=== PATIENT | female | born 1945 ===

== ENCOUNTER 2021-06-28 17:09 | Emergency (ER) | payer OTHER, SELFPAY ==
--- NOTE | ~2021-06-28 | CT_ITS ---
EXAMINATION: CT ABDOMEN AND PELVIS WITH CONTRAST CLINICAL INFORMATION: Abdominal pain COMPARISON: None TECHNIQUE: Multidetector volumetric images were obtained from the superior aspect of the liver through the pubic symphysis following administration 85 mL of Omnipaque 350 intravenous contrast. Sagittal and coronal reformatted images were obtained on the technologist's workstation. Oral contrast: No This CT examination was performed using dose optimization techniques as appropriate, variously including the following: *Automated exposure control *Adjustment of mA and/or kV according to patient size (this includes techniques or standardized protocols for targeted exams where dose is matched to indication/reason for exam; i.e. extremities or head) *Use of iterative reconstruction technique DLP: 434 mGy-cm FINDINGS: LUNG BASES: The visualized lung bases are unremarkable. LIVER, GALLBLADDER, AND BILIARY TREE: Liver is enlarged with the inferior tip of the liver extending well below the right iliac crest. No focal liver lesion seen. The gallbladder is unremarkable with no evidence of radiopaque gallstones, gallbladder wall thickening, or obvious pericholecystic inflammatory changes. PANCREAS: Unremarkable. SPLEEN: Unremarkable. ADRENAL GLANDS: Unremarkable. KIDNEYS AND URETERS: Renal hilar calcifications are most likely vascular. No hydronephrosis. Symmetric bilateral renal enhancement. BLADDER: Unremarkable. GASTROINTESTINAL TRACT: Small hiatal hernia. Stomach and small bowel are nondilated. Normal appendix. Scattered colonic diverticulosis. No evidence of colitis or diverticulitis. ABDOMINAL WALL: Small fat-containing umbilical hernia. LYMPH NODES: Normal. VASCULAR: Circumferential calcified atherosclerotic changes of the normal caliber aorta. PELVIC VISCERA: Unremarkable. OSSEOUS STRUCTURES: Chronic appearing superior endplate compression deformity of L4. Mild compression deformity of the superior endplates of T12 and L1 also chronic in appearance. Retrolisthesis L2 on L3. Altered level degenerative disc disease. Osteopenia. Degenerative changes of the sacroiliac joints and hips. CT/CT abdomen pelvis w con IMPRESSION: No acute CT findings.
[2021-06-28 17:17] VITALS: BP 143/81; PULSE 82; RESP 18; TEMP 36.6; O2SAT 98; BMI 24.3
[2021-06-28 18:21] LABS: MANUAL DIFF FLAG NO
[2021-06-28 18:23] LABS: Basophils Absolute Auto 0.1 X10*3/uL (0.0-0.2); Basophils Percent Auto 0.6 % (0-2); Eosinophils Absolute Auto 0.1 X10*3/uL (0.0-0.4); Eosinophils Percent Auto 1.3 % (0-4); Hematocrit 38.7 % (37.0-47.0); Hemoglobin 13.1 g/dl (12.0-16.0); Imm Gran Abs Auto 0.05 X10*3/uL (0.00-0.03); Imm Gran Pct Auto 0.6 % (0.0-0.4); Lymphocytes Absolute Auto 2.6 X10*3/uL (1.2-4.9); Lymphocytes Percent Auto 32.8 % (20-40); Mean Corpuscular HGB Conc 33.9 g/dl (31.0-35.0); Mean Corpuscular Volume 103.5 fL (80.0-98.0); Mean Platelet Volume 8.3 fL (9.4-12.3); Monocytes Absolute Auto 0.5 X10*3/uL (0.1-1.2); Monocytes Percent Auto 6.2 % (2-11); Neutrophils Absolute Auto 4.6 x10*3/uL (2.0-8.3); Neutrophils Percent Auto 58.5 % (45-73); Platelet Count 327 X10*3/uL (160-400); Red Blood Count 3.74 X10*6/uL (4.20-5.50); Red Cell Distribution Width 12.4 % (11.0-16.0); White Blood Count 7.9 X10*3/uL (4.8-10.8)
[2021-06-28 18:42] LABS: Anion Gap 14 (12-20); Blood Urea Nitrogen 13 mg/dL (9-16); Calcium 9.1 mg/dL (8.4-10.2); Carbon Dioxide 26 mmol/L (22-29); Chloride 104 mmol/L (96-108); Creatinine Clr Calc Pharmacy 58.3; Estimated Glomerular Filt Rate > 60; Glucose Random 95 mg/dL (60-115); Potassium 4.5 mmol/L (3.3-5.1); Sodium 139 mmol/L (135-145)
--- NOTE | 2021-06-28 20:05 | ED_ITS ---
HPI - Abdominal Pain General Chief Complaint: Abdominal Pain Stated Complaint: blood in stool/shingles/not eating well Time Seen by Provider: 06/28/21 20:05 Source: patient Mode of arrival: ambulatory Limitations: no limitations History of Present Illness HPI narrative: Patient is a 75 year old female presenting to the emergency department today with left lower quadrant abdominal pain. Patient states that she has a history of ulcerative colitis and has been having a flare for the last 2 weeks. Patient denies any dizziness, lightheadedness, fever, chills, blurry vision, double vision, loss of vision, chest pain, difficulty breathing, shortness of breath, back pain, night sweats, pain with urination, increased urinary frequency, increased urinary urgency, blood in her urine or stool, syncope or a near syncopal episode, recent trauma or falls, bowel incontinence, bladder incontinence, bowel retention, bladder retention, or any other complaints at this time. Patient states that she has a history of shingles and has chronic complications from that. Patient's caregiver states that she was concerned the patient's stool was darker than usual lately. MD elicited complaint: abdominal pain Pertinent past history: other (ulcerative colitis) Onset (ago): week(s) Pain Consistency: intermittent Location: LLQ Severity: mild Quality: dull Radiation: none Related Data Allergies Allergy/AdvReac Type Severity Reaction Status Date / Time No Known Allergies Allergy Verified 06/28/21 17:17 Review of Systems Constitutional: Reports no additional constitutional complaints, Denies chills, Denies fever(s) and Denies night sweats Eyes: Reports no additional eye complaints, Denies blurry vision, Denies change in vision, Denies diplopia, Denies eye discharge, Denies loss of vision and Denies eye pain Denies dizziness Cardiovascular: Reports no additional cardiovascular complaints, Denies chest pain, Denies lightheadedness, Denies Loss of Consciousness and Denies dyspnea Respiratory: Reports no additional respiratory complaints and Denies dyspnea Gastrointestinal: Reports no additional gastrointestinal complaints, Reports abdominal pain, Denies melena, Denies hematochezia, Denies change in bowel habits and Denies change in stool character Genitourinary: Denies hematuria, Denies urinary frequency, Denies dysuria, Denies urinary incontinence, Denies urinary hesitancy and Denies urinary urgency Musculoskeletal: Reports no additional musculoskeletal complaints, Denies numbness and Denies tingling Denies dizziness, Denies loss of vision, Denies numbness and Denies tingling Psychiatric: Reports no additional psychiatric complaints Endocrine: Reports no additional endocrine complaints Hematologic/Lymphatic: Reports no additional hematologic/lymphatic complaints Allergic/Immunologic: Reports no additional allergic/immunologic complaints PMFSH Past Medical History Attestation statement: The following information was validated with the patient. Source: old records reviewed Medical History Colitis Social History Social History Advance Directives: No Physical Exam ED Vital Signs: Vital Signs - 24 hr 06/28/21 17:17 06/28/21 20:07 06/28/21 22:29 Temperature 98 F 99.0 F 98.6 F Pulse Rate 82 86 82 Respiratory Rate 18 16 16 Blood Pressure 143/81 H 131/68 166/85 H Pulse Oximetry 98 95 96 BMI result Body Mass Index 24.3 Const General: cooperative, no acute distress, alert and awake Nutritional Appearance: well nourished Orientation/consciousness: patient oriented x3 Limitations: no limitations HENMT Head: Yes normal to inspection and Yes atraumatic Ears: hearing grossly normal bilaterally and external ears normal General nose exam: Normal external nose present, no nasal discharge noted and no epistaxis Face and sinus: Yes normal facial exam, No abrasion and No laceration Mouth: Normal oral and palatal mucosa present, no drooling and no muffled voice Eyes General: appearance normal, both eyes and all related structures Periorbital: periorbital findings normal Eyelids: Yes eyelids normal Conjunctivae: conjunctivae normal Pupils: Equal, round and reactive pupils present EOM: EOMs intact bilaterally Neck Neck: Yes normal visual inspection, Yes full ROM and Yes no lymphadenopathy Chest Chest palpation & inspection: normal inspection of the chest Resp Effort & Inspection: normal respiratory effort and able to speak in complete sentences Auscultation: clear to auscultation bilaterally Cardio Rate: regular rate Rhythm: regular rhythm GI Inspection: Yes normal to inspection Palpation (GI): Soft to palpation, not firm and Tenderness to palpation present (GI) in the LLQ Neuro General: patient oriented x3 and moves all extremities Cranial nerves: Yes Equal, round and reactive pupils present Cognition (Neuro): normal cognition Motor exam (neuro): 5/5 motor strength present throughout Sensory Exam: Normal double simultaneous stimulation for sensation Coordination: [id number] test normal Extrem General: Yes normal to inspection, Yes full ROM and Yes capillary refill normal Psych Appearance: grossly normal Mental Status: mental status grossly normal Affect: normal affect Attitude: cooperative Thought process: Normal thought process present Thought content: Normal thought content present Insight: Good insight present (Psych) MDM - Abdominal Pain MDM Narrative Medical decision making narrative: Patient is a 75 year old female presenting to the emergency department today with left sided abdominal pain. Patient's physical exam showed tenderness to palpation of the left lower abdominal quadrant but was otherwise unremarkable. Patient's blood work was unremarkable. Patient's abdominal CT showed no acute process. I explained my physical exam findings as well as all test results to the patient and the patient's caregiver. I answered all questions asked by the patient and the patient's caregiver. I stressed the importance of the patient taking her medication as prescribed. I stressed the importance of the patient following up with her primary care provider and GI specialist. I stressed the importance of the patient returning to the emergency department immediately if her symptoms were to worsen or if she were to develop any dizziness, shortness of breath, difficulty breathing, chest pain, blurry vision, loss of vision, nausea, vomiting, abdominal pain, fever, chills, back pain, or any other complaints. Patient and the patient's caregiver verbalized agreement and understanding with this treatment plan and discharge. Differential Diagnosis Differential diagnosis: Likely abdominal pain and gastritis Differential diagnosis narrative:: ulcerative colitis flare Medical Records Attestation: I reviewed the patient's medical records. Lab Data Attestation: I reviewed the patient's lab results. Result diagrams: 06/28/21 18:17 06/28/21 18:17 Labs: Lab Results 06/28/21 06/28/21 Range/Units 18:17 18:17 WBC 7.9 (4.8-10.8) X10*3/uL RBC 3.74 L (4.20-5.50) X10*6/uL Hgb 13.1 (12.0-16.0) g/dl Hct 38.7 (37.0-47.0) % MCV 103.5 H (80.0-98.0) fL MCH 35.0 H (27.0-33.0) pg MCHC 33.9 (31.0-35.0) g/dl RDW 12.4 (11.0-16.0) % Plt Count 327 (160-400) X10*3/uL MPV 8.3 L (9.4-12.3) fL Immature Gran % (Auto) 0.6 H (0.0-0.4) % Neut % (Auto) 58.5 (45-73) % Lymph % (Auto) 32.8 (20-40) % [place] % (Auto) 6.2 (2-11) % Eos % (Auto) 1.3 (0-4) % Baso % (Auto) 0.6 (0-2) % Lymph # (Auto) 2.6 (1.2-4.9) X10*3/uL [place] # (Auto) 0.5 (0.1-1.2) X10*3/uL Eos # (Auto) 0.1 (0.0-0.4) X10*3/uL Baso # (Auto) 0.1 (0.0-0.2) X10*3/uL Abs Immat Gran (auto) 0.05 H (0.00-0.03) X10*3/uL Absolute Neuts (auto) 4.6 (2.0-8.3) x10*3/uL Absolute Nucleated RBC 0.000 (0.0-0.012) X10*3/uL Nucleated RBC % (auto) 0.0 (0.0-0.2) /100WBC Sodium 139 (135-145) mmol/L Potassium 4.5 (3.3-5.1) mmol/L Chloride 104 (96-108) mmol/L Carbon Dioxide 26 (22-29) mmol/L Anion Gap 14 (12-20) BUN 13 (9-16) mg/dL Creatinine 0.71 (0.5-1.4) mg/dL Estim Creat Clear Calc 58.3 Estimated GFR > 60 Random Glucose 95 (60-115) mg/dL Calcium 9.1 (8.4-10.2) mg/dL Imaging Data CT scan - abdomen: Attestation: I personally reviewed and interpreted this imaging study as follows: Radiologist's impression: EXAMINATION: CT ABDOMEN AND PELVIS WITH CONTRAST? CLINICAL INFORMATION: Abdominal pain? COMPARISON: None? TECHNIQUE: Multidetector volumetric images were obtained from the superior aspect of the liver through the pubic symphysis following administration 85 mL of Omnipaque 350 intravenous contrast. Sagittal and coronal reformatted images were obtained on the technologist's workstation.? Oral contrast: No This CT examination was performed using dose optimization techniques as appropriate, variously including the following: *Automated exposure control *Adjustment of mA and/or kV according to patient size (this includes techniques or standardized protocols for targeted exams where dose is matched to indication/reason for exam; i.e. extremities or head) *Use of iterative reconstruction technique DLP: 434 mGy-cm FINDINGS: LUNG BASES: The visualized lung bases are unremarkable.? LIVER, GALLBLADDER, AND BILIARY TREE: Liver is enlarged with the inferior tip of the liver extending well below the right iliac crest. No focal liver lesion seen. The gallbladder is unremarkable with no evidence of radiopaque gallstones, gallbladder wall thickening, or obvious pericholecystic inflammatory changes.? PANCREAS: Unremarkable.? SPLEEN: Unremarkable.? ADRENAL GLANDS: Unremarkable.? KIDNEYS AND URETERS: Renal hilar calcifications are most likely vascular. No hydronephrosis. Symmetric bilateral renal enhancement. ? BLADDER: Unremarkable.? GASTROINTESTINAL TRACT: Small hiatal hernia. Stomach and small bowel are nondilated. Normal appendix. Scattered colonic diverticulosis. No evidence of colitis or diverticulitis.? ABDOMINAL WALL: Small fat-containing umbilical hernia.? LYMPH NODES: Normal. VASCULAR: Circumferential calcified atherosclerotic changes of the normal caliber aorta. PELVIC VISCERA: Unremarkable.? OSSEOUS STRUCTURES: Chronic appearing superior endplate compression deformity of L4. Mild compression deformity of the superior endplates of T12 and L1 also chronic in appearance. Retrolisthesis L2 on L3. Altered level degenerative disc disease. Osteopenia. Degenerative changes of the sacroiliac joints and hips.? CT/CT abdomen pelvis w con IMPRESSION: No acute CT findings.? Dictated By: ROGELIO SWARTZ MD Signed By: Electronically signed by ROGELIO SWARTZ MD 06/28/21 [id number] Discharge Plan Discharge Clinical Impression: Abdominal pain Patient Disposition: Home, Self-Care Instructions: Abdominal Pain (ED) Additional Instructions: Follow up with your primary care provider. Return to the emergency department immediately if your symptoms worsen or if you develop any dizziness, shortness of breath, difficulty breathing, chest pain, blurry vision, loss of vision, nausea, vomiting, abdominal pain, fever, chills, back pain, or any other complaints. Interventions: ED Discharge Assessment Last Done: 06/28/21 22:46 Discharge Date/Time: 06/28/21 22:48 Print Language: Portuguese
[2021-06-28 20:07] VITALS: BP 131/68; PULSE 86; RESP 16; TEMP 37.2; O2SAT 95
[2021-06-28] MEDS: iohexoL 350 MG/ML 100 ML INFUS..BTL IV (20:54)
[2021-06-28 22:29] VITALS: BP 166/85; PULSE 82; RESP 16; TEMP 37; O2SAT 96
== END 2021-06-28 22:48 | disposition home or self-care (01) ==
PROVIDERS: Emergency Provider Emergency Medicine
DX: R10.32 Left lower quadrant pain (principal)
CPT/HCPCS: 36415; 74177; 80048; 85025; 99283; 99284; Q9967

== ENCOUNTER 2021-07-18 15:26 | Emergency (ER) | payer OTHER, SELFPAY ==
[2021-07-18 16:29] VITALS: BP 110/70; PULSE 92; RESP 18; TEMP 37.1; O2SAT 96; BMI 23.0
[2021-07-18 16:45] LABS: MANUAL DIFF FLAG NO
[2021-07-18 16:47] LABS: Basophils Absolute Auto 0.1 X10*3/uL (0.0-0.2); Basophils Percent Auto 0.8 % (0-2); Eosinophils Absolute Auto 0.1 X10*3/uL (0.0-0.4); Eosinophils Percent Auto 1.2 % (0-4); Hematocrit 40.5 % (37.0-47.0); Hemoglobin 13.5 g/dl (12.0-16.0); Imm Gran Abs Auto 0.04 X10*3/uL (0.00-0.03); Imm Gran Pct Auto 0.6 % (0.0-0.4); Lymphocytes Absolute Auto 2.5 X10*3/uL (1.2-4.9); Lymphocytes Percent Auto 33.7 % (20-40); Mean Corpuscular HGB Conc 33.3 g/dl (31.0-35.0); Mean Corpuscular Hemoglobin 34.8 pg (27.0-33.0); Mean Corpuscular Volume 104.4 fL (80.0-98.0); Mean Platelet Volume 8.5 fL (9.4-12.3); Monocytes Absolute Auto 0.4 X10*3/uL (0.1-1.2); Monocytes Percent Auto 5.8 % (2-11); Neutrophils Absolute Auto 4.2 x10*3/uL (2.0-8.3); Neutrophils Percent Auto 57.9 % (45-73); Platelet Count 306 X10*3/uL (160-400); Red Blood Count 3.88 X10*6/uL (4.20-5.50); Red Cell Distribution Width 12.3 % (11.0-16.0); White Blood Count 7.3 X10*3/uL (4.8-10.8)
[2021-07-18 16:55] LABS: Appearance Urine HAZY; Color Urine YELLOW; Glucose Urine UA NEG (NEG); Leukocyte Esterase Urine 1+ (NEG); Nitrite Urine POS (NEG); PH 5.5 (5.0-8.0); Specific Gravity - Urine >= 1.030 (1.005-1.025); UACC Culture Trigger YES; Urine Blood TRACE (NEG); Urine Ketones NEG (NEG); Urine Protein NEG (NEG-TRACE)
[2021-07-18 17:08] LABS: Alanine Aminotransferase 6 U/L (0-31); Alkaline Phosphatase 60 U/L (39-117); Anion Gap 12 (12-20); Aspartate Amino Transferase 13 U/L (5-31); Bilirubin Total 0.2 mg/dL (0.0-1.0); Blood Urea Nitrogen 14 mg/dL (9-16); Calcium 9.3 mg/dL (8.4-10.2); Carbon Dioxide 24 mmol/L (22-29); Chloride 106 mmol/L (96-108); Creatinine Clr Calc Pharmacy 57.5; Estimated Glomerular Filt Rate > 60; Glucose Random 131 mg/dL (60-115); Potassium 4.2 mmol/L (3.3-5.1); Sodium 138 mmol/L (135-145); Total Protein 7.4 g/dL (6.5-8.0)
[2021-07-18 17:18] LABS: Bacteria Urine 4+ /LPF; Mucus Urine TRACE /LPF; Renal Epithelial Cells Urine TRACE /LPF; Squamous Epithelial Cell Urine 2+ /LPF; WBC Clumps Urine NOTED
--- NOTE | 2021-07-18 21:53 | ED_ITS ---
HPI - Abdominal Pain General Chief Complaint: Abdominal Pain Stated Complaint: sharp side abd pain/cant eat Time Seen by Provider: 07/18/21 21:40 Source: patient and other ([facility] staff) Mode of arrival: ambulatory Limitations: no limitations History of Present Illness HPI narrative: Patient comes to the emergency room complaining of left lower quadrant pain. Findings the correction staff and the patient, the pain has been present for 1 year. Patient states that occasionally she sees black stool. Denies fresh rectal bleeding. Patient also complaining of foul-smelling urine. Patient denies flank pain Of note, patient was seen 3 weeks ago, CT scan showed no acute abnormalities. Patient states that the pain that she feels today is the same that she has been having intermittently for the last year. Patient denies fever chills. On her last visit, patient was instructed follow-up with Gastroenterology, patient has not scheduled an appointment yet with Gastroenterology, has an appointment pending with her new PCP in 2 months from now. Related Data Previous Rx's Medication Instructions Recorded cyanocobalamin (vitamin B-12) 1,000 mcg PO DAILY #30 cap 07/18/21 1,000 mcg capsule folic acid 400 mcg tablet 0.4 mg PO DAILY #30 tab 07/18/21 levofloxacin 500 mg tablet 500 mg PO DAILY #7 tab 07/18/21 Allergies Allergy/AdvReac Type Severity Reaction Status Date / Time No Known Allergies Allergy Verified 07/18/21 16:29 Review of Systems Review of Systems Constitutional : No Weight loss, No Fever, No Chills, No Night Sweats, No Fatigue, No Malaise ENT/Mouth : No Hearing loss, No Ear Pain, No Nasal Congestion, No Sinus Pain, No Hoarseness, No sore throat, No Rhinorrhea, No Swallowing Difficulty Eyes: No Eye Pain, No Swelling, No Redness, No Foreign Body, No Discharge, No Vision Changes Cardiovascular : No Chest Pain, No SOB, No Dyspnea on Exertion, No Orthopnea, No Edema, No Palpitations Respiratory : No Cough, No Sputum, No Wheezing, No Smoke Exposure, No Dyspnea Gastrointestinal : No Nausea, No Vomiting, No Diarrhea, No Constipation, complaining of left lower quadrant pain, intermittent, chronic. Also complaining of intermittent black stools. Genitourinary : no irregular bleeding, No Dysuria but complaining of foul- smelling urine, No Urinary Frequency, No Hematuria, No Urinary Incontinence, No Urgency, No Flank Pain, No Urinary Flow Changes, No Hesitancy Musculoskeletal : No joint pain, No Myalgias, No Joint Swelling Skin : No Skin Lesions, No rash Neuro : No Weakness, No Numbness, No Paresthesias, No Loss of Consciousness, No Dizziness, No Headache Psych : No Anxiety/Panic, No Depression, No SI/HI/AH/VH, No Social Issues, Heme/Lymph: No Bruising, No Bleeding,No Lymphadenopathy Endocrine : No Polyuria, No Polydipsia, No Temperature Intolerance [facility] Past Medical History Medical History Colitis Social History Social History Advance Directives: No Advance Directives Information Provided: No Physical Exam ED Vital Signs: Vital Signs - 24 hr 07/18/21 16:29 07/18/21 22:39 Temperature 98.7 F Pulse Rate 92 82 Respiratory Rate 18 18 Blood Pressure 110/70 143/77 H Pulse Oximetry 96 97 BMI result Body Mass Index 23.0 Const Other: Appearance: Alert. Oriented X3. No acute distress. Well-appearing Eyes: Pupils equal, round and reactive to light. ENT: Pharynx normal. Neck: Normal inspection. Neck supple. No lymph nodes noted. No crepitus CVS: Normal heart rate and rhythm. Pulses normal. Normal S1 and S2 Respiratory: No respiratory distress. Breath sounds normal. No Wheezing. No rales Abdomen: Soft , seems not tender on deep palpation even the left lower quadrant. Back: No CVA tenderness Skin: Skin warm and dry. Normal skin color. Normal skin turgor. Extremities: No lower extremity edema. No Lacerations. No Rash Neuro: Oriented X 3. No motor deficit. No sensory deficit. Moving all extremities. No slurred speech. CN 2 through 12 grossly intact Psych: calm, cooperative, normal affect Course Course Course Narrative: Patient's labs are unchanged from her last previous visit. Physical exam is relatively benign, at this time, CT scan is not recommended. Patient agreed to a rectal exam for guaiac test, which was negative for occult blood. I discussed with the patient and her healthcare taker that patient needs a colonoscopy. Patient will follow-up with Gastroenterology. Patient's MCV 104. Patient will be started on [place] in B12 and folate MDM - Abdominal Pain Lab Data Result diagrams: 07/18/21 16:40 07/18/21 16:40 Labs: Lab Results 07/18/21 07/18/21 07/18/21 Range/Units 16:40 16:40 16:50 WBC 7.3 (4.8-10.8) X10*3/uL RBC 3.88 L (4.20-5.50) X10*6/uL Hgb 13.5 (12.0-16.0) g/dl Hct 40.5 (37.0-47.0) % MCV 104.4 H (80.0-98.0) fL MCH 34.8 H (27.0-33.0) pg MCHC 33.3 (31.0-35.0) g/dl RDW 12.3 (11.0-16.0) % Plt Count 306 (160-400) X10*3/uL MPV 8.5 L (9.4-12.3) fL Immature Gran % (Auto) 0.6 H (0.0-0.4) % Neut % (Auto) 57.9 (45-73) % Lymph % (Auto) 33.7 (20-40) % [place] % (Auto) 5.8 (2-11) % Eos % (Auto) 1.2 (0-4) % Baso % (Auto) 0.8 (0-2) % Lymph # (Auto) 2.5 (1.2-4.9) X10*3/uL [place] # (Auto) 0.4 (0.1-1.2) X10*3/uL Eos # (Auto) 0.1 (0.0-0.4) X10*3/uL Baso # (Auto) 0.1 (0.0-0.2) X10*3/uL Abs Immat Gran (auto) 0.04 H (0.00-0.03) X10*3/uL Absolute Neuts (auto) 4.2 (2.0-8.3) x10*3/uL Absolute Nucleated RBC 0.000 (0.0-0.012) X10*3/uL Nucleated RBC % (auto) 0.0 (0.0-0.2) /100WBC Sodium 138 (135-145) mmol/L Potassium 4.2 (3.3-5.1) mmol/L Chloride 106 (96-108) mmol/L Carbon Dioxide 24 (22-29) mmol/L Anion Gap 12 (12-20) BUN 14 (9-16) mg/dL Creatinine 0.72 (0.5-1.4) mg/dL Estim Creat Clear Calc 57.5 Estimated GFR > 60 Random Glucose 131 H (60-115) mg/dL Calcium 9.3 (8.4-10.2) mg/dL Total Bilirubin 0.2 (0.0-1.0) mg/dL AST 13 (5-31) U/L ALT 6 (0-31) U/L Alkaline Phosphatase 60 (39-117) U/L Total Protein 7.4 (6.5-8.0) g/dL Albumin 4.0 (3.5-5.0) g/dL Urine Color YELLOW Urine Appearance HAZY Urine pH 5.5 (5.0-8.0) Ur Specific [place] >= 1.030 H (1.005-1.025) Urine Protein NEG (NEG-TRACE) MG/DL Urine Glucose (UA) NEG (NEG) MG/DL Urine Ketones NEG (NEG) MG/DL Urine Blood TRACE (NEG) Urine Nitrite POS H (NEG) Ur Leukocyte Esterase 1+ H (NEG) Urine RBC 1-4 (0) /HPF Urine WBC 10-14 H (0-4) /HPF Urine WBC Clumps NOTED Ur Squamous Epith Cells 2+ /LPF Ur Renal Epithelial Cell TRACE /LPF Urine Bacteria 4+ /LPF Urine Mucus TRACE /LPF Stool Occult Blood (NEGATIVE) 07/18/21 Range/Units 22:22 WBC (4.8-10.8) X10*3/uL RBC (4.20-5.50) X10*6/uL Hgb (12.0-16.0) g/dl Hct (37.0-47.0) % MCV (80.0-98.0) fL MCH (27.0-33.0) pg MCHC (31.0-35.0) g/dl RDW (11.0-16.0) % Plt Count (160-400) X10*3/uL MPV (9.4-12.3) fL Immature Gran % (Auto) (0.0-0.4) % Neut % (Auto) (45-73) % Lymph % (Auto) (20-40) % [place] % (Auto) (2-11) % Eos % (Auto) (0-4) % Baso % (Auto) (0-2) % Lymph # (Auto) (1.2-4.9) X10*3/uL [place] # (Auto) (0.1-1.2) X10*3/uL Eos # (Auto) (0.0-0.4) X10*3/uL Baso # (Auto) (0.0-0.2) X10*3/uL Abs Immat Gran (auto) (0.00-0.03) X10*3/uL Absolute Neuts (auto) (2.0-8.3) x10*3/uL Absolute Nucleated RBC (0.0-0.012) X10*3/uL Nucleated RBC % (auto) (0.0-0.2) /100WBC Sodium (135-145) mmol/L Potassium (3.3-5.1) mmol/L Chloride (96-108) mmol/L Carbon Dioxide (22-29) mmol/L Anion Gap (12-20) BUN (9-16) mg/dL Creatinine (0.5-1.4) mg/dL Estim Creat Clear Calc Estimated GFR Random Glucose (60-115) mg/dL Calcium (8.4-10.2) mg/dL Total Bilirubin (0.0-1.0) mg/dL AST (5-31) U/L ALT (0-31) U/L Alkaline Phosphatase (39-117) U/L Total Protein (6.5-8.0) g/dL Albumin (3.5-5.0) g/dL Urine Color Urine Appearance Urine pH (5.0-8.0) Ur Specific [place] (1.005-1.025) Urine Protein (NEG-TRACE) MG/DL Urine Glucose (UA) (NEG) MG/DL Urine Ketones (NEG) MG/DL Urine Blood (NEG) Urine Nitrite (NEG) Ur Leukocyte Esterase (NEG) Urine RBC (0) /HPF Urine WBC (0-4) /HPF Urine WBC Clumps Ur Squamous Epith Cells /LPF Ur Renal Epithelial Cell /LPF Urine Bacteria /LPF Urine Mucus /LPF Stool Occult Blood NEGATIVE (NEGATIVE) Discharge Plan Discharge Clinical Impression: Abdominal pain, chronic, left lower quadrant, Acute UTI, Anemia Patient Disposition: Home, Self-Care Instructions: Anemia (ED), Urinary Tract Infection in Older Adults (ED) Additional Instructions: Please follow-up with your primary care physician tomorrow. If you have any worsening or new symptoms, please return to the emergency room or call 911 Prescriptions: New levofloxacin 500 mg tablet 500 mg PO DAILY Qty: 7 0RF folic acid 400 mcg tablet 0.4 mg PO DAILY Qty: 30 0RF cyanocobalamin (vitamin B-12) 1,000 mcg capsule 1,000 mcg PO DAILY Qty: 30 0RF
[2021-07-18 22:29] LABS: OBS Int Ctl Valid YES; OBS1 NEGATIVE (NEGATIVE)
[2021-07-18] MEDS: levoFLOXacin 500 MG TABLET PO (22:37)
[2021-07-18 22:39] VITALS: BP 143/77; PULSE 82; RESP 18; O2SAT 97
== END 2021-07-18 23:45 | disposition home or self-care (01) ==
PROVIDERS: Emergency Provider Emergency Medicine; PCP Internal Medicine
DX: N39.0 Urinary tract infection, site not specified (principal); B96.20 Unspecified Escherichia coli [E. coli] as the cause of diseases classified elsewhere; R10.32 Left lower quadrant pain; D64.9 Anemia, unspecified; F17.200 Nicotine dependence, unspecified, uncomplicated
CPT/HCPCS: 36415; 80053; 81001; 82272; 85025; 87086; 87088; 87186; 99283

== ENCOUNTER 2021-07-26 11:34 | Outpatient (REF) | payer OTHER, SELFPAY ==
--- NOTE | ~2021-07-26 | XR_ITS ---
EXAMINATION: XR CHEST CLINICAL INFORMATION: Nicotine dependence COMPARISON: CT abdomen pelvis 06/28/2021 TECHNIQUE: 2 views of the chest were obtained. FINDINGS: No focal consolidation, pleural effusion or pneumothorax. Heart size is normal. Tortuous and atherosclerotic thoracic aorta. Small hiatal hernia. No acute osseous abnormality. XR/XR chest 2V IMPRESSION: No acute pulmonary process is identified. If lung cancer screening is desired, consider low dose screening chest CT for better cancer detection sensitivity.
[2021-07-26 12:04] LABS: MANUAL DIFF FLAG NO
[2021-07-26 12:33] LABS: Basophils Percent Auto 0.6 % (0-2); Eosinophils Absolute Auto 0.1 X10*3/uL (0.0-0.4); Eosinophils Percent Auto 1.5 % (0-4); Hematocrit 38.5 % (37.0-47.0); Hemoglobin 12.8 g/dl (12.0-16.0); Imm Gran Abs Auto 0.07 X10*3/uL (0.00-0.03); Imm Gran Pct Auto 1.1 % (0.0-0.4); Lymphocytes Absolute Auto 1.9 X10*3/uL (1.2-4.9); Lymphocytes Percent Auto 29.7 % (20-40); Mean Corpuscular HGB Conc 33.2 g/dl (31.0-35.0); Mean Corpuscular Hemoglobin 34.8 pg (27.0-33.0); Mean Corpuscular Volume 104.6 fL (80.0-98.0); Mean Platelet Volume 8.5 fL (9.4-12.3); Monocytes Absolute Auto 0.6 X10*3/uL (0.1-1.2); Monocytes Percent Auto 8.9 % (2-11); Neutrophils Absolute Auto 3.8 x10*3/uL (2.0-8.3); Neutrophils Percent Auto 58.2 % (45-73); Platelet Count 274 X10*3/uL (160-400); Red Blood Count 3.68 X10*6/uL (4.20-5.50); White Blood Count 6.5 X10*3/uL (4.8-10.8)
[2021-07-26 12:49] LABS: Appearance Urine CLEAR; Color Urine YELLOW; Glucose Urine UA NEG (NEG); Leukocyte Esterase Urine 1+ (NEG); Nitrite Urine NEG (NEG); Specific Gravity - Urine >= 1.030 (1.005-1.025); UACC Culture Trigger YES; Urine Blood NEG (NEG); Urine Ketones NEG (NEG); Urine Protein NEG (NEG-TRACE)
[2021-07-26 13:08] LABS: Erythrocyte Sedimentation Rate 46 MM/HR (0-20)
[2021-07-26 13:15] LABS: Mucus Urine 1+ /LPF; RBC Urine 0 /HPF (0); Squamous Epithelial Cell Urine 1+ /LPF
[2021-07-26 13:53] LABS: Alanine Aminotransferase 6 U/L (0-31); Albumin Level 3.9 g/dL (3.5-5.0); Alkaline Phosphatase 55 U/L (39-117); Anion Gap 13 (12-20); Aspartate Amino Transferase 12 U/L (5-31); Bilirubin Total 0.6 mg/dL (0.0-1.0); Blood Urea Nitrogen 15 mg/dL (9-16); Calcium 9.4 mg/dL (8.4-10.2); Carbon Dioxide 28 mmol/L (22-29); Chloride 102 mmol/L (96-108); Cholesterol 292 mg/dL; Estimated Glomerular Filt Rate > 60; Glucose Fasting 86 mg/dL (60-99); HDL Cholesterol 38 mg/dL; LDL Cholesterol Calculated 182 mg/dl; Potassium 4.3 mmol/L (3.3-5.1); Sodium 139 mmol/L (135-145); Triglycerides 364 mg/dL
[2021-07-26 14:02] LABS: TSH reflex Free T4 1.35 uIU/mL (0.32-4.0)
[2021-07-26 14:16] LABS: Folate 5.5 ng/mL (> or = 4.0); Vitamin B12 566 pg/mL (200-900)
[2021-07-27 15:32] LABS: Vitamin D 25-OH Total 35.6 ng/mL (>30)
== END 2021-07-26 11:35 | disposition home or self-care (01) ==
LOC: HO.LAB 11:34
PROVIDERS: PCP Internal Medicine; Visit Provider Internal Medicine
DX: Z00.00 Encounter for general adult medical examination without abnormal findings (principal); D75.89 Other specified diseases of blood and blood-forming organs; F17.200 Nicotine dependence, unspecified, uncomplicated; R05.9 Cough, unspecified; R10.32 Left lower quadrant pain; E55.9 Vitamin D deficiency, unspecified; G89.29 Other chronic pain
CPT/HCPCS: 36415; 71046; 80053; 80061; 81001; 82306; 82607; 82746; 84443; 85025; 85652; 87086

== ENCOUNTER 2021-08-22 13:22 | Outpatient (REF) | payer OTHER, SELFPAY ==
[2021-08-22 15:42] LABS: Amylase 110 U/L (28-100); C Reactive Protein 0.28 mg/dL (< or = 0.50); Lipase 48 U/L (8-78)
[2021-08-23 14:57] LABS: Transglutaminase Ab IgG <1.0 U/mL; Transglutaminase IgA <1.0 U/mL
== END 2021-08-22 13:23 | disposition home or self-care (01) ==
LOC: HO.LAB 13:22
PROVIDERS: PCP Internal Medicine; Referring Provider Internal Medicine; Visit Provider Nurse Practitioner Family
DX: R10.32 Left lower quadrant pain (principal); K21.9 Gastro-esophageal reflux disease without esophagitis; K58.2 Mixed irritable bowel syndrome; G89.29 Other chronic pain
CPT/HCPCS: 36415; 82150; 83690; 86140; 86364; 99202

== ENCOUNTER 2021-08-25 14:11 | Outpatient (REF) | payer OTHER, SELFPAY ==
[2021-09-04 20:32] LABS: Pancreatic Elastase-1 >500 mcg/g
== END 2021-08-25 14:12 | disposition home or self-care (01) ==
LOC: HO.LNP 14:11
PROVIDERS: Visit Provider Nurse Practitioner Family
DX: R10.9 Unspecified abdominal pain (principal)
CPT/HCPCS: 82656

== ENCOUNTER → 2021-09-26 15:41 | Outpatient (BNVA) | payer OTHER, SELFPAY | PROVIDERS: PCP Internal Medicine; Referring Provider Internal Medicine; Visit Provider Nurse Practitioner Family | DX: R10.32 Left lower quadrant pain (principal); G89.29 Other chronic pain; K21.9 Gastro-esophageal reflux disease without esophagitis; Z79.899 Other long term (current) drug therapy | CPT/HCPCS: 99212 ==

== ENCOUNTER 2021-12-12 12:51 | Outpatient (REF) | payer OTHER, SELFPAY ==
--- NOTE | ~2021-12-12 | MM_ITS ---
EXAMINATION: MM SCREENING DIGITAL BREAST TOMOSYNTHESIS, BILATERAL CLINICAL INFORMATION: Screening. Asymptomatic. Age 76. Prior benign right breast surgery by patient history. Remote prior outside mammography at unknown facility. No local prior outside mammography by the radiology staff local search. The lifetime risk of breast cancer based on the Tyrer-Cuzick Model is 3%. COMPARISON: None. TECHNIQUE: Digital breast tomosynthesis is performed in both the craniocaudal and mediolateral oblique views along with computer-aided detection (CAD). Synthesized 2D images are generated from the tomosynthesis. FINDINGS: The breasts are heterogeneously dense, which may obscure small masses (ACR BI-RADS breast composition Category c). There is fibronodular parenchymal pattern. No architectural abnormality. There are scattered benign coarse calcification regionally distributed right breast upper outer quadrant and lesser central left breast. The skin contours are smooth. There are surgical clips right upper outer quadrant and right axilla. Right breast has circumscribed 0.7 cm nodule mid 9:00 position possibly intramammary node. As there are no available prior studies for comparison, patient will be recalled to fully characterize. MM/MM tomosynthesis screening BI IMPRESSION: Right: -Circumscribed nodule under 1 cm mid 9:00 position. -Minor post surgical changes. Left: -No mammographic evidence of malignancy. ASSESSMENT: BI-RADS 0: Incomplete - Need Additional Imaging Evaluation RECOMMENDATION: 1. Targeted ultrasound right breast. 2. Radiology department staff will contact the patient for additional imaging. This patient's information was entered into a reminder system with a target due date for their next mammogram.
--- NOTE | ~2021-12-12 | MM_ITS ---
EXAMINATION: BONE DENSITOMETRY CLINICAL INDICATION: Asymptomatic menopausal state. COMPARISON: This is the patient's baseline examination. TECHNIQUE: Using a [employer] [address] DXA System (software version: 13.1) manufactured by [employer], dual-energy x-ray absorptiometry was performed of the lumbar spine and left hip. The images are of good technical quality. Summary results are attached. FINDINGS: AP SPINE L1-L4: BMD 0.921 g/cm2, Z-score -0.6, T-score -2.2, osteopenia. LEFT FEMUR, NECK: BMD 0.558 g/cm2, Z-score -1.7, T-score -3.5, osteoporosis. LEFT FEMUR, TOTAL: BMD 0.554 g/cm2, Z-score -2.0, T-score -3.6, osteoporosis. IDENTIFIED RISK FACTORS: Early menopause, secondary osteoporosis, hysterectomy, bilateral oophorectomy, tobacco use (current smoker), alcohol, 3 or more units per day. HISTORY OF FRACTURE: None listed. MEDICATIONS: Calcium supplements or multivitamin, vitamin D. MM/XR DEXA axial skeleton IMPRESSION: 1. DIAGNOSIS: Osteoporosis based on the lowest T-score value of -3.6 in the total femur applying World Health Organization criteria. 2. 10-YEAR FRACTURE RISK PREDICTION, FRAX: According to the guidelines, FRAX calculation should only be performed on patients in the osteopenia bone density category. Therefore, FRAX was not performed on this patient. 3. Treatment Recommendations: NOF guidelines recommend consideration for treatment in postmenopausal women and men age 50 and older presenting with the following: -A hip or vertebral (clinical or morphometric) fracture. -T-score less than or equal to -2.5 at the femoral neck or spine after appropriate evaluation to exclude secondary causes. -Low bone mass at the hip or spine and a 10-year fracture probability by FRAX of greater than or equal to 3% for hip fracture or greater than or equal to 20% for major osteoporotic fracture based on the [place] adapted WHO algorithm. 4. Other Recommendations: All treatment decisions require clinical judgment and consideration of individual patient factors, including patient preferences, comorbidities, previous drug use, risk factors not captured in the FRAX model (e.g. frailty, falls, vitamin D deficiency, increased bone turnover, interval significant decline in bone density) and possible under or overestimation of fracture risk by FRAX. Additional medical evaluation for secondary cause of low bone mineral density may be appropriate. FUTURE SCAN RECOMMENDATION: People with diagnosed cases of osteoporosis or at high risk for fracture should have regular bone mineral density tests. For patients eligible for Medicare, routine testing is allowed once every 2 years. The testing frequency can be increased to one year for patients who have rapidly progressing disease, those who are receiving or discontinuing medical therapy to restore bone mass, or have additional risk factors.
== END 2021-12-12 12:52 | disposition home or self-care (01) ==
LOC: HO.MAMMO 12:51
PROVIDERS: Visit Provider Internal Medicine
DX: Z12.31 Encounter for screening mammogram for malignant neoplasm of breast (principal); Z13.820 Encounter for screening for osteoporosis; Z78.0 Asymptomatic menopausal state
CPT/HCPCS: 77063; 77067; 77080

== ENCOUNTER 2021-12-22 09:46 | Outpatient (REF) | payer OTHER, SELFPAY ==
--- NOTE | ~2021-12-22 | US_ITS ---
EXAMINATION: US DIAGNOSTIC ULTRASOUND BREAST, RIGHT CLINICAL INFORMATION: Nodule mid outer right breast on new baseline screening mammography. COMPARISON: Mammography 12/12/2021 (new baseline). TECHNIQUE: Ultrasound right breast is targeted to the outer breast. Grayscale imaging and color Doppler are performed without and with harmonics. FINDINGS: There is a circumscribed solid nodule just beneath the skin 9:00 position 4 cm from nipple and measuring 0.8 x 0.5 x 0.6 cm. There is strong associated peripheral or internal color flow. No posterior acoustic enhancement or shadowing. No claw sign with the skin to suggest lesion of dermal origin. Finding corresponds to the nodule on mammography, possibly papillary or other lesion. Results are discussed with the patient at time of visit. Ultrasound-guided core biopsy is recommended. Patient is in agreement. US/US breast RT limited IMPRESSION: Solid nodule superficial 9:00 right breast with prominent internal color flow corresponding to recent mammography measuring approximately 0.8 cm in greatest dimension. ASSESSMENT: BI-RADS 4: Suspicious RECOMMENDATION: Ultrasound-guided core biopsy right breast nodule. This patient's information was entered into a reminder system with a target due date for their next mammogram.
== END 2021-12-22 09:47 | disposition home or self-care (01) ==
LOC: HO.MAMMO 09:46
PROVIDERS: PCP Internal Medicine; Visit Provider Internal Medicine
DX: N63.15 Unspecified lump in the right breast, overlapping quadrants (principal)
CPT/HCPCS: 76642

== ENCOUNTER 2021-12-28 09:01 | Outpatient (REF) | payer OTHER, SELFPAY ==
--- NOTE | ~2021-12-28 | MM_ITS ---
PROCEDURE: US GUIDED BREAST BIOPSY, RIGHT CLINICAL INFORMATION: Hypervascular right breast mass 9:00 position 4 cm from the nipple. COMPARISON: December 22, 2021 PROCEDURAL DETAILS: The details of the procedure, as well as the risks, benefits, and alternatives to the procedure were explained to the patient in detail and all of her questions were answered, after which written informed consent was obtained. Site and side were confirmed. Prior to the procedure, sonography revealed a well-circumscribed hyperechoic lesion at the 9:00 position 4 cm from the nipple.. A time-out was performed, the lesion intended for biopsy was targeted, and the skin of the right breast was then prepped and draped in the usual sterile fashion. Using sonographic guidance, sterile technique, and 1% lidocaine without epinephrine for local anesthesia, multiple automated core biopsies were obtained through the targeted area with a 14G spring loaded Achieve core biopsy device. There was real-time confirmation of appropriate needle passage. Sampling was documented. At the completion of tissue sampling, a single open coil metallic clip was deposited at the biopsy site. There was no evidence of immediate complication. SPECIMEN: An appropriate sample was obtained. DIGITAL POST-PROCEDURE MAMMOGRAPHY: Breast density: The tissue is heterogeneously dense which may obscure small masses. BI-RADS version 5, category C. There are no new mammographic findings demonstrated. The postprocedure 2-view direct digital mammogram reveals satisfactory positioning of the biopsy clip. The patient tolerated the procedure well and, after assuring adequate hemostasis, was discharged in good condition after reviewing postbiopsy breast care instructions. Final pathology results are pending. MM/MM tomosynthesis diagnostic RT IMPRESSION: 1. No immediate complication from ultrasound-guided percutaneous biopsy right breast. 2. Ultrasound was used to localize and guide marker clip placement. 3. The 2-view direct digital postprocedure mammogram reveals satisfactory positioning of the biopsy clip. 4. Final pathology results are pending. A separate report with final recommendations will be issued once these results are made available.
[2021-12-28] MEDS: Lidocaine HCl 1 % 20 ML VIAL 10 ML SUBCUT (10:21)
== END 2021-12-28 09:02 | disposition home or self-care (01) ==
LOC: HO.MAMMO 09:01
PROVIDERS: PCP Internal Medicine; Visit Provider Surgery
DX: R92.8 Other abnormal and inconclusive findings on diagnostic imaging of breast (principal)
CPT/HCPCS: 19285; 77061; 77065; 88305; 88341; 88342; 99202; A4648

== ENCOUNTER → 2022-01-02 14:14 | Outpatient (BNVA) | payer OTHER, SELFPAY | PROVIDERS: PCP Internal Medicine; Visit Provider Surgery | DX: Z48.02 Encounter for removal of sutures (principal) | CPT/HCPCS: 99211 ==

== ENCOUNTER 2022-02-08 08:09 | Day surgery (SDC) | payer OTHER, SELFPAY ==
[2022-02-05 10:49] VITALS: BMI 26.4
--- NOTE | 2022-02-07 12:27 | P.CONAN_ITS ---
Documented by User: Rosa Maria Paredes NP 02/07/22 12:30 HPI - Anesthesia Eval Consult details Narrative: 76yo F for Colonoscopy PMFSH Active Problems Active Problems: All Active Problems (Updated 12/28/21 @ 08:18 by Francisco Palacios MD) Abnormal ultrasound of breast (Acute) GERD without esophagitis (Acute) Annual physical exam (Acute) Mixed hyperlipidemia (Acute) Smoker (Acute) Memory impairment (Acute) Lumbar degenerative disc disease (Acute) Macrocytosis without anemia (Acute) Annual physical exam (Acute) Abdominal pain, chronic, left lower quadrant (Acute) Past Medical History Medical History Colitis Lumbar degenerative disc disease Memory impairment Smoker Ulcerative colitis Surgical History Surgical History History of hernia surgery Previous back surgery Social History Social History Housing: Apartment Do you presently have visiting nurse or other home services: No Alcohol intake: former Patient Tobacco Use Status: Former Tobacco user Cigarettes Per Day: 8 Second Hand Smoke Exposure: Yes Have you been hit, kicked, punched, or otherwise hurt by someone within the past year? If so, by whom?: No Are you DNR?: No Advance Directives: No Advance Directives Information Provided: Yes Recently lost weight without trying: No Eating poorly because of decreased appetite: No Nutrition Risks: No Nutritional Risk Patient : No service: No Current occupational status: retired and disabled Cognitive needs: No Hearing needs: Yes Vision needs: Yes Meds Allergies Allergy/AdvReac Type Severity Reaction Status Date / Time codeine AdvReac Mild Abdominal Verified 01/02/22 15:28 Pain Home Medications Medication Instructions Recorded Confirmed Last Taken Type cyanocobalamin (vitamin B-12) 1,000 mcg PO DAILY 08/22/21 01/02/22 Unknown History 1,000 mcg tablet Exam Exam Date and Time: February 07, 2022 1227 Height,Weight and Vital Signs: Height 5 ft 3 in Weight 67.585 kg Pertinent Lab Results Pertinent Lab Results: Laboratory Tests 07/26/21 07/26/21 12:02 12:02 WBC 6.5 Hgb 12.8 Hct 38.5 Plt Count 274 Sodium 139 Potassium 4.3 Chloride 102 Carbon Dioxide 28 BUN 15 Creatinine 0.77 Documented by User: Chet Cordova MD 02/08/22 10:05 [facility] Past Medical History Medical History Colitis Lumbar degenerative disc disease Memory impairment Smoker Ulcerative colitis Family History Family history of problems with anesthesia: No Surgical History Surgical History History of hernia surgery Previous back surgery History of Problems with Anesthesia: No Social History Social History Housing: Apartment Do you presently have visiting nurse or other home services: No Alcohol intake: former Patient Tobacco Use Status: Former Tobacco user Cigarettes Per Day: 8 Second Hand Smoke Exposure: Yes Have you been hit, kicked, punched, or otherwise hurt by someone within the past year? If so, by whom?: No Are you DNR?: No Advance Directives: No Advance Directives Information Provided: Yes Recently lost weight without trying: No Eating poorly because of decreased appetite: No Nutrition Risks: No Nutritional Risk Patient : No service: No Current occupational status: retired and disabled Cognitive needs: No Hearing needs: Yes Vision needs: Yes Meds Allergies Allergy/AdvReac Type Severity Reaction Status Date / Time codeine AdvReac Mild Abdominal Verified 01/02/22 15:28 Pain Home Medications Medication Instructions Recorded Confirmed Last Taken Type cyanocobalamin (vitamin B-12) 1,000 mcg PO DAILY 08/22/21 01/02/22 Unknown History 1,000 mcg tablet Exam Airway Mallampati Class: II TM Dist: >3cm Neck ROM: Full Denture: Upper and Lower Heart: rrr Lungs: clear Assessment and Plan Final Anesthetic Review Family History of Problems with Anesthesia: No History of Problems with Anesthesia: No NPO: Yes ASA Class: II Final Preanesthetic Review: No Changes in Pt Med Stat, Meds/Allgs Chart Reviewed, Consent Obtained/Reviewed and Anes Risks/Benef Reviewed Patient Risk: Intermediate Procedure Risk: Low Anesthetic Plan Anesthetic Plan: MAC: Disposition: Standard PACU
[2022-02-08 09:03] VITALS: BP 114/94; PULSE 86; RESP 18; TEMP 36.4; O2SAT 97
[2022-02-08] MEDS: Lactated Ringers 1,000 ML 100 ML IVCONT (09:10)
--- NOTE | 2022-02-08 09:10 | MHC.SHP ---
Pre-Procedural Eval Section A Date of Service: 02/08/22 Section B Chief Complaint: chronic pain,L lower quadrant pain, Details of Present Illness: throbbing pain left lower side and flank, site of scarring from prior shingles in past Relevant Family History (Specify if Yes): No Relevant Social History: None (ex smoker) Present Medications: see Short Stay Collaborative assessment Medical History: Significant History (Colitis Ulcerative colitis) History of Previous Operations: Relevant previous surgery/procedure and date(s) (History of hernia surgery Previous back surgery) Allergies: Allergies Allergy/AdvReac Type Severity Reaction Status Date / Time codeine AdvReac Mild Abdominal Verified 01/02/22 15:28 Pain Review of Systems Sugical H&P ROS: Negative: Constitution, Cardiovascular, Respiratory, Neurological, Psychiatric, Hem-Onc, Allergic/Immunologic, Gastrointestinal, Genitourinary, Musculoskeletal, Integumentary, Endocrine and Eyes/Ears/Nose/Throat Exam Surgical H&P Exam: Normal: HEENT, Normal: Heart, Normal: Lungs, Normal: Extremities, Normal: Abdomen and Normal: Neurological and Significant Findings: Skin (radicaulr scar left side, lower abdomen to flank ) Plan Diagnosis/Plan: Unchanged I have reviewed the history and physical and performed a pertinent physical examination on my patient. No changes have occurred unless specified.
--- NOTE | 2022-02-08 10:09 | P.OP_ITS ---
Operative Note Operative Note Date of Service: 02/08/22 Narrative: Operative Information Procedure Description: Colonoscopy Indication: abdominal pain Anesthesia: MAC COLONOSCOPY Instrument: Olympus variable stiffness pediatric scope 190L Colonoscopy Monitoring: Vital signs and clinical assessment, continuous EKG monitoring, Pulse oximetry, Carbon Dioxide monitoring and blood pressure monitoring were done throughout the procedure. Colon withdrawal time was 12 minutes. Procedure: The patient was placed in the left lateral decubitis position and pre-procedure medications were administered. After a digital rectal examination of the ano-rectum, the video colonoscope was inserted into the rectum and advanced through the colon to the cecum/TI. The colonoscope was slowly withdrawn in a retrograde panoramic fashion and the colon mucosa was carefully examined including a retroflexed view of the rectum. Findings and interventions are described below. Procedure Difficulty: moderate, tight sigmoid, she was v uncomfortable Findings: melanosis coli noted Terminal Ileum-normal Cecum: 8-9 mm sessile polyp removed with cold forceps Ascending Colon: normal Transverse Colon -normal Descending Colon:normal Sigmoid Colon: severe diverticulosis with luminal narrowing and tortuosity, she was v uncomfortable when navigating thru here Rectum: Retroflexion not done due to small rectal vault, but internal hemorrhoids seen on forward view. Anorectum - normal Colon preparation: [place] Bowel Preparation Scale Right colon; 2 Transverse colon: 2 Left colon; 2 (0 = Unprepared colon segment with mucosa not seen due to solid stool that cannot be cleared. 1 = Portion of mucosa of the colon segment seen, but other areas of the colon segment not well seen due to staining, residual stool and/or opaque liquid. 2 = Minor amount of residual staining, small fragments of stool and/or opaque liquid, but mucosa of colon segment seen well. 3 = Entire mucosa of colon segment seen well with no residual staining, small fragments of stool or opaque liquid) Impression and Post Procedure Diagnosis: severe diverticulosis melanosis coli colon polyp internal hemorrhoid Plan: High fiber diet leaflet Avoid straining at stool, epsom salts and sitz bath, anusol supps or cream Repeat Colonoscopy in 5 years if adenomatous polyp and if health allows, otherwise 10 yrs if her health allows or earlier if clinically indicated avoid constipation, can consider a trial of dicyclomine as well Above findings were reviewed with the patient and relevant handouts were provided if indicated.
[2022-02-08 10:42] VITALS: BP 114/68; PULSE 78; RESP 32; TEMP 36.7; O2SAT 97
[2022-02-08 10:57] VITALS: BP 126/72; PULSE 72; RESP 20; TEMP 36.6; O2SAT 96
== END 2022-02-08 11:50 | disposition home or self-care (01) ==
PROVIDERS: PCP Internal Medicine; Visit Provider Internal Medicine Gastroenterology
PROC: 0DJD8ZZ Inspection of Lower Intestinal Tract, Via Natural or Artificial Opening Endoscopic (ICD-10-PCS; CPT 45378; principal; 2022-02-08 09:50)
DX: R10.32 Left lower quadrant pain (principal); G89.29 Other chronic pain; D12.0 Benign neoplasm of cecum; K57.30 Diverticulosis of large intestine without perforation or abscess without bleeding; K63.89 Other specified diseases of intestine; K64.0 First degree hemorrhoids; R41.3 Other amnesia; M79.2 Neuralgia and neuritis, unspecified; K21.9 Gastro-esophageal reflux disease without esophagitis; Z98.890 Other specified postprocedural states; Z87.891 Personal history of nicotine dependence
CPT/HCPCS: 45380; 88305

== ENCOUNTER → 2022-05-15 13:23 | Outpatient (BNVA) | payer OTHER, SELFPAY | PROVIDERS: PCP Internal Medicine; Visit Provider Nurse Practitioner Family | DX: K21.9 Gastro-esophageal reflux disease without esophagitis (principal); K57.90 Diverticulosis of intestine, part unspecified, without perforation or abscess without bleeding; R10.32 Left lower quadrant pain; D36.9 Benign neoplasm, unspecified site; G89.29 Other chronic pain; Z98.890 Other specified postprocedural states | CPT/HCPCS: 99212 ==

== ENCOUNTER 2022-10-03 13:40 | Outpatient (AMB) | payer OTHER, SELFPAY ==
[2022-10-03 13:47] VITALS: BP 122/80; PULSE 81; O2SAT 96; BMI 29.0
--- NOTE | 2022-10-03 13:47 | MHC.PC.OV ---
Vital Signs 10/03/22 13:47 Height 5 ft 3 in Weight 163 lb 9.328 oz BMI 29.0 BP 122/80 Blood Pressure Location Lt brachial Position Sitting Pulse 81 Pulse Source Pulse Oximeter Pulse Oximetry (%) 96 Oxygen Delivery Method Room Air Intake Visit Reasons: Memory issues\Confirmed Intake Note: Patient is here to discuss memory issues. 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 Accompanied by: Self / Same As Patient Allergies codeine Adverse Reaction (Mild, Verified 12/13/22 12:11) Abdominal Pain Medication List - Last Reconciled 10/03/22 by Francisco Javier Jimenez MD acetaminophen (Pain Relief Extra Strength (acetaminophen)) 500 mg PO Q6H PRN 30 days atorvastatin 10 mg PO BEDTIME 30 days [BEDSIDE COMMODE As directed] benzonatate 200 mg PO BID-TID PRN 10 days bisacodyl (Dulcolax (bisacodyl)) 10 mg (2 x 5 mg) PO ONCE 1 day capsaicin 0.1% 1 appl topical BID cholecalciferol (vitamin D3) 25 mcg PO DAILY 90 days cyanocobalamin (vitamin B-12) 1,000 mcg PO DAILY cyanocobalamin (vitamin B-12) 1,000 mcg PO DAILY cyclobenzaprine 10 mg PO TID PRN 30 days folic acid 0.4 mg PO DAILY gabapentin 300 mg PO TID 30 days lidocaine 5% 1 patch topical DAILY methylcellulose (laxative) (Citrucel) 500 mg PO DAILY nicotine 1 patch transdermal DAILY 7 days nicotine 1 patch transdermal Q24H 28 days pantoprazole 40 mg PO DAILY 30 days polyethylene glycol 3350 (Miralax) 238 grams PO ONCE 1 day polyethylene glycol 3350 (Miralax) 17 grams PO DAILY sennosides (Natural Senna Laxative) 8.6 mg PO BEDTIME tramadol 50 mg PO BEDTIME PRN 15 days [TRANSPORT WHEELCHAIR As directed] trazodone 100 mg PO BEDTIME PRN 30 days Tobacco use date assessed: 10/03/22 Fall risk assessment: No Falls in past year HPI Memory issues\Confirmed HPI Details Patient comes in today for her follow up visit - is accompanied again today by her caregiver, who has expressed some of her recent concerns regarding patient Patient lives with her caregiver, who has noted that patient has been choking often when she eats and drinks and states that she would even now choke on her meds at times when taking her meds Her caregiver / [employer] would like for her to get a swallowing evaluation done to look into her recent swallowing issues Adds that patient continues to have problems with her memory and has been noticed to be forgetful often States that she is not sleeping too well at night despite her Rx; patient states that she does NOT take naps during the daytime Her [employer] states that patient often just stays in her room by herself for most of the day and usually does not want to come out of her room except only to either get something to eat or to use the bathroom Patient denies any recent fever, cough or cold symptoms or sore throat She denies any headaches or dizziness She denies any chest pains, no shortness of breath No nausea/vomiting; reports (+) on and off left-sided abdominal pains, which are chronic and have been going on for years No change in bowel habits noted [facility] Medical History (Updated 12/14/22 @ 06:11 by Francisco Javier Jimenez MD) Alcoholic dementia Anxiety Anxiety and depression Colitis Constipation Depression History of alcohol abuse Insomnia Lumbar degenerative disc disease Memory impairment Overweight (BMI 25.0-29.9) Smoker Tubular adenoma Ulcerative colitis Vitamin D deficiency Surgical History History of hernia surgery Hx of colonoscopy Previous back surgery Social History Housing: Apartment Do you presently have visiting nurse or other home services: No Alcohol intake: former Patient Tobacco Use Status: Former Tobacco user Cigarettes Per Day: 8 e-Cigarette/Vaping Use: Never Used Second Hand Smoke Exposure: Yes service: No Current occupational status: retired and disabled Cognitive needs: No Hearing needs: Yes Vision needs: Yes Female Reproductive History Menstrual Age of Menarche: 19 Questionnaire PHQ-9 Over the last 2 weeks, how often have you been bothered by any of the following problems? 1. Little interest or pleasure in doing things: not at all 2. Feeling down, depressed, or hopeless: not at all 3. Trouble falling or staying asleep, or sleeping too much: not at all 4. Feeling tired or having little energy: not at all 5. Poor appetite or overeating: not at all 6. Feeling bad about yourself - or that you are a failure or have let yourself or your family down: not at all 7. Trouble concentrating on things, such as reading the newspaper or watching television: not at all 8. Moving or speaking so slowly that other people could have noticed. Or the opposite - being so fidgety or restless that you have been moving around a lot more than usual: not at all 9. Thoughts that you would be better off or of hurting yourself in some way: not at all Total score: 0 [id number] - PHQ-9 Billing: Yes Source: Developed by Drs. Vern Whiting, Paulina De Luna, Americo Main and colleagues, with an educational cordelia from [employer]. Thrive Questionnaire Date Thrive assessed: 10/03/22 I am a: Patient What is your living situation today?: I have a steady place to live Within the past 12 months, did the food you bought not last and you didn't have the money to get more?: Never true Within the past 12 months, did you worry whether your food would run out before you got money to buy more?: Never true Do you have trouble paying for medicines?: No Do you have trouble getting transportation to medical appointments?: No Do you have trouble paying your heating and electricity bill?: No Do you have trouble taking care of your child, family member or friend?: No Do you have trouble with day-to-day activities such as bathing, preparing meals, shopping, managing finances, etc.?: No Are you currently unemployed and looking for a job?: No Are you interested in more education?: No Currently or been in a relationship where the following occur: no concerns reported AUDIT C Alcohol Use Questionnaire (AUDIT-C) 1. How often do you have a drink containing alcohol?: Never 3. How often do you have six or more drinks on one occasion?: Never Total Score: 0 Score Reviewed/Action Taken: Yes ALIX-7 AMB Questionnaire ALIX-7 Date ALIX - 7 assessed: 10/03/22 Feeling nervous, anxious, or on edge: 1 = Several days Not being able to stop or control worryin = Several days Worrying too much about different things: 1 = Several days Trouble relaxin = Several days Being so restless that it is hard to sit still: 1 = Several days Becoming easily annoyed or irritable: 1 = Several days Feeling afraid as if something awful might happen: 1 = Several days Total ALIX-7 score (0-4 normal; 5-9 mild; 10-14 moderate; 15-21 severe): 7 Source: Developed by Drs. Vern Whiting, Paulina De Luna, Americo Main and colleagues, with an educational cordelia from [employer]. Review of Systems Const Denies chills, Reports difficulty sleeping, Reports fatigue, Denies fever(s) and Denies headache(s) ENT Reports dysphagia (see HPI), Denies dizziness, Denies otalgia, Denies headache(s), Denies odynophagia and Denies sore throat Card Denies chest pain, Denies palpitations and Reports dyspnea on exertion (mild, chronic) Resp Denies chest congestion, Denies cough and Reports dyspnea on exertion (mild, chronic) GI Reports abdominal pain (recurrent, left-sided - chronic), Denies hematochezia, Reports constipation (current Rx help), Reports dysphagia (see HPI), Denies heartburn, Denies diarrhea, Denies nausea, Denies odynophagia and Denies vomiting Denies difficulty voiding, Denies nocturia and Denies dysuria Musc Reports abnormal gait (unsteady), Reports back pain (over the lower back - chronic), Reports myalgias (diffuse) and Reports stiffness Skin/Breast Denies rash Neuro Reports abnormal gait (unsteady), Denies dizziness, Denies headache(s) and Reports memory loss Psych Reports anhedonia (prefers to stay in room by herself for most of the day) and Reports memory loss Endo Reports fatigue and Denies palpitations Physical exam (Primary Care) Vital Signs: Last Vital Signs Pulse 81 10/03/22 13:47 BP 122/80 10/03/22 13:47 Pulse Ox 96 10/03/22 13:47 Oxygen Delivery Method Room Air 10/03/22 13:47 BMI result Body Mass Index 29.0 Tobacco/Smoking Status: Tobacco use Status Tobacco use date assessed 10/03/22 10/03/22 13:55 Patient Tobacco Use Status Former Tobacco user 10/03/22 13:55 e-Cigarette/Vaping Use Never Used 10/03/22 13:55 PHQ-9: PHQ-9 Score PHQ-9: Total score 0 10/08/22 04:55 Thrive Assessment: Date of Thrive Assessment Date Thrive assessed 10/03/22 10/03/22 13:55 Currently or been in a relationship where the following occur: no concerns reported Advance Care Planning discussion: Completed/Scanned Date of discussion: 10/03/22 Who was present: patient, caregiver Forms completed: MOLST Time spent: 1-15 minutes, on File Const General: no acute distress and alert HENMT Ears: TM's normal bilaterally and EAC's normal Throat: Yes posterior oropharynx normal and Yes tonsils normal (no TP congestion) Neck Neck: Yes no lymphadenopathy and Yes supple Thyroid: Thyroid normal Resp Auscultation: clear to auscultation bilaterally, no rales, no wheezes and diminished lung sounds (slightly) bilateral Cardio Rate: regular rate Rhythm: regular rhythm Heart sounds: no murmurs GI Palpation (GI): Soft to palpation, Tenderness to palpation present (GI) (mild, left-sided), no guarding and No Rebound tenderness present Auscultation: normal bowel sounds General: Yes no CVA tenderness Back/Spine/Pelvis Back: no CVA tenderness Thoracic/Lumbar Spine: lumbar spinal tenderness Skin Rashes: no rashes Extrem General: Yes no clubbing, cyanosis or edema Assessment and Plan Assessment & Plan (1) Dysphagia: Comment: more of a sensation of food getting stuck in her throat often Code(s): R13.10 - Dysphagia, unspecified Qualifiers: Dysphagia type: unspecified Qualified Code(s): R13.10 - Dysphagia, unspecified Plan: Will send patient for barium swallow for further evaluation (2) Abdominal pain, chronic, left lower quadrant: Code(s): R10.32 - Left lower quadrant pain; G89.29 - Other chronic pain Plan: Abdominal and pelvic CT done at the ER in June 2021 came out normal/negative Patient reported no significant relief with empiric Tx with Levofloxacin at the time Has been seen by gastroenterology and had colonoscopy done back in February 2022 - (+) tubular adenoma, otherwise normal; recommend repeat colonoscopy in 5 years if health allows (3) Mixed hyperlipidemia: Code(s): E78.2 - Mixed hyperlipidemia Plan: Advised that her cholesterol levels were high on her previous labs done last year; follow up labs have been ordered a few times since but patient has not been able to get them rechecked yet Reinforced low cholesterol diet Continue Atorvastatin 10 mg Q HS - Rx was started last year Will have patient recheck her labs and fasting lipids TELMA for follow up (4) Macrocytosis without anemia: Code(s): D75.89 - Other specified diseases of blood and blood-forming organs Plan: Previous labs done the ER last year revealed macrocytosis without anemia Serum B12,Folate and TSH were normal Will send patient for repeat labs TELMA for follow up (5) Memory impairment: Code(s): R41.3 - Other amnesia Plan: Was seen by neurology last year (2021) and diagnosed with alcoholic dementia along with her other disorders, which include post herpetic neuralgia, peripheral neuropathy, multifactorial gait disorder, restless legs syndrome, insomnia, anxiety and depression Patient states that she has quit drinking completely years ago She was started on Duloxetine 30 mg BID and instructed to stop her Gabapentin but it appears that patient has continued taking her Gabapentin and never started taking Duloxetine She has not seen neurology again for follow-up since her visit with them in late December 2021 Continue Vitamin B12 1000 mcg QD and Folic Acid 400 mcg QD (6) History of alcohol abuse: Code(s): F10.11 - Alcohol abuse, in remission Plan: Patient states that she stopped drinking completely years ago (7) Lumbar degenerative disc disease: Comment: (+) Hx of spinal fusion and bone grafting done many years ago in [place] Code(s): M51.36 - Other intervertebral disc degeneration, lumbar region Plan: Reinforced activity and weight-lifting restrictions Continue Gabapentin 300 mg TID and Cyclobenzaprine 10 mg TID PRN, Tramadol 50 mg Q HS and Lidocaine 5% patch QD PRN Follow up with pain management as scheduled (8) GERD without esophagitis: Code(s): K21.9 - Gastro-esophageal reflux disease without esophagitis Plan: Dietary restrictions reinforced Continue Pantoprazole 40 mg QD (9) Constipation: Code(s): K59.00 - Constipation, unspecified Qualifiers: Constipation type: unspecified constipation type Qualified Code(s): K59.00 - Constipation, unspecified Plan: Encouraged increased oral fluids and dietary fiber Continue Miralax 17 gm QD and Senna 8.6 mg Q HS (10) Vitamin D deficiency: Code(s): E55.9 - Vitamin D deficiency, unspecified Plan: Continue Vitamin D3 1000 units QD (11) Insomnia: Code(s): G47.00 - Insomnia, unspecified Qualifiers: Insomnia type: unspecified Qualified Code(s): G47.00 - Insomnia, unspecified Plan: Sleep hygiene reinforced Continue Trazodone 100 mg Q HS PRN (12) Anxiety and depression: Code(s): F41.9 - Anxiety disorder, unspecified; F32.A - Depression, unspecified Plan: Continue Sertraline 50 mg QD (13) Smoker: Code(s): F17.200 - Nicotine dependence, unspecified, uncomplicated Plan: Counseled again on smoking cessation Continue nicotine patches to help her quit smoking Chest x-rays done last year came out normal (14) Overweight (BMI 25.0-29.9): Code(s): E66.3 - Overweight Plan: Reinforced diet; exercise and weight loss are unrealistic given patient's chronic pain, limited activity tolerance and gait disorder as well as her multiple comorbidities Plan Follow up in 4 months Orders: Orders Complete Blood Count Auto Diff 10/03/22 I10 - Essential (primary) hypertension Comprehensive [place]. Panel Fast 10/03/22 E78.00 - Pure hypercholesterolemia, unspecified Lipid Panel 10/03/22 E78.00 - Pure hypercholesterolemia, unspecified TSH reflex Free T4 10/03/22 E78.00 - Pure hypercholesterolemia, unspecified UA CC w/rflx Micro + Cult 10/03/22 R30.0 - Dysuria Vitamin B12 and Folate 10/03/22 E53.8 - Deficiency of other specified B group vitamins Vitamin D 25-OH Total 10/03/22 E55.9 - Vitamin D deficiency, unspecified FL barium swallow modified 10/03/22 T17.308A - Unspecified foreign body in larynx causing other injury, initial encounter, R13.10 - Dysphagia, unspecified Medications: New sertraline 50 mg PO DAILY 90 tabs 1RF 90 days Coding Level of Care Code Est Pt Level 4 (08032) Diagnoses Dysphagia R13.10 Dysphagia type: unspecified Abdominal pain, chronic, left lower quadrant R10.32; G89.29 Mixed hyperlipidemia E78.2 Macrocytosis without anemia D75.89 Memory impairment R41.3 History of alcohol abuse F10.11 Lumbar degenerative disc disease M51.36 GERD without esophagitis K21.9 Constipation K59.00 Constipation type: unspecified constipation type Vitamin D deficiency E55.9 Insomnia G47.00 Insomnia type: unspecified Anxiety and depression F41.9; F32.A Smoker F17.200 Overweight (BMI 25.0-29.9) E66.3 Additional Codes Vital Signs *Quality* - Advance Care Planning discussion: Completed/Scanned ([id number]) Vital Signs *Quality* - Time spent: 1-15 minutes, on File ([id number])
== END 2022-10-03 15:27 | disposition home or self-care (01) ==
LOC: HO.HMGH 13:40
PROVIDERS: PCP Internal Medicine; Visit Provider Internal Medicine
DX: Z00.00 Encounter for general adult medical examination without abnormal findings (principal)
CPT/HCPCS: 1123F; 99214

== ENCOUNTER 2022-10-23 14:04 | Outpatient (REF) | payer OTHER, SELFPAY | END 2022-10-23 14:05 | disposition home or self-care (01) | LOC: HO.XRAY 14:04 | PROVIDERS: PCP Internal Medicine; Visit Provider Internal Medicine | DX: Z13.89 Encounter for screening for other disorder (principal) ==

== ENCOUNTER 2022-11-19 14:31 | Outpatient (REF) | payer OTHER, SELFPAY ==
--- NOTE | ~2022-11-19 | FL_ITS ---
EXAMINATION: XR BARIUM SWALLOW CLINICAL INFORMATION: Unspecified foreign body in larynx causing other injury. COMPARISON: None available. TECHNIQUE: Fluoroscopic guidance was provided to the speech and hearing department for modified barium swallow. The patient was administered various media mixed with barium and liquid barium. FINDINGS: No aspiration or penetration is seen with any media. There is minimal retention in the vallecula seen with some media. FLUOROSCOPY TIME: 0.8 minutes DOSE AREA PRODUCT: 0.8 Boles per centimeter squared. Total dose 28 mgy. 1 saved fluoroscopic image. FL/FL barium swallow modified IMPRESSION: Unremarkable examination. See speech and hearing report for detailed findings.
--- NOTE | 2022-11-29 14:20 | MHC.SL.IMP ---
Date of Plan of Treatment: 11/19/22 Onset of Symptoms/Illness: 11/19/22 Date Treatment Started: 11/19/22 Admitting Diagnosis: Dysphagia, unspecified Primary Speech & Language Diagnosis: R13.19 Other Dysphagia Secondary Speech & Language Diagnosis: Reason for Today's Visit: 93495 Modified Barium Swallow Study Comments: Pre-evaluation Dietary Consistencies: Regular Pre-evaluation Liquid Consistency: Thin Pre-evaluation Medication Administration: Whole with Liquid Medical History: Emotional or Psychological Issues Comments: [facility] Fall Risk Assessment Score: Oral Motor Exam Facial Symmetry: Normal for Patient Symmetrical Oral Expression Ability: Mild Impairment Is patient able to manage secretions?: Yes Is patient able to produce volitional cough?: Yes Food and Liquid Trials: Oral Impairment: Lip Closure: 1=Interlabial escape; no progression to anterior tip Oral Impairment: Tongue Control During Bolus Hold: 0=Cohesive bolus between tongue to palatal seal Oral Impairment: Bolus Preparation/Mastication: 1=Slow prolonged chewing/mashing with complete re-collection Oral Impairment: Bolus Transport/Lingual Motion: 0=Brisk tongue motion Oral Impairment: Oral Residue: 1=Trace residue lining oral structures Oral Impairment:Initiation of Pharyngeal Swallow: 1=Bolus head in valleculae Pharyngeal Impairment: Soft Palate Elevation: 0=No bolus between soft palate (SP)/pharyngeal wall (PW) Pharyngeal Impairment: Laryngeal Elevation: 0=Complete superior movement of thyroid cartilage (see description) Pharyngeal Impairment: Anterior Hyoid Excursion: 0=Complete anterior movement Pharyngeal Impairment: Epiglottic Movement: 1=Partial inversion Pharyngeal Impairment: Laryngeal Vestibular Closure:: 0=Complete: no air/contrast in laryngeal vestibule Pharyngeal Impairment: Pharyngeal Stripping Wave: 0=Present: complete Pharyngeal Impairment: Pharyngeal Contraction: Did not test Pharyngeal Impairment: Pharyngoesophageal Segment Openin=Partial distention/partial duration: partial obstruction of flow Pharyngeal Impairment: Tongue Base (TB) Retraction: 1=Trace column of contrast/air between TB and posterior PW Pharyngeal Impairment: Pharyngeal Residue: 1=Trace residue within or on pharyngeal structures Pharyngeal Impairment: Esophageal Clearance Upright Position: Did not test Impressions and Recommendations Clinical Observations: [place] Modified Barium Swallow Study Fluoroscopic Evaluation of Swallowing Function CPT Code 76059 Evaluation Year: 2022 Reason for Study: Dysphagia, unspecified Referring Physician: Francisco Javier Jimenez MD Evaluating Clinician: Brown Vasquez MA, CCC-SIDE STITCHING MACHINE OPERATOR Study Number: 1 Status: Outpatient, Ambulatory Age: 77 Gender: Female Medical History Year of Onset or Diagnosis: 2022 Current (pre-evaluation) Intake/Diet: Route: PO Diet Grade: Regular Liquid Consistencies: Thin Pre-Study Functional Oral Intake Scale (FOIS): 7- Total oral intake with no restrictions Pain: None reported at time of study SUBJECTIVE: Meli is a 77 year-old female who is accompanied by her housemate and former [employer] who provides most of the history. Meli is anxious in medical environments, and her [employer] remained in the room during the study for encouragement. OBJECTIVE: Time-out: performed at 15:30 Evaluation Start: 15:30; Stop: 16:00 Viewing Planes: LATERAL ONLY [id number] ID: [id number] Results: Lip closure for intraoral bolus containment resulted in interlabial escape, without progression to the anterior lip. Tongue control during bolus hold maintained a cohesive bolus held between tongue to palate seal. Bolus preparation and mastication resulted in slow, prolonged chewing/mashing but with complete re-collection. Bolus transport/lingual motion was with brisk tongue motion. Oral residue was a trace, lining oral structures. Initiation of the pharyngeal swallow occurred when the bolus head was in the valleculae. Soft palate elevation resulted in no bolus between the soft palate and the pharyngeal wall. Laryngeal elevation demonstrated complete superior movement of the thyroid cartilage with complete approximation of the arytenoids to the epiglottic petiole. Anterior hyoid excursion demonstrated complete anterior movement. Epiglottic movement resulted in partial inversion. Laryngeal vestibular closure was complete, as indicated by no air or contrast within the laryngeal vestibule at the height of the swallow. Pharyngeal stripping wave was present and complete. Pharyngeal contraction could not be determined due to logistical reasons not related to physiologic impairment. Pharyngoesophageal segment opening demonstrated partial distension/partial duration, with partial obstruction of bolus flow. Tongue base retraction allowed a trace column of contrast or air between the retracted tongue base and the posterior pharyngeal wall. Pharyngeal residue was a trace within or on pharyngeal structures. Esophageal clearance in the upright position could not be assessed due to logistical reasons not related to physiologic impairment. Oral Impairment Score: 2 Pharyngeal Impairment Score: 2 (absence of score, component 13) Esophageal Impairment Score: --- (absence of score, component 17) Laryngeal Penetration and Aspiration: Neither penetration nor aspiration was observed in today's study with Cookie, Pudding-thick, Thin. ASSESSMENT: Clinician Assessment: Meli?s chief complaint is of food feeling stuck in her throat. She was administered Thin Liquid, Puree, and Regular Solid. No aspiration was observed with Thin Liquids. Swallow initiation was delayed with Thin Liquids. Puree and Regular solids had normal oral transit with only trace residue in the oral cavity for Regular Solids. Meli and her caregiver were counseled on the results and assured that the lack of barium contrast in her pharynx suggests that the sensation of food getting stuck maybe from another source. She is referred back to her PCP with recommendations for GI consultation to assess for esophageal dysmotility as a potential cause of her symptoms. PLAN: Intake Recommendations: Route: PO Diet Grade: Regular Liquid Consistencies: Thin Post-Study Functional Oral Intake Scale (FOIS): 7- Total oral intake with no restrictions Suggested Referrals: The patient might benefit from a referral to: Gastroenterology Indication for Referral: R/o esophageal dysmotility The following compensatory strategies and/or therapeutic exercises will be part of the upcoming therapy/management plan: Rate of Ingestion Change Prognosis for Improvement: The prognosis for the patient to meet nutritional needs by mouth is good based on degree of impairment, support system. Detention Goals: ? The patient will tolerate the least restrictive diet with a safe/efficient swallow to maintain adequate nutrition and hydration. Short Term Goals: ? Education - The patient, caregiver will verbalize/demonstrate understanding of the results of this evaluation, the above recommendations, and the swallowing guidelines. Clinician - Supplemental, Miscellaneous Communication: It is important to note MBSS objective studies are snapshots in time and Patient function might vary with factors such as time of day or concomitant medical conditions. For this reason, the final treatment plan for this patient should rest with their medical care team. Additional recommendations should be considered with the totality of the Patient in mind. Education: Education regarding findings from today's study and plans for therapy were provided to Patient and family/caregiver through Verbal Instruction, Demonstration. Understanding was expressed by the Patient and family/caregiver. Liquid Intake Recommendation: Thin Liquid Intake Strategies: Unrestricted Dietary Recommendations: Regular Medication Administration: Whole with Liquid Please contact the pharmacy regarding appropriate crushable or liquid drug formulations that are available whenever modified delivery is recommended. Compensatory Strategies Recommended: Sitting Upright (90 deg) Alternate Liquids/Solids Rate of Ingestion Change Supervision during eating and or drinking: Intermittent Supervision Recommended Treatments: Compens. Strategy Educat. Recommendation for Speech Therapy: Discharged with Instructions for Home Use Text Comment: Frequency/Duration: Date Range for Service Requested: Timeline to reassess: PRN Fire Prevention Research Engineer Clinician/Clinical Fellow: No Supervisory Statement: N/A Speech Language Pathologist: Brown Vasquez M.A., CCC-SIDE STITCHING MACHINE OPERATOR
== END 2022-11-19 14:32 | disposition home or self-care (01) ==
LOC: HO.XRAY 14:31
PROVIDERS: PCP Internal Medicine; Visit Provider Internal Medicine
DX: R13.10 Dysphagia, unspecified (principal); T17.308A Unspecified foreign body in larynx causing other injury, initial encounter
CPT/HCPCS: 74230; 92611

== ENCOUNTER → 2022-11-19 14:32 | Outpatient (BNV) | payer OTHER, SELFPAY | PROVIDERS: PCP Internal Medicine; Visit Provider Radiology Diagnostic Radiology | DX: R13.10 Dysphagia, unspecified (principal); T17.308A Unspecified foreign body in larynx causing other injury, initial encounter | CPT/HCPCS: 74230 ==

== ENCOUNTER 2022-12-13 11:25 | Outpatient (AMB) | payer OTHER, SELFPAY ==
[2022-12-13 11:43] VITALS: BP 112/78; PULSE 84; O2SAT 95; BMI 28.7
--- NOTE | 2022-12-13 11:43 | A.OFFPC_ITS ---
Vital Signs 12/13/22 11:43 Height 5 ft 3 in Weight 161 lb 13.109 oz BMI 28.7 BP 112/78 Blood Pressure Location Lt brachial Position Sitting Pulse 84 Pulse Source Pulse Oximeter Pulse Oximetry (%) 95 Oxygen Delivery Method Room Air Intake Visit Reasons: Annual PE Paraplanner Required: No Accompanied by: Self / Same As Patient Allergies codeine Adverse Reaction (Mild, Verified 12/13/22 12:11) Abdominal Pain Medication List - Last Reconciled 12/13/22 by Francisco Javier Jimenez MD acetaminophen (Pain Relief Extra Strength (acetaminophen)) 500 mg PO Q6H PRN 30 days atorvastatin 10 mg PO BEDTIME 30 days [BEDSIDE COMMODE As directed] benzonatate 200 mg PO BID-TID PRN 10 days bisacodyl (Dulcolax (bisacodyl)) 10 mg (2 x 5 mg) PO ONCE 1 day capsaicin 0.1% 1 appl topical BID cholecalciferol (vitamin D3) 25 mcg PO DAILY 90 days cyanocobalamin (vitamin B-12) 1,000 mcg PO DAILY cyanocobalamin (vitamin B-12) 1,000 mcg PO DAILY cyclobenzaprine 10 mg PO TID PRN 30 days folic acid 0.4 mg PO DAILY gabapentin 300 mg PO TID 30 days lidocaine 5% 1 patch topical DAILY methylcellulose (laxative) (Citrucel) 500 mg PO DAILY nicotine 1 patch transdermal DAILY 7 days nicotine 1 patch transdermal Q24H 28 days pantoprazole 40 mg PO DAILY 30 days polyethylene glycol 3350 (Miralax) 238 grams PO ONCE 1 day polyethylene glycol 3350 (Miralax) 17 grams PO DAILY sennosides (Natural Senna Laxative) 8.6 mg PO BEDTIME sertraline 50 mg PO DAILY 90 days tramadol 50 mg PO BEDTIME PRN 15 days [TRANSPORT WHEELCHAIR As directed] trazodone 100 mg PO BEDTIME PRN 30 days Tobacco use date assessed: 12/13/22 Fall risk assessment: 2 + Falls in past year Last assessed Fall Risk: 12/13/22 Dental Screening Dental Screen Date: 12/13/22 Did you have a dental visit in the last 12 months?: No Did you have a dental problem in the last 6 months where you did not have access to dental care?: No Was dental information given to patient?: No HPI Annual PE HPI Details Patient comes in today for her annual physical examination States that she continues to experience frequent sensations of food getting stuck in her throat often when she eats Had a barium swallow done last month that came out normal Patient was seen by speech therapy a couple of weeks ago and they have recommended a referral to GI to help assess her for possible esophageal dysmotility with manometric studies Patient adds that she has been experiencing on and off pain over the left side of her abdomen for a while now Relates that 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 and ended up having them surgically removed sometime back in the 1980s Is concerned that her symptoms may indicate some problems related to her past condition She denies any headaches or dizziness Denies any chest pains, no SOB No nausea/vomiting and no change in bowel habits noted Denies any acute urinary symptoms Adds that she has been experiencing pain and swelling of her left foot, especially on the second toe, for a couple of weeks now Relates that she accidentally hit her foot with her cane before her foot started hurting She has not been able to get her previously ordered labs done yet Her mammogram was last done in 12/2021 and is due for repeat Had her colonoscopy done in 02/[address] Hart - (+) tubular adenoma and recommend repeat in 5 years if health allows BMD was also done in 12/2021 - (+) osteoporosis with lowest T-score of -3.6 in the total femur [facility] Medical History (Updated 12/14/22 @ 06:11 by Francisco Javier Jimenez MD) Alcoholic dementia Anxiety Anxiety and depression Colitis Constipation Depression History of alcohol abuse Insomnia Lumbar degenerative disc disease Memory impairment Overweight (BMI 25.0-29.9) Smoker Tubular adenoma Ulcerative colitis Vitamin D deficiency Surgical History History of hernia surgery Hx of colonoscopy Previous back surgery Social History Housing: Apartment Do you presently have visiting nurse or other home services: No Alcohol intake: former Patient Tobacco Use Status: Former Tobacco user Cigarettes Per Day: 8 e-Cigarette/Vaping Use: Never Used Second Hand Smoke Exposure: Yes service: No Current occupational status: retired and disabled Cognitive needs: No Hearing needs: Yes Vision needs: Yes Female Reproductive History Menstrual Age of Menarche: 19 Questionnaire PHQ-9 Over the last 2 weeks, how often have you been bothered by any of the following problems? 1. Little interest or pleasure in doing things: not at all 2. Feeling down, depressed, or hopeless: not at all 3. Trouble falling or staying asleep, or sleeping too much: not at all 4. Feeling tired or having little energy: not at all 5. Poor appetite or overeating: not at all 6. Feeling bad about yourself - or that you are a failure or have let yourself or your family down: not at all 7. Trouble concentrating on things, such as reading the newspaper or watching television: not at all 8. Moving or speaking so slowly that other people could have noticed. Or the opposite - being so fidgety or restless that you have been moving around a lot more than usual: not at all 9. Thoughts that you would be better off or of hurting yourself in some way: not at all Total score: 0 Depression Screening Interpretation: Negative 95962 - PHQ-9 Billing: Yes Source: Developed by Drs. Vern Whiting, Paulina De Luna, Americo Main and colleagues, with an educational cordelia from [employer]. Thrive Questionnaire Date Thrive assessed: 12/13/22 I am a: Patient What is your living situation today?: I have a steady place to live Within the past 12 months, did the food you bought not last and you didn't have the money to get more?: Never true Within the past 12 months, did you worry whether your food would run out before you got money to buy more?: Never true Do you have trouble paying for medicines?: No Do you have trouble getting transportation to medical appointments?: No Do you have trouble paying your heating and electricity bill?: No Do you have trouble taking care of your child, family member or friend?: No Do you have trouble with day-to-day activities such as bathing, preparing meals, shopping, managing finances, etc.?: No Are you currently unemployed and looking for a job?: No Are you interested in more education?: No Please select the resources that you would like help with: None Currently or been in a relationship where the following occur: no concerns reported AUDIT C Alcohol Use Questionnaire (AUDIT-C) 1. How often do you have a drink containing alcohol?: Never 3. How often do you have six or more drinks on one occasion?: Never Total Score: 0 Score Reviewed/Action Taken: Yes ALIX-7 AMB Questionnaire ALIX-7 Date ALIX - 7 assessed: 12/13/22 Feeling nervous, anxious, or on edge: 1 = Several days Not being able to stop or control worryin = Several days Worrying too much about different things: 1 = Several days Trouble relaxin = Several days Being so restless that it is hard to sit still: 1 = Several days Becoming easily annoyed or irritable: 1 = Several days Feeling afraid as if something awful might happen: 1 = Several days Total ALIX-7 score (0-4 normal; 5-9 mild; 10-14 moderate; 15-21 severe): 7 Source: Developed by Drs. Vern Whiting, Paulina De Luna, Americo Main and colleagues, with an educational cordelia from [employer]. Review of Systems Const Denies chills, Reports fatigue, Denies fever(s), Denies headache(s) and Denies malaise Eyes Denies blurry vision, Denies change in vision, Denies irritation and Denies itchy eyes ENT Reports dysphagia (more of a recurrent sensation of food getting stuck in her throat), Denies dizziness, Denies otalgia, Denies headache(s), Denies nasal congestion, Denies neck pain, Denies odynophagia, Denies sinus pain and Denies sore throat Card Denies chest pain, Denies rapid heart rate, Denies irregular heart rhythm, Denies palpitations and Denies dyspnea Resp Denies chest congestion, Denies cough, Denies dyspnea and Denies wheezing GI Reports abdominal pain (on and off, on the left side), Denies bloating, Denies constipation, Reports dysphagia (more of a recurrent sensation of food getting stuck in her throat), Denies heartburn, Denies diarrhea, Denies nausea, Denies odynophagia and Denies vomiting Denies hematuria, Denies urinary frequency, Denies dysuria, Denies urinary incontinence and Denies urinary urgency Musc Details: (+) pain and swelling on the left foot, especially over the second toe Denies back pain, Denies muscle weakness and Denies neck pain Skin/Breast Denies breast pain, Denies breast mass, Denies change in pigmentation, Denies lesions, Denies rash and Denies unusual bruising Neuro Denies dizziness, Denies headache(s) and Denies paresthesias Psych Denies anxiety and Denies depression Endo Reports fatigue and Denies palpitations Jeffry/Lymph Denies easy bruising Aller/Immun Denies itchy eyes and Denies wheezing Physical exam (Primary Care) Vital Signs: Last Vital Signs Pulse 84 12/13/22 11:43 BP 112/78 12/13/22 11:43 Pulse Ox 95 12/13/22 11:43 Oxygen Delivery Method Room Air 12/13/22 11:43 BMI result Body Mass Index 28.7 Tobacco/Smoking Status: Tobacco use Status Tobacco use date assessed 12/13/22 12/13/22 11:47 Patient Tobacco Use Status Former Tobacco user 12/13/22 11:47 e-Cigarette/Vaping Use Never Used 12/13/22 11:47 PHQ-9: PHQ-9 Score PHQ-9: Total score 0 12/14/22 00:22 Depression Screening Interpretation: Negative Thrive Assessment: Date of Thrive Assessment Date Thrive assessed 12/13/22 12/13/22 11:47 Currently or been in a relationship where the following occur: no concerns reported Const General: no acute distress, alert and awake Orientation/consciousness: patient oriented x3 HENMT Head: Yes normocephalic and Yes atraumatic Ears: external ears normal, TM's normal bilaterally and EAC's normal General nose exam: No nasal discharge present Face and sinus: Yes normal facial exam and Yes sinuses nontender Teeth and gingiva: dentition normal Throat: Yes posterior oropharynx normal and Yes tonsils normal (no TP congestion) Eyes Eyelids: Yes eyelids normal Conjunctivae: conjunctivae normal Pupils: Equal, round and reactive pupils present EOM: EOMs intact bilaterally Neck Neck: Yes no lymphadenopathy and Yes supple Thyroid: Thyroid normal Resp Auscultation: clear to auscultation bilaterally, no rales and no wheezes Cardio Rate: regular rate Rhythm: regular rhythm Heart sounds: no murmurs GI Palpation (GI): Soft to palpation, Tenderness to palpation present (GI) (mild, left-sided) and No hepatosplenomegaly present Auscultation: normal bowel sounds General: Yes no CVA tenderness Back/Spine/Pelvis Back: no CVA tenderness Thoracic/Lumbar Spine: thoracic and lumbar spine normal to inspection Skin Lesions: no lesions Rashes: no rashes Neuro General: patient oriented x3, moves all extremities, no focal motor deficits and CN's II-XI intact bilaterally Cranial nerves: Yes Equal, round and reactive pupils present Cognition (Neuro): normal cognition Gait exam (Neuro): Normal gait present Extrem General: Yes no clubbing, cyanosis or edema Left lower extremity: foot ((+) tenderness over the dorsum of the foot distally, jarad over the 2nd toe ) Assessment and Plan Assessment & Plan (1) Annual physical exam: Code(s): Z00.00 - Encounter for general adult medical examination without abnormal findings Plan: Check labs - labs were previously ordered but patient has not gotten them done yet and states that she will try to get these done TELMA (2) Abdominal pain, chronic, left lower quadrant: Code(s): R10.32 - Left lower quadrant pain; G89.29 - Other chronic pain Plan: Abdominal and pelvic CT done at the ER in June 2021 came out normal/negative Patient reported no significant relief with empiric Tx with Levofloxacin at the time Has been seen by gastroenterology and had colonoscopy done back in February 2022 - (+) tubular adenoma, otherwise normal; recommend repeat colonoscopy in 5 years if health allows Will send patient for abdominal and pelvic US for further evaluation (3) Dysphagia: Comment: more of a sensation of food getting stuck in her throat often Code(s): R13.10 - Dysphagia, unspecified Qualifiers: Dysphagia type: unspecified Qualified Code(s): R13.10 - Dysphagia, unspecified Plan: Barium swallow done last month came out normal Per recommendation of speech therapy, will refer her to GI for further evaluation, including manometric studies to help rule out esophageal dysmotility disorders (4) Mixed hyperlipidemia: Code(s): E78.2 - Mixed hyperlipidemia Plan: Advised that her cholesterol levels were high on her previous labs done last year; follow up labs have been ordered a few times since but patient has not been able to get them rechecked yet Reinforced low cholesterol diet Continue Atorvastatin 10 mg Q HS - Rx was started last year Will have patient recheck her labs and fasting lipids TELMA for follow up (5) Macrocytosis without anemia: Code(s): D75.89 - Other specified diseases of blood and blood-forming organs Plan: Previous labs done the ER last year revealed macrocytosis without anemia Serum B12,Folate and TSH were normal Will send patient for repeat labs TELMA for follow up (6) Memory impairment: Code(s): R41.3 - Other amnesia Plan: Was seen by neurology last year (2021) and diagnosed with alcoholic dementia along with her other disorders, which include post herpetic neuralgia, peripheral neuropathy, multifactorial gait disorder, restless legs syndrome, insomnia, anxiety and depression Patient states that she has quit drinking completely years ago She was started on Duloxetine 30 mg BID and instructed to stop her Gabapentin but it appears that patient has continued taking her Gabapentin and never started taking Duloxetine She has not seen neurology again for follow-up since her visit with them in late December 2021 Continue Vitamin B12 1000 mcg QD and Folic Acid 400 mcg QD (7) History of alcohol abuse: Code(s): F10.11 - Alcohol abuse, in remission Plan: Patient states that she stopped drinking completely years ago (8) Lumbar degenerative disc disease: Comment: (+) Hx of spinal fusion and bone grafting done many years ago in [place] Code(s): M51.36 - Other intervertebral disc degeneration, lumbar region Plan: Reinforced activity and weight-lifting restrictions Continue Gabapentin 300 mg TID and Cyclobenzaprine 10 mg TID PRN, Tramadol 50 mg Q HS and Lidocaine 5% patch QD PRN Follow up with pain management as scheduled (9) GERD without esophagitis: Code(s): K21.9 - Gastro-esophageal reflux disease without esophagitis Plan: Dietary restrictions reinforced Continue Pantoprazole 40 mg QD (10) Constipation: Code(s): K59.00 - Constipation, unspecified Qualifiers: Constipation type: unspecified constipation type Qualified Code(s): K59.00 - Constipation, unspecified Plan: Encouraged increased oral fluids and dietary fiber Continue Miralax 17 gm QD and Senna 8.6 mg Q HS (11) Vitamin D deficiency: Code(s): E55.9 - Vitamin D deficiency, unspecified Plan: Continue Vitamin D3 1000 units QD (12) Pain and swelling of toe of left foot: Code(s): M79.675 - Pain in left toe(s); M79.89 - Other specified soft tissue disorders Plan: Will send for x-rays of the left foot for further evaluation (13) Insomnia: Code(s): G47.00 - Insomnia, unspecified Qualifiers: Insomnia type: unspecified Qualified Code(s): G47.00 - Insomnia, unspecified Plan: Sleep hygiene reinforced Continue Trazodone 100 mg Q HS PRN (14) Anxiety and depression: Code(s): F41.9 - Anxiety disorder, unspecified; F32.A - Depression, unspecified Plan: Continue Sertraline 50 mg QD (15) Smoker: Code(s): F17.200 - Nicotine dependence, unspecified, uncomplicated Plan: Counseled again on smoking cessation Continue nicotine patches to help her quit smoking Chest x-rays done last year came out normal (16) Overweight (BMI 25.0-29.9): Code(s): E66.3 - Overweight Plan: Reinforced diet; exercise and weight loss are unrealistic given patient's chronic pain, limited activity tolerance and gait disorder as well as her multiple comorbidities (17) Abnormal ultrasound of breast: Code(s): R92.8 - Other abnormal and inconclusive findings on diagnostic imaging of breast Plan: Will send for her repeat annual mammogram TELMA Plan Follow up as scheduled in February 2023 Orders: Orders XR foot LT min 3V 12/13/22 M79.675 - Pain in left toe(s), M79.89 - Other specified soft tissue disorders US abdomen complete 12/13/22 R10.32 - Left lower quadrant pain US pelvic complete 12/13/22 R10.32 - Left lower quadrant pain MM tomosynthesis diagnostic BI 12/13/22 R92.8 - Other abnormal and inconclusive findings on diagnostic imaging of breast Referrals Gastroenterology Referral [id number] - Unspecified foreign body in larynx causing other injury, initial encounter Coding Level of Care Code Est Pt Prev Care >65y(38268) Diagnoses Annual physical exam Z00.00 Abdominal pain, chronic, left lower quadrant R10.32; G89.29 Dysphagia R13.10 Dysphagia type: unspecified Mixed hyperlipidemia E78.2 Macrocytosis without anemia D75.89 Memory impairment R41.3 History of alcohol abuse F10.11 Lumbar degenerative disc disease M51.36 GERD without esophagitis K21.9 Constipation K59.00 Constipation type: unspecified constipation type Vitamin D deficiency E55.9 Pain and swelling of toe of left foot M79.675; M79.89 Insomnia G47.00 Insomnia type: unspecified Anxiety and depression F41.9; F32.A Smoker F17.200 Overweight (BMI 25.0-29.9) E66.3 Abnormal ultrasound of breast R92.8
== END 2022-12-13 12:32 | disposition home or self-care (01) ==
PROVIDERS: Visit Provider Internal Medicine
DX: Z00.00 Encounter for general adult medical examination without abnormal findings (principal); F41.9 Anxiety disorder, unspecified; K21.9 Gastro-esophageal reflux disease without esophagitis; E55.9 Vitamin D deficiency, unspecified; R10.32 Left lower quadrant pain; G89.29 Other chronic pain; R13.10 Dysphagia, unspecified; E78.2 Mixed hyperlipidemia; D75.89 Other specified diseases of blood and blood-forming organs; R41.3 Other amnesia; F10.11 Alcohol abuse, in remission; M51.36 Other intervertebral disc degeneration, lumbar region
CPT/HCPCS: 99397

== ENCOUNTER 2023-01-16 08:06 | Outpatient (REF) | payer OTHER, SELFPAY ==
--- NOTE | ~2023-01-16 | US_ITS ---
EXAMINATION: US PELVIS CLINICAL INFORMATION: Left lower quadrant pain; history of prior hysterectomy and oophorectomies. COMPARISON: None available. TECHNIQUE: Ultrasound of the pelvis is performed using both transabdominal and transvaginal transducers along with Doppler. Transvaginal imaging is performed due to inadequate visualization transabdominally. FINDINGS: Uterus: The uterus and bilateral ovaries are surgically absent and are not visualized. No pelvic free fluid is seen. There is no adnexal mass. US/US pelvic complete IMPRESSION: The uterus and bilateral ovaries are surgically absent. The examination is otherwise unremarkable.
--- NOTE | ~2023-01-16 | US_ITS ---
EXAMINATION: US ABDOMEN COMPLETE CLINICAL INFORMATION: Left lower quadrant pain. COMPARISON: CT abdomen and pelvis 06/28/2021. TECHNIQUE: Real-time imaging of the abdominal viscera. Technically limited study secondary to body habitus. FINDINGS: PANCREAS: Largely obscured by overlapping bowel gas. ABDOMINAL AORTA: The visualized proximal, mid, and distal segments are normal in caliber. INFERIOR VENA CAVA: Visualized portions are normal. LIVER: There is hepatomegaly, with a longitudinal span of 19.6 cm. The liver contour is normal. There is diffuse increased liver parenchymal echogenicity. No focal hepatic lesion. There is no intrahepatic biliary duct dilatation seen. GALLBLADDER: Normal. The gallbladder is physiologically distended without evidence of stones, sludge, polyps, wall thickening or pericholecystic fluid. COMMON BILE DUCT: Normal in caliber measuring 0.6 cm in diameter. RIGHT KIDNEY: Normal. No hydronephrosis. No renal calculi or focal parenchymal lesions. The kidney measures 8.9 cm in maximum dimension. LEFT KIDNEY: Normal. No hydronephrosis. No renal calculi or focal parenchymal lesions. The kidney measures 9.6 cm in maximum dimension. SPLEEN: No focal finding. The spleen measures 7.5 cm in maximum dimension. FREE FLUID: None. US/US abdomen complete IMPRESSION: 1. There is hepatomegaly. 2. There is generalized increase in hepatic echotexture, consistent with fatty infiltration or hepatocellular disease. Please correlate clinically. No focal hepatic mass or intrahepatic biliary dilatation is seen. 3. Technically limited ultrasound examination of the pancreas.
== END 2023-01-16 08:07 | disposition home or self-care (01) ==
LOC: HO.US 08:06
PROVIDERS: PCP Internal Medicine; Visit Provider Internal Medicine
DX: R10.32 Left lower quadrant pain (principal)
CPT/HCPCS: 76700; 76856

== ENCOUNTER 2023-02-19 13:15 | Outpatient (AMB) | payer OTHER, SELFPAY ==
--- NOTE | 2023-02-19 13:20 | A.OFFVIS_ITS ---
Intake Vital Signs 02/19/23 13:21 Height 5 ft 3 in Weight 158 lb 11.725 oz BMI 28.1 BP 112/69 Blood Pressure Location Lt brachial Position Sitting Pulse 87 Intake Visit Reasons: follow up from May Intake Note: Meli presents in the office as a follow up from May. CC: She states that she is is always in pain. Stomach and back have pains. She is still having diarrhea and pain. Sometimes there is a little blood when she wipes. 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 Continue avoiding dietary triggers and late night snacking. Staying upright for minimum 3 hours after meals discussed with patient. Abdominal pain, chronic, left lower quadrant Chronic left lower quadrant pain related to patient's bowel trapping in gas trapping due to severe sigmoid diverticulosis most likely. As mentioned above patient had very torturous bowel with narrowing. Difficulty of moving her bowels I am sure or is very painful for her. Will start her on MiraLax and senna. If she continues to have the pain we can start her on stool softeners. I would not recommend dicyclomine as this will only make her more constipated at not necessarily help her with pain. Tubular adenoma One tubular adenoma found in the cecum. Patient will repeat colonoscopy in 5 years or sooner if clinically necessary. Diverticulosis Severe diverticulosis and torturous and the narrow sigmoid colon. High-fiber diet. Start MiraLax and Senokot. We might need to add Colace if patient will continue to have discomfort and constipation. Status post colonoscopy Patient denies any ill effects from the prep, anesthesia or procedure itself. Tubular adenoma found in the cecum. Colorectal screening will be repeated in 5 years, sooner if clinically necessary. I will see patient in 3 months to make sure that she is moving her bowels better and her pain in her left lower quadrant has improved. Both patient and her MANAGEMENT ENGINEER verbalize understanding of instructions. They were given the opportunity to ask questions all questions answered. ? TODAY'S VISIT: Patient is here today for follow-up. Patient is accompanied by her MANAGEMENT ENGINEER. Patient lives with her MANAGEMENT ENGINEER. Patient reports that she has been doing fairly well, however she will continue to have abdominal pain. Patient continues to valenzuela ve spasm like pain in the left lumbar region. Patient also has chronic back pains. She would probably benefit from pain management. Will send referral. Patient reports that she is moving her bowels better now, occasional postprandial loose stools. Patient denies any melena, hematochezia, unintentional weight loss or ribbon like stools. Patient reports occasional acid reflux with dyspepsia without dysphagia or odynophagia. Patient is taking pantoprazole in the morning and for the most part her symptoms are suppressed. Patient does report however abdominal discomfort around umbilical area. Patient feels like her pain is getting worse and she feels like this area is getting more swollen. Patient denies any nausea or vomiting. Denies any other GI concerning symptoms. [facility] Medical History Anxiety and depression History of alcohol abuse Overweight (BMI 25.0-29.9) Constipation Depression Anxiety Insomnia Vitamin D deficiency Alcoholic dementia Tubular adenoma Ulcerative colitis Smoker Memory impairment Lumbar degenerative disc disease Colitis Surgical History Hx of colonoscopy History of hernia surgery Previous back surgery Social History Housing: Apartment Do you presently have visiting nurse or other home services: No Alcohol intake: former Patient Tobacco Use Status: Former Tobacco user Cigarettes Per Day: 8 e-Cigarette/Vaping Use: Never Used Second Hand Smoke Exposure: Yes service: No Current occupational status: retired and disabled Cognitive needs: No Hearing needs: Yes Vision needs: Yes Female Reproductive History Menstrual Age of Menarche: 19 Physical Exam Vital Signs: Last Vital Signs Pulse 87 02/19/23 13:21 BP 112/69 02/19/23 13:21 BMI result Body Mass Index 28.1 Const General: healthy appearing, no acute distress and well developed Nutritional Appearance: well nourished Orientation/consciousness: patient oriented x3 HEENT Head: Yes normal to inspection, Yes normocephalic and Yes atraumatic Face and sinus: Yes normal facial exam Mouth: Normal oral and palatal mucosa present Throat: Yes posterior oropharynx normal, Yes tonsils normal and Yes uvula midline Eyes General: appearance normal, both eyes and all related structures Neck Neck: Yes normal visual inspection, Yes full ROM and Yes trachea midline Thyroid: Thyroid normal Resp Effort & Inspection: normal respiratory effort, able to speak in complete sentences, no tracheal deviation and symmetric chest movement Auscultation: clear to auscultation bilaterally Cardio Rate: regular rate Heart sounds: S1 normal heart sound present and S2 normal heart sound present GI Other: Umbilical hernia at 01:00 o'clock, increased in size. Tenderness to touch Inspection: Yes obesity Palpation (GI): Soft to palpation, not firm, Tenderness to palpation present (GI) and No hepatosplenomegaly present Auscultation: normal bowel sounds General: Yes no CVA tenderness Back/Spine/Pelvis Back: no CVA tenderness Skin General skin exam: elasticity normal, turgor normal and dry skin Neuro General: patient oriented x3 Psych Appearance: grossly normal Mental Status: mental status grossly normal Results Reviewed Results Reviewed: MODIFIED BARIUM SWALLOW SPEECH THERAPY RESULTS PLAN: Intake Recommendations: Route: PO Diet Grade: Regular Liquid Consistencies: Thin Post-Study Functional Oral Intake Scale (FOIS): 7- Total oral intake with no restrictions Suggested Referrals: The patient might benefit from a referral to: Gastroenterology Indication for Referral: R/o esophageal dysmotility The following compensatory strategies and/or therapeutic exercises will be part of the upcoming therapy/management plan: Rate of Ingestion Change Prognosis for Improvement: The prognosis for the patient to meet nutritional needs by mouth is good based on degree of impairment, support system. Alf Goals: ? The patient will tolerate the least restrictive diet with a safe/efficient swallow to maintain adequate nutrition and hydration. Short Term Goals: ? Education - The patient, caregiver will verbalize/demonstrate understanding of the results of this evaluation, the above recommendations, and the swallowing guidelines. Clinician - Supplemental, Miscellaneous Communication: It is important to note MBSS objective studies are snapshots in time and Patient function might vary with factors such as time of day or concomitant medical conditions. For this reason, the final treatment plan for this patient should rest with their medical care team. Additional recommendations should be consid ered with the totality of the Patient in mind. Education: Education regarding findings from today's study and plans for therapy were provided to Patient and family/caregiver through Verbal Instruction, Demonstration. Understanding was expressed by the Patient and family/caregiver. Liquid Intake Recommendation: Thin Liquid Intake Strategies: Unrestricted Dietary Recommendations: Regular Medication Administration: Whole with Liquid Please contact the pharmacy regarding appropriate crushable or liquid drug formulations that are available whenever modified delivery is recommended. Compensatory Strategies Recommended: Sitting Upright (90 deg)Alternate Liquids/Solids Rate of Ingestion Change Assessment & Plan Assessment & Plan (1) Back pain of lumbar region with sciatica: Code(s): M54.40 - Lumbago with sciatica, unspecified side (2) GERD without esophagitis: Code(s): K21.9 - Gastro-esophageal reflux disease without esophagitis (3) Abdominal pain, chronic, left lower quadrant: Code(s): R10.32 - Left lower quadrant pain; G89.29 - Other chronic pain (4) Tubular adenoma: Code(s): D36.9 - Benign neoplasm, unspecified site (5) Diverticulosis: Code(s): K57.90 - Diverticulosis of intestine, part unspecified, without perforation or abscess without bleeding Plan Continues with left sided colic like pain. Will send patient for pain management. Patient will be sent also to general surgery. Umbilical hernia, mild tenderness during exam. Patient reports that she is moving her bowels well. Bowel sounds normal. Continue current treatment with pantoprazole daily. Patient can take Citrucel 1-2 tablets daily depending on her bowels. She can take senna to help her empty her bowels completely. Patient does report small amount of blood after bowel movement when constipated. Will send script for hydrocortisone. I will see her in 6 months, sooner on as needed basis. Patient is agreeable to this plan and verbalizes understanding of instructions. She was given the opportunity to ask questions and all questions answered. Thank you for allowing me to participate in her care Orders: Referrals Pain Management Referral M51.36 - Other intervertebral disc degeneration, lumbar region, M54.40 - Lumbago with sciatica, unspecified side General Surgery Referral K42.9 - Umbilical hernia without obstruction or gangrene Medications: New hydrocortisone 2.5% (Proctosol HC) 1 appl IA BID-QID PRN 30 grams 2RF hemorrhoids K64.9 - Unspecified hemorrhoids Changed From methylcellulose (laxative) take it with full glass of water 500 mg PO DAILY 30 tabs 2RF K59.00 - Constipation, unspecified To methylcellulose (laxative) (Citrucel) take it with full glass of water 1,000 mg (2 x 500 mg) PO DAILY 60 tabs 2RF K59.00 - Constipation, unspecified Refilled lidocaine 5% leave on most painful area for up to 12 hrs 1 patch topical DAILY 30 ea 2RF Coding Level of Care Code Est Pt Level 4 (44748) Diagnoses Back pain of lumbar region with sciatica M54.40 GERD without esophagitis K21.9 Abdominal pain, chronic, left lower quadrant R10.32; G89.29 Tubular adenoma D36.9 Diverticulosis K57.90 Time Spent (min) 35 Comment 25 minute spent with patient and additional 10 minutes spent reviewing her records
[2023-02-19 13:21] VITALS: BP 112/69; PULSE 87; BMI 28.1
== END 2023-02-19 14:21 | disposition home or self-care (01) ==
PROVIDERS: PCP Internal Medicine; Visit Provider Nurse Practitioner Family
DX: M54.40 Lumbago with sciatica, unspecified side (principal); K21.9 Gastro-esophageal reflux disease without esophagitis; R10.32 Left lower quadrant pain; G89.29 Other chronic pain; D36.9 Benign neoplasm, unspecified site; K57.90 Diverticulosis of intestine, part unspecified, without perforation or abscess without bleeding
CPT/HCPCS: 99214

== ENCOUNTER → 2023-02-19 13:15 | Outpatient (BNVA) | payer OTHER, SELFPAY | PROVIDERS: PCP Internal Medicine; Visit Provider Nurse Practitioner Family | DX: R10.32 Left lower quadrant pain (principal); M54.40 Lumbago with sciatica, unspecified side; K21.9 Gastro-esophageal reflux disease without esophagitis; K57.90 Diverticulosis of intestine, part unspecified, without perforation or abscess without bleeding; D36.9 Benign neoplasm, unspecified site; G89.29 Other chronic pain | CPT/HCPCS: 99212 ==

== ENCOUNTER 2023-03-25 14:47 | Outpatient (AMB) | payer OTHER, SELFPAY ==
--- NOTE | 2023-03-25 14:48 | A.OFFVIS_ITS ---
Intake Vital Signs 03/25/23 14:58 Height 5 ft 3 in Weight 161 lb BMI 28.5 BP 135/61 Blood Pressure Location Lt brachial Position Sitting Pulse 87 Intake Visit Reasons: Umbilical Hernia Intake Note: Patient is seen in office for evaluation and treatment of an umbilical hernia. Pt c/o: per pt feels something moving in her umbilical area, not a lump, admits to some constipation, denies nausea, vomit, constipation, no prior surgery in the area Human Services Care Specialist Required: No Accompanied by: Other Relationship Allergies codeine Adverse Reaction (Mild, Verified 03/25/23 14:55) Abdominal Pain Medication List - Last Reconciled 03/25/23 by Romario Villegas MD acetaminophen (Pain Relief Extra Strength (acetaminophen)) 500 mg PO Q6H PRN 30 days atorvastatin 10 mg PO BEDTIME 30 days [BEDSIDE COMMODE As directed] benzonatate 200 mg PO BID-TID PRN 10 days capsaicin 0.1% 1 appl topical BID cholecalciferol (vitamin D3) 25 mcg PO DAILY 90 days cyanocobalamin (vitamin B-12) 1,000 mcg PO DAILY cyclobenzaprine 10 mg PO TID PRN 30 days duloxetine mg PO folic acid 0.4 mg PO DAILY gabapentin 300 mg PO TID 30 days hydrocortisone 2.5% (Proctosol HC) 1 appl AL BID-QID PRN lidocaine 5% 1 patch topical DAILY methylcellulose (laxative) (Citrucel) 1,000 mg (2 x 500 mg) PO DAILY nicotine 1 patch transdermal DAILY 7 days pantoprazole 40 mg PO DAILY 30 days quetiapine mg PO sennosides (Natural Senna Laxative) 8.6 mg PO BEDTIME sertraline 50 mg PO DAILY 90 days tramadol 50 mg PO BEDTIME PRN 15 days [TRANSPORT WHEELCHAIR As directed] trazodone 100 mg PO BEDTIME PRN 30 days HPI Umbilical Hernia HPI Details 77-year-old female referred for a questi on of an umbilical hernia. 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 She was referred to me because of a question of an umbilical hernia. The patient denies any pain localized to the umbilicus. She admits to diffuse abdominal pain. She denies any palpable mass on the umbilicus. REPLACED BY [facility] Medical History Anxiety and depression History of alcohol abuse Overweight (BMI 25.0-29.9) Constipation Depression Anxiety Insomnia Vitamin D deficiency Alcoholic dementia Tubular adenoma Ulcerative colitis Smoker Memory impairment Lumbar degenerative disc disease Colitis Surgical History Hx of colonoscopy History of hernia surgery Previous back surgery Social History Housing: Apartment Do you presently have visiting nurse or other home services: No Alcohol intake: former Patient Tobacco Use Status: Former Tobacco user Cigarettes Per Day: 8 e-Cigarette/Vaping Use: Never Used Second Hand Smoke Exposure: Yes service: No Current occupational status: retired and disabled Cognitive needs: No Hearing needs: Yes Vision needs: Yes Female Reproductive History Menstrual Age of Menarche: 19 Review of Systems Const Denies chills and Denies fever(s) Card Denies chest pain, Denies dyspnea and Reports dyspnea on exertion Resp Denies cough, Denies dyspnea and Reports dyspnea on exertion GI Denies hematochezia and Denies change in bowel habits Denies hematuria Musc Reports abnormal gait, Reports back pain, Reports myalgias and Reports limited range of motion Neuro Reports abnormal gait, Denies focal weakness and Denies convulsions Psych Denies depression and Denies mood swings Physical Exam Vital Signs: Last Vital Signs Pulse 87 03/25/23 14:58 BP 135/61 03/25/23 14:58 BMI result Body Mass Index 28.5 Const Other: Frail looking, using a wheelchair, able to stand up for short periods of time only Resp Effort & Inspection: normal respiratory effort Cardio Rate: regular rate GI Other: No palpable masses on the abdominal wall even with Valsalva, no umbilical hernia on exam Palpation (GI): Soft to palpation, not firm and nontender Assessment & Plan Assessment & Plan (1) Recurrent left lower quadrant abdominal pain: Code(s): R10.32 - Left lower quadrant pain Plan: She was referred to me because of a question of an umbilical hernia. I do not see any umbilical hernia on examination even with Valsalva maneuvers I was able to review her CT scan of the abdomen from last year and this does not reveal any umbilical hernia either I assured her about my findings. 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 She can follow up with me on a p.r.n. basis. She does have multiple medical problems and appears very frail. Coding Level of Care Code New Pt Level 3 (23177) Diagnoses Recurrent left lower quadrant abdominal pain R10.32
[2023-03-25 14:58] VITALS: BP 135/61; PULSE 87; BMI 28.5
== END 2023-03-25 15:17 | disposition home or self-care (01) ==
PROVIDERS: PCP Internal Medicine; Referring Provider Nurse Practitioner Family; Visit Provider Surgery
DX: R10.32 Left lower quadrant pain (principal)
CPT/HCPCS: 99203

== ENCOUNTER → 2023-03-25 14:47 | Outpatient (BNVA) | payer OTHER, SELFPAY | PROVIDERS: PCP Internal Medicine; Referring Provider Nurse Practitioner Family; Visit Provider Surgery | DX: R10.32 Left lower quadrant pain (principal) | CPT/HCPCS: 99202 ==

== ENCOUNTER 2023-06-12 11:21 | Outpatient (AMB) | payer OTHER, SELFPAY ==
--- NOTE | 2023-06-12 11:23 | MHC.PC.OV ---
Vital Signs 06/12/23 11:24 Height 5 ft 3 in Weight 167 lb 12.348 oz BMI 29.7 BP 110/86 Blood Pressure Location Lt brachial Position Sitting Pulse 108 H Pulse Source Pulse Oximeter Pulse Oximetry (%) 93 Oxygen Delivery Method Room Air Intake Visit Reasons: follow up Billet Worker Required: No Accompanied by: Self / Same As Patient Allergies codeine Adverse Reaction (Mild, Verified 06/12/23 11:54) Abdominal Pain Medication List - Last Reconciled 06/12/23 by Francisco Javier Jimeenz MD acetaminophen (Pain Relief Extra Strength (acetaminophen)) 500 mg PO Q6H PRN 30 days atorvastatin 10 mg PO BEDTIME 30 days [BEDSIDE COMMODE As directed] benzonatate 200 mg PO BID-TID PRN 10 days capsaicin 0.1% 1 appl topical BID cholecalciferol (vitamin D3) 25 mcg PO DAILY 90 days cyanocobalamin (vitamin B-12) 1,000 mcg PO DAILY cyclobenzaprine 10 mg PO TID PRN 30 days duloxetine 60 mg PO DAILY folic acid 0.4 mg PO DAILY gabapentin 300 mg PO TID 30 days hydrocortisone 2.5% (Proctosol HC) 1 appl [place] BID-QID PRN lidocaine 5% 1 patch topical DAILY methylcellulose (laxative) (Citrucel) 1,000 mg (2 x 500 mg) PO DAILY nicotine 1 patch transdermal DAILY 7 days pantoprazole 40 mg PO DAILY 30 days quetiapine 50 mg PO BEDTIME sennosides (Natural Senna Laxative) 8.6 mg PO BEDTIME sertraline 50 mg PO DAILY 90 days tramadol 50 mg PO BEDTIME PRN 15 days [TRANSPORT WHEELCHAIR As directed] trazodone 100 mg PO BEDTIME PRN 30 days Tobacco use date assessed: 06/12/23 Fall risk assessment: 2 + Falls in past year Last assessed Fall Risk: 06/12/23 Dental Screening Dental Screen Date: 06/12/23 Did you have a dental visit in the last 12 months?: No Did you have a dental problem in the last 6 months where you did not have access to dental care?: No Was dental information given to patient?: No HPI follow up HPI Details Patient comes in today for her follow up visit States that she has been experiencing some sore throat and has had some cough/cold symptoms for the past 2 days She denies any fever, headaches or dizziness Denies any chest pains or SOB although her PUBLIC HEALTH TEACHER states that she has noticed patient experiencing some PRABHAKAR at times lately No nausea/vomiting, no abdominal pain No change in bowel habits noted She has not had any follow up labs done in a couple of years [facility] Medical History Anxiety and depression History of alcohol abuse Overweight (BMI 25.0-29.9) Constipation Depression Anxiety Insomnia Vitamin D deficiency Alcoholic dementia Tubular adenoma Ulcerative colitis Smoker Memory impairment Lumbar degenerative disc disease Colitis Surgical History Hx of colonoscopy History of hernia surgery Previous back surgery Social History Housing: Apartment Do you presently have visiting nurse or other home services: No Alcohol intake: former Patient Tobacco Use Status: Former Tobacco user Cigarettes Per Day: 8 e-Cigarette/Vaping Use: Never Used Second Hand Smoke Exposure: Yes Advance Directives: Yes Advance Directives on File: Yes Advance Directives Date on File: 07/21/21 service: No Current occupational status: retired and disabled Cognitive needs: No Hearing needs: Yes Vision needs: Yes Female Reproductive History Menstrual Age of Menarche: 19 Questionnaire PHQ-9 Over the last 2 weeks, how often have you been bothered by any of the following problems? 1. Little interest or pleasure in doing things: not at all 2. Feeling down, depressed, or hopeless: not at all 3. Trouble falling or staying asleep, or sleeping too much: not at all 4. Feeling tired or having little energy: not at all 5. Poor appetite or overeating: not at all 6. Feeling bad about yourself - or that you are a failure or have let yourself or your family down: not at all 7. Trouble concentrating on things, such as reading the newspaper or watching television: not at all 8. Moving or speaking so slowly that other people could have noticed. Or the opposite - being so fidgety or restless that you have been moving around a lot more than usual: not at all 9. Thoughts that you would be better off or of hurting yourself in some way: not at all Total score: 0 Depression Screening Interpretation: Negative Depression Screening Done: Yes 90806 - PHQ-9 Billing: Yes Source: Developed by Drs. Vern Whiting, Paulina De Luna, Americo Main and colleagues, with an educational cordelia from [employer]. Thrive Questionnaire Date Thrive assessed: 06/12/23 I am a: Patient What is your living situation today?: I have a steady place to live Within the past 12 months, did the food you bought not last and you didn't have the money to get more?: Never true Within the past 12 months, did you worry whether your food would run out before you got money to buy more?: Never true Do you have trouble paying for medicines?: No Do you have trouble getting transportation to medical appointments?: No Do you have trouble paying your heating and electricity bill?: No Do you have trouble taking care of your child, family member or friend?: No Do you have trouble with day-to-day activities such as bathing, preparing meals, shopping, managing finances, etc.?: No Are you currently unemployed and looking for a job?: No Are you interested in more education?: No Please select the resources that you would like help with: None Currently or been in a relationship where the following occur: no concerns reported THRIVE Score: 0 AUDIT C Alcohol Use Questionnaire (AUDIT-C) 1. How often do you have a drink containing alcohol?: Never 3. How often do you have six or more drinks on one occasion?: Never Total Score: 0 Score Reviewed/Action Taken: Yes ALIX-7 AMB Questionnaire ALIX-7 Date ALIX - 7 assessed: 06/12/23 Feeling nervous, anxious, or on edge: 1 = Several days Not being able to stop or control worryin = Several days Worrying too much about different things: 1 = Several days Trouble relaxin = Several days Being so restless that it is hard to sit still: 1 = Several days Becoming easily annoyed or irritable: 1 = Several days Feeling afraid as if something awful might happen: 1 = Several days Total ALIX-7 score (0-4 normal; 5-9 mild; 10-14 moderate; 15-21 severe): 7 Source: Developed by Drs. Vern Whiting, Americo Prieto and colleagues, with an educational cordelia from [employer]. Review of Systems Const Denies chills, Reports fatigue, Denies fever(s) and Denies headache(s) ENT Denies dysphagia, Denies dizziness, Denies otalgia, Denies headache(s), Denies neck pain, Denies odynophagia and Reports sore throat (mild) Card Denies chest pain, Denies rapid heart rate, Denies irregular heart rhythm, Denies palpitations and Reports dyspnea on exertion (mild, per PUBLIC HEALTH TEACHER) Resp Reports chest congestion (mild), Reports cough (on and off), Denies pain with cough, Reports dyspnea on exertion (mild, per PUBLIC HEALTH TEACHER) and Denies wheezing GI Denies abdominal pain, Denies constipation, Denies dysphagia, Denies heartburn, Denies diarrhea, Denies nausea, Denies odynophagia and Denies vomiting Denies urinary frequency, Denies dysuria, Denies urinary incontinence and Denies urinary urgency Musc Denies back pain and Denies neck pain Skin/Breast Denies rash Neuro Denies dizziness, Denies headache(s) and Denies paresthesias Endo Reports fatigue and Denies palpitations Aller/Immun Denies wheezing Physical exam (Primary Care) Vital Signs: Last Vital Signs Pulse 108 H 06/12/23 11:24 BP 110/86 06/12/23 11:24 Pulse Ox 93 06/12/23 11:24 Oxygen Delivery Method Room Air 06/12/23 11:24 BMI result Body Mass Index 29.7 Tobacco/Smoking Status: Tobacco use Status Tobacco use date assessed 06/12/23 06/12/23 11:26 Patient Tobacco Use Status Former Tobacco user 06/12/23 11:26 e-Cigarette/Vaping Use Never Used 06/12/23 11:26 PHQ-9: PHQ-9 Score PHQ-9: Total score 0 06/12/23 15:06 Depression Screening Interpretation: Negative Thrive Assessment: Date of Thrive Assessment Date Thrive assessed 06/12/23 06/12/23 11:26 Currently or been in a relationship where the following occur: no concerns reported Const General: no acute distress and alert HENMT Ears: TM's normal bilaterally and EAC's normal Throat: Yes posterior oropharynx normal and Yes tonsils normal (no TP congestion) Neck Neck: Yes no lymphadenopathy and Yes supple Thyroid: Thyroid normal Resp Auscultation: clear to auscultation bilaterally, no rales and no wheezes Cardio Rate: regular rate Rhythm: regular rhythm Heart sounds: no murmurs GI Palpation (GI): Soft to palpation and Tenderness to palpation present (GI) (mild, left-sided) Auscultation: normal bowel sounds General: Yes no CVA tenderness Back/Spine/Pelvis Back: no CVA tenderness Thoracic/Lumbar Spine: thoracic and lumbar spine normal to inspection Skin Rashes: no rashes Extrem General: Yes no clubbing, cyanosis or edema Assessment and Plan Assessment & Plan (1) Respiratory tract infection: Code(s): J98.8 - Other specified respiratory disorders Plan: Will start patient empirically on Cefuroxime 500 mg BID x 7 days Due to her PUBLIC HEALTH TEACHER reporting that she has noticed patient experiencing some on and off PRABHAKAR lately, will send her to get some chest x-rays done TELMA for further evaluation Will also send patient for some labs TELMA for further evaluation (2) Mixed hyperlipidemia: Code(s): E78.2 - Mixed hyperlipidemia Plan: Advised that her cholesterol levels were high on her previous labs done last year; follow up labs have been ordered a few times since but patient has not been able to get them rechecked yet Reinforced low cholesterol diet Continue Atorvastatin 10 mg Q HS - Rx was started last year Will have patient recheck her labs and fasting lipids TELMA for follow up (3) Macrocytosis without anemia: Code(s): D75.89 - Other specified diseases of blood and blood-forming organs Plan: Previous labs done the ER last year revealed macrocytosis without anemia Serum B12,Folate and TSH were normal Will send patient for repeat labs TELMA for follow up (4) Memory impairment: Code(s): R41.3 - Other amnesia Plan: Was seen by neurology in 2021 and diagnosed with alcoholic dementia along with other disorders, which include post herpetic neuralgia, peripheral neuropathy, multifactorial gait disorder, restless legs syndrome, insomnia, anxiety and depression Patient states that she has quit drinking completely years ago She has not seen neurology again for follow-up since her visit with them in late December 2021 Continue Vitamin B12 1000 mcg QD and Folic Acid 400 mcg QD (5) History of alcohol abuse: Code(s): F10.11 - Alcohol abuse, in remission Plan: Patient states that she stopped drinking completely years ago (6) Lumbar degenerative disc disease: Comment: (+) Hx of spinal fusion and bone grafting done many years ago in [place] Code(s): M51.36 - Other intervertebral disc degeneration, lumbar region Plan: Reinforced activity and weight-lifting restrictions Continue Gabapentin 300 mg TID and Cyclobenzaprine 10 mg TID PRN, Tramadol 50 mg Q HS, Lidocaine 5% patch QD PRN and Duloxetine 60 mg QD Follow up with pain management as scheduled (7) GERD without esophagitis: Code(s): K21.9 - Gastro-esophageal reflux disease without esophagitis Plan: Dietary restrictions reinforced Continue Pantoprazole 40 mg QD (8) Constipation: Code(s): K59.00 - Constipation, unspecified Qualifiers: Constipation type: unspecified constipation type Qualified Code(s): K59.00 - Constipation, unspecified Plan: Encouraged increased oral fluids and dietary fiber Continue Miralax 17 gm QD and Senna 8.6 mg Q HS (9) Vitamin D deficiency: Code(s): E55.9 - Vitamin D deficiency, unspecified Plan: Continue Vitamin D3 1000 units QD (10) Insomnia: Code(s): G47.00 - Insomnia, unspecified Qualifiers: Insomnia type: unspecified Qualified Code(s): G47.00 - Insomnia, unspecified Plan: Sleep hygiene reinforced Continue Trazodone 100 mg Q HS PRN (11) Anxiety and depression: Code(s): F41.9 - Anxiety disorder, unspecified; F32.A - Depression, unspecified Plan: Continue Sertraline 50 mg QD; is also on Duloxetine 60 mg QD (12) Smoker: Code(s): F17.200 - Nicotine dependence, unspecified, uncomplicated Plan: Counseled again on smoking cessation Continue nicotine patches to help her quit smoking - Rx refilled Chest x-rays done a couple of years ago came out normal Plan Follow up in 4 months Orders: Orders XR chest 2V 06/12/23 R05.9 - Cough, unspecified, R06.00 - Dyspnea, unspecified Complete Blood Count Auto Diff 06/12/23 D64.9 - Anemia, unspecified Vitamin B12 and Folate 06/12/23 E53.8 - Deficiency of other specified B group vitamins Comprehensive [place]. Panel Fast 06/12/23 E78.00 - Pure hypercholesterolemia, unspecified Lipid Panel 06/12/23 E78.00 - Pure hypercholesterolemia, unspecified TSH reflex Free T4 06/12/23 E78.00 - Pure hypercholesterolemia, unspecified UA CC w/rflx Micro + Cult 06/12/23 R30.0 - Dysuria Vitamin D 25-OH Total 06/12/23 E55.9 - Vitamin D deficiency, unspecified Medications: New cefuroxime axetil 500 mg PO BID 7 days 14 tabs 0RF Changed From nicotine 1 patch transdermal DAILY 7 days 7 ea 0RF F17.200 - Nicotine dependence, unspecified, uncomplicated To nicotine 1 patch transdermal DAILY 28 days 28 ea 3RF F17.200 - Nicotine dependence, unspecified, uncomplicated Coding Level of Care Code Est Pt Level 4 (19268) Diagnoses Respiratory tract infection J98.8 Mixed hyperlipidemia E78.2 Macrocytosis without anemia D75.89 Memory impairment R41.3 History of alcohol abuse F10.11 Lumbar degenerative disc disease M51.36 GERD without esophagitis K21.9 Constipation, unspecified constipation type K59.00 Constipation type: unspecified constipation type Vitamin D deficiency E55.9 Insomnia, unspecified type G47.00 Insomnia type: unspecified Anxiety and depression F41.9; F32.A Smoker F17.200
[2023-06-12 11:24] VITALS: BP 110/86; PULSE 108; O2SAT 93; BMI 29.7
== END 2023-06-12 12:07 | disposition home or self-care (01) ==
PROVIDERS: PCP Internal Medicine; Visit Provider Internal Medicine
DX: J98.8 Other specified respiratory disorders (principal); E78.2 Mixed hyperlipidemia; D75.89 Other specified diseases of blood and blood-forming organs; R41.3 Other amnesia; F10.11 Alcohol abuse, in remission; M51.36 Other intervertebral disc degeneration, lumbar region; K21.9 Gastro-esophageal reflux disease without esophagitis; K59.00 Constipation, unspecified; E55.9 Vitamin D deficiency, unspecified; G47.00 Insomnia, unspecified; F41.9 Anxiety disorder, unspecified; F32.A Depression, unspecified; F17.200 Nicotine dependence, unspecified, uncomplicated
CPT/HCPCS: 99214

== ENCOUNTER 2023-06-12 12:22 | Outpatient (REF) | payer OTHER, SELFPAY ==
--- NOTE | ~2023-06-12 | XR_ITS ---
EXAMINATION: XR CHEST CLINICAL INFORMATION: Cough COMPARISON: None available. TECHNIQUE: 2 views of the chest were obtained. FINDINGS: The cardiac silhouette does not appear enlarged. The thoracic aorta is slightly tortuous. There is an esophageal hernia. Hilar and mediastinal contours are otherwise unremarkable. There is subsegmental atelectasis at the left lung base. Lungs are otherwise clear. There are old bilateral rib fractures and mild T12 vertebral body compression fracture. XR/XR chest 2V IMPRESSION: Subsegmental atelectasis at the left lung base.
[2023-06-12 13:10] LABS: MANUAL DIFF FLAG NO
[2023-06-12 13:47] LABS: Basophils Percent Auto 0.3 % (0-2); Eosinophils Absolute Auto 0.2 X10*3/uL (0.0-0.4); Eosinophils Percent Auto 1.2 % (0-4); Hematocrit 33.9 % (37.0-47.0); Hemoglobin 11.5 g/dl (12.0-16.0); Imm Gran Abs Auto 0.09 X10*3/uL (0.00-0.03); Imm Gran Pct Auto 0.7 % (0.0-0.4); Lymphocytes Absolute Auto 1.3 X10*3/uL (1.2-4.9); Lymphocytes Percent Auto 9.7 % (20-40); Mean Corpuscular HGB Conc 33.9 g/dl (31.0-35.0); Mean Corpuscular Hemoglobin 33.8 pg (27.0-33.0); Mean Corpuscular Volume 99.7 fL (80.0-98.0); Monocytes Absolute Auto 0.8 X10*3/uL (0.1-1.2); Neutrophils Absolute Auto 10.6 x10*3/uL (2.0-8.3); Neutrophils Percent Auto 82.1 % (45-73); Platelet Count 282 X10*3/uL (160-400); Red Cell Distribution Width 13.3 % (11.0-16.0); White Blood Count 12.9 X10*3/uL (4.8-10.8)
[2023-06-12 14:26] LABS: Alanine Aminotransferase 7 U/L (0-31); Albumin Level 3.7 g/dL (3.5-5.0); Alkaline Phosphatase 62 U/L (39-117); Anion Gap 11 (12-20); Aspartate Amino Transferase 11 U/L (5-31); Bilirubin Total 0.6 mg/dL (0.0-1.0); Blood Urea Nitrogen 8 mg/dL (9-16); Calcium 9.1 mg/dL (8.4-10.2); Carbon Dioxide 25 mmol/L (22-29); Chloride 106 mmol/L (96-108); Cholesterol 206 mg/dL (<200); Estimated Glomerular Filt Rate > 60; Glucose Fasting 109 mg/dL (60-99); HDL Cholesterol 48 mg/dL (>40); LDL Cholesterol Calculated 130 mg/dL (<100); Potassium 3.4 mmol/L (3.3-5.1); Sodium 139 mmol/L (135-145); Total Protein 7.4 g/dL (6.5-8.0); Triglycerides 143 mg/dL (<150)
[2023-06-12 14:36] LABS: TSH reflex Free T4 0.55 uIU/mL (0.32-4.0); Vitamin D 25-OH Total 45.6 ng/mL (>30)
[2023-06-12 14:48] LABS: Folate 15.2 ng/mL (> or = 4.0); Vitamin B12 531 pg/mL (200-900)
== END 2023-06-12 12:23 | disposition home or self-care (01) ==
LOC: HO.XRAY 12:22
PROVIDERS: PCP Internal Medicine; Visit Provider Internal Medicine
DX: E55.9 Vitamin D deficiency, unspecified (principal); I10 Essential (primary) hypertension; E53.8 Deficiency of other specified B group vitamins; R05.9 Cough, unspecified; R06.00 Dyspnea, unspecified; E78.00 Pure hypercholesterolemia, unspecified
CPT/HCPCS: 36415; 71046; 80053; 80061; 82306; 82607; 82746; 84443; 85025

== ENCOUNTER 2023-06-12 16:01 | Emergency (ER) | payer OTHER, SELFPAY ==
[2023-06-12] VITALS (8 sets, daily range): BP systolic 73–168; BP diastolic 43–94; PULSE 84–94; RESP 14–18; TEMP 36.6–36.9; O2SAT 94–98; BMI 25.7
--- NOTE | ~2023-06-12 | XR_ITS ---
EXAMINATION: XR HIP, LEFT CLINICAL INFORMATION: Left hip pain COMPARISON: None available. TECHNIQUE: Two views of the left hip. FINDINGS: No fracture, dislocation or destructive lesion or erosive change. Pelvis intact. XR/XR hip LT min 2V IMPRESSION: No acute findings.
--- NOTE | ~2023-06-12 | CT_ITS ---
EXAMINATION: CT PELVIS WITH CONTRAST CLINICAL INFORMATION: Left thigh/buttock hematoma. Growing hematoma. COMPARISON: Left hip radiographs dated 06/12/2023. CT abdomen/pelvis dated 06/28/2021. TECHNIQUE: Helical scanning was performed with submillimeter collimation through the pelvis with the use of oral contrast and during bolus intravenous injection of 85 mL of Omnipaque 350 intravenous contrast. Sagittal and coronal multiplanar 2-D reconstructions were obtained. This CT examination was performed using dose optimization techniques as appropriate, variously including the following: *Automated exposure control. *Adjustment of mA and/or kV according to patient size (this includes techniques or standardized protocols for targeted exams where dose is matched to indication/reason for exam; i.e. extremities or head). *Use of iterative reconstruction technique. DLP: 352 mGy-cm FINDINGS: PELVIS: The visualized intrapelvic structures are unremarkable. No intrapelvic mass or fluid collection. Atherosclerotic calcifications. PELVIC WALL: Within the subcutaneous tissues posterosuperior to the left gluteus linda muscle there is a lobulated focus of heterogeneous density and stranding measuring approximately 3.1 x 7.6 x 7.6 cm, consistent with an evolving soft tissue hematoma. Prominent adjacent stranding with mild skin thickening. No additional soft tissue mass or fluid collection. No pelvic wall hernia. OSSEOUS STRUCTURES: No acute fracture or dislocation. Postsurgical change within the lower lumbar spine as well as within the left iliac bone. Mild bilateral hip joint space narrowing with small marginal osteophytes. No concerning lytic or blastic osseous lesion. No evidence of femoral head avascular necrosis. CT/CT pelvis w IV con IMPRESSION: 1. Soft tissue hematoma posterosuperior to the left gluteus linda muscle measuring up to 7.6 cm with prominent adjacent stranding and skin thickening. 2. No acute osseous abnormality. 3. Mild bilateral hip osteoarthritis.
--- NOTE | 2023-06-12 16:26 | ED_ITS ---
HPI - Fall General Chief Complaint: Fall Stated Complaint: L HIP PAIN FELL THIS AM Time Seen by Provider: 06/12/23 16:06 Source: patient and other (TRANSIT MANAGER) Mode of arrival: EMS Limitations: no limitations History of Present Illness HPI Narrative: Patient comes to the emergency room complaining of left hip pain. Patient states that she has history of multiple falls. However, today patient fell twice. Patient states that the 1st time she fell, she was on her way to her scheduled appointments, on the last step patient was walking behind her TRANSIT MANAGER, missed the last step and landed in her left hip. Patient went to her appointments walking. When they returned to the patient's house, patient was walking up the stairs with the assistance of her TRANSIT MANAGER. Just before they reach the last step, patient fell again landing on her left side. This time, patient was unable to get up. Patient states she did not hit her head or lost consciousness, patient is not on any blood thinners Related Data Home Medications Medication Instructions Recorded Confirmed cyanocobalamin (vitamin B-12) 1,000 mcg PO DAILY 08/22/21 06/12/23 1,000 mcg tablet duloxetine 60 mg capsule,delayed 60 mg PO DAILY 06/12/23 06/12/23 release quetiapine 50 mg tablet 50 mg PO BEDTIME 06/12/23 06/12/23 Previous Rx's Medication Instructions Recorded folic acid 400 mcg tablet 0.4 mg PO DAILY #30 tabs 07/18/21 BEDSIDE COMMODE #1 ea 07/21/21 TRANSPORT WHEELCHAIR #1 ea 07/21/21 benzonatate 200 mg capsule 200 mg PO BID-TID PRN cough 10 07/21/21 days #30 caps capsaicin 0.1 % topical cream 1 appl topical BID #42.5 grams 09/26/21 trazodone 100 mg tablet 100 mg PO BEDTIME PRN insomnia 30 07/10/22 days #30 tabs gabapentin 300 mg capsule 300 mg PO TID 30 days #90 caps 09/06/22 atorvastatin 10 mg tablet 10 mg PO BEDTIME 30 days #90 tabs 10/16/22 pantoprazole 40 mg tablet,delayed 40 mg PO DAILY 30 days #90 tabs 10/16/22 release hydrocortisone 2.5 % topical cream 1 appl [place] BID-QID PRN hemorrhoids 02/19/23 with perineal applicator #30 grams (Proctosol HC) lidocaine 5 % topical patch 1 patch topical DAILY #30 ea 02/19/23 sertraline 50 mg tablet 50 mg PO DAILY 90 days #90 tabs 04/01/23 sennosides 8.6 mg tablet (Natural 8.6 mg PO BEDTIME constipation #90 04/30/23 Senna Laxative) tabs acetaminophen 500 mg tablet (Pain 500 mg PO Q6H PRN pain 30 days 05/01/23 Relief Extra Strength #120 tabs (acetaminophen)) cyclobenzaprine 10 mg tablet 10 mg PO TID PRN muscle spasm 30 05/01/23 days #90 tabs cholecalciferol (vitamin D3) 25 25 mcg PO DAILY 90 days #90 tabs 05/28/23 mcg (1,000 unit) tablet methylcellulose (laxative) 500 mg 1,000 mg (2 x 500 mg) PO DAILY #60 05/30/23 tablet (Citrucel) tabs tramadol 50 mg tablet 50 mg PO BEDTIME PRN pain 15 days 06/04/23 #15 tabs acetaminophen 500 mg tablet 500 mg PO QID PRN pain #20 tabs 06/12/23 cefuroxime axetil 500 mg tablet 500 mg PO BID #14 tabs 06/12/23 cefuroxime axetil 500 mg tablet 500 mg PO BID 7 days #14 tabs 06/12/23 lidocaine 4 % topical patch 1 patch topical QID PRN pain #15 ea 06/12/23 nicotine 7 mg/24 hr daily 1 patch transdermal DAILY 28 days 06/12/23 transdermal patch #28 ea Allergies Allergy/AdvReac Type Severity Reaction Status Date / Time codeine AdvReac Mild Abdominal Verified 06/12/23 11:54 Pain Review of Systems 2 Review of Systems: Constitutional : No Weight loss, No Fever, No Chills, No Night Sweats, No Fatigue, No Malaise ENT/Mouth : No Hearing loss, No Ear Pain, No Nasal Congestion, No Sinus Pain, No Hoarseness, No sore throat, No Rhinorrhea, No Swallowing Difficulty Eyes: No Eye Pain, No Swelling, No Redness, No Foreign Body, No Discharge, No Vision Changes Cardiovascular : No Chest Pain, No SOB, No Dyspnea on Exertion, No Orthopnea, No Edema, No Palpitations Respiratory : No Cough, No Sputum, No Wheezing, No Smoke Exposure, No Dyspnea Gastrointestinal : No Nausea, No Vomiting, No Diarrhea, No Constipation, No abdominal Pain, No Hematochezia, No Melena Genitourinary : no irregular bleeding, No Dysuria, No Urinary Frequency, No Hematuria, No Urinary Incontinence, No Urgency, No Flank Pain, No Urinary Flow Changes, No Hesitancy Musculoskeletal : Complaining of left hip pain Skin : No Skin Lesions, No rash Neuro : No Weakness, No Numbness, No Paresthesias, No Loss of Consciousness, No Dizziness, No Headache Psych : No Anxiety/Panic, No Depression, No SI/HI/AH/VH, No Social Issues, Heme/Lymph: No Bruising, No Bleeding,No Lymphadenopathy Endocrine : No Polyuria, No Polydipsia, No Temperature Intolerance [facility] Past Medical History Medical History Anxiety and depression History of alcohol abuse Overweight (BMI 25.0-29.9) Constipation Depression Anxiety Insomnia Vitamin D deficiency Alcoholic dementia Tubular adenoma Ulcerative colitis Smoker Memory impairment Lumbar degenerative disc disease Colitis Surgical History Hx of colonoscopy History of hernia surgery Previous back surgery Social History Social History Housing: Apartment Do you presently have visiting nurse or other home services: No Alcohol intake: former Patient Tobacco Use Status: Former Tobacco user Cigarettes Per Day: 8 e-Cigarette/Vaping Use: Never Used Second Hand Smoke Exposure: Yes Advance Directives: Yes Advance Directives on File: Yes Advance Directives Date on File: 07/21/21 service: No Current occupational status: retired and disabled Cognitive needs: No Hearing needs: Yes Vision needs: Yes Physical Exam 2 Vital Signs: Vital Signs: Last Vital Signs Temp 97.8 F 06/12/23 18:34 Pulse 94 06/12/23 21:36 Resp 18 06/12/23 18:34 BP 128/85 06/12/23 21:36 Pulse Ox 95 06/12/23 18:34 O2 Del Method Room Air 06/12/23 18:34 BMI result Body Mass Index 25.7 Const: Other: Appearance: Alert. Oriented X3. No acute distress. Eyes: Pupils equal, round and reactive to light. ENT: Pharynx normal. Neck: Normal inspection. Neck supple. No lymph nodes noted. No crepitus CVS: Normal heart rate and rhythm. Pulses normal. Normal S1 and S2 Respiratory: No respiratory distress. Breath sounds normal. No Wheezing. No rales Abdomen: Soft and nontender. No rigidity. No distention. Skin: Skin warm and dry. Normal skin color. Normal skin turgor. Extremities: No lower extremity edema. There is a large hematoma on the left buttocks, pain to flexion and extension of the left side of the hip. Neuro: Oriented X 3. No motor deficit. No sensory deficit. Moving all extremities. No slurred speech. CN 2 through 12 grossly intact Psych: calm, cooperative, normal affect HEENT: Other: Appearance: Alert. Oriented X3. No acute distress. Eyes: Pupils equal, round and reactive to light. ENT: Pharynx normal. Neck: Normal inspection. Neck supple. No lymph nodes noted. No crepitus CVS: Normal heart rate and rhythm. Pulses normal. Normal S1 and S2 Respiratory: No respiratory distress. Breath sounds normal. No Wheezing. No rales Abdomen: Soft and nontender. No rigidity. No distention. Skin: Skin warm and dry. Normal skin color. Normal skin turgor. Extremities: No lower extremity edema. Patient unable to flex and extend the right hip due to pain Neuro: Oriented X 3. No motor deficit. No sensory deficit. Moving all extremities. No slurred speech. CN 2 through 12 grossly intact Psych: calm, cooperative, normal affect Course Course Course Narrative: -all of patient's labs and imaging pending Medications Administered Discontinued Medications Generic Name Dose Route Start Last Admin Trade Name Freq PRN Reason Stop Dose Admin Sodium Chloride 1,000 mls @ 999 mls/hr 06/12/23 18:35 06/12/23 21:07 Ns IVCONT 06/12/23 19:35 Infused .Q1H1M ONE Infusion Iohexol 85 ml 06/12/23 18:51 06/12/23 18:51 Iohexol 350 Mg/Ml 100 Ml Infus..Btl IV 06/12/23 18:52 85 ml ONCE ONE Administration Medical Decision Making Medical Decision Making [facility] Narrative: -my interpretation of x-ray of the hip: No fracture -my interpretation of CT scan of the pelvis: No fracture, there is a hematoma in the left gluteus -patient's H&H was repeated, stable, no changes. Active extravasation not suspected. Patient states that the swelling in her buttocks feels much less than when she initially came in. -patient had several low blood pressure measurements. However, they were then using the wrong cough. Once we switched to the correct sides, blood pressure was above 100. -I discussed with the patient that she has a UTI. Given that the patient has been falling, has this hematoma in her buttocks, plus a UTI, I strongly recommend to admit the patient. Patient states that she absolutely refuses to stay. Patient's TRANSIT MANAGER is at the bedside, -orthostatic vitals: Negative: Between 120s and 130s systolic, patient did not have any dizziness or near syncopal episode -ambulation trial: Patient is able to walk a little bit slower but at baseline. -as mentioned above, I strongly encouraged admission but patient does not want to stay in the hospital. I provided the patient with the 1st dose of antibiotics, patient will follow-up with her primary care physician. Differential Diagnosis Differential Diagnoses: The differential diagnosis associated with the presentation includes (Hip fracture, contusion, dislocation, muscular contusion, hematoma) Admission/Observation Consideration of admission/observation: Escalation of care including admission/observation considered (Admission was offered but patient declined) Lab Data MDM Lab Attestation statement: I reviewed the patient's lab results. 06/12/23 20:53 06/12/23 17:14 Labs: Lab Results 06/12/23 06/12/23 06/12/23 Range/Units 17:14 17:15 20:38 WBC 12.8 H (4.8-10.8) X10*3/uL RBC 3.06 L (4.20-5.50) X10*6/uL Hgb 10.2 L (12.0-16.0) g/dl Hct 30.0 L (37.0-47.0) % MCV 98.0 (80.0-98.0) fL MCH 33.3 H (27.0-33.0) pg MCHC 34.0 (31.0-35.0) g/dl RDW 13.3 (11.0-16.0) % Plt Count 251 (160-400) X10*3/uL MPV 9.0 L (9.4-12.3) fL Immature Gran % (Auto) 0.6 H (0.0-0.4) % Neut % (Auto) 81.1 H (45-73) % Lymph % (Auto) 10.9 L (20-40) % [place] % (Auto) 6.5 (2-11) % Eos % (Auto) 0.4 (0-4) % Baso % (Auto) 0.5 (0-2) % Lymph # (Auto) 1.4 (1.2-4.9) X10*3/uL [place] # (Auto) 0.8 (0.1-1.2) X10*3/uL Eos # (Auto) 0.1 (0.0-0.4) X10*3/uL Baso # (Auto) 0.1 (0.0-0.2) X10*3/uL Abs Immat Gran (auto) 0.08 H (0.00-0.03) X10*3/uL Absolute Neuts (auto) 10.3 H (2.0-8.3) x10*3/uL Absolute Nucleated RBC 0.000 (0.0-0.012) X10*3/uL Nucleated RBC % (auto) 0.0 (0.0-0.2) /100WBC PT 13.9 H (11.1-13.3) SEC INR 1.1 (0.9-1.1) Sodium 139 (135-145) mmol/L Potassium 3.3 (3.3-5.1) mmol/L Chloride 106 (96-108) mmol/L Carbon Dioxide 21 L (22-29) mmol/L Anion Gap 15 (12-20) BUN 10 (9-16) mg/dL Creatinine 0.89 (0.5-1.4) mg/dL Estim Creat Clear Calc 49.7 Estimated GFR > 60 Random Glucose 123 H (60-115) mg/dL Calcium 8.9 (8.4-10.2) mg/dL Total Bilirubin 0.5 (0.0-1.0) mg/dL Direct Bilirubin 0.1 (0.0-0.5) mg/dL AST 12 (5-31) U/L ALT 7 (0-31) U/L Alkaline Phosphatase 55 (39-117) U/L Total Protein 6.6 (6.5-8.0) g/dL Albumin 3.4 L (3.5-5.0) g/dL Urine Color Yellow Urine Appearance Cloudy Urine pH 6.0 (5.0-9.0) Ur Specific [place] >= 1.030 H (1.005-1.025) Urine Protein Trace (Neg-Trace) mg/dL Urine Glucose (UA) Negative (Negative) mg/dL Urine Ketones Negative (Negative) mg/dL Urine Blood Trace H (Negative) Urine Nitrite Positive H (Negative) Ur Leukocyte Esterase Moderate (2+) H (Negative) Urine RBC 0-2 (0-2) /HPF Urine WBC 11-20 (0-5) /HPF Ur Squamous Epith Cells 6-10 (0-2) /HPF Urine Bacteria 4+ (None Seen) Hyaline Casts 6-10 (0-2) /LPF Ethyl Alcohol < 10 mg/dL 06/12/23 Range/Units 20:53 WBC 10.0 (4.8-10.8) X10*3/uL RBC 3.06 L (4.20-5.50) X10*6/uL Hgb 10.3 L (12.0-16.0) g/dl Hct 31.4 L (37.0-47.0) % MCV 102.6 H (80.0-98.0) fL MCH 33.7 H (27.0-33.0) pg MCHC 32.8 (31.0-35.0) g/dl RDW 13.5 (11.0-16.0) % Plt Count 201 (160-400) X10*3/uL MPV 9.9 (9.4-12.3) fL Immature Gran % (Auto) (0.0-0.4) % Neut % (Auto) (45-73) % Lymph % (Auto) (20-40) % [place] % (Auto) (2-11) % Eos % (Auto) (0-4) % Baso % (Auto) (0-2) % Lymph # (Auto) (1.2-4.9) X10*3/uL [place] # (Auto) (0.1-1.2) X10*3/uL Eos # (Auto) (0.0-0.4) X10*3/uL Baso # (Auto) (0.0-0.2) X10*3/uL Abs Immat Gran (auto) (0.00-0.03) X10*3/uL Absolute Neuts (auto) (2.0-8.3) x10*3/uL Absolute Nucleated RBC 0.000 (0.0-0.012) X10*3/uL Nucleated RBC % (auto) 0.0 (0.0-0.2) /100WBC PT (11.1-13.3) SEC INR (0.9-1.1) Sodium (135-145) mmol/L Potassium (3.3-5.1) mmol/L Chloride (96-108) mmol/L Carbon Dioxide (22-29) mmol/L Anion Gap (12-20) BUN (9-16) mg/dL Creatinine (0.5-1.4) mg/dL Estim Creat Clear Calc Estimated GFR Random Glucose (60-115) mg/dL Calcium (8.4-10.2) mg/dL Total Bilirubin (0.0-1.0) mg/dL Direct Bilirubin (0.0-0.5) mg/dL AST (5-31) U/L ALT (0-31) U/L Alkaline Phosphatase (39-117) U/L Total Protein (6.5-8.0) g/dL Albumin (3.5-5.0) g/dL Urine Color Urine Appearance Urine pH (5.0-9.0) Ur Specific [place] (1.005-1.025) Urine Protein (Neg-Trace) mg/dL Urine Glucose (UA) (Negative) mg/dL Urine Ketones (Negative) mg/dL Urine Blood (Negative) Urine Nitrite (Negative) Ur Leukocyte Esterase (Negative) Urine RBC (0-2) /HPF Urine WBC (0-5) /HPF Ur Squamous Epith Cells (0-2) /HPF Urine Bacteria (None Seen) Hyaline Casts (0-2) /LPF Ethyl Alcohol mg/dL Independent Interpretation I performed an independent interpretation of an: Plain X-Ray and CT Scan Radiology Impression Discussion of test interpretation with radiology: I have reviewed the radiologist's reading. Radiologist Impression: [address] [address] [address] Scan Report Signed Patient: Meli Burch MR#: [id number] : 1945 Acct:[id number] Age/Sex: 77 / F ADM Date: 06/12/23 Loc: HO.ED Attending Dr: Ordering Physician: Meaghan Shipman MD Date of Service: 06/12/23 Procedure(s): CT pelvis w IV con Accession Number(s): [id number] cc: Francisco Javier Jimenez MD; Meaghan Shipman MD~ EXAMINATION: CT PELVIS WITH CONTRAST CLINICAL INFORMATION: Left thigh/buttock hematoma. Growing hematoma. COMPARISON: Left hip radiographs dated 06/12/2023. CT abdomen/pelvis dated 06/28/2021. TECHNIQUE: Helical scanning was performed with submillimeter collimation through the pelvis with the use of oral contrast and during bolus intravenous injection of 85 mL of Omnipaque 350 intravenous contrast. Sagittal and coronal multiplanar 2-D reconstructions were obtained. This CT examination was performed using dose optimization techniques as appropriate, variously including the following: *Automated exposure control. *Adjustment of mA and/or kV according to patient size (this includes techniques or standardized protocols for targeted exams where dose is matched to indication/reason for exam; i.e. extremities or head). *Use of iterative reconstruction technique. DLP: 352 mGy-cm FINDINGS: PELVIS: The visualized intrapelvic structures are unremarkable. No intrapelvic mass or fluid collection. Atherosclerotic calcifications. PELVIC WALL: Within the subcutaneous tissues posterosuperior to the left gluteus linda muscle there is a lobulated focus of heterogeneous density and stranding measuring approximately 3.1 x 7.6 x 7.6 cm, consistent with an evolving soft tissue hematoma. Prominent adjacent stranding with mild skin thickening. No additional soft tissue mass or fluid collection. No pelvic wall hernia. OSSEOUS STRUCTURES: No acute fracture or dislocation. Postsurgical change within the lower lumbar spine as well as within the left iliac bone. Mild bilateral hip joint space narrowing with small marginal osteophytes. No concerning lytic or blastic osseous lesion. No evidence of femoral head avascular necrosis. CT/CT pelvis w IV con IMPRESSION: 1. Soft tissue hematoma posterosuperior to the left gluteus linda muscle measuring up to 7.6 cm with prominent adjacent stranding and skin thickening. 2. No acute osseous abnormality. 3. Mild bilateral hip osteoarthritis. The cardiac silhouette does not appear enlarged. The thoracic aorta is slightly tortuous. There is an esophageal hernia. Hilar and mediastinal contours are otherwise unremarkable. There is subsegmental atelectasis at the left lung base. Lungs are otherwise clear. There are old bilateral rib fractures and mild T12 vertebral body compression fracture. XR/XR chest 2V IMPRESSION: Subsegmental atelectasis at the left lung base. FINDINGS: No fracture, dislocation or destructive lesion or erosive change. Pelvis intact. XR/XR hip LT min 2V IMPRESSION: No acute findings. Critical Care Time Critical Care Time Critical Care Time: Yes Total Critical Care Time: 75 Attestation: I have personally provided critical care time. Time includes review of lab data, radiology results, discussion with consultants, and monitoring for potential decompensation. Intervention performed as documented. Discharge Plan Discharge Clinical Impression: Fall, Acute UTI, Hematoma of buttock Patient Disposition: Home, Self-Care Instructions: Contusion in Adults (ED) Additional Instructions: Please follow-up with your primary care physician tomorrow. If you have any worsening or new symptoms, please return to the emergency room or call 911 Prescriptions: New acetaminophen 500 mg tablet 500 mg PO QID PRN (Reason: pain) Qty: 20 0RF lidocaine 4 % adhesive patch,medicated 1 patch topical QID PRN (Reason: pain) Qty: 15 0RF cefuroxime axetil 500 mg tablet 500 mg PO BID Qty: 14 0RF No Action trazodone 100 mg tablet 100 mg PO BEDTIME PRN (Reason: insomnia) 30 Days Qty: 30 2RF gabapentin 300 mg capsule 300 mg PO TID 30 Days Qty: 90 2RF atorvastatin 10 mg tablet 10 mg PO BEDTIME 30 Days Qty: 90 3RF pantoprazole 40 mg tablet,delayed release (DR/EC) 40 mg PO DAILY 30 Days Qty: 90 3RF sertraline 50 mg tablet 50 mg PO DAILY 90 Days Qty: 90 1RF sennosides [Natural Senna Laxative] 8.6 mg tablet 8.6 mg PO BEDTIME Qty: 90 3RF acetaminophen [Pain Relief ES (acetaminophen)] 500 mg tablet 500 mg PO Q6H PRN (Reason: pain) 30 Days Qty: 120 2RF cyclobenzaprine 10 mg tablet 10 mg PO TID PRN (Reason: muscle spasm) 30 Days Qty: 90 2RF cholecalciferol (vitamin D3) 25 mcg (1,000 unit) tablet 25 mcg PO DAILY 90 Days Qty: 90 1RF Citrucel 500 mg tablet 1,000 mg PO DAILY Qty: 60 2RF Rx Instructions: take it with full glass of water tramadol 50 mg tablet 50 mg PO BEDTIME PRN (Reason: pain) 15 Days Qty: 15 0RF folic acid 400 mcg tablet 0.4 mg PO DAILY Qty: 30 0RF nicotine 7 mg/24 hr patch 24 hour 1 patch transdermal DAILY 28 Days Qty: 28 3RF cefuroxime axetil 500 mg tablet 500 mg PO BID 7 Days Qty: 14 0RF (DME) BEDSIDE COMMODE See Rx Instructions .Route .MEDSUPPLY Qty: 1 0RF Rx Instructions: As directed (DME) TRANSPORT WHEELCHAIR See Rx Instructions .Route .MEDSUPPLY Qty: 1 0RF Rx Instructions: As directed benzonatate 200 mg capsule 200 mg PO BID-TID PRN (Reason: cough) 10 Days Qty: 30 1RF capsaicin 0.1 % cream 1 appl topical BID Qty: 42.5 0RF Rx Instructions: do not wash area for at least 30 min after application cyanocobalamin (vitamin B-12) 1,000 mcg tablet 1,000 mcg PO DAILY lidocaine 5 % adhesive patch,medicated 1 patch topical DAILY Qty: 30 2RF Rx Instructions: leave on most painful area for up to 12 hrs hydrocortisone [Proctosol HC] 2.5 % cream with perineal applicator 1 appl [place] BID-QID PRN (Reason: hemorrhoids) Qty: 30 2RF quetiapine 50 mg tablet 50 mg PO BEDTIME duloxetine 60 mg capsule,delayed release(DR/EC) 60 mg PO DAILY
--- NOTE | 2023-06-12 16:58 | PC.NURSE ---
MD aware of BP- pt placed in [facility] and IVF ordered
[2023-06-12 17:21] LABS: MANUAL DIFF FLAG NO
[2023-06-12 17:22] LABS: Basophils Absolute Auto 0.1 X10*3/uL (0.0-0.2); Basophils Percent Auto 0.5 % (0-2); Eosinophils Absolute Auto 0.1 X10*3/uL (0.0-0.4); Eosinophils Percent Auto 0.4 % (0-4); Hemoglobin 10.2 g/dl (12.0-16.0); Imm Gran Abs Auto 0.08 X10*3/uL (0.00-0.03); Imm Gran Pct Auto 0.6 % (0.0-0.4); Lymphocytes Absolute Auto 1.4 X10*3/uL (1.2-4.9); Lymphocytes Percent Auto 10.9 % (20-40); Mean Corpuscular Hemoglobin 33.3 pg (27.0-33.0); Monocytes Absolute Auto 0.8 X10*3/uL (0.1-1.2); Monocytes Percent Auto 6.5 % (2-11); Neutrophils Absolute Auto 10.3 x10*3/uL (2.0-8.3); Neutrophils Percent Auto 81.1 % (45-73); Platelet Count 251 X10*3/uL (160-400); Red Blood Count 3.06 X10*6/uL (4.20-5.50); Red Cell Distribution Width 13.3 % (11.0-16.0); White Blood Count 12.8 X10*3/uL (4.8-10.8)
[2023-06-12 18:25] LABS: INTERNATIONAL NORM RATIO 1.1 (0.9-1.1); Prothrombin Time 13.9 SEC (11.1-13.3)
[2023-06-12 18:39] LABS: Alanine Aminotransferase 7 U/L (0-31); Albumin Level 3.4 g/dL (3.5-5.0); Alkaline Phosphatase 55 U/L (39-117); Anion Gap 15 (12-20); Aspartate Amino Transferase 12 U/L (5-31); Bilirubin Direct 0.1 mg/dL (0.0-0.5); Bilirubin Total 0.5 mg/dL (0.0-1.0); Blood Urea Nitrogen 10 mg/dL (9-16); Calcium 8.9 mg/dL (8.4-10.2); Carbon Dioxide 21 mmol/L (22-29); Chloride 106 mmol/L (96-108); Creatinine Clr Calc Pharmacy 49.7; Estimated Glomerular Filt Rate > 60; Ethanol < 10 mg/dL; Glucose Random 123 mg/dL (60-115); Potassium 3.3 mmol/L (3.3-5.1); Sodium 139 mmol/L (135-145); Total Protein 6.6 g/dL (6.5-8.0)
[2023-06-12] MEDS: iohexoL 350 MG/ML 100 ML INFUS..BTL 85 ML IV (18:51)
[2023-06-12] MEDS: 0.9 % Sodium Chloride 1,000 ML 999 ML IVCONT (19:31)
[2023-06-12 20:46] LABS: Appearance Urine Cloudy; Color Urine Yellow; Glucose Urine UA Negative (Negative); Leukocyte Esterase Urine Moderate (2+) (Negative); Nitrite Urine Positive (Negative); Specific Gravity - Urine >= 1.030 (1.005-1.025); UMIC TRIGGER UACC YES; Urine Blood Trace (Negative); Urine Ketones Negative (Negative); Urine Protein Trace mg/dL (Neg-Trace)
[2023-06-12 21:00] LABS: Bacteria Urine 4+ (None Seen); RBC Urine 0-2 /HPF (0-2); UACC Culture Trigger YES
[2023-06-12 21:01] LABS: Hematocrit 31.4 % (37.0-47.0); Hemoglobin 10.3 g/dl (12.0-16.0); Mean Corpuscular HGB Conc 32.8 g/dl (31.0-35.0); Mean Corpuscular Hemoglobin 33.7 pg (27.0-33.0); Mean Corpuscular Volume 102.6 fL (80.0-98.0); Mean Platelet Volume 9.9 fL (9.4-12.3); Platelet Count 201 X10*3/uL (160-400); Red Blood Count 3.06 X10*6/uL (4.20-5.50); Red Cell Distribution Width 13.5 % (11.0-16.0)
[2023-06-12] MEDS: cefuroxime axetiL 500 MG TABLET PO (21:54)
--- NOTE | 2023-06-12 22:06 | MHC.EDTECH ---
This tech walked PT with walker. PT walked well with walker, keeping her own balance and able adjust herself when getting back into bed.
== END 2023-06-12 22:47 | disposition home or self-care (01) ==
PROVIDERS: Emergency Provider Emergency Medicine; PCP Internal Medicine
DX: N39.0 Urinary tract infection, site not specified (principal); B96.1 Klebsiella pneumoniae [K. pneumoniae] as the cause of diseases classified elsewhere; S30.0XXA Contusion of lower back and pelvis, initial encounter; W17.89XA Other fall from one level to another, initial encounter; R29.6 Repeated falls; Z91.81 History of falling; Y93.89 Activity, other specified; Y92.038 Other place in apartment as the place of occurrence of the external cause; Y99.9 Unspecified external cause status; E78.2 Mixed hyperlipidemia; F10.11 Alcohol abuse, in remission; Y90.0 Blood alcohol level of less than 20 mg/100 ml; Z79.02 Long term (current) use of antithrombotics/antiplatelets; Z79.899 Other long term (current) drug therapy
CPT/HCPCS: 36415; 72193; 73502; 80048; 80076; 80307; 81001; 85025; 85027; 85610; 87086; 87088; 87186; 96360; 96361; 99284; Q9967

== ENCOUNTER 2023-10-15 11:26 | Emergency (ER) | payer OTHER, SELFPAY ==
[2023-10-15 11:52] VITALS: BP 138/77; PULSE 93; RESP 16; TEMP 36.4; O2SAT 95; BMI 28.3
--- NOTE | 2023-10-15 14:48 | ED_ITS ---
HPI - General Adult General Chief complaint: Animal Bite Stated complaint: mouse bite Time Seen by Provider: 10/15/23 14:17 Source: patient Mode of arrival: ambulatory Limitations: no limitations History of Present Illness ED Provider: Jung Cast PA-C HPI narrative: 78 yold male with pmhof anixety, insomnia, depression, GERD presents to the ED for right index finger being bitten by mouse. Patient states she was trying to remove a mouse from the trap and mouse bit her. Patient came to the ED for rabies vaccine Related Data Home Medications ?Medication ?Instructions ?Recorded ?Confirmed cyanocobalamin (vitamin B-12) 1,000 mcg PO DAILY 08/22/21 06/12/23 1,000 mcg tablet duloxetine 60 mg capsule,delayed 60 mg PO DAILY 06/12/23 06/12/23 release Previous Rx's ?Medication ?Instructions ?Recorded folic acid 400 mcg tablet 0.4 mg PO DAILY #30 tabs 07/18/21 BEDSIDE COMMODE #1 ea 07/21/21 TRANSPORT WHEELCHAIR #1 ea 07/21/21 benzonatate 200 mg capsule 200 mg PO BID-TID PRN cough 10 07/21/21 days #30 caps capsaicin 0.1 % topical cream 1 appl topical BID #42.5 grams 09/26/21 gabapentin 300 mg capsule 300 mg PO TID 30 days #90 caps 09/06/22 atorvastatin 10 mg tablet 10 mg PO BEDTIME 30 days #90 tabs 10/16/22 pantoprazole 40 mg tablet,delayed 40 mg PO DAILY 30 days #90 tabs 10/16/22 release hydrocortisone 2.5 % topical cream 1 appl OR BID-QID PRN hemorrhoids 02/19/23 with perineal applicator #30 grams (Proctosol HC) lidocaine 5 % topical patch 1 patch topical DAILY #30 ea 02/19/23 sennosides 8.6 mg tablet (Natural 8.6 mg PO BEDTIME constipation #90 04/30/23 Senna Laxative) tabs acetaminophen 500 mg tablet (Pain 500 mg PO Q6H PRN pain 30 days 05/01/23 Relief Extra Strength #120 tabs (acetaminophen)) cholecalciferol (vitamin D3) 25 25 mcg PO DAILY 90 days #90 tabs 05/28/23 mcg (1,000 unit) tablet acetaminophen 500 mg tablet 500 mg PO QID PRN pain #20 tabs 06/12/23 cefuroxime axetil 500 mg tablet 500 mg PO BID #14 tabs 06/12/23 cefuroxime axetil 500 mg tablet 500 mg PO BID 7 days #14 tabs 06/12/23 lidocaine 4 % topical patch 1 patch topical QID PRN pain #15 ea 06/12/23 Commode bags #1 ea 07/02/23 diaper,brief,adult,disposable #80 ea 07/02/23 (Prevail Underwear) cyclobenzaprine 10 mg tablet 10 mg PO TID PRN muscle spasm 30 07/18/23 days #90 tabs Disposable González #8 ea 07/25/23 Disposable Wipes #8 ea 07/25/23 latex gloves (Latex Gloves, Medium) #24 ea 07/25/23 methylcellulose (laxative) 500 mg 1,000 mg (2 x 500 mg) PO DAILY #60 09/13/23 tablet (Citrucel) tabs trazodone 100 mg tablet 100 mg PO BEDTIME PRN insomnia 30 09/20/23 days #30 tabs nicotine 7 mg/24 hr daily 1 patch transdermal DAILY 28 days 09/23/23 transdermal patch #28 ea sertraline 50 mg tablet 50 mg PO DAILY 90 days #90 tabs 09/23/23 quetiapine 50 mg tablet 50 mg PO BEDTIME 30 days #30 tabs 10/01/23 tramadol 50 mg tablet 50 mg PO BEDTIME PRN pain 15 days 10/01/23 #15 tabs amoxicillin 875 mg-potassium 1 tab PO Q12H 10 days #20 tabs 10/15/23 clavulanate 125 mg tablet Allergies Allergy/AdvReac Type Severity Reaction Status Date / Time codeine AdvReac Mild Abdominal Verified 10/15/23 11:52 Pain Review of Systems 2 Review of Systems: right index finger mass bite Yes all other systems are reviewed and are negative PMFSH Past Medical History Medical History Anxiety and depression History of alcohol abuse Overweight (BMI 25.0-29.9) Constipation Depression Anxiety Insomnia Vitamin D deficiency Alcoholic dementia Tubular adenoma Ulcerative colitis Smoker Memory impairment Lumbar degenerative disc disease Colitis Surgical History Hx of colonoscopy History of hernia surgery Previous back surgery Social History Social History Housing: Apartment Do you presently have visiting nurse or other home services: No Alcohol intake: former Patient Tobacco Use Status: Former Tobacco user Cigarettes Per Day: 8 e-Cigarette/Vaping Use: Never Used Second Hand Smoke Exposure: Yes Advance Directives: Yes Advance Directives on File: Yes Advance Directives Date on File: 07/21/21 Do you have a plan to hurt others: No Plan service: No Current occupational status: retired and disabled Cognitive needs: No Hearing needs: Yes Vision needs: Yes Physical Exam ED Vital Signs: Vital Signs - 24 hr 10/15/23 11:52 10/15/23 15:11 Temperature 97.5 F 97.5 F Pulse Rate 93 93 Respiratory Rate 16 16 Blood Pressure 138/77 138/77 Pulse Oximetry 95 95 Oxygen Delivery Method Room Air Room Air BMI result Body Mass Index 28.3 Const General: cooperative, healthy appearing, comfortable, no acute distress, well developed, alert, awake and Physically active Orientation/consciousness: oriented to person, oriented to place, oriented to time and patient oriented x3 HENMT Head: Yes normal to inspection, Yes No palpable skull fracture present, Yes normocephalic and Yes atraumatic Eyes General: appearance normal, both eyes and all related structures Neck Neck: Yes normal visual inspection, Yes full ROM, Yes no lymphadenopathy, Yes no meningeal signs, Yes trachea midline, Yes supple, No anterior neck swelling and No tender Chest Chest palpation & inspection: normal inspection of the chest and normal palpation of entire chest wall Resp Effort & Inspection: normal respiratory effort and able to speak in complete sentences Auscultation: clear to auscultation bilaterally Cardio Jugular venous distension: no JVD Heart sounds: S1 normal heart sound present and S2 normal heart sound present GI Inspection: Yes normal to inspection Palpation (GI): Soft to palpation, not firm, nontender, no guarding and not rigid General: No CVA tenderness and Yes no CVA tenderness Back/Spine/Pelvis Back: no CVA tenderness, No CVA tenderness and No back tenderness Skin General skin exam: no rashes or lesions noted, elasticity normal and turgor normal Neuro General: oriented to person, oriented to place, oriented to time, patient oriented x3, gait normal, tone normal, moves all extremities, Normal light touch and pain sensation, no meningeal signs, no focal motor deficits, CN's II-XI intact bilaterally and normal sensation to monofilament Extrem General: Yes normal to inspection, Yes full ROM and Yes capillary refill normal Hand/finger images: 2 1. superficial bite sammy. No active bleeding. No signs of tendon or nerve injury. Motor/neuro/vascular exam intact. Rest of extremity normal. Psych Appearance: grossly normal, well kempt and not disheveled Medications Administered Discontinued Medications Generic Name Dose Route Start Last Admin Trade Name Freq PRN Reason Stop Dose Admin Diphtheria/Tetanus/Acell Pertussis 0.5 ml 10/15/23 14:36 10/15/23 14:57 Diphth,Pertus(Acell),Tet Adult 0.5 Ml Syringe IM 10/15/23 14:37 0.5 ml .ONCE ONE Administration Rabies Immune Globulin 1,452 unit 10/15/23 14:36 10/15/23 14:58 Rabies Immune Globulin/Pf 900 Unit/3 Ml Vial 20 unit/kg (1452 unit) 10/15/23 14:37 900 unit IM Administration ONCE ONE Rabies Vaccine Human Diploid Cell 1 ml 10/15/23 14:36 10/15/23 14:56 Rabies Vaccine, Human Diploid (Imovax) 1 Ml Vial IM 10/15/23 14:37 1 ml .ONCE ONE Administration Medical Decision Making Medical Decision Making MDM Narrative: [age] year female presents to ED for right index finger miles bite. Patient agreeable for Tdap and rabies vaccine. Patient informed she will be discharged with antibiotics. Patient explained worrisome signs. [facility] Differential Diagnosis Differential Diagnoses: The differential diagnosis associated with the presentation includes ( rabies bite) Admission/Observation Consideration of admission/observation: Escalation of care including admission/observation considered Independent Historian Clinical information obtained from an independent historian. History obtained from or confirmed by: Other (patient) External Record Review External record reviewed: Other (prior visit) Prescription Management I considered prescription management with: Antibiotic Discharge Plan Discharge Clinical Impression: Bitten by mouse Patient Disposition: Home, Self-Care Instructions: Animal Bite (ED) Additional Instructions: recommend follow-up with infusion center for scheduled rabies vaccines. Recommend follow up with primary care provider. You will be discharged with antibiotics. Return to the ED immediately for redness, pus discharge, foul odor, swelling, bluish discoloration, fever, chills, fear of water, or any other concerning symptoms. You will be called by the infusion center where they will informed you home on to return the center for rabies vaccine. Prescriptions: New amoxicillin-pot clavulanate 875-125 mg tablet 1 tab PO Q12H 10 Days Qty: 20 0RF No Action gabapentin 300 mg capsule 300 mg PO TID 30 Days Qty: 90 2RF atorvastatin 10 mg tablet 10 mg PO BEDTIME 30 Days Qty: 90 3RF pantoprazole 40 mg tablet,delayed release (DR/EC) 40 mg PO DAILY 30 Days Qty: 90 3RF sennosides [Natural Senna Laxative] 8.6 mg tablet 8.6 mg PO BEDTIME Qty: 90 3RF acetaminophen [Pain Relief ES (acetaminophen)] 500 mg tablet 500 mg PO Q6H PRN (Reason: pain) 30 Days Qty: 120 2RF cholecalciferol (vitamin D3) 25 mcg (1,000 unit) tablet 25 mcg PO DAILY 90 Days Qty: 90 1RF (DME) Commode bags See Rx Instructions .Route .MEDSUPPLY Qty: 1 0RF Rx Instructions: As directed (DME) Prevail Underwear Misc See Rx Instructions .Route Qty: 80 11RF Rx Instructions: As directed (Size Large) cyclobenzaprine 10 mg tablet 10 mg PO TID PRN (Reason: muscle spasm) 30 Days Qty: 90 2RF (DME) latex gloves [Latex Gloves, Medium] Misc See Rx Instructions .Route Qty: 24 11RF Rx Instructions: As directed (DME) Disposable Wipes See Rx Instructions .Route .MEDSUPPLY Qty: 8 11RF Rx Instructions: As directed (DME) Disposable González See Rx Instructions .Route .MEDSUPPLY Qty: 8 11RF Rx Instructions: As directed Citrucel 500 mg tablet 1,000 mg PO DAILY Qty: 60 2RF Rx Instructions: take it with full glass of water trazodone 100 mg tablet 100 mg PO BEDTIME PRN (Reason: insomnia) 30 Days Qty: 30 2RF nicotine 7 mg/24 hr patch 24 hour 1 patch transdermal DAILY 28 Days Qty: 28 3RF sertraline 50 mg tablet 50 mg PO DAILY 90 Days Qty: 90 1RF tramadol 50 mg tablet 50 mg PO BEDTIME PRN (Reason: pain) 15 Days Qty: 15 0RF quetiapine 50 mg tablet 50 mg PO BEDTIME 30 Days Qty: 30 0RF folic acid 400 mcg tablet 0.4 mg PO DAILY Qty: 30 0RF acetaminophen 500 mg tablet 500 mg PO QID PRN (Reason: pain) Qty: 20 0RF lidocaine 4 % adhesive patch,medicated 1 patch topical QID PRN (Reason: pain) Qty: 15 0RF cefuroxime axetil 500 mg tablet 500 mg PO BID Qty: 14 0RF cefuroxime axetil 500 mg tablet 500 mg PO BID 7 Days Qty: 14 0RF (DME) BEDSIDE COMMODE See Rx Instructions .Route .MEDSUPPLY Qty: 1 0RF Rx Instructions: As directed (DME) TRANSPORT WHEELCHAIR See Rx Instructions .Route .MEDSUPPLY Qty: 1 0RF Rx Instructions: As directed benzonatate 200 mg capsule 200 mg PO BID-TID PRN (Reason: cough) 10 Days Qty: 30 1RF capsaicin 0.1 % cream 1 appl topical BID Qty: 42.5 0RF Rx Instructions: do not wash area for at least 30 min after application cyanocobalamin (vitamin B-12) 1,000 mcg tablet 1,000 mcg PO DAILY lidocaine 5 % adhesive patch,medicated 1 patch topical DAILY Qty: 30 2RF Rx Instructions: leave on most painful area for up to 12 hrs hydrocortisone [Proctosol HC] 2.5 % cream with perineal applicator 1 appl OR BID-QID PRN (Reason: hemorrhoids) Qty: 30 2RF duloxetine 60 mg capsule,delayed release(DR/EC) 60 mg PO DAILY Interventions: ED Discharge Assessment Last Done: 10/15/23 15:11 Discharge Date/Time: 10/15/23 15:28 Print Language: Croatian
[2023-10-15] MEDS: Rabies Vaccine, Human Diploid (Imovax) 1 ML VIAL IM (14:56)
[2023-10-15] MEDS: Diphth,Pertus(ACell),Tet Adult 0.5 ML SYRINGE IM (14:57)
[2023-10-15] MEDS: Rabies Immune Globulin/PF 900 UNIT/3 ML VIAL 1452 UNIT IM (14:58)
[2023-10-15 15:11] VITALS: BP 138/77; PULSE 93; RESP 16; TEMP 36.4; O2SAT 95
== END 2023-10-15 15:28 | disposition home or self-care (01) ==
PROVIDERS: Emergency Provider Emergency Medicine; PCP Internal Medicine
DX: S61.230A Puncture wound without foreign body of right index finger without damage to nail, initial encounter (principal); W53.01XA Bitten by mouse, initial encounter; Y93.89 Activity, other specified; Y92.009 Unspecified place in unspecified non-institutional (private) residence as the place of occurrence of the external cause; Y99.9 Unspecified external cause status; Z23 Encounter for immunization; Z20.3 Contact with and (suspected) exposure to rabies
CPT/HCPCS: 90375; 90471; 90472; 90675; 90715; 96372; 99282; 99284

== ENCOUNTER 2023-10-22 10:39 | Emergency (ER) | payer OTHER, SELFPAY ==
--- NOTE | ~2023-10-22 | XR_ITS ---
EXAMINATION: XR WRIST, RIGHT CLINICAL INFORMATION: History of fall. Fracture? COMPARISON: DEXA imaging from 2019 TECHNIQUE: PA, lateral, and oblique views of the right wrist. FINDINGS: Bone density is diffusely decreased in this patient with history of osteoporosis. Acute, slightly comminuted, longitudinal fracture of the distal ulnar metadiaphysis is not significantly displaced. The distal radius and radioulnar joint are unremarkable. Carpal bones and visualized metacarpals are intact. Small osteophytes are present at the mildly degenerated first carpometacarpal joint. Soft tissues are swollen within the distal forearm. XR/XR wrist RT min 3V IMPRESSION: * Bone density is diffusely decreased in this patient with history of osteoporosis. * Acute, longitudinal fracture within distal ulnar metadiaphysis is not significantly displaced. 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
[2023-10-22 10:56] VITALS: BP 121/71; PULSE 89; RESP 18; TEMP 36.8; O2SAT 95; BMI 29.0
--- NOTE | 2023-10-22 12:17 | ED_ITS ---
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 Apparently last night when she went to go to the commode in her bedroom she tried to use her cane, tripped and fell onto her right side. She tried to put her hand out to catch herself, and fell on the cane. She sustained injury to her right wrist but refused to go to the hospital last night. Her caregiver was home when this happened as she has 24 hour care. She denies hitting her head or losing consciousness. She refused come to the hospital until this morning when she had persistent pain. No numbness or tingling in the right lower portion of the arm or wrist. She is right-hand dominant MD Complaint: extremity pain Onset (ago): hour(s) Pain Consistency: constant Location: right and upper extremity Severity scale (1-10): 9 Quality: stabbing and aching Radiation: distal Relieving factors: immobilization Exacerbating factors: range of motion and palpation Associated symptoms: denies other symptoms Related Data Home Medications ?Medication ?Instructions ?Recorded ?Confirmed cyanocobalamin (vitamin B-12) 1,000 mcg PO DAILY 08/22/21 06/12/23 1,000 mcg tablet duloxetine 60 mg capsule,delayed 60 mg PO DAILY 06/12/23 06/12/23 release Previous Rx's ?Medication ?Instructions ?Recorded folic acid 400 mcg tablet 0.4 mg PO DAILY #30 tabs 07/18/21 BEDSIDE COMMODE #1 ea 07/21/21 TRANSPORT WHEELCHAIR #1 ea 07/21/21 benzonatate 200 mg capsule 200 mg PO BID-TID PRN cough 10 07/21/21 days #30 caps capsaicin 0.1 % topical cream 1 appl topical BID #42.5 grams 09/26/21 gabapentin 300 mg capsule 300 mg PO TID 30 days #90 caps 09/06/22 atorvastatin 10 mg tablet 10 mg PO BEDTIME 30 days #90 tabs 10/16/22 pantoprazole 40 mg tablet,delayed 40 mg PO DAILY 30 days #90 tabs 10/16/22 release hydrocortisone 2.5 % topical cream 1 appl CA BID-QID PRN hemorrhoids 02/19/23 with perineal applicator #30 grams (Proctosol HC) lidocaine 5 % topical patch 1 patch topical DAILY #30 ea 02/19/23 sennosides 8.6 mg tablet (Natural 8.6 mg PO BEDTIME constipation #90 04/30/23 Senna Laxative) tabs acetaminophen 500 mg tablet (Pain 500 mg PO Q6H PRN pain 30 days 05/01/23 Relief Extra Strength #120 tabs (acetaminophen)) cholecalciferol (vitamin D3) 25 25 mcg PO DAILY 90 days #90 tabs 05/28/23 mcg (1,000 unit) tablet acetaminophen 500 mg tablet 500 mg PO QID PRN pain #20 tabs 06/12/23 cefuroxime axetil 500 mg tablet 500 mg PO BID #14 tabs 06/12/23 cefuroxime axetil 500 mg tablet 500 mg PO BID 7 days #14 tabs 06/12/23 lidocaine 4 % topical patch 1 patch topical QID PRN pain #15 ea 06/12/23 Commode bags #1 ea 07/02/23 diaper,brief,adult,disposable #80 ea 07/02/23 (Prevail Underwear) cyclobenzaprine 10 mg tablet 10 mg PO TID PRN muscle spasm 30 07/18/23 days #90 tabs Disposable González #8 ea 07/25/23 Disposable Wipes #8 ea 07/25/23 latex gloves (Latex Gloves, Medium) #24 ea 07/25/23 methylcellulose (laxative) 500 mg 1,000 mg (2 x 500 mg) PO DAILY #60 09/13/23 tablet (Citrucel) tabs trazodone 100 mg tablet 100 mg PO BEDTIME PRN insomnia 30 09/20/23 days #30 tabs nicotine 7 mg/24 hr daily 1 patch transdermal DAILY 28 days 09/23/23 transdermal patch #28 ea sertraline 50 mg tablet 50 mg PO DAILY 90 days #90 tabs 09/23/23 quetiapine 50 mg tablet 50 mg PO BEDTIME 30 days #30 tabs 10/01/23 tramadol 50 mg tablet 50 mg PO BEDTIME PRN pain 15 days 10/01/23 #15 tabs amoxicillin 875 mg-potassium 1 tab PO Q12H 10 days #20 tabs 10/15/23 clavulanate 125 mg tablet acetaminophen 500 mg tablet 1,000 mg (2 x 500 mg) PO Q6H PRN 10/22/23 (Tylenol Extra Strength) pain #30 tabs ibuprofen 600 mg tablet 600 mg PO Q8H PRN pain #14 tabs 10/22/23 Allergies Allergy/AdvReac Type Severity Reaction Status Date / Time codeine AdvReac Mild Abdominal Verified 10/22/23 10:57 Pain Review of Systems Review of Systems: Yes all other systems are reviewed and are negative [facility] Past Medical History Medical History Anxiety and depression History of alcohol abuse Overweight (BMI 25.0-29.9) Constipation Depression Anxiety Insomnia Vitamin D deficiency Alcoholic dementia Tubular adenoma Ulcerative colitis Smoker Memory impairment Lumbar degenerative disc disease Colitis Surgical History Hx of colonoscopy History of hernia surgery Previous back surgery Social History Social History Housing: Apartment Do you presently have visiting nurse or other home services: No Alcohol intake: former Patient Tobacco Use Status: Former Tobacco user Cigarettes Per Day: 8 e-Cigarette/Vaping Use: Never Used Second Hand Smoke Exposure: Yes Advance Directives: Yes Advance Directives on File: Yes Advance Directives Date on File: 07/21/21 service: No Current occupational status: retired and disabled Cognitive needs: No Hearing needs: Yes Vision needs: Yes Physical Exam Vital Signs: Vital Signs: Last Vital Signs Temp 98.5 F 10/22/23 14:35 Pulse 83 10/22/23 14:35 Resp 13 10/22/23 14:35 BP 116/74 10/22/23 14:35 Pulse Ox 97 10/22/23 14:35 O2 Del Method Room Air 10/22/23 14:35 BMI result Body Mass Index 29.0 Appearance: Alert. Oriented X3. No acute distress. HEENT: normal inspection CVS: Normal heart rate and rhythm. Pulses normal. Respiratory: No respiratory distress. Skin: Skin warm and dry. Normal skin color. Normal skin turgor. No rashes. Extremities: normal inspection of the right upper extremity, mild swelling of the distal forearm. There is tenderness of the distal ulna over the dorsal aspect of the arm. No tenderness of the ulnar styloid no tenderness of. the ulnar styloid 2+ radial pulse. Pain with making a fist. No open wounds.cap refill <3 sec in all digits Neuro: Oriented X 3. No motor deficit. No sensory deficit. Medications Administered Discontinued Medications Generic Name Dose Route Start Last Admin Trade Name Freq PRN Reason Stop Dose Admin Acetaminophen 975 mg 10/22/23 13:25 10/22/23 13:39 Acetaminophen 325 Mg Tablet PO 10/22/23 13:26 975 mg ONCE ONE Administration Ibuprofen 600 mg 10/22/23 13:25 10/22/23 13:39 Ibuprofen 600 Mg Tablet PO 10/22/23 13:26 600 mg ONCE ONE Administration Rabies Vaccine Human Diploid Cell 1 ml 10/22/23 13:15 10/22/23 13:28 Rabies Vaccine, Human Diploid (Imovax) 1 Ml Vial IM 10/22/23 13:16 1 ml .ONCE ONE Administration Medical Decision Making Medical Decision Making MDM Narrative: 78-year-old female with a history of anxiety, depression, multifactorial gait disorder with history of frequent falls, history of former alcohol use with alcoholic dementia, HLD, GERD, dysphagia who presents to the ER with her caregiver from home for evaluation of right wrist pain after she fell last night. no gross deformity on exam. She is at her mental status baseline per her caregiver. X-rays of the wrist show longitudinal fracture of the distal radius. Patient was placed in a sugar-tong splint and tolerated well. Advised of her x-ray findings, need for immobilization and follow-up with orthopedics f or further evaluation and treatment. She is on chronic tramadol and has an appointment with her PCP this afternoon. Given her recurrent falls, age and comorbidities will defer further pain management to her primary care doctor. Will prescribe Motrin and Tylenol. Comfortable discharge home. She has 24 hour care at home Differential Diagnosis Differential Diagnoses: The differential diagnosis associated with the presentation includes wrist fracture, elbow fracture, arm fracture, concussion, closed head injury, wrist sprain, low clinical suspicion for intracranial injury Admission/Observation Consideration of admission/observation: Escalation of care including admission/observation considered elderly female with multiple falls, considered observation/admission Independent Interpretation I performed an independent interpretation of an: Plain X-Ray Interpretation: fracture of the distal ulna appreciated Radiology Impression Discussion of test interpretation with radiology: I have reviewed the radiologist's reading. Radiologist Impression: EXAMINATION: XR WRIST, RIGHT CLINICAL INFORMATION: History of fall. Fracture? COMPARISON: DEXA imaging from 2019 TECHNIQUE: PA, lateral, and oblique views of the right wrist. FINDINGS: Bone density is diffusely decreased in this patient with history of osteoporosis. Acute, slightly comminuted, longitudinal fracture of the distal ulnar metadiaphysis is not significantly displaced. The distal radius and radioulnar joint are unremarkable. Carpal bones and visualized metacarpals are intact. Small osteophytes are present at the mildly degenerated first carpometacarpal joint. Soft tissues are swollen within the distal forearm. XR/XR wrist RT min 3V IMPRESSION: * Bone density is diffusely decreased in this patient with history of osteoporosis. * Acute, longitudinal fracture within distal ulnar metadiaphysis is not significantly displaced. 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 Independent Historian Clinical information obtained from an independent historian. History obtained from or confirmed by: Other (caregiver) External Record Review External record reviewed: Office record, Outpatient record, Prior outpatient labs and Prior outpatient radiology Tests considered The following testing was considered but not selected: CT of the head was considered, she did not hit her head and she has not on anticoagulation Prescription Management I considered prescription management with: Pain Medication Chronic Conditions Patient?s care impacted by: Other ( dementia, frequent falls) Procedures Orthopedic Splinting/Casting Injury #1: Side: right Upper Extremity Injury Location: forearm and wrist Upper Extremity Immobilizer: sugar tong splint Critical Care Time Critical Care Time Critical Care Time: No Discharge Plan Discharge Clinical Impression: Right distal ulnar fracture Patient Disposition: Home, Self-Care Instructions: Arm Fracture in Adults (ED) Additional Instructions: x-ray today showed that you broke a bone in the lower portion of your arm. Your placed in a splint for immobilization. Where the splint and sling until your evaluated by Orthopedics. Call Orthopedics for an appointment. Name and number below. Take Motrin and Tylenol alternating, around the clock for pain. Take your previously prescribed tramadol as directed for severe pain. Follow-up with your primary care doctor. EXAMINATION: XR WRIST, RIGHT CLINICAL INFORMATION: History of fall. Fracture? COMPARISON: DEXA imaging from 2019 TECHNIQUE: PA, lateral, and oblique views of the right wrist. FINDINGS: Bone density is diffusely decreased in this patient with history of osteoporosis. Acute, slightly comminuted, longitudinal fracture of the distal ulnar metadiaphysis is not significantly displaced. The distal radius and radioulnar joint are unremarkable. Carpal bones and visualized metacarpals are intact. Small osteophytes are present at the mildlydegenerated first carpometacarpal joint. Soft tissues are swollen within the distal forearm. XR/XR wrist RT min 3V IMPRESSION: * Bone density is diffusely decreased in this patient with history of osteoporosis. * Acute, longitudinal fracture within distal ulnar metadiaphysis is not significantly displaced. 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 Prescriptions: New ibuprofen 600 mg tablet 600 mg PO Q8H PRN (Reason: pain) Qty: 14 0RF acetaminophen [Tylenol Extra Strength] 500 mg tablet 1,000 mg PO Q6H PRN (Reason: pain) Qty: 30 0RF No Action gabapentin 300 mg capsule 300 mg PO TID 30 Days Qty: 90 2RF atorvastatin 10 mg tablet 10 mg PO BEDTIME 30 Days Qty: 90 3RF pantoprazole 40 mg tablet,delayed release (DR/EC) 40 mg PO DAILY 30 Days Qty: 90 3RF sennosides [Natural Senna Laxative] 8.6 mg tablet 8.6 mg PO BEDTIME Qty: 90 3RF acetaminophen [Pain Relief ES (acetaminophen)] 500 mg tablet 500 mg PO Q6H PRN (Reason: pain) 30 Days Qty: 120 2RF cholecalciferol (vitamin D3) 25 mcg (1,000 unit) tablet 25 mcg PO DAILY 90 Days Qty: 90 1RF (DME) Commode bags See Rx Instructions .Route .MEDSUPPLY Qty: 1 0RF Rx Instructions: As directed (DME) Prevail Underwear Misc See Rx Instructions .Route Qty: 80 11RF Rx Instructions: As directed (Size Large) cyclobenzaprine 10 mg tablet 10 mg PO TID PRN (Reason: muscle spasm) 30 Days Qty: 90 2RF (DME) latex gloves [Latex Gloves, Medium] Misc See Rx Instructions .Route Qty: 24 11RF Rx Instructions: As directed (DME) Disposable Wipes See Rx Instructions .Route .MEDSUPPLY Qty: 8 11RF Rx Instructions: As directed (DME) Disposable González See Rx Instructions .Route .MEDSUPPLY Qty: 8 11RF Rx Instructions: As directed Citrucel 500 mg tablet 1,000 mg PO DAILY Qty: 60 2RF Rx Instructions: take it with full glass of water trazodone 100 mg tablet 100 mg PO BEDTIME PRN (Reason: insomnia) 30 Days Qty: 30 2RF nicotine 7 mg/24 hr patch 24 hour 1 patch transdermal DAILY 28 Days Qty: 28 3RF sertraline 50 mg tablet 50 mg PO DAILY 90 Days Qty: 90 1RF tramadol 50 mg tablet 50 mg PO BEDTIME PRN (Reason: pain) 15 Days Qty: 15 0RF quetiapine 50 mg tablet 50 mg PO BEDTIME 30 Days Qty: 30 0RF folic acid 400 mcg tablet 0.4 mg PO DAILY Qty: 30 0RF acetaminophen 500 mg tablet 500 mg PO QID PRN (Reason: pain) Qty: 20 0RF lidocaine 4 % adhesive patch,medicated 1 patch topical QID PRN (Reason: pain) Qty: 15 0RF cefuroxime axetil 500 mg tablet 500 mg PO BID Qty: 14 0RF amoxicillin-pot clavulanate 875-125 mg tablet 1 tab PO Q12H 10 Days Qty: 20 0RF cefuroxime axetil 500 mg tablet 500 mg PO BID 7 Days Qty: 14 0RF (DME) BEDSIDE COMMODE See Rx Instructions .Route .MEDSUPPLY Qty: 1 0RF Rx Instructions: As directed (DME) TRANSPORT WHEELCHAIR See Rx Instructions .Route .MEDSUPPLY Qty: 1 0RF Rx Instructions: As directed benzonatate 200 mg capsule 200 mg PO BID-TID PRN (Reason: cough) 10 Days Qty: 30 1RF capsaicin 0.1 % cream 1 appl topical BID Qty: 42.5 0RF Rx Instructions: do not wash area for at least 30 min after application cyanocobalamin (vitamin B-12) 1,000 mcg tablet 1,000 mcg PO DAILY lidocaine 5 % adhesive patch,medicated 1 patch topical DAILY Qty: 30 2RF Rx Instructions: leave on most painful area for up to 12 hrs hydrocortisone [Proctosol HC] 2.5 % cream with perineal applicator 1 appl CA BID-QID PRN (Reason: hemorrhoids) Qty: 30 2RF duloxetine 60 mg capsule,delayed release(DR/EC) 60 mg PO DAILY Ref[place]: [facility] [place] [facility] [place]Provider Group] (EXAMINATION: XR WRIST, RIGHT CLINICAL INFORMATION: History of fall. Fracture? COMPARISON: DEXA imaging from 2019 TECHNIQUE: PA, lateral, and oblique views of the right wrist. FINDINGS: Bone density is diffusely decreased in this patient with history of osteoporosis. Acute, slightly comminuted, longitudinal fracture of the distal ulnar metadiaphysis is not significantly displaced. The distal radius and radioulnar joint are unremarkable. Carpal bones and visualized metacarpals are intact. Small osteophytes are present at the mildly degenerated first carpometacarpal joint. Soft tissues are swollen within the distal forearm. XR/XR wrist RT min 3V IMPRESSION: * Bone density is diffusely decreased in this patient with history of osteoporosis. * Acute, longitudinal fracture within distal ulnar metadiaphysis is not significantly displaced. 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
[2023-10-22] MEDS: Rabies Vaccine, Human Diploid (Imovax) 1 ML VIAL IM (13:28)
[2023-10-22] MEDS: Acetaminophen 325 MG TABLET 975 MG PO (13:39)
[2023-10-22] MEDS: Ibuprofen 600 MG TABLET PO (13:39)
[2023-10-22 14:35] VITALS: BP 116/74; PULSE 83; RESP 13; TEMP 36.9; O2SAT 97
== END 2023-10-22 14:36 | disposition home or self-care (01) ==
PROVIDERS: Emergency Provider Emergency Medicine; PCP Internal Medicine
DX: S52.691A Other fracture of lower end of right ulna, initial encounter for closed fracture (principal); W01.0XXA Fall on same level from slipping, tripping and stumbling without subsequent striking against object, initial encounter; Z91.81 History of falling; Y93.89 Activity, other specified; Y92.039 Unspecified place in apartment as the place of occurrence of the external cause; Y99.9 Unspecified external cause status; Z20.3 Contact with and (suspected) exposure to rabies; Z23 Encounter for immunization
CPT/HCPCS: 73110; 90471; 90675; 99283; 99284

== ENCOUNTER 2023-10-22 14:57 | Outpatient (AMB) | payer OTHER, SELFPAY ==
[2023-10-22 15:01] VITALS: BP 102/66; PULSE 67; O2SAT 98; BMI 28.9
--- NOTE | 2023-10-22 15:01 | A.OFFPC_ITS ---
Vital Signs 10/22/23 15:01 Height 5 ft 3 in Weight 163 lb BMI 28.9 BP 102/66 Blood Pressure Location Lt brachial Position Sitting Pulse 67 Pulse Source Pulse Oximeter Pulse Oximetry (%) 98 Oxygen Delivery Method Room Air Intake Visit Reasons: hyperlipidemia, neuropathy Intake Note: Patient is here to follow up Physical Therapy Supervisor Required: No Allergies codeine Adverse Reaction (Mild, Verified 10/22/23 15:30) Abdominal Pain Medication List - Last Reconciled 10/22/23 by Francisco Javier Jimenez MD acetaminophen 500 mg PO QID PRN acetaminophen (Tylenol Extra Strength) 1,000 mg (2 x 500 mg) PO Q6H PRN acetaminophen (Pain Relief Extra Strength (acetaminophen)) 500 mg PO Q6H PRN 30 days amoxicillin-pot clavulanate 875-125 mg 1 tab PO Q12H 10 days atorvastatin 10 mg PO BEDTIME 30 days [BEDSIDE COMMODE As directed] benzonatate 200 mg PO BID-TID PRN 10 days capsaicin 0.1% 1 appl topical BID cholecalciferol (vitamin D3) 25 mcg PO DAILY 90 days [Commode bags As directed] cyanocobalamin (vitamin B-12) 1,000 mcg PO DAILY cyclobenzaprine 10 mg PO TID PRN 30 days diaper,brief,adult,disposable (Prevail Underwear) As directed (Size Large) [Disposable González As directed] [Disposable Wipes As directed] duloxetine 60 mg PO DAILY folic acid 0.4 mg PO DAILY gabapentin 300 mg PO TID 30 days hydrocortisone 2.5% (Proctosol HC) 1 appl [place] BID-QID PRN ibuprofen 600 mg PO Q8H PRN latex gloves (Latex Gloves, Medium) As directed lidocaine 4% 1 patch topical QID PRN lidocaine 5% 1 patch topical DAILY methylcellulose (laxative) (Citrucel) 1,000 mg (2 x 500 mg) PO DAILY nicotine 1 patch transdermal DAILY 28 days pantoprazole 40 mg PO DAILY 30 days quetiapine 50 mg PO BEDTIME 30 days sennosides (Natural Senna Laxative) 8.6 mg PO BEDTIME sertraline 50 mg PO DAILY 90 days tramadol 50 mg PO BEDTIME PRN 15 days [TRANSPORT WHEELCHAIR As directed] trazodone 100 mg PO BEDTIME PRN 30 days Tobacco use date assessed: 10/22/23 Fall risk assessment: 1 Fall in past year Last assessed Fall Risk: 10/22/23 Dental Screening Dental Screen Date: 06/12/23 HPI hyperlipidemia, neuropathy HPI Details Patient comes in today for her follow up visit She was brought to the ER earlier this morning by her caregiver for evaluation of her right wrist pain Patient apparently tripped and fell while trying to get to the commode in her bedroom last night and ended up falling on her cane when she tried to put her hand out to catch herself or break her fall - has been experiencing increased pain on her right wrist since X-rays of the right wrist done at the ER revealed an acute, slightly comminuted, longitudinal fracture of the distal ulnar metadiaphysis that is not sig nificantly displaced Her right wrist, hand and forearm were placed in a soft splint and she was instructed to keep the splint on until she is evaluated by orthopedics She was also advised to continue taking her Tramadol PRN for pain Patient is also currently on Augmentin and has been receiving rabies vaccine infusions since she was but by a mouse that she was trying to help free from mousetrap last week States that she currently still has frequent SOB/PRABHAKAR, even with minimal exertion She denies any fever or chills; denies any headaches or dizziness Denies any chest pains No nausea/vomiting, no abdominal pain No change in bowel habits noted Needs a few of her Rx refilled Would also like to go over the results of her labs done back in June 2023 [facility] Medical History Anxiety and depression History of alcohol abuse Overweight (BMI 25.0-29.9) Constipation Depression Anxiety Insomnia Vitamin D deficiency Alcoholic dementia Tubular adenoma Ulcerative colitis Smoker Memory impairment Lumbar degenerative disc disease Colitis Surgical History Hx of colonoscopy History of hernia surgery Previous back surgery Social History Housing: Apartment Do you presently have visiting nurse or other home services: No Alcohol intake: former Patient Tobacco Use Status: Former Tobacco user Cigarettes Per Day: 8 e-Cigarette/Vaping Use: Never Used Second Hand Smoke Exposure: Yes Advance Directives Date on File: 07/21/21 service: No Current occupational status: retired and disabled Cognitive needs: No Hearing needs: Yes Vision needs: Yes Female Reproductive History Menstrual Age of Menarche: 19 Questionnaire Thrive Questionnaire Date Thrive assessed: 06/12/23 AUDIT C Alcohol Use Questionnaire (AUDIT-C) 1. How often do you have a drink containing alcohol?: Never 3. How often do you have six or more drinks on one occasion?: Never Total Score: 0 Score Reviewed/Action Taken: Yes ALIX-7 AMB Questionnaire ALIX-7 Date ALIX - 7 assessed: 06/12/23 Source: Developed by Drs. Vern Whiting, Paulina De Luna, Americo Main and colleagues, with an educational cordelia from [employer]. Review of Systems Const Denies chills, Reports fatigue, Denies fever(s) and Denies headache(s) ENT Denies dysphagia, Denies dizziness, Denies otalgia, Denies headache(s), Denies neck pain, Denies odynophagia and Denies sore throat Card Denies chest pain, Denies rapid heart rate, Denies irregular heart rhythm, Denies palpitations and Reports dyspnea on exertion (mild, per DATA GOVERNANCE ANALYST) Resp Denies chest congestion, Denies cough, Reports dyspnea on exertion (mild, per DATA GOVERNANCE ANALYST) and Denies wheezing GI Denies abdominal pain, Denies constipation, Denies dysphagia, Denies heartburn, Denies diarrhea, Denies nausea, Denies odynophagia and Denies vomiting Denies urinary frequency, Denies dysuria, Denies urinary incontinence and Denies urinary urgency Musc Denies back pain, Reports arthralgias (in the right wrist - see HPI) and Denies neck pain Skin/Breast Denies rash Neuro Denies dizziness, Denies headache(s) and Denies paresthesias Endo Reports fatigue and Denies palpitations Aller/Immun Denies wheezing Physical exam (Primary Care) Vital Signs: Last Vital Signs Pulse 67 10/22/23 15:01 BP 102/66 10/22/23 15:01 Pulse Ox 98 10/22/23 15:01 Oxygen Delivery Method Room Air 10/22/23 15:01 BMI result Body Mass Index 28.9 Tobacco/Smoking Status: Tobacco use Status Tobacco use date assessed 10/22/23 10/22/23 15:02 Patient Tobacco Use Status Former Tobacco user 10/22/23 15:02 e-Cigarette/Vaping Use Never Used 10/22/23 15:02 Thrive Assessment: Date of Thrive Assessment Date Thrive assessed 06/12/23 10/22/23 15:02 Const General: no acute distress and alert HENMT Ears: TM's normal bilaterally and EAC's normal Throat: Yes posterior oropharynx normal and Yes tonsils normal (no TP congestion) Neck Neck: Yes no lymphadenopathy and Yes supple Thyroid: Thyroid normal Resp Auscultation: clear to auscultation bilaterally, no rales and no wheezes Cardio Rate: regular rate Rhythm: regular rhythm Heart sounds: no murmurs GI Palpation (GI): Soft to palpation and Tenderness to palpation present (GI) (mild, left-sided) Auscultation: normal bowel sounds General: Yes no CVA tenderness Back/Spine/Pelvis Back: no CVA tenderness Thoracic/Lumbar Spine: No lumbar spinal tenderness Skin Rashes: no rashes Extrem General: Yes no clubbing, cyanosis or edema Right upper extremity: wrist Details: tenderness Results Reviewed Results Reviewed: Laboratory Tests 07/26/21 06/12/23 06/12/23 12:02 13:08 17:14 WBC Hgb Hct Plt Count Sodium 139 Potassium 3.3 Creatinine 0.89 Estimated GFR > 60 Fasting Glucose 109 H Calcium 8.9 AST 12 ALT 7 Cholesterol 292 206 H Triglycerides 143 LDL Cholesterol, Calc 182 130 H HDL Cholesterol 48 Vitamin B12 531 25-OH Vitamin D Total 45.6 TSH 0.55 Ur Specific [place] Urine Protein Urine Glucose (UA) Urine Blood Urine Nitrite Ur Leukocyte Esterase 06/12/23 06/12/23 20:38 20:53 WBC 10.0 Hgb 10.3 L Hct 31.4 L Plt Count 201 Sodium Potassium Creatinine Estimated GFR Fasting Glucose Calcium AST ALT Cholesterol Triglycerides LDL Cholesterol, Calc HDL Cholesterol Vitamin B12 25-OH Vitamin D Total TSH Ur Specific [place] >= 1.030 H Urine Protein Trace Urine Glucose (UA) Negative Urine Blood Trace H Urine Nitrite Positive H Ur Leukocyte Esterase Moderate (2+) H Assessment and Plan Assessment & Plan (1) Right wrist fracture: Code(s): S62.101A - Fracture of unspecified carpal bone, right wrist, initial encounter for closed fracture Qualifiers: Encounter type: sequela Fracture type: closed Qualified Code(s): S62.101S - Fracture of unspecified carpal bone, right wrist, sequela Plan: S/P fall earlier this morning X-rays of the right wrist done at the ER revealed an acute, slightly comminuted, longitudinal fracture of the distal ulnar metadiaphysis that is not significantly displaced Her right wrist and hand are currently in a soft splint Will refer her to orthopedics for further evaluation and management (2) Bitten by mouse: Code(s): W53.01XA - Bitten by mouse, initial encounter Qualifiers: Encounter type: sequela Qualified Code(s): W53.01XS - Bitten by mouse, sequela Plan: Patient is currently on Augmentin 875 mg BID and has been receiving rabies vaccine infusions since she was but by a mouse that she was trying to help free from mousetrap last week Gets her rabies vaccine infusion through the ER at short stay (3) Mixed hyperlipidemia: Code(s): E78.2 - Mixed hyperlipidemia Plan: Results of her labs done back in June 2023 reviewed and discussed with patient - she is advised that her cholesterol levels were still elevated back then but they have improved significantly from her numbers back in 2021 Reinforced low cholesterol diet Continue Atorvastatin 10 mg Q HS Will have patient recheck her labs and fasting lipids in 4 months for follow up (4) Macrocytosis without anemia: Code(s): D75.89 - Other specified diseases of blood and blood-forming organs Plan: Previous labs done the ER a couple of years ago revealed macrocytosis without anemia but her subsequent CBCs show (+) anemia since She was still anemic on her labs done back in June 2023, with H/H at 10.3/31.4% Serum B12,Folate and TSH were normal when previously checked Will recheck her CBC in 4 months for follow up (5) Memory impairment: Code(s): R41.3 - Other amnesia Plan: Was seen by neurology in 2021 and diagnosed with alcoholic dementia along with other disorders, which include post herpetic neuralgia, peripheral neuropathy, multifactorial gait disorder, restless legs syndrome, insomnia, anxiety and depression Patient states that she has quit drinking completely years ago She has not seen neurology again for follow-up since her visit with them in late December 2021 Continue Vitamin B12 1000 mcg QD and Folic Acid 400 mcg QD (6) History of alcohol abuse: Code(s): F10.11 - Alcohol abuse, in remission Plan: Patient states that she stopped drinking completely years ago (7) Lumbar degenerative disc disease: Comment: (+) Hx of spinal fusion and bone grafting done many years ago in [place] Code(s): M51.36 - Other intervertebral disc degeneration, lumbar region Plan: Reinforced activity and weight-lifting restrictions Continue Gabapentin 300 mg TID and Cyclobenzaprine 10 mg TID PRN, Tramadol 50 mg Q HS, Lidocaine 5% patch QD PRN and Duloxetine 60 mg QD Follow up with pain management as scheduled (8) GERD without esophagitis: Code(s): K21.9 - Gastro-esophageal reflux disease without esophagitis Plan: Dietary restrictions reinforced Continue Pantoprazole 40 mg QD (9) Constipation: Code(s): K59.00 - Constipation, unspecified Qualifiers: Constipation type: unspecified constipation type Qualified Code(s): K59.00 - Constipation, unspecified Plan: Encouraged increased oral fluids and dietary fiber Continue Miralax 17 gm QD and Senna 8.6 mg Q HS (10) Vitamin D deficiency: Code(s): E55.9 - Vitamin D deficiency, unspecified Plan: Continue Vitamin D3 1000 units QD (11) Insomnia: Code(s): G47.00 - Insomnia, unspecified Qualifiers: Insomnia type: unspecified Qualified Code(s): G47.00 - Insomnia, unspecified Plan: Sleep hygiene reinforced Continue Trazodone 100 mg Q HS PRN (12) Anxiety and depression: Code(s): F41.9 - Anxiety disorder, unspecified; F32.A - Depression, unspecified Plan: Continue Sertraline 50 mg QD; is also on Duloxetine 60 mg QD (13) Smoker: Code(s): F17.200 - Nicotine dependence, unspecified, uncomplicated Plan: Counseled again on smoking cessation Continue nicotine patches to help her quit smoking Chest x-rays done a couple of years ago came out normal (14) Overweight (BMI 25.0-29.9): Code(s): E66.3 - Overweight Plan: Reinforced diet; exercise and weight loss are unrealistic given patient's physical issues and multiple comorbidities Plan Follow up in 4 months Orders: Orders Complete Blood Count Auto Diff 02/15/24 D64.9 - Anemia, unspecified Comprehensive [place]. Panel Fast 02/15/24 E78.00 - Pure hypercholesterolemia, unspecified Lipid Panel 02/15/24 E78.00 - Pure hypercholesterolemia, unspecified UA CC w/rflx Micro + Cult 02/15/24 R30.0 - Dysuria Vitamin B12 and Folate 02/15/24 E53.8 - Deficiency of other specified B group vitamins Vitamin D 25-OH Total 02/15/24 E55.9 - Vitamin D deficiency, unspecified IRON PROFILE 02/15/24 D50.9 - Iron deficiency anemia, unspecified TSH reflex Free T4 02/15/24 E78.00 - Pure hypercholesterolemia, unspecified Referrals Orthopedics Referral S52.601A - Unspecified fracture of lower end of right ulna, initial encounter for closed fracture Coding Level of Care Code Est Pt Level 4 (88845) Complex EM visit Add On G2211 Diagnoses Closed fracture of right wrist, sequela S62.101S Encounter type: sequela Fracture type: closed Bitten by mouse, sequela W53.01XS Encounter type: sequela Mixed hyperlipidemia E78.2 Macrocytosis without anemia D75.89 Memory impairment R41.3 History of alcohol abuse F10.11 Lumbar degenerative disc disease M51.36 GERD without esophagitis K21.9 Constipation, unspecified constipation type K59.00 Constipation type: unspecified constipation type Vitamin D deficiency E55.9 Insomnia, unspecified type G47.00 Insomnia type: unspecified Anxiety and depression F41.9; F32.A Smoker F17.200 Overweight (BMI 25.0-29.9) E66.3
== END 2023-10-22 15:45 | disposition home or self-care (01) ==
PROVIDERS: PCP Internal Medicine; Visit Provider Internal Medicine
DX: E78.2 Mixed hyperlipidemia (principal); D75.89 Other specified diseases of blood and blood-forming organs; R41.3 Other amnesia; W53.01XA Bitten by mouse, initial encounter; M51.36 Other intervertebral disc degeneration, lumbar region; K21.9 Gastro-esophageal reflux disease without esophagitis; K59.00 Constipation, unspecified; W01.0XXA Fall on same level from slipping, tripping and stumbling without subsequent striking against object, initial encounter; E55.9 Vitamin D deficiency, unspecified; G47.00 Insomnia, unspecified; F41.9 Anxiety disorder, unspecified; F32.A Depression, unspecified; F17.200 Nicotine dependence, unspecified, uncomplicated; E66.3 Overweight
CPT/HCPCS: 99214; G2211

== ENCOUNTER 2023-10-31 15:34 | Outpatient (REF) | payer OTHER, SELFPAY | END 2023-10-31 15:35 | disposition home or self-care (01) | LOC: HO.HOSX 15:34 | DX: Z13.89 Encounter for screening for other disorder (principal) ==

== ENCOUNTER 2023-11-01 08:15 | Outpatient (REF) | payer OTHER, SELFPAY ==
--- NOTE | ~2023-11-01 | XR_ITS ---
EXAMINATION: XR FOREARM, RIGHT CLINICAL INFORMATION: Pain in right forearm, splint, right ulnar fracture. COMPARISON: October 22, 2023 right wrist. TECHNIQUE: AP and lateral views of the right forearm were obtained. FINDINGS: Diffuse demineralization. Redemonstration of longitudinal, slightly comminuted fracture of the distal ulnar metadiaphysis with increased mild impaction/override and displacement of fracture fragments. Moderate degenerative changes in the first carpometacarpal joint with joint space narrowing and hypertrophic change. XR/XR forearm RT 2V IMPRESSION: Redemonstration of longitudinal, slightly comminuted fracture of the distal ulnar metadiaphysis with increased mild impaction/override and displacement of fracture fragments.
== END 2023-11-01 08:16 | disposition home or self-care (01) ==
LOC: HO.HOSX 08:15
DX: S52.254A Nondisplaced comminuted fracture of shaft of ulna, right arm, initial encounter for closed fracture (principal); W18.09XA Striking against other object with subsequent fall, initial encounter; Y93.9 Activity, unspecified; Y92.002 Bathroom of unspecified non-institutional (private) residence as the place of occurrence of the external cause; Y99.9 Unspecified external cause status
CPT/HCPCS: 73090; 99202

== ENCOUNTER 2023-11-01 09:57 | Outpatient (AMB) | payer OTHER, SELFPAY ==
--- NOTE | 2023-11-01 09:59 | MHC.OFFVIS ---
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 Patient reports while attempting to use her commode, she tripped over her cane causing her to fall on her right side. She presented to [facility] ED the following day, xrays were taken and she was placed in a splint until further evaluation by orthopedics. Currently her pain comes with movement of her wrist. Denies any numbness or tingling. 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 Patient was previously treated in the emergency department, and was put in a sugar-tong splint to be worn like a cast until evaluation by Orthopedics. She reports that, on 10/21/2023, she was walking to the commode in her bedroom at night, when she tripped and fell over her cane onto her right arm. In the ED, she was diagnosed with a nondisplaced comminuted right ulnar shaft fracture and was placed in a sugar-tong splint to be worn like a cast until orthopedic evaluation. Today, the patient reports that her pain has improved significantly, and that pain at the fracture site primarily occurs with active extension or supination of the right hand. patient reports full sensation to the right hand. Patient also reports that she has been feeling stiff at the elbow since being placed in the splint. [facility] Medical History Anxiety and depression History of alcohol abuse Overweight (BMI 25.0-29.9) Constipation Depression Anxiety Insomnia Vitamin D deficiency Alcoholic dementia Tubular adenoma Ulcerative colitis Smoker Memory impairment Lumbar degenerative disc disease Colitis Surgical History Hx of colonoscopy History of hernia surgery Previous back surgery Social History Housing: Apartment Do you presently have visiting nurse or other home services: No Alcohol intake: former Patient Tobacco Use Status: Former Tobacco user Cigarettes Per Day: 8 e-Cigarette/Vaping Use: Never Used Second Hand Smoke Exposure: Yes Advance Directives Date on File: 07/21/21 service: No Current occupational status: retired and disabled Current occupation: right hand dominant Cognitive needs: No Hearing needs: Yes Vision needs: Yes Female Reproductive History Menstrual Age of Menarche: 19 Review of Systems Const All systems reviewed & are unremarkable except as noted in HPI and below Physical Exam Vital Signs: BMI result Body Mass Index 28.9 Const Other: Patient is alert, oriented, cooperative, and in no acute distress HEENT Head: Yes normocephalic and Yes atraumatic Resp Effort & Inspection: normal respiratory effort and able to speak in complete sentences Cardio Jugular venous distension: no JVD Neuro General: gait normal Cognition (Neuro): normal cognition Extrem Other: Patient is alert, oriented, and in no acute distress. Neuro: Median, ulnar, radial nerves motor and sensory intact and sensation is normal to the tips of all digits. Vascular: Cap refill brisk Pain: Patient reports pain to palpation over the fracture site. No pain to palpation in the wrist, olecranon process, or radial head. ROM: Full flexion at the elbow, and able to extend to approximately 140 degrees without pain Wrist ROM full and intact Able to flex and extend the fingers fully, and make a tight fist Full active pronation Able to actively supinate to approximately 60 degrees, however accommodation in the right shoulder noted. Restricted due to pain, however the patient reports that the pain is at the fracture site Skin: No lacerations or abrasions. General: Ecchymosis noted over the ulnar, volar aspect of the middle forearm No erythema, or evidence of infection. Psych: Appears grossly normal Affect normal Attitude cooperative Psych Appearance: grossly normal Mental Status: mental status grossly normal Office Procedures Casting/Splints Details: Short arm R arm cast [id number] Cast Application Procedure code (CPT) selection complete Fracture Care Details: R ulnar shaft fx Fracture Billing Code: Fracture Billing Code Results Reviewed Results Reviewed: X-rays obtained in the office today and independently reviewed by me, Bruno Cabrera PA-C, demonstrate minimally displaced, comminuted fracture of the ulnar shaft. No changes when compared to previous x-rays taken in the ED on 10/22/2019 Assessment & Plan Assessment & Plan (1) Fracture of shaft of right ulna: Code(s): S52.201A - Unspecified fracture of shaft of right ulna, initial encounter for closed fracture Category: Medical Qualifiers: Encounter type: initial encounter Fracture alignment: nondisplaced Fracture morphology: comminuted Fracture type: closed Qualified Code(s): S52.254A - Nondisplaced comminuted fracture of shaft of ulna, right arm, initial encounter for closed fracture Plan 1. Right comminuted ulnar shaft fracture At this time, surgical intervention is not indicated in this patient. Patient will be treated non operatively Patient will be placed in a short-arm cast for 4 weeks Patient will follow-up in clinic in 4 weeks for repeat x-rays with cast removed At this time, we will discuss replacing a cast versus splinting depending upon healing course Patient educated on cast care precautions Patient told to ensure she continues to move at both the elbow and the fingers, to prevent stiffness. Follow-up in 4 weeks, sooner with any acute concerns Orders: Orders XR forearm RT 2V Today M79.631 - Pain in right forearm Coding Level of Care Code New Pt Level 3 (07471) Diagnoses Closed nondisplaced comminuted fracture of shaft of right ulna, initial encounter S52.254A Encounter type: initial encounter Fracture alignment: nondisplaced Fracture morphology: comminuted Fracture type: closed CPT Codes Casting - CPT: 39127-[id number] Cast Application ([id number]) Fracture Care - Fracture Billing Code: Fracture Billing Code ([id number])
[2023-11-01 10:42] VITALS: BMI 28.9
== END 2023-11-01 11:34 | disposition home or self-care (01) ==
PROVIDERS: PCP Internal Medicine
DX: S52.254A Nondisplaced comminuted fracture of shaft of ulna, right arm, initial encounter for closed fracture (principal)
CPT/HCPCS: 25530; 99204

== ENCOUNTER 2023-11-26 07:55 | Outpatient (REF) | payer OTHER, SELFPAY ==
--- NOTE | ~2023-11-26 | XR_ITS ---
EXAMINATION: XR FOREARM, RIGHT CLINICAL INFORMATION: Pain COMPARISON: Right forearm radiograph from 11/01/2023 TECHNIQUE: AP and lateral views of the right forearm were obtained. FINDINGS: Straight oblique fracture involving the distal ulnar diaphysis with increased callus formation compatible with healing. Osteopenia. Joint space alignment otherwise maintained. Soft tissues are unremarkable. XR/XR forearm RT 2V IMPRESSION: 1. Straight oblique fracture involving the distal ulnar diaphysis with increased callus formation compatible with healing. 2. Osteopenia.
== END 2023-11-26 07:56 | disposition home or self-care (01) ==
LOC: HO.HOSX 07:55
DX: S52.25 Comminuted fracture of shaft of ulna (principal)
CPT/HCPCS: 73090; 99212

== ENCOUNTER 2023-11-26 12:58 | Outpatient (AMB) | payer OTHER, SELFPAY ==
[2023-11-26 13:04] VITALS: BMI 28.9
--- NOTE | 2023-11-26 13:04 | A.OFFVIS_ITS ---
Vital Signs 11/26/23 13:04 Height 5 ft 3 in Weight 163 lb BMI 28.9 Intake Visit Reasons: OV-RT ulna, closed fx 10/22/23-w/xray and cast off Intake Note: Meli is a 78 year old right hand dominant female who presents today in a wheel chair for a short-arm cast removal s/p right ulna fracture, DOI 10/21/23. Reports pain comes with movement of her wrist? Denies any numbness or tingling? Allergies codeine Adverse Reaction (Mild, Verified 11/26/23 13:04) Abdominal Pain HPI HPI OV-RT ulna, closed fx 10/22/23-w/xray and cast off: Details: Patient is a 78-year-old female who presents for 4 week evaluation of fracture of right ulnar shaft, date of injury 10/22/2023. Today, the patient reports that she is feeling well, and only experiences very mild discomfort with wrist extension, otherwise no pain. Patient reports that things will she is to be out of the cast at this time. Patient reports that she has continued with range of motion at the wrist and hand, and that she is not experiencing any stiffness in these areas at this time. The patient also reports that the swelling that she was experiencing in her right forearm has gone down at this time. No other acute complaints or concerns. [facility] Medical History Anxiety and depression History of alcohol abuse Overweight (BMI 25.0-29.9) Constipation Depression Anxiety Insomnia Vitamin D deficiency Alcoholic dementia Tubular adenoma Ulcerative colitis Smoker Memory impairment Lumbar degenerative disc disease Colitis Surgical History Hx of colonoscopy History of hernia surgery Previous back surgery Social History Housing: Apartment Do you presently have visiting nurse or other home services: No Alcohol intake: former Patient Tobacco Use Status: Former Tobacco user Cigarettes Per Day: 8 e-Cigarette/Vaping Use: Never Used Second Hand Smoke Exposure: Yes Advance Directives Date on File: 07/21/21 service: No Current occupational status: retired and disabled Current occupation: right hand dominant Cognitive needs: No Hearing needs: Yes Vision needs: Yes Female Reproductive History Menstrual Age of Menarche: 19 Physical Exam Vital Signs: BMI result Body Mass Index 28.9 Extrem Other: On inspection, there is no erythema, edema, ecchymosis of the right forearm noted No evidence of infection noted No lacerations or abrasions noted There is a palpable deformity in the distal part of the right ulnar shaft Patient reports no tenderness to palpation anywhere on the right forearm Range of motion of the right hand and wrist full and intact Patient only reports mild discomfort with extension of the right wrist Sensation intact Capillary refill brisk Results Reviewed Results Reviewed: X-rays obtained in the office today and independently reviewed by me, Bruno Cabrera PA-C, demonstrate minimally displaced fracture of the right ulnar shaft, with evidence of interval bony healing when compared to x-rays from last visit. Assessment & Plan Assessment & Plan (1) Fracture of shaft of right ulna: Code(s): S52.201A - Unspecified fracture of shaft of right ulna, initial encounter for closed fracture Category: Medical Qualifiers: Encounter type: initial encounter Fracture type: closed Fracture morphology: comminuted Fracture alignment: nondisplaced Qualified Code(s): S52.254A - Nondisplaced comminuted fracture of shaft of ulna, right arm, initial encounter for closed fracture Plan 1. Right ulnar shaft fracture Date of injury 10/22/2023 Patient is recovering well from this injury in his educated about the typical recovery course Patient is informed that she does not have to go back into a cast at this time Patient is given a Velcro wrist splint to wear with daytime activities, and removal for bathing and sleeping Patient is educated that she still has a 1-2 lb weight limit in her right hand, and to avoid any strenuous activity with that hand Patient is advised to call the office if she notices any increasing pain, increasing edema, erythema, ecchymosis, or evidence of infection, or with any repeat injury Patient will follow-up in 4 weeks with repeat x-rays, sooner with any acute concerns Orders: Orders XR forearm RT 2V Today M79.631 - Pain in right forearm Coding Level of Care Code Global (30512) Diagnoses Closed nondisplaced comminuted fracture of shaft of right ulna, initial encounter S52.254A Encounter type: initial encounter Fracture type: closed Fracture morphology: comminuted Fracture alignment: nondisplaced
== END 2023-11-26 13:45 | disposition home or self-care (01) ==
PROVIDERS: PCP Internal Medicine
DX: S52.254A Nondisplaced comminuted fracture of shaft of ulna, right arm, initial encounter for closed fracture (principal)
CPT/HCPCS: 99024

== ENCOUNTER 2024-01-24 12:35 | Emergency (ER) | payer OTHER, SELFPAY ==
--- NOTE | ~2024-01-24 | CT_ITS ---
EXAMINATION: CT HEAD WITHOUT CONTRAST CT CERVICAL SPINE WITHOUT CONTRAST CLINICAL INFORMATION: Pain. Injury. Fall. COMPARISON: None. TECHNIQUE: Imaging was performed from the skull base to vertex without intravenous administration of contrast. In addition, helical noncontrast CT imaging was acquired through the cervical spine and source images were reviewed along with axial reconstructions and sagittal and coronal MPRs. [This CT examination was performed using dose optimization techniques as appropriate, variously including the following: *Automated exposure control *Adjustment of mA and/or kV according to patient size (this includes techniques or standardized protocols for targeted exams where dose is matched to indication/reason for exam; i.e. extremities or head) *Use of iterative reconstruction technique] DLP: 1021 mGy-cm FINDINGS: HEAD: No intracranial mass, hemorrhage, or midline shift is visualized. There is generalized global volume loss. There is moderate prominence of the ventricles and the sulci . There is moderate to marked hypodensity of the periventricular white matter due to chronic small vessel ischemic disease. There are vascular calcifications of the internal carotid arteries bilaterally. No extra-axial collections are identified. The paranasal sinuses and mastoid air cells are well aerated. CERVICAL SPINE: There is no evidence of acute cervical spine fracture. Vertebral bodies remain normal in height. Cervical vertebrae have normal alignment. There is multilevel degenerative spondylosis of the cervical spine with disc height narrowing and endplate spurs and facet joint arthrosis No pre- or paravertebral soft tissue abnormality is identified. Limited assessment of the lung apices is unremarkable. CT/CT head/brain wo IV con IMPRESSION: 1. No acute intracranial pathology. 2. No CT evidence of acute cervical spine fracture or traumatic subluxation Electronically signed by: Simone Moon MD 01/24/2024 03:58 PM EDT
--- NOTE | ~2024-01-24 | XR_ITS ---
EXAMINATION: XR ANKLE, LEFT. XR FOOT, LEFT. CLINICAL INFORMATION: Injury, pain COMPARISON: None. TECHNIQUE: 3 views of the left ankle. 3 views of the left foot. FINDINGS: Osteopenia. Chronic ossification at the tip of the medial malleolus. Ankle mortise is preserved. Questionable fracture at the base of the 1st proximal phalanx at the MTP joint. Correlate for point tenderness in this location. XR/XR ankle LT min 3V IMPRESSION: Questionable fracture at the base of the 1st proximal phalanx at the MTP joint. Correlate for point tenderness in this location. Electronically signed by: Brock Baldwin MD 01/24/2024 03:29 PM EDT
--- NOTE | ~2024-01-24 | XR_ITS ---
EXAMINATION: XR ANKLE, LEFT. XR FOOT, LEFT. CLINICAL INFORMATION: Injury, pain COMPARISON: None. TECHNIQUE: 3 views of the left ankle. 3 views of the left foot. FINDINGS: Osteopenia. Chronic ossification at the tip of the medial malleolus. Ankle mortise is preserved. Questionable fracture at the base of the 1st proximal phalanx at the MTP joint. Correlate for point tenderness in this location. XR/XR foot LT min 3V IMPRESSION: Questionable fracture at the base of the 1st proximal phalanx at the MTP joint. Correlate for point tenderness in this location. Electronically signed by: Brock Baldwin MD 01/24/2024 03:29 PM EDT
--- NOTE | ~2024-01-24 | CT_ITS ---
EXAMINATION: CT HEAD WITHOUT CONTRAST CT CERVICAL SPINE WITHOUT CONTRAST CLINICAL INFORMATION: Pain. Injury. Fall. COMPARISON: None. TECHNIQUE: Imaging was performed from the skull base to vertex without intravenous administration of contrast. In addition, helical noncontrast CT imaging was acquired through the cervical spine and source images were reviewed along with axial reconstructions and sagittal and coronal MPRs. [This CT examination was performed using dose optimization techniques as appropriate, variously including the following: *Automated exposure control *Adjustment of mA and/or kV according to patient size (this includes techniques or standardized protocols for targeted exams where dose is matched to indication/reason for exam; i.e. extremities or head) *Use of iterative reconstruction technique] DLP: 1021 mGy-cm FINDINGS: HEAD: No intracranial mass, hemorrhage, or midline shift is visualized. There is generalized global volume loss. There is moderate prominence of the ventricles and the sulci . There is moderate to marked hypodensity of the periventricular white matter due to chronic small vessel ischemic disease. There are vascular calcifications of the internal carotid arteries bilaterally. No extra-axial collections are identified. The paranasal sinuses and mastoid air cells are well aerated. CERVICAL SPINE: There is no evidence of acute cervical spine fracture. Vertebral bodies remain normal in height. Cervical vertebrae have normal alignment. There is multilevel degenerative spondylosis of the cervical spine with disc height narrowing and endplate spurs and facet joint arthrosis No pre- or paravertebral soft tissue abnormality is identified. Limited assessment of the lung apices is unremarkable. CT/CT cervical spine wo IV con IMPRESSION: 1. No acute intracranial pathology. 2. No CT evidence of acute cervical spine fracture or traumatic subluxation Electronically signed by: Simone Moon MD 01/24/2024 03:58 PM EDT
--- NOTE | 2024-01-24 12:45 | ED_ITS ---
HPI - General Adult General Chief complaint: Fall Stated complaint: fall 01/23/24 1600, toe injury, Time Seen by Provider: 01/24/24 12:44 Source: patient, EMS and other (patient's PNEUMATIC JACKETER) Mode of arrival: EMS Limitations: no limitations History of Present Illness ED Provider: Anusha Cody PA-C HPI narrative: Patient is a 78 year old assigned female at with a history of tobacco use, DDD, memory impairment, GERD, dysphagia, anxiety, depression, and HLD presenting to the emergency department today with left great toe pain / swelling. Patient states that yesterday she had a trip and fall, injuring her left great toe. Patient states that she did not hit her head with the incident. Patient states that her left great toe had a blood blister and she popped it herself with a needle. Patient denies any dizziness, lightheadedness, abdominal pain, nausea, vomiting, fever, chills, blurry vision, double vision, loss of vision, chest pain, difficulty breathing, shortness of breath, back pain, night sweats, pain with urination, increased urinary frequency, increased urinary urgency, blood in her urine or stool, syncope or a near syncopal episode, bowel incontinence, bladder incontinence, or any other complaints at this time. Onset (ago): day(s) (1) Location: left and lower extremity (great toe) Relieving factors: none Exacerbating factors: none Associated symptoms: denies other symptoms Treatments prior to arrival: other (unroofed blood blister with needle) Related Data Home Medications ?Medication ?Instructions ?Recorded ?Confirmed cyanocobalamin (vitamin B-12) 1,000 mcg PO DAILY 08/22/21 10/22/23 1,000 mcg tablet duloxetine 60 mg capsule,delayed 60 mg PO DAILY 06/12/23 10/22/23 release Previous Rx's ?Medication ?Instructions ?Recorded folic acid 400 mcg tablet 0.4 mg PO DAILY #30 tabs 07/18/21 BEDSIDE COMMODE #1 ea 07/21/21 TRANSPORT WHEELCHAIR #1 ea 07/21/21 benzonatate 200 mg capsule 200 mg PO BID-TID PRN cough 10 07/21/21 days #30 caps capsaicin 0.1 % topical cream 1 appl topical BID #42.5 grams 09/26/21 hydrocortisone 2.5 % topical cream 1 appl NC BID-QID PRN hemorrhoids 02/19/23 with perineal applicator #30 grams (Proctosol HC) lidocaine 5 % topical patch 1 patch topical DAILY #30 ea 02/19/23 sennosides 8.6 mg tablet (Natural 8.6 mg PO BEDTIME constipation #90 04/30/23 Senna Laxative) tabs cholecalciferol (vitamin D3) 25 25 mcg PO DAILY 90 days #90 tabs 05/28/23 mcg (1,000 unit) tablet acetaminophen 500 mg tablet 500 mg PO QID PRN pain #20 tabs 06/12/23 lidocaine 4 % topical patch 1 patch topical QID PRN pain #15 ea 06/12/23 methylcellulose (laxative) 500 mg 1,000 mg (2 x 500 mg) PO DAILY #60 09/13/23 tablet (Citrucel) tabs trazodone 100 mg tablet 100 mg PO BEDTIME PRN insomnia 30 09/20/23 days #30 tabs nicotine 7 mg/24 hr daily 1 patch transdermal DAILY 28 days 09/23/23 transdermal patch #28 ea sertraline 50 mg tablet 50 mg PO DAILY 90 days #90 tabs 09/23/23 quetiapine 50 mg tablet 50 mg PO BEDTIME 30 days #30 tabs 10/01/23 amoxicillin 875 mg-potassium 1 tab PO Q12H 10 days #20 tabs 10/15/23 clavulanate 125 mg tablet acetaminophen 500 mg tablet 1,000 mg (2 x 500 mg) PO Q6H PRN 10/22/23 (Tylenol Extra Strength) pain #30 tabs ibuprofen 600 mg tablet 600 mg PO Q8H PRN pain #14 tabs 10/22/23 atorvastatin 10 mg tablet 10 mg PO BEDTIME 30 days #90 tabs 10/30/23 pantoprazole 40 mg tablet,delayed 40 mg PO DAILY 30 days #90 tabs 10/30/23 release Disposable González #8 ea 11/04/23 cyclobenzaprine 10 mg tablet 10 mg PO TID PRN muscle spasm 30 11/17/23 days #90 tabs acetaminophen 500 mg tablet (Pain 500 mg PO Q6H PRN pain 30 days 12/30/23 Relief Extra Strength #120 tabs (acetaminophen)) Commode bags #1 ea 12/31/23 Disposable Wipes #8 ea 12/31/23 diaper,brief,adult,disposable #80 ea 12/31/23 (Prevail Underwear) latex gloves (Latex Gloves, Medium) #24 ea 12/31/23 gabapentin 300 mg capsule 300 mg PO TID 30 days #90 caps 01/22/24 tramadol 50 mg tablet 50 mg PO BEDTIME PRN pain 15 days 01/22/24 #15 tabs amoxicillin 875 mg-potassium 1 tab PO BID 10 days #20 tabs 01/24/24 clavulanate 125 mg tablet Allergies Allergy/AdvReac Type Severity Reaction Status Date / Time codeine AdvReac Mild Abdominal Verified 01/24/24 12:55 Pain Review of Systems 2 Constitutional: Constitutional: Reports no additional constitutional complaints, Denies chills, Denies fever(s) and Denies night sweats Eyes: Eyes: Reports no additional eye complaints, Denies blurry vision, Denies change in vision, Denies diplopia, Denies eye discharge, Denies loss of vision and Denies eye pain ENT: Denies dizziness Cardiovascular: Cardiovascular: Reports no additional cardiovascular complaints, Denies chest pain, Denies lightheadedness, Denies Loss of Consciousness and Denies dyspnea Respiratory: Respiratory: Reports no additional respiratory complaints and Denies dyspnea Gastrointestinal: Gastrointestinal: Reports no additional gastrointestinal complaints, Denies abdominal pain, Denies melena, Denies hematochezia, Denies change in bowel habits and Denies change in stool character Genitourinary: Genitourinary: Denies hematuria, Denies urinary frequency, Denies dysuria, Denies urinary incontinence, Denies urinary hesitancy and Denies urinary urgency Musculoskeletal: Musculoskeletal: Reports no additional musculoskeletal complaints, Denies numbness and Denies tingling Comments: left great toe pain, bruising, swelling Neurologic: Denies dizziness, Denies loss of vision, Denies numbness and Denies tingling Psychiatric: Psychiatric: Reports no additional psychiatric complaints Endocrine: Endocrine: Reports no additional endocrine complaints Hematologic/Lymphatic: Hematologic/Lymphatic: Reports no additional hematologic/lymphatic complaints Allergic/Immunologic: Allergic/Immunologic: Reports no additional allergic/immunologic complaints PMFSH Past Medical History Attestation statement: The following information was validated with the patient. (all information validated with the patient's PNEUMATIC JACKETER) Source: old records reviewed, nursing notes reviewed and other (patient's PNEUMATIC JACKETER provided additional history and confirmed the history provided by the patient.) Medical History Anxiety and depression History of alcohol abuse Overweight (BMI 25.0-29.9) Constipation Depression Anxiety Insomnia Vitamin D deficiency Alcoholic dementia Tubular adenoma Ulcerative colitis Smoker Memory impairment Lumbar degenerative disc disease Colitis Surgical History Hx of colonoscopy History of hernia surgery Previous back surgery Social History Social History Housing: Apartment Do you presently have visiting nurse or other home services: No Alcohol intake: former Patient Tobacco Use Status: Former Tobacco user Cigarettes Per Day: 8 e-Cigarette/Vaping Use: Never Used Second Hand Smoke Exposure: Yes Advance Directives: Yes Advance Directives on File: Yes Advance Directives Date on File: 07/21/21 Do you have a plan to hurt others: No Plan service: No Current occupational status: retired and disabled Current occupation: right hand dominant Cognitive needs: No Hearing needs: Yes Vision needs: Yes Physical Exam ED Vital Signs: Vital Signs - 24 hr 01/24/24 12:53 01/24/24 14:00 Temperature 97.9 F 98.1 F Pulse Rate 85 85 Respiratory Rate 16 17 Blood Pressure 95/57 L 91/54 L Pulse Oximetry 94 95 Oxygen Delivery Method Room Air Room Air BMI result Body Mass Index 31.5 Const General: cooperative, no acute distress, alert and awake Nutritional Appearance: well nourished Orientation/consciousness: patient oriented x3 Limitations: no limitations [facility] Head: Yes normal to inspection and Yes atraumatic Ears: hearing grossly normal bilaterally and external ears normal General nose exam: Normal external nose present, no nasal discharge noted and no epistaxis Face and sinus: Yes normal facial exam, No abrasion and No laceration Mouth: Normal oral and palatal mucosa present, no drooling and no muffled voice Eyes General: appearance normal, both eyes and all related structures Periorbital: periorbital findings normal Eyelids: Yes eyelids normal Conjunctivae: conjunctivae normal Pupils: Equal, round and reactive pupils present EOM: EOMs intact bilaterally Neck Neck: Yes normal visual inspection, Yes full ROM and Yes no lymphadenopathy Chest Chest palpation & inspection: normal inspection of the chest Resp Effort & Inspection: normal respiratory effort and able to speak in complete sentences GI Inspection: Yes normal to inspection Neuro General: patient oriented x3 and moves all extremities Cranial nerves: Yes Equal, round and reactive pupils present Cognition (Neuro): normal cognition Extrem General: Yes full ROM and Yes capillary refill normal Ankle/foot/toe images: 2 1. ulcerated area where patient unroofed blood blister significant swelling present to the entire toe Psych Appearance: grossly normal Mental Status: mental status grossly normal Affect: normal affect Attitude: cooperative Thought process: Normal thought process present Thought content: Normal thought content present Insight: Good insight present (Psych) Procedures Orthopedic Splinting/Casting Injury #1: Side: left Lower Extremity Injury Location: toe Lower Extremity Immobilizer: post-op shoe Medical Decision Making Medical Decision Making MDM Narrative: Patient is a 78 year old assigned female at with a history of tobacco use, DDD, memory impairment, GERD, dysphagia, anxiety, depression, and HLD presenting to the emergency department today with left great toe pain / swelling. Patient's physical exam was as noted in the physical exam portion of this note. Patient's left foot x-ray showed a possible 1st proximal phalanx fracture. Patient's CT head and c-spine were unremarkable. I explained my physical exam findings as well as all test results to the patient and the patient's PNEUMATIC JACKETER. I answered all questions asked by the patient and the patient's PNEUMATIC JACKETER. Patient's ulceration of the left great toe was dressed with a non adherent dressing and the left foot was placed in a post op shoe, without incident. Patient's PMS was intact prior to and after boot and dressing placement. I stressed the importance of the patient taking her medication as directed (either prescribed or as the over the counter packaging recommends). I stressed the importance of the patient following up with her primary care provider and an orthopedic provider. I stressed the importance of the patient returning to the emergency department immediately if her symptoms were to worsen or if she were to develop any dizziness, shortness of breath, difficulty breathing, chest pain, blurry vision, loss of vision, nausea, vomiting, abdominal pain, fever, chills, back pain, or any other complaints. Patient and the patient's PNEUMATIC JACKETER verbalized agreement and understanding with this treatment plan and discharge. Differential Diagnosis Differential Diagnoses: The differential diagnosis associated with the presentation includes Toe fracture Foot fracture Ankle fracture Toe sprain Toe injury Toe ulcer Admission/Observation Consideration of admission/observation: Escalation of care including admission/observation considered Patient would have been admitted to the hospital had her work up had any findings where hospital admission was appropriate and her clinical presentation warranted hospital admission. Independent Interpretation I performed an independent interpretation of an: Plain X-Ray and CT Scan Interpretation: My interpretation is in agreement with the radiologist's impression of these imaging studies. L EXAMINATION: CT HEAD WITHOUT CONTRAST CT CERVICAL SPINE WITHOUT CONTRAST CLINICAL INFORMATION: Pain. Injury. Fall. COMPARISON: None. TECHNIQUE: Imaging was performed from the skull base to vertex without intravenous administration of contrast. In addition, helical noncontrast CT imaging was acquired through the cervical spine and source images were reviewed along with axial reconstructions and sagittal and coronal MPRs. This CT examination was performed using dose optimization techniques as appropriate, variously including the following: *Automated exposure control *Adjustment of mA and/or kV according to patient size (this includes techniques or standardized protocols for targeted exams where dose is matched to indication/reason for exam; i.e. extremities or head) *Use of iterative reconstruction technique] DLP: 1021 mGy-cm FINDINGS: HEAD: No intracranial mass, hemorrhage, or midline shift is visualized. There is generalized global volume loss. There is moderate prominence of the ventricles and the sulci . There is moderate to marked hypodensity of the periventricular white matter due to chronic small vessel ischemic disease. There are vascular calcifications of the internal carotid arteries bilaterally. No extra-axial collections are identified. The paranasal sinuses and mastoid air cells are well aerated. CERVICAL SPINE: There is no evidence of acute cervical spine fracture. Vertebral bodies remain normal in height. Cervical vertebrae have normal alignment.There is multilevel degenerative spondylosis of the cervical spine with disc height narrowing and endplate spurs and facet joint arthrosisNo pre- or paravertebral soft tissue abnormality is identified. Limited assessment of the lung apices is unremarkable. CT/CT head/brain wo IV con IMPRESSION: 1. No acute intracranial pathology. 2. No CT evidence of acute cervical spine fracture or traumatic subluxation Electronically signed by: Simone Moon MD 01/24/2024 03:58 PM EDT Dictated By: Simone Moon MD Signed By: Electronically signed by Simone Moon MD 01/24/24 1558 EXAMINATION: XR ANKLE, LEFT. XR FOOT, LEFT. CLINICAL INFORMATION: Injury, pain COMPARISON: None. TECHNIQUE: 3 views of the left ankle. 3 views of the left foot. FINDINGS: Osteopenia. Chronic ossification at the tip of the medial malleolus. Ankle mortise is preserved. Questionable fracture at the base of the 1st proximal phalanx at the MTP joint. Correlate for point tenderness in this location. XR/XR foot LT min 3V IMPRESSION: Questionable fracture at the base of the 1st proximal phalanx at the MTP joint. Correlate for point tenderness in this location. Electronically signed by: Brock Baldwin MD 01/24/2024 03:29 PM EDT RP Dictated By: Brock Baldwin MD Signed By: Electronically signed by Brock Baldwin MD 01/24/24 1529 Radiology Impression Discussion of test interpretation with radiology: I have reviewed the radiologist's reading. Independent Historian Clinical information obtained from an independent historian. History obtained from or confirmed by: EMS (EMS provided additional history and confirmed the history provided by the patient.) and Other (patient's PNEUMATIC JACKETER provided additional history and confirmed the history provided by the patient.) Prescription Management I considered prescription management with: Antibiotic (patient prescribed a prophylactic antibiotic given mechanism of injury, fracture of the toe, and patient's medical history.) Discharge Plan Discharge Clinical Impression: Fracture of toe, Skin ulcer Patient Disposition: Home, Self-Care Instructions: Toe Fracture (ED), Post Surgical Shoe (ED) Additional Instructions: Your left great toe is fractured. Please wear your post op shoe when ambulating. Please take your antibiotic as prescribed. Follow up with your primary care provider and an orthopedic provider. Return to the emergency department immediately if your symptoms worsen or if you develop any dizziness, shortness of breath, difficulty breathing, chest pain, blurry vision, loss of vision, nausea, vomiting, abdominal pain, fever, chills, back pain, or any other complaints. Prescriptions: New amoxicillin-pot clavulanate 875-125 mg tablet 1 tab PO BID 10 Days Qty: 20 0RF No Action sennosides [Natural Senna Laxative] 8.6 mg tablet 8.6 mg PO BEDTIME Qty: 90 3RF cholecalciferol (vitamin D3) 25 mcg (1,000 unit) tablet 25 mcg PO DAILY 90 Days Qty: 90 1RF Citrucel 500 mg tablet 1,000 mg PO DAILY Qty: 60 2RF Rx Instructions: take it with full glass of water trazodone 100 mg tablet 100 mg PO BEDTIME PRN (Reason: insomnia) 30 Days Qty: 30 2RF nicotine 7 mg/24 hr patch 24 hour 1 patch transdermal DAILY 28 Days Qty: 28 3RF sertraline 50 mg tablet 50 mg PO DAILY 90 Days Qty: 90 1RF quetiapine 50 mg tablet 50 mg PO BEDTIME 30 Days Qty: 30 0RF atorvastatin 10 mg tablet 10 mg PO BEDTIME 30 Days Qty: 90 3RF pantoprazole 40 mg tablet,delayed release (DR/EC) 40 mg PO DAILY 30 Days Qty: 90 3RF (DME) Disposable González See Rx Instructions .Route .MEDSUPPLY Qty: 8 11RF Rx Instructions: As directed cyclobenzaprine 10 mg tablet 10 mg PO TID PRN (Reason: muscle spasm) 30 Days Qty: 90 2RF acetaminophen [Pain Relief ES (acetaminophen)] 500 mg tablet 500 mg PO Q6H PRN (Reason: pain) 30 Days Qty: 120 2RF (DME) Commode bags See Rx Instructions .Route .MEDSUPPLY Qty: 1 0RF Rx Instructions: As directed (DME) Prevail Underwear Misc See Rx Instructions .Route Qty: 80 11RF Rx Instructions: As directed (Size Large) (DME) Disposable Wipes See Rx Instructions .Route .MEDSUPPLY Qty: 8 11RF Rx Instructions: As directed (DME) latex gloves [Latex Gloves, Medium] Misc See Rx Instructions .Route Qty: 24 11RF Rx Instructions: As directed tramadol 50 mg tablet 50 mg PO BEDTIME PRN (Reason: pain) 15 Days Qty: 15 0RF gabapentin 300 mg capsule 300 mg PO TID 30 Days Qty: 90 2RF folic acid 400 mcg tablet 0.4 mg PO DAILY Qty: 30 0RF ibuprofen 600 mg tablet 600 mg PO Q8H PRN (Reason: pain) Qty: 14 0RF acetaminophen [Tylenol Extra Strength] 500 mg tablet 1,000 mg PO Q6H PRN (Reason: pain) Qty: 30 0RF acetaminophen 500 mg tablet 500 mg PO QID PRN (Reason: pain) Qty: 20 0RF lidocaine 4 % adhesive patch,medicated 1 patch topical QID PRN (Reason: pain) Qty: 15 0RF amoxicillin-pot clavulanate 875-125 mg tablet 1 tab PO Q12H 10 Days Qty: 20 0RF (DME) BEDSIDE COMMODE See Rx Instructions .Route .MEDSUPPLY Qty: 1 0RF Rx Instructions: As directed (DME) TRANSPORT WHEELCHAIR See Rx Instructions .Route .MEDSUPPLY Qty: 1 0RF Rx Instructions: As directed benzonatate 200 mg capsule 200 mg PO BID-TID PRN (Reason: cough) 10 Days Qty: 30 1RF capsaicin 0.1 % cream 1 appl topical BID Qty: 42.5 0RF Rx Instructions: do not wash area for at least 30 min after application cyanocobalamin (vitamin B-12) 1,000 mcg tablet 1,000 mcg PO DAILY lidocaine 5 % adhesive patch,medicated 1 patch topical DAILY Qty: 30 2RF Rx Instructions: leave on most painful area for up to 12 hrs hydrocortisone [Proctosol HC] 2.5 % cream with perineal applicator 1 appl NC BID-QID PRN (Reason: hemorrhoids) Qty: 30 2RF duloxetine 60 mg capsule,delayed release(DR/EC) 60 mg PO DAILY Referrals: [facility] [Provider Group] (Call to establish and follow up with an orthopedic provider. ) Francisco Javier Jimenez MD [Primary Care Provider] - Print Language: Turkish
[2024-01-24 12:53] VITALS: BP 116/68; BP 95/57; PULSE 82; PULSE 85; RESP 16; TEMP 36.6; O2SAT 94; O2SAT 97; BMI 31.5
[2024-01-24 14:00] VITALS: BP 91/54; PULSE 85; RESP 17; TEMP 36.7; O2SAT 95
[2024-01-24 16:00] VITALS: BP 139/78; PULSE 85; RESP 18; TEMP 36.7; O2SAT 96
--- NOTE | 2024-01-24 16:44 | PC.NURSE ---
Awaiting BLS truck for safe d/c home- gait instability and lives on second floor.
--- NOTE | 2024-01-24 18:48 | PC.NURSE ---
Pt. 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
[2024-01-24 18:52] VITALS: BP 139/78; PULSE 85; RESP 18; TEMP 36.7; O2SAT 96
== END 2024-01-24 18:52 | disposition home or self-care (01) ==
PROVIDERS: Emergency Provider Emergency Medicine; PCP Internal Medicine
DX: S92.402A Displaced unspecified fracture of left great toe, initial encounter for closed fracture (principal); R51.9 Headache, unspecified; M54.2 Cervicalgia; M25.572 Pain in left ankle and joints of left foot; M79.672 Pain in left foot; L98.498 Non-pressure chronic ulcer of skin of other sites with other specified severity; Y29.XXXA Contact with blunt object, undetermined intent, initial encounter; Y93.89 Activity, other specified; Y92.89 Other specified places as the place of occurrence of the external cause; Y99.8 Other external cause status; Z79.899 Other long term (current) drug therapy
CPT/HCPCS: 29515; 70450; 72125; 73610; 73630; 99283; 99284

== ENCOUNTER 2024-02-25 15:31 | Outpatient (AMB) | payer OTHER, SELFPAY ==
[2024-02-25 15:43] VITALS: BP 108/64; PULSE 78; O2SAT 94; BMI 29.5
--- NOTE | 2024-02-25 15:43 | A.OFFPC_ITS ---
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 Required: No Accompanied by: Self / Same As Patient Allergies codeine Adverse Reaction (Mild, Verified 02/25/24 16:16) Abdominal Pain Medication List - Last Reconciled 02/25/24 by Francisco Javier Jimenez MD acetaminophen (Pain Relief Extra Strength (acetaminophen)) 500 mg PO Q6H PRN 30 days atorvastatin 10 mg PO BEDTIME 30 days [BEDSIDE COMMODE As directed] cholecalciferol (vitamin D3) 25 mcg PO DAILY 90 days [Commode bags As directed] cyanocobalamin (vitamin B-12) 1,000 mcg PO DAILY cyclobenzaprine 10 mg PO TID PRN 30 days diaper,brief,adult,disposable (Prevail Underwear) As directed (Size Large) [Disposable González As directed] [Disposable Wipes As directed] duloxetine 60 mg PO DAILY folic acid 0.4 mg PO DAILY gabapentin 300 mg PO TID 30 days ibuprofen 600 mg PO Q8H PRN latex gloves (Latex Gloves, Medium) As directed lidocaine 5% 1 patch topical DAILY methylcellulose (laxative) (Citrucel) 1,000 mg (2 x 500 mg) PO DAILY nicotine 1 patch transdermal DAILY 28 days pantoprazole 40 mg PO DAILY 30 days quetiapine 50 mg PO BEDTIME 30 days sennosides (Natural Senna Laxative) 8.6 mg PO BEDTIME sertraline 50 mg PO DAILY 90 days tramadol 50 mg PO BEDTIME PRN 15 days [TRANSPORT WHEELCHAIR As directed] trazodone 100 mg PO BEDTIME PRN 30 days Tobacco use date assessed: 02/25/24 Fall risk assessment: 2 + Falls in past year Last assessed Fall Risk: 02/25/24 Dental Screening Dental Screen Date: 02/25/24 Did you have a dental visit in the last 12 months?: No Did you have a dental problem in the last 6 months where you did not have access to dental care?: No Was dental information given to patient?: Patient has dentist HPI 4mth f/u HPI Details Patient comes in today for her follow up visit She reports experiencing recurrent pain in her throat and difficulty swallowing for the past couple of months now States that she has no trouble with swallowing liquids and she often has to dr ink something lately to help relieve her dysphagia when she is swallowing / eating She denies any recent sore throat or cough/cold symptoms Denies any fever, headaches or dizziness Denies any chest pains, no increased shortness of breath No nausea/vomiting, no abdominal pain No change in bowel habits noted Needs her Tramadol Rx refilled She also reportedly sustained a fracture on left big toe last month when her foot caught on the last step of the stairs when she was going up, causing her to trip and fall She was brought to the x-rays for further evaluation and x-rays of the left foot done revealed possible fracture of the left big toe States that she still has some pain on her toe but the pain has subsided a lot recently [facility] Medical History Anxiety and depression History of alcohol abuse Overweight (BMI 25.0-29.9) Constipation Depression Anxiety Insomnia Vitamin D deficiency Alcoholic dementia Tubular adenoma Ulcerative colitis Smoker Memory impairment Lumbar degenerative disc disease Colitis Surgical History Hx of colonoscopy History of hernia surgery Previous back surgery Social History Housing: Apartment Do you presently have visiting nurse or other home services: No Alcohol intake: former Patient Tobacco Use Status: Former Tobacco user Cigarettes Per Day: 8 e-Cigarette/Vaping Use: Never Used Second Hand Smoke Exposure: Yes Advance Directives Date on File: 07/21/21 service: No Current occupational status: retired and disabled Current occupation: right hand dominant Cognitive needs: No Hearing needs: Yes Vision needs: Yes Female Reproductive History Menstrual Age of Menarche: 19 Questionnaire PHQ-9 Over the last 2 weeks, how often have you been bothered by any of the following problems? 1. Little interest or pleasure in doing things: not at all 2. Feeling down, depressed, or hopeless: not at all 3. Trouble falling or staying asleep, or sleeping too much: not at all 4. Feeling tired or having little energy: not at all 5. Poor appetite or overeating: not at all 6. Feeling bad about yourself - or that you are a failure or have let yourself or your family down: not at all 7. Trouble concentrating on things, such as reading the newspaper or watching television: not at all 8. Moving or speaking so slowly that other people could have noticed. Or the opposite - being so fidgety or restless that you have been moving around a lot more than usual: not at all 9. Thoughts that you would be better off or of hurting yourself in some way: not at all Total score: 0 Depression Screening Interpretation: Negative Depression Screening Done: Yes 09778 - PHQ-9 Billing: Yes Source: Developed by Drs. Vern Whiting, Paulina De Luna, Americo Main and colleagues, with an educational cordelia from [employer]. Thrive Questionnaire Date Thrive assessed: 02/25/24 I am a: Patient What is your living situation today?: I have a steady place to live Within the past 12 months, did the food you bought not last and you didn't have the money to get more?: Never true Within the past 12 months, did you worry whether your food would run out before you got money to buy more?: Never true Do you have trouble paying for medicines?: No Do you have trouble getting transportation to medical appointments?: No Do you have trouble paying your heating and electricity bill?: No Do you have trouble taking care of your child, family member or friend?: No Do you have trouble with day-to-day activities such as bathing, preparing meals, shopping, managing finances, etc.?: No Are you currently unemployed and looking for a job?: No Are you interested in more education?: No Please select the resources that you would like help with: None Currently or been in a relationship where the following occur: No concerns reported THRIVE Score: 0 AUDIT C Alcohol Use Questionnaire (AUDIT-C) 1. How often do you have a drink containing alcohol?: Never 3. How often do you have six or more drinks on one occasion?: Never Total Score: 0 Score Reviewed/Action Taken: Yes ALIX-7 AMB Questionnaire ALIX-7 Date ALIX - 7 assessed: 02/25/24 Feeling nervous, anxious, or on edge: 0 = Not at all Not being able to stop or control worryin = Not at all Worrying too much about different things: 0 = Not at all Trouble relaxin = Not at all Being so restless that it is hard to sit still: 0 = Not at all Becoming easily annoyed or irritable: 0 = Not at all Feeling afraid as if something awful might happen: 0 = Not at all Total ALIX-7 score (0-4 normal; 5-9 mild; 10-14 moderate; 15-21 severe): 0 Source: Developed by Drs. Vern Whiting, Paulina De Luna, Americo Main and colleagues, with an educational cordelia from [employer]. Review of Systems Const Denies chills, Reports fatigue, Denies fever(s) and Denies headache(s) ENT Reports dysphagia (see HPI), Denies dizziness, Denies otalgia, Denies headache(s), Denies neck pain, Reports odynophagia (see HPI) and Denies sore throat Card Denies chest pain, Denies rapid heart rate, Denies irregular heart rhythm, Denies palpitations and Reports dyspnea on exertion (mild, per HAND FORMER HELPER) Resp Denies chest congestion, Denies cough, Reports dyspnea on exertion (mild, per HAND FORMER HELPER) and Denies wheezing GI Denies abdominal pain, Denies constipation, Reports dysphagia (see HPI), Denies heartburn, Denies diarrhea, Denies nausea, Reports odynophagia (see HPI) and Denies vomiting Denies urinary frequency, Denies dysuria, Denies urinary incontinence and Denies urinary urgency Musc Reports back pain (over the lower back - on and off), Reports arthralgias (over the left big toe) and Denies neck pain Skin/Breast Denies rash Neuro Denies dizziness, Denies headache(s), Reports memory loss and Denies paresthesias Psych Reports memory loss Endo Reports fatigue and Denies palpitations Aller/Immun Denies wheezing Physical exam (Primary Care) Vital Signs: Last Vital Signs Pulse 78 02/25/24 15:43 BP 108/64 02/25/24 15:43 Pulse Ox 94 02/25/24 15:43 Oxygen Delivery Method Room Air 02/25/24 15:43 BMI result Body Mass Index 29.5 Tobacco/Smoking Status: Tobacco use Status Tobacco use date assessed 02/25/24 02/25/24 15:45 Patient Tobacco Use Status Former Tobacco user 02/25/24 15:45 e-Cigarette/Vaping Use Never Used 02/25/24 15:45 PHQ-9: PHQ-9 Score PHQ-9: Total score 0 02/25/24 16:36 Depression Screening Interpretation: Negative Thrive Assessment: Date of Thrive Assessment Date Thrive assessed 02/25/24 02/25/24 15:45 Currently or been in a relationship where the following occur: No concerns reported Const General: no acute distress and alert HENMT Ears: TM's normal bilaterally and EAC's normal Throat: Yes posterior oropharynx normal and Yes tonsils normal (no TP congestion ) Neck Neck: Yes no lymphadenopathy and Yes supple Thyroid: Thyroid normal Resp Auscultation: clear to auscultation bilaterally, no rales and no wheezes Cardio Rate: regular rate Rhythm: regular rhythm Heart sounds: no murmurs GI Palpation (GI): Soft to palpation and nontender Auscultation: normal bowel sounds General: Yes no CVA tenderness Back/Spine/Pelvis Back: no CVA tenderness Thoracic/Lumbar Spine: lumbar spinal tenderness Skin Rashes: no rashes Extrem General: Yes no clubbing, cyanosis or edema Left lower extremity: foot Details: tenderness Location: of the great toe Office Procedures Flu Questionnaire Does the patient have a severe egg allergy?: No Immunizations Fluarix Triv [id number] (PF) 45 mcg (15 mcg x 3)/0.5 mL IM syringe Performing Provider: Francisco Javier Jimenez MD [facility] Documented (not given) by: RAYMOND Noble on 02/25/24 16:36 Reason Not Given: Not Given Coding Level of Care Code Est Pt Level 4 (77443) Diagnoses Dysphagia, unspecified type R13.10 Dysphagia type: unspecified Odynophagia R13.10 Mixed hyperlipidemia E78.2 Macrocytosis without anemia D75.89 Memory impairment R41.3 History of alcohol abuse F10.11 Degeneration of intervertebral disc of lumbar region with discogenic back pain M51.360 Disc-related pain type: discogenic back pain only Closed nondisplaced fracture of proximal phalanx of left great toe, sequela S92 .415S Encounter type: sequela Toe: great toe Fracture type: closed Phalanx: proximal Fracture alignment: nondisplaced GERD without esophagitis K21.9 Constipation, unspecified constipation type K59.00 Constipation type: unspecified constipation type Vitamin D deficiency E55.9 Insomnia, unspecified type G47.00 Insomnia type: unspecified Anxiety and depression F41.9; F32.A Overweight (BMI 25.0-29.9) E66.3 Assessment & Plan Assessment & Plan (1) Dysphagia: Comment: more of a sensation of food getting stuck in her throat often Code(s): R13.10 - Dysphagia, unspecified Category: Medical Qualifiers: Dysphagia type: unspecified Qualified Code(s): R13.10 - Dysphagia, unspecified Plan: Patient had a modified barium swallow done last year on 11/19/2022 came back normal Due to her recent symptoms, as well as her Hx of smoking and ETOH, will refer her to ENT for further evaluation and management (2) Odynophagia: Code(s): R13.10 - Dysphagia, unspecified Category: Medical Plan: Will refer patient to ENT for further evaluation and management (3) Mixed hyperlipidemia: Code(s): E78.2 - Mixed hyperlipidemia Category: Medical Plan: Patient was not able to get her follow up labs done prior to her appointment t ot[facility]iel Reinforced low cholesterol diet Continue Atorvastatin 10 mg Q HS Will have patient recheck her labs and fasting lipids in a couple of months for follow up - her previous lab orders will be updated and used for her next lab draw in April 2024 (4) Macrocytosis without anemia: Code(s): D75.89 - Other specified diseases of blood and blood-forming organs Category: Medical Plan: Previous labs done the ER a couple of years ago revealed macrocytosis without anemia but her subsequent CBCs show (+) anemia since She was still anemic on her labs done back in June 2023, with H/H at 10.3/31.4% Serum B12, Folate and TSH were normal when previously checked Will recheck her CBC in a couple of months for follow up (5) Memory impairment: Code(s): R41.3 - Other amnesia Category: Medical Plan: She was seen by neurology back in 2021 and 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 along with other disorders, which include post herpetic neuralgia, peripheral neuropathy, multifactorial gait disorder, restless legs syndrome, insomnia, anxiety and depression Patient states that she has quit drinking completely years ago She has not seen neurology again for follow-up since her visit with them in late December 2021 Continue Vitamin B12 1000 mcg QD and Folic Acid 400 mcg QD (6) History of alcohol abuse: Code(s): F10.11 - Alcohol abuse, in remission Category: Medical Plan: Patient states that she stopped drinking completely years ago (7) Lumbar degenerative disc disease: Comment: (+) Hx of spinal fusion and bone grafting done many years ago in [place] Code(s): M51.36 - Other intervertebral disc degeneration, lumbar region Category: Medical Qualifiers: Disc-related pain type: discogenic back pain only Qualified Code(s): M51.360 - Other intervertebral disc degeneration, lumbar region with discogenic back pain only Plan: Reinforced activity and weight-lifting restrictions Continue Gabapentin 300 mg TID and Cyclobenzaprine 10 mg TID PRN, Tramadol 50 mg Q HS (Rx refilled), Lidocaine 5% patch QD PRN and Duloxetine 60 mg QD Follow up with pain management as scheduled (8) Fracture of toe of left foot: Code(s): S92.912A - Unspecified fracture of left toe(s), initial encounter for closed fracture Category: Medical Qualifiers: Encounter type: sequela Toe: great toe Fracture type: closed Phalanx: proximal Fracture alignment: nondisplaced Qualified Code(s): S92.415S - Nondisplaced fracture of proximal phalanx of left great toe, sequela Plan: X-rays of the left foot done at the ER last month revealed (+) questionable fracture at the base of the 1st proximal phalanx at the MTP joint Other than pain on her toe, patient states that she feels okay As there is no signifcant displacement of the bones in her left big toe, no further intervention is needed at this time (9) GERD without esophagitis: Code(s): K21.9 - Gastro-esophageal reflux disease without esophagitis Category: Medical Plan: Dietary restrictions reinforced Continue Pantoprazole 40 mg QD (10) Constipation: Code(s): K59.00 - Constipation, unspecified Category: Medical Qualifiers: Constipation type: unspecified constipation type Qualified Code(s): K59.00 - Constipation, unspecified Plan: She is again encouraged on increased oral fluids and dietary fiber Continue Miralax 17 gm QD and Senna 8.6 mg Q HS (11) Vitamin D deficiency: Code(s): E55.9 - Vitamin D deficiency, unspecified Category: Medical Plan: Continue Vitamin D3 1000 units QD (12) Insomnia: Code(s): G47.00 - Insomnia, unspecified Category: Medical Qualifiers: Insomnia type: unspecified Qualified Code(s): G47.00 - Insomnia, unspecified Plan: Sleep hygiene reinforced Continue Trazodone 100 mg Q HS PRN (13) Anxiety and depression: Code(s): F41.9 - Anxiety disorder, unspecified; F32.A - Depression, unspecified Category: Medical Plan: Continue Sertraline 50 mg QD; is also on Duloxetine 60 mg QD (14) Overweight (BMI 25.0-29.9): Code(s): E66.3 - Overweight Category: Medical Plan: Reinforced diet; exercise and weight loss are unrealistic given patient's physical issues and multiple comorbidities Plan To return as scheduled in April 2024 for her annual physical examination Orders: Orders Influenza [id number] Immunization 02/25/24 Z23 - Encounter for immunization Referrals Ear/Nose/Throat Referral R13.10 - Dysphagia, unspecified Medications: Refilled tramadol 50 mg PO BEDTIME 15 days PRN 15 tabs 0RF pain
== END 2024-02-25 16:26 | disposition home or self-care (01) ==
PROVIDERS: PCP Internal Medicine; Visit Provider Internal Medicine
DX: R13.10 Dysphagia, unspecified (principal); E78.2 Mixed hyperlipidemia; D75.89 Other specified diseases of blood and blood-forming organs; R41.3 Other amnesia; F10.11 Alcohol abuse, in remission; M51.360 Other intervertebral disc degeneration, lumbar region with discogenic back pain only; S92.415S Nondisplaced fracture of proximal phalanx of left great toe, sequela; K21.9 Gastro-esophageal reflux disease without esophagitis; K59.00 Constipation, unspecified; E55.9 Vitamin D deficiency, unspecified; G47.00 Insomnia, unspecified; F41.9 Anxiety disorder, unspecified; F32.A Depression, unspecified; E66.3 Overweight

== ENCOUNTER → 2024-02-25 15:31 | Outpatient (BNVA) | payer OTHER, SELFPAY | PROVIDERS: PCP Internal Medicine; Visit Provider Internal Medicine | DX: R13.10 Dysphagia, unspecified (principal); E78.2 Mixed hyperlipidemia; D75.89 Other specified diseases of blood and blood-forming organs; R41.3 Other amnesia; M79.675 Pain in left toe(s); S92.415S Nondisplaced fracture of proximal phalanx of left great toe, sequela; F10.11 Alcohol abuse, in remission; M51.360 Other intervertebral disc degeneration, lumbar region with discogenic back pain only; K21.9 Gastro-esophageal reflux disease without esophagitis; K59.00 Constipation, unspecified; E55.9 Vitamin D deficiency, unspecified; G47.00 Insomnia, unspecified; F41.9 Anxiety disorder, unspecified; F32.A Depression, unspecified; E66.3 Overweight; Z79.899 Other long term (current) drug therapy | CPT/HCPCS: 90471; 96127; 99212 ==

== ENCOUNTER 2024-04-14 11:31 | Outpatient (REF) | payer OTHER, SELFPAY ==
[2024-04-14 12:28] LABS: Alanine Aminotransferase 9 U/L (0-31); Albumin Level 3.6 g/dL (3.5-5.0); Alkaline Phosphatase 54 U/L (39-117); Anion Gap 14 (12-20); Aspartate Amino Transferase 21 U/L (5-31); Bilirubin Total 0.3 mg/dL (0.0-1.0); Blood Urea Nitrogen 9 mg/dL (9-16); Calcium 8.3 mg/dL (8.4-10.2); Carbon Dioxide 22 mmol/L (22-29); Chloride 108 mmol/L (96-108); Cholesterol 190 mg/dL (<200); Estimated Glomerular Filt Rate > 60; Glucose Fasting 84 mg/dL (60-99); HDL Cholesterol 48 mg/dL (>40); Iron 28 mcg/dL (30-160); LDL Cholesterol Calculated 105 mg/dL (<100); Percent Iron Saturation 8 % (15-50); Sodium 140 mmol/L (135-145); Total Iron Binding Capacity 347 mcg/dL (228-428); Total Protein 7.2 g/dL (6.5-8.0); Triglycerides 187 mg/dL (<150); Unsaturated Iron Binding 319 ug/dL
[2024-04-14 12:43] LABS: TSH reflex Free T4 1.11 uIU/mL (0.32-4.0); Vitamin D 25-OH Total 36.6 ng/mL (>30)
[2024-04-14 12:53] LABS: Folate 16.8 ng/mL (> or = 4.0); Vitamin B12 624 pg/mL (200-900)
[2024-04-14 14:17] LABS: Appearance Urine Clear; Color Urine Yellow; Glucose Urine UA Negative (Negative); Leukocyte Esterase Urine Small (1+) (Negative); Nitrite Urine Negative (Negative); PH 5.5 (5.0-9.0); Specific Gravity - Urine 1.015 (1.005-1.025); UMIC TRIGGER UACC YES; Urine Blood Negative (Negative); Urine Ketones Negative (Negative); Urine Protein Negative (Neg-Trace)
[2024-04-14 14:20] LABS: Bacteria Urine 1+ (None Seen); Hyaline Casts Urine 0-2 /LPF (0-2); RBC Urine 0-2 /HPF (0-2); UACC Culture Trigger YES
== END 2024-04-14 11:32 | disposition home or self-care (01) ==
LOC: HO.LAB 11:31
PROVIDERS: PCP Internal Medicine; Visit Provider Internal Medicine
DX: E55.9 Vitamin D deficiency, unspecified (principal); D50.9 Iron deficiency anemia, unspecified; E78.00 Pure hypercholesterolemia, unspecified; E53.8 Deficiency of other specified B group vitamins; R30.0 Dysuria
CPT/HCPCS: 36415; 80053; 80061; 81001; 82306; 82607; 82746; 83540; 84443; 85025; 87086

== ENCOUNTER 2024-04-17 14:32 | Outpatient (AMB) | payer OTHER, SELFPAY ==
[2024-04-17 14:44] VITALS: BP 114/78; PULSE 85; O2SAT 95; BMI 30.5
--- NOTE | 2024-04-17 14:44 | MHC.PC.OV ---
Vital Signs 04/17/24 14:44 Height 5 ft 2 in Weight 166 lb 10.711 oz BMI 30.5 BP 114/78 Blood Pressure Location Lt brachial Position Sitting Pulse 85 Pulse Source Pulse Oximeter Pulse Oximetry (%) 95 Oxygen Delivery Method Room Air Intake Visit Reasons: ANNUAL Pediatric Nurse Practitioner Required: No Accompanied by: Self / Same As Patient Allergies codeine Adverse Reaction (Mild, Verified 04/17/24 15:13) Abdominal Pain Medication List - Last Reconciled 04/17/24 by Francisco Javier Jimenez MD acetaminophen (Pain Relief Extra Strength (acetaminophen)) 500 mg PO Q6H PRN 30 days atorvastatin 10 mg PO BEDTIME 30 days [BEDSIDE COMMODE As directed] cholecalciferol (vitamin D3) 25 mcg PO DAILY 90 days [Commode bags As directed] cyanocobalamin (vitamin B-12) 1,000 mcg PO DAILY cyclobenzaprine 10 mg PO TID PRN 30 days diaper,brief,adult,disposable (Prevail Underwear) As directed (Size Large) [Disposable González As directed] [Disposable Wipes As directed] duloxetine 60 mg PO DAILY folic acid 0.4 mg PO DAILY gabapentin 300 mg PO TID 30 days ibuprofen 600 mg PO Q8H PRN latex gloves (Latex Gloves, Medium) As directed lidocaine 5% 1 patch topical DAILY methylcellulose (laxative) (Citrucel) 1,000 mg (2 x 500 mg) PO DAILY nicotine 1 patch transdermal DAILY 28 days pantoprazole 40 mg PO DAILY 30 days quetiapine 50 mg PO BEDTIME 30 days sennosides (Natural Senna Laxative) 8.6 mg PO BEDTIME sertraline 50 mg PO DAILY 90 days tramadol 50 mg PO BEDTIME PRN 15 days [TRANSPORT WHEELCHAIR As directed] trazodone 100 mg PO BEDTIME PRN 30 days Tobacco use date assessed: 04/17/24 Fall risk assessment: No Falls in past year Last assessed Fall Risk: 04/17/24 Dental Screening Dental Screen Date: 04/17/24 Did you have a dental visit in the last 12 months?: No Did you have a dental problem in the last 6 months where you did not have access to dental care?: No Was dental information given to patient?: No HPI ANNUAL HPI Details Patient comes in today for her annual physical examination - she is accompanied today by her HUNTING AND FISHING GUIDE Her HUNTING AND FISHING GUIDE states that patient does not really get much sleep at night she often is resistant to being told to go to bed late at night Patient reportedly stays up late watching television and tends to get upset when she is supposedly asked to turn off the TV and go to bed because it is late She then stays up in bed for long time before finally falling off to sleep and tends to wake up after 2-3 hours Her HUNTING AND FISHING GUIDE also adds that she would notice patient tend to choke often over the past few weeks when she is eating and drinking Patient states that she feels okay otherwise She denies any headaches or dizziness Denies any chest pains, no increased shortness of breath No nausea/vomiting, no abdominal pain but states that her stomach feels bloated often she appears to be getting more constipated again often recently She denies any acute urinary symptoms She had her follow-up labs done a few days ago - to discuss her results She last had her colonoscopy done with Dr. Hart in 02/2022 - recommend repeat colonoscopy in 5 years (2026), health permitting She also had her annual mammogram last done in December 2021 and does not wish to continue annual screening She no longer needs to keep up with her annual gynecology exam and pap smear at her age unless she wishes to continue doing so [facility] Medical History Anxiety and depression History of alcohol abuse Overweight (BMI 25.0-29.9) Constipation Depression Anxiety Insomnia Vitamin D deficiency Alcoholic dementia Tubular adenoma Ulcerative colitis Smoker Memory impairment Lumbar degenerative disc disease Colitis Surgical History (Updated 04/18/24 @ 08:58 by Francisco Javier Jimenez MD) Hx of colonoscopy History of hernia surgery Previous back surgery Social History Housing: Apartment Do you presently have visiting nurse or other home services: No Alcohol intake: former Patient Tobacco Use Status: Former Tobacco user Cigarettes Per Day: 8 e-Cigarette/Vaping Use: Never Used Second Hand Smoke Exposure: Yes Advance Directives Date on File: 07/21/21 service: No Current occupational status: retired and disabled Current occupation: right hand dominant Cognitive needs: No Hearing needs: Yes Vision needs: Yes Female Reproductive History Menstrual Age of Menarche: 19 Questionnaire PHQ-9 Over the last 2 weeks, how often have you been bothered by any of the following problems? 1. Little interest or pleasure in doing things: not at all 2. Feeling down, depressed, or hopeless: not at all 3. Trouble falling or staying asleep, or sleeping too much: not at all 4. Feeling tired or having little energy: not at all 5. Poor appetite or overeating: not at all 6. Feeling bad about yourself - or that you are a failure or have let yourself or your family down: not at all 7. Trouble concentrating on things, such as reading the newspaper or watching television: not at all 8. Moving or speaking so slowly that other people could have noticed. Or the opposite - being so fidgety or restless that you have been moving around a lot more than usual: not at all 9. Thoughts that you would be better off or of hurting yourself in some way: not at all Total score: 0 Depression Screening Interpretation: Negative (is on Rx) Depression Screening Done: Yes 85613 - PHQ-9 Billing: Yes Source: Developed by Drs. Vern Whiting, Paulina De Luna, Americo Main and colleagues, with an educational cordelia from [employer]. Thrive Questionnaire Date Thrive assessed: 04/17/24 I am a: Patient What is your living situation today?: I have a steady place to live Within the past 12 months, did the food you bought not last and you didn't have the money to get more?: Never true Within the past 12 months, did you worry whether your food would run out before you got money to buy more?: Never true Do you have trouble paying for medicines?: No Do you have trouble getting transportation to medical appointments?: No Do you have trouble paying your heating and electricity bill?: No Do you have trouble taking care of your child, family member or friend?: No Do you have trouble with day-to-day activities such as bathing, preparing meals, shopping, managing finances, etc.?: No Are you currently unemployed and looking for a job?: No Are you interested in more education?: No Please select the resources that you would like help with: None Currently or been in a relationship where the following occur: No concerns reported THRIVE Score: 0 AUDIT C Alcohol Use Questionnaire (AUDIT-C) 1. How often do you have a drink containing alcohol?: Never 3. How often do you have six or more drinks on one occasion?: Never Total Score: 0 Score Reviewed/Action Taken: Yes ALIX-7 AMB Questionnaire ALIX-7 Date ALIX - 7 assessed: 04/17/24 Feeling nervous, anxious, or on edge: 0 = Not at all Not being able to stop or control worryin = Not at all Worrying too much about different things: 0 = Not at all Trouble relaxin = Not at all Being so restless that it is hard to sit still: 0 = Not at all Becoming easily annoyed or irritable: 0 = Not at all Feeling afraid as if something awful might happen: 0 = Not at all Total AILX-7 score (0-4 normal; 5-9 mild; 10-14 moderate; 15-21 severe): 0 Source: Developed by Drs. Vern Whiting, Paulina De Luna, Americo Main and colleagues, with an educational cordelia from [employer]. Review of Systems Const Denies chills, Reports difficulty sleeping, Reports fatigue, Denies fever(s) and Denies headache(s) Eyes Denies blurry vision, Denies change in vision, Denies irritation and Denies itchy eyes ENT Reports dysphagia (see HPI), Denies dizziness, Denies otalgia, Denies headache(s), Denies neck pain, Reports odynophagia (see HPI) and Denies sore throat Card Denies chest pain, Denies rapid heart rate, Denies irregular heart rhythm, Denies palpitations and Reports dyspnea on exertion (mild, per HUNTING AND FISHING GUIDE) Resp Denies chest congestion, Denies cough, Reports dyspnea on exertion (mild, per HUNTING AND FISHING GUIDE) and Denies wheezing GI Denies abdominal pain, Denies constipation, Reports dysphagia (see HPI), Denies heartburn, Denies diarrhea, Denies nausea, Reports odynophagia (see HPI) and Denies vomiting Denies urinary frequency, Denies dysuria, Denies urinary incontinence and Denies urinary urgency Musc Reports back pain (over the lower back - on and off), Reports arthralgias (over the left big toe) and Denies neck pain Skin/Breast Denies rash Neuro Denies dizziness, Denies headache(s), Reports memory loss and Denies paresthesias Psych Reports memory loss Endo Reports fatigue and Denies palpitations Jeffry/Lymph Denies easy bruising Aller/Immun Denies itchy eyes and Denies wheezing Physical exam (Primary Care) Vital Signs: Last Vital Signs Pulse 85 04/17/24 14:44 BP 114/78 04/17/24 14:44 Pulse Ox 95 04/17/24 14:44 Oxygen Delivery Method Room Air 04/17/24 14:44 BMI result Body Mass Index 30.5 Tobacco/Smoking Status: Tobacco use Status Tobacco use date assessed 04/17/24 04/17/24 14:50 Patient Tobacco Use Status Former Tobacco user 04/17/24 14:44 e-Cigarette/Vaping Use Never Used 04/17/24 14:44 PHQ-9: PHQ-9 Score PHQ-9: Total score 0 04/17/24 15:28 Depression Screening Interpretation: Negative (is on Rx) Thrive Assessment: Date of Thrive Assessment Date Thrive assessed 04/17/24 04/17/24 14:50 Currently or been in a relationship where the following occur: No concerns reported Const General: no acute distress, alert and awake Orientation/consciousness: patient oriented x3 HENMT Head: Yes normocephalic and Yes atraumatic Ears: external ears normal, TM's normal bilaterally and EAC's normal General nose exam: No nasal discharge present Face and sinus: Yes normal facial exam and Yes sinuses nontender Teeth and gingiva: dentition normal Throat: Yes posterior oropharynx normal and Yes tonsils normal (no TP congestion) Eyes Eyelids: Yes eyelids normal Conjunctivae: conjunctivae normal Pupils: Equal, round and reactive pupils present EOM: EOMs intact bilaterally Neck Neck: Yes no lymphadenopathy and Yes supple Thyroid: Thyroid normal Resp Auscultation: clear to auscultation bilaterally, no rales and no wheezes Cardio Rate: regular rate Rhythm: regular rhythm Heart sounds: no murmurs GI Palpation (GI): Soft to palpation, nontender and No hepatosplenomegaly present Auscultation: normal bowel sounds General: Yes no CVA tenderness Back/Spine/Pelvis Back: no CVA tenderness Thoracic/Lumbar Spine: thoracic and lumbar spine normal to inspection Skin Lesions: no lesions Rashes: no rashes Neuro General: patient oriented x3, moves all extremities, no focal motor deficits and CN's II-XI intact bilaterally Cranial nerves: Yes Equal, round and reactive pupils present Cognition (Neuro): normal cognition Gait exam (Neuro): Normal gait present Extrem General: Yes no clubbing, cyanosis or edema Results Reviewed Results Reviewed: Laboratory Tests 04/14/24 04/14/24 11:38 11:46 Sodium 140 Potassium 4.0 D Creatinine 0.76 Estimated GFR > 60 Fasting Glucose 84 Calcium 8.3 L D Iron 28 L TIBC 347 % Saturation 8 L Unsat Iron Binding 319 AST 21 ALT 9 Triglycerides 187 H Cholesterol 190 LDL Cholesterol, Calc 105 H HDL Cholesterol 48 Vitamin B12 624 25-OH Vitamin D Total 36.6 TSH 1.11 Ur Specific [place] 1.015 Urine Protein Negative Urine Glucose (UA) Negative Urine Blood Negative Urine Nitrite Negative Ur Leukocyte Esterase Small (1+) H Coding Level of Care Code Est Pt Prev Care >65y(61678) Diagnoses Annual physical exam Z00.00 Dysphagia, unspecified type R13.10 Dysphagia type: unspecified Odynophagia R13.10 Mixed hyperlipidemia E78.2 Macrocytosis without anemia D75.89 Memory impairment R41.3 History of alcohol abuse F10.11 Degeneration of intervertebral disc of lumbar region with discogenic back pain M51.360 Disc-related pain type: discogenic back pain only GERD without esophagitis K21.9 Constipation, unspecified constipation type K59.00 Constipation type: unspecified constipation type Vitamin D deficiency E55.9 Insomnia, unspecified type G47.00 Insomnia type: unspecified Anxiety and depression F41.9; F32.A Overweight (BMI 25.0-29.9) E66.3 Additional Codes PHQ-9 - 93915 - PHQ-9 Billing: Yes ([id number]) Assessment & Plan Assessment & Plan (1) Annual physical exam: Code(s): Z00.00 - Encounter for general adult medical examination without abnormal findings Category: Medical Plan: Results of her labs done a few days ago reviewed and discussed with patient She last had her colonoscopy done with Dr. Hart in 02/2022 - recommend repeat colonoscopy in 5 years (2026), health permitting She also had her annual mammogram last done in December 2021 and does not wish to continue annual screening She no longer needs to keep up with her annual gynecology exam and pap smear at her age unless she wishes to continue doing so (2) Dysphagia: Comment: more of a sensation of food getting stuck in her throat often Code(s): R13.10 - Dysphagia, unspecified Category: Medical Qualifiers: Dysphagia type: unspecified Qualified Code(s): R13.10 - Dysphagia, unspecified Plan: Patient had a modified barium swallow done last year on 11/19/2022 came back normal Due to her symptoms, as well as her Hx of smoking and ETOH, she was previously referred to ENT for further evaluation and management but she has not yet been seen In light of her recently increased symptoms, will refer her again for a repeat modified barium swallow for further evaluation (3) Odynophagia: Code(s): R13.10 - Dysphagia, unspecified Category: Medical Plan: Patient has been previously referred to ENT for further evaluation and management and she is currently still waiting to be seen by ENT (4) Mixed hyperlipidemia: Code(s): E78.2 - Mixed hyperlipidemia Category: Medical Plan: Reinforced low cholesterol diet - she is advised that her cholesterol levels have improved significantly from previous Continue Atorvastatin 10 mg Q HS Will have patient recheck her labs and fasting lipids in 4 months for follow up (5) Macrocytosis without anemia: Code(s): D75.89 - Other specified diseases of blood and blood-forming organs Category: Medical Plan: Previous labs done the ER a couple of years ago revealed macrocytosis without anemia but her subsequent CBCs show (+) anemia since She was still anemic on her labs done back in June 2023, with H/H at 10.3/31.4%; her CBC this time was cancelled by the lab due to insufficient sample at the time of her lab draw Serum B12, Folate and TSH were normal when previously checked; but her iron indices were low Willl go ahead and start her on iron supplements (Ferrous sulfate) 325 mg QD Will recheck her CBC in 4 months for follow up (6) Memory impairment: Code(s): R41.3 - Other amnesia Category: Medical Plan: She was seen by neurology back in 2021 and 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 along with other disorders, which include post herpetic neuralgia, peripheral neuropathy, multifactorial gait disorder, restless legs syndrome, insomnia, anxiety and depression Patient states that she has quit drinking completely years ago She has not seen neurology again for follow-up since her visit with them in late December 2021 Continue Vitamin B12 1000 mcg QD and Folic Acid 400 mcg QD (7) History of alcohol abuse: Code(s): F10.11 - Alcohol abuse, in remission Category: Medical Plan: Patient states that she stopped drinking completely years ago (8) Lumbar degenerative disc disease: Comment: (+) Hx of spinal fusion and bone grafting done many years ago in [employer] Code(s): M51.36 - Other intervertebral disc degeneration, lumbar region Category: Medical Qualifiers: Disc-related pain type: discogenic back pain only Qualified Code(s): M51.360 - Other intervertebral disc degeneration, lumbar region with discogenic back pain only Plan: Reinforced activity and weight-lifting restrictions Continue Gabapentin 300 mg TID and Cyclobenzaprine 10 mg TID PRN, Tramadol 50 mg Q HS, Lidocaine 5% patch QD PRN and Duloxetine 60 mg QD Follow up with pain management as scheduled (9) GERD without esophagitis: Code(s): K21.9 - Gastro-esophageal reflux disease without esophagitis Category: Medical Plan: Dietary restrictions reinforced Continue Pantoprazole 40 mg QD (10) Constipation: Code(s): K59.00 - Constipation, unspecified Category: Medical Qualifiers: Constipation type: unspecified constipation type Qualified Code(s): K59.00 - Constipation, unspecified Plan: She is again encouraged on increased oral fluids and dietary fiber Continue Senna 8.6 mg Q HS and Citrucel 1000 mg QD (11) Vitamin D deficiency: Code(s): E55.9 - Vitamin D deficiency, unspecified Category: Medical Plan: Continue Vitamin D3 1000 units QD (12) Insomnia: Code(s): G47.00 - Insomnia, unspecified Category: Medical Qualifiers: Insomnia type: unspecified Qualified Code(s): G47.00 - Insomnia, unspecified Plan: Sleep hygiene reinforced - had a long discussion with patient today about the detrimental effects of late nigh TV on sleeping habits and have advised her on the importance of a set bedtime routine as well as a set bedtime Have advised her that her anxiety also likely plays a role in her difficulty sleeping and having a bedtime routine will help alleviate a lot of these issues and that not sleeping well and not getting enough sleep can also adversely affect her memory and cognitive decline Continue Trazodone 100 mg Q HS PRN and Quetiapine 50 mg Q HS Have advised them that they can also try taking some OTC Melatonin at bedtime to help with her sleep (13) Anxiety and depression: Code(s): F41.9 - Anxiety disorder, unspecified; F32.A - Depression, unspecified Category: Medical Plan: Continue Sertraline 50 mg QD and Quetiapine 50 mg Q HS; she is also on Duloxetine 60 mg QD (14) Overweight (BMI 25.0-29.9): Code(s): E66.3 - Overweight Category: Medical Plan: Reinforced diet; exercise and weight loss are unrealistic given patient's physical issues and multiple comorbidities Plan Follow up in 4 months Orders: Orders Complete Blood Count Auto Diff 4 Months D64.9 - Anemia, unspecified Lipid Panel 4 Months E78.00 - Pure hypercholesterolemia, unspecified Comprehensive [place]. Panel Fast 4 Months E78.00 - Pure hypercholesterolemia, unspecified TSH reflex Free T4 4 Months E78.00 - Pure hypercholesterolemia, unspecified UA CC w/rflx Micro + Cult 4 Months R30.0 - Dysuria Vitamin B12 and Folate 4 Months E53.8 - Deficiency of other specified B group vitamins [place] Modified Barium Swallow 04/17/24 R13.10 - Dysphagia, unspecified Vitamin D 25-OH Total 4 Months E55.9 - Vitamin D deficiency, unspecified Medications: New ferrous sulfate (Feosol) 325 mg PO DAILY 90 days 90 tabs 1RF polyethylene glycol 3350 (Miralax) 17 grams PO DAILY 510 grams 3RF
== END 2024-04-17 15:35 | disposition home or self-care (01) ==
LOC: HO.HMCH 14:32
PROVIDERS: PCP Internal Medicine; Visit Provider Internal Medicine
DX: Z00.00 Encounter for general adult medical examination without abnormal findings (principal); R13.10 Dysphagia, unspecified; E78.2 Mixed hyperlipidemia; D75.89 Other specified diseases of blood and blood-forming organs; R41.3 Other amnesia; F10.11 Alcohol abuse, in remission; M51.360 Other intervertebral disc degeneration, lumbar region with discogenic back pain only; K21.9 Gastro-esophageal reflux disease without esophagitis; K59.00 Constipation, unspecified; E55.9 Vitamin D deficiency, unspecified; G47.00 Insomnia, unspecified; F41.9 Anxiety disorder, unspecified; F32.A Depression, unspecified; E66.3 Overweight

== ENCOUNTER → 2024-04-17 14:32 | Outpatient (BNVA) | payer OTHER, SELFPAY | PROVIDERS: PCP Internal Medicine; Visit Provider Internal Medicine | DX: Z00.00 Encounter for general adult medical examination without abnormal findings (principal); R13.10 Dysphagia, unspecified; E78.2 Mixed hyperlipidemia; D75.89 Other specified diseases of blood and blood-forming organs; R41.3 Other amnesia; F10.11 Alcohol abuse, in remission; M51.360 Other intervertebral disc degeneration, lumbar region with discogenic back pain only; K21.9 Gastro-esophageal reflux disease without esophagitis; K59.00 Constipation, unspecified; E55.9 Vitamin D deficiency, unspecified; G47.00 Insomnia, unspecified; F41.9 Anxiety disorder, unspecified; F32.A Depression, unspecified; E66.3 Overweight; Z68.30 Body mass index [BMI] 30.0-30.9, adult; Z71.3 Dietary counseling and surveillance | CPT/HCPCS: 96127; 99397 ==

== ENCOUNTER 2024-05-02 15:35 | Emergency (ER) | payer OTHER, SELFPAY ==
--- NOTE | ~2024-05-02 | CT_ITS ---
CLINICAL HISTORY: fall, +left forehead strike on doorway CT maxillofacial without contrast Comparison: None Findings: No acute fracture or dislocation. No acute orbital or intracranial findings. Trace foamy secretions in the left sphenoid sinus. Otherwise clear paranasal sinuses and mastoid air cells. Trace left frontal scalp soft tissue swelling. Impression: No fracture. This document has been electronically signed by: Pooja Palma MD on 05/02/2024 20:15:17
--- NOTE | ~2024-05-02 | CT_ITS ---
CLINICAL HISTORY: fall head strike CT cervical spine without contrast Comparison: 01/24/24 Findings: Mild multilevel anterolisthesis, degenerative. No fracture. Multilevel degenerative change is most prominent at C4/C5 with moderate to severe central spinal canal stenosis. No epidural hematoma. Normal thickness of the prevertebral soft tissues. The lung apices are clear. Impression: No acute findings. This document has been electronically signed by: Pooja Palma MD on 05/02/2024 20:12:27
--- NOTE | ~2024-05-02 | CT_ITS ---
CLINICAL HISTORY: fall, head strike CT head without contrast Comparison: 01/24/24 Findings: No acute hemorrhage. No extra-axial fluid collection. No hydrocephalus, mass-effect or herniation. Boles-white differentiation is maintained. There is patchy hypoattenuation of the periventricular and deep white matter, which is most likely the sequela of severe chronic small vessel ischemic disease and is similar to the prior study. Bilateral basal ganglia chronic lacunar infarctions. No acute orbital pathology. No hematoma. No fracture. The visualized paranasal sinuses are predominantly clear. The mastoid air cells are clear. Impression: No acute findings. This document has been electronically signed by: Pooja Palma MD on 05/02/2024 20:13:57
[2024-05-02 16:08] VITALS: BP 103/59; PULSE 83; RESP 20; TEMP 36.9; O2SAT 95; BMI 30.4
--- NOTE | 2024-05-02 16:13 | ED_ITS ---
HPI - Fall General Chief Complaint: Fall Stated Complaint: fell about 1 hr ago and hit her head Time Seen by Provider: 05/02/24 17:50 Source: family Mode of arrival: ambulatory Limitations: no limitations History of Present Illness ED Provider: HPI Narrative: Patient is 78 years old supposed to walk with walker because of leg weakness got up from her room to go to kitchen without walker lost balance and hit her forehead to the door frame and then slumped down no loss of consciousness no other injuries patient is alert oriented x3 patient not on any blood thinners ambulatory after the fall Related Data Home Medications ?Medication ?Instructions ?Recorded ?Confirmed cyanocobalamin (vitamin B-12) 1,000 mcg PO DAILY 08/22/21 04/17/24 1,000 mcg tablet duloxetine 60 mg capsule,delayed 60 mg PO DAILY 06/12/23 04/17/24 release Previous Rx's ?Medication ?Instructions ?Recorded folic acid 400 mcg tablet 0.4 mg PO DAILY #30 tabs 07/18/21 BEDSIDE COMMODE #1 ea 07/21/21 TRANSPORT WHEELCHAIR #1 ea 07/21/21 lidocaine 5 % topical patch 1 patch topical DAILY #30 ea 02/19/23 cholecalciferol (vitamin D3) 25 25 mcg PO DAILY 90 days #90 tabs 05/28/23 mcg (1,000 unit) tablet methylcellulose (laxative) 500 mg 1,000 mg (2 x 500 mg) PO DAILY #60 09/13/23 tablet (Citrucel) tabs trazodone 100 mg tablet 100 mg PO BEDTIME PRN insomnia 30 09/20/23 days #30 tabs sertraline 50 mg tablet 50 mg PO DAILY 90 days #90 tabs 09/23/23 quetiapine 50 mg tablet 50 mg PO BEDTIME 30 days #30 tabs 10/01/23 ibuprofen 600 mg tablet 600 mg PO Q8H PRN pain #14 tabs 10/22/23 atorvastatin 10 mg tablet 10 mg PO BEDTIME 30 days #90 tabs 10/30/23 pantoprazole 40 mg tablet,delayed 40 mg PO DAILY 30 days #90 tabs 10/30/23 release Disposable González #8 ea 11/04/23 Commode bags #1 ea 12/31/23 latex gloves (Latex Gloves, Medium) #24 ea 12/31/23 gabapentin 300 mg capsule 300 mg PO TID 30 days #90 caps 01/22/24 Disposable Wipes #8 ea 01/29/24 diaper,brief,adult,disposable #80 ea 01/29/24 (Prevail Underwear) nicotine 7 mg/24 hr daily 1 patch transdermal DAILY 28 days 02/05/24 transdermal patch #28 ea cyclobenzaprine 10 mg tablet 10 mg PO TID PRN muscle spasm 30 02/10/24 days #90 tabs acetaminophen 500 mg tablet (Pain 500 mg PO Q6H PRN pain 30 days 04/17/24 Relief Extra Strength #120 tabs (acetaminophen)) ferrous sulfate 325 mg (65 mg 325 mg PO DAILY 90 days #90 tabs 04/17/24 iron) tablet (Feosol) polyethylene glycol 3350 17 17 g PO DAILY #510 grams 04/17/24 gram/dose oral powder (Miralax) sennosides 8.6 mg tablet (Natural 8.6 mg PO BEDTIME constipation #90 04/21/24 Senna Laxative) tabs tramadol 50 mg tablet 50 mg PO BEDTIME PRN pain 15 days 04/24/24 #15 tabs Allergies Allergy/AdvReac Type Severity Reaction Status Date / Time codeine AdvReac Mild Abdominal Verified 05/02/24 16:12 Pain Review of Systems Review of Systems: Yes all other systems are reviewed and are negative [facility] Past Medical History Medical History Anxiety and depression History of alcohol abuse Overweight (BMI 25.0-29.9) Constipation Depression Anxiety Insomnia Vitamin D deficiency Alcoholic dementia Tubular adenoma Ulcerative colitis Smoker Memory impairment Lumbar degenerative disc disease Colitis Surgical History Hx of colonoscopy History of hernia surgery Previous back surgery Social History Social History Housing: Apartment Do you presently have visiting nurse or other home services: No Alcohol intake: former Patient Tobacco Use Status: Former Tobacco user Cigarettes Per Day: 8 e-Cigarette/Vaping Use: Never Used Second Hand Smoke Exposure: Yes Advance Directives: Yes Advance Directives on File: Yes Advance Directives Date on File: 07/21/21 Do you have a plan to hurt others: No Plan service: No Current occupational status: retired and disabled Current occupation: right hand dominant Cognitive needs: No Hearing needs: Yes Vision needs: Yes Physical Exam Vital Signs: Vital Signs: Last Vital Signs Temp 98.5 F 05/02/24 19:04 Pulse 73 05/02/24 19:04 Resp 16 05/02/24 19:04 BP 136/57 L 05/02/24 19:04 Pulse Ox 97 05/02/24 19:04 O2 Del Method Room Air 05/02/24 19:04 BMI result Body Mass Index 30.4 Appearance: Alert. Oriented X3. No acute distress. Eyes: PERRLA, No Nystagmus ENT: Pharynx normal. Oral Mucosa moist atraumatic normocephalic Neck: Normal inspection. Neck supple. CVS: Normal heart rate and rhythm. Pulses normal. Respiratory: No respiratory distress. Equal air entry bilateral, no wheezing/ rales/rhonchi Abdomen: Soft and nontender. Bowel sounds are present, no mass palpable, no CVA tenderness Skin: Skin warm and dry. Normal skin color. Normal skin turgor. Extremities: No lower extremity edema. No calf tenderness Neuro: Oriented X 3. No motor deficit. No sensory deficit.No cerebellar signs , cranial nerves II-XII intact Course Course Course Narrative: This is a Rapid Medical Examination (RME) performed by Ming Green PA-C in triage. Full HPI, ROS, assessment and treatment plan per primary provider in the Main ED. 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 per patient, her daughter ran to the store. patient attempted to walk around without assistance from her walker, lost her balance and struck her left forehead on a door frame. denies LOC, no thinners. no preceding symptoms of hedache, dizziness, vision changes, chest pain. her daughter returned shortly after, was not down for long. her daughter states patient is supposed to use a walker at home however does not. patient's only complaint at present is left forehead pain. + no palpable skull fracture. PERRLA. AOX3. no slurred speech or facial droop. Plan: imaging Medical Decision Making Medical Decision Making MDM Narrative: Patient after mechanical fall with minor head injury scan negative for acute will discharge patient home with family Independent Interpretation I performed an independent interpretation of an: CT Scan Interpretation: No bleed or fracture Discharge Plan Discharge Clinical Impression: Minor closed head injury Patient Disposition: Home, Self-Care Instructions: Head Injury (ED) Additional Instructions: Care and cautions as advised Use walker for ambulation Prescriptions: No Action cholecalciferol (vitamin D3) 25 mcg (1,000 unit) tablet 25 mcg PO DAILY 90 Days Qty: 90 1RF Citrucel 500 mg tablet 1,000 mg PO DAILY Qty: 60 2RF Rx Instructions: take it with full glass of water trazodone 100 mg tablet 100 mg PO BEDTIME PRN (Reason: insomnia) 30 Days Qty: 30 2RF sertraline 50 mg tablet 50 mg PO DAILY 90 Days Qty: 90 1RF quetiapine 50 mg tablet 50 mg PO BEDTIME 30 Days Qty: 30 0RF atorvastatin 10 mg tablet 10 mg PO BEDTIME 30 Days Qty: 90 3RF pantoprazole 40 mg tablet,delayed release (DR/EC) 40 mg PO DAILY 30 Days Qty: 90 3RF (DME) Disposable González See Rx Instructions .Route .MEDSUPPLY Qty: 8 11RF Rx Instructions: As directed (DME) Commode bags See Rx Instructions .Route .MEDSUPPLY Qty: 1 0RF Rx Instructions: As directed (DME) latex gloves [Latex Gloves, Medium] Misc See Rx Instructions .Route Qty: 24 11RF Rx Instructions: As directed gabapentin 300 mg capsule 300 mg PO TID 30 Days Qty: 90 2RF (DME) Disposable Wipes See Rx Instructions .Route .MEDSUPPLY Qty: 8 11RF Rx Instructions: As directed (DME) Prevail Underwear Misc See Rx Instructions .Route Qty: 80 11RF Rx Instructions: As directed (Size Large) nicotine 7 mg/24 hr patch 24 hour 1 patch transdermal DAILY 28 Days Qty: 28 3RF cyclobenzaprine 10 mg tablet 10 mg PO TID PRN (Reason: muscle spasm) 30 Days Qty: 90 2RF acetaminophen [Pain Relief ES (acetaminophen)] 500 mg tablet 500 mg PO Q6H PRN (Reason: pain) 30 Days Qty: 120 2RF sennosides [Natural Senna Laxative] 8.6 mg tablet 8.6 mg PO BEDTIME Qty: 90 3RF tramadol 50 mg tablet 50 mg PO BEDTIME PRN (Reason: pain) 15 Days Qty: 15 0RF folic acid 400 mcg tablet 0.4 mg PO DAILY Qty: 30 0RF ibuprofen 600 mg tablet 600 mg PO Q8H PRN (Reason: pain) Qty: 14 0RF (DME) BEDSIDE COMMODE See Rx Instructions .Route .MEDSUPPLY Qty: 1 0RF Rx Instructions: As directed (DME) TRANSPORT WHEELCHAIR See Rx Instructions .Route .MEDSUPPLY Qty: 1 0RF Rx Instructions: As directed cyanocobalamin (vitamin B-12) 1,000 mcg tablet 1,000 mcg PO DAILY lidocaine 5 % adhesive patch,medicated 1 patch topical DAILY Qty: 30 2RF Rx Instructions: leave on most painful area for up to 12 hrs duloxetine 60 mg capsule,delayed release(DR/EC) 60 mg PO DAILY ferrous sulfate [Feosol] 325 mg (65 mg iron) tablet 325 mg PO DAILY 90 Days Qty: 90 1RF polyethylene glycol 3350 [Miralax] 17 gram/dose powder 17 g PO DAILY Qty: 510 3RF Print Language: Tongan
[2024-05-02 19:04] VITALS: BP 136/57; PULSE 73; RESP 16; TEMP 36.9; O2SAT 97
[2024-05-02 20:01] VITALS: BP 136/57; PULSE 73; RESP 16; TEMP 36.9; O2SAT 97
== END 2024-05-02 20:03 | disposition home or self-care (01) ==
PROVIDERS: Emergency Provider Internal Medicine; PCP Internal Medicine
DX: S09.90XA Unspecified injury of head, initial encounter (principal); W01.198A Fall on same level from slipping, tripping and stumbling with subsequent striking against other object, initial encounter; Y93.89 Activity, other specified; Y92.039 Unspecified place in apartment as the place of occurrence of the external cause; Y99.9 Unspecified external cause status
CPT/HCPCS: 70450; 70486; 72125; 99283; 99284

== ENCOUNTER → 2024-05-02 16:13 | Outpatient (BNV) | payer OTHER, SELFPAY | PROVIDERS: Emergency Provider Internal Medicine; PCP Internal Medicine; Visit Provider Radiology Diagnostic Radiology | DX: S09.90XA Unspecified injury of head, initial encounter (principal); W19.XXXA Unspecified fall, initial encounter | CPT/HCPCS: 70450; 70486; 72125 ==

== ENCOUNTER 2024-08-21 14:40 | Outpatient (AMB) | payer OTHER, SELFPAY ==
--- OUTSIDE RECORDS SUMMARY | 2024-08-21 14:54 | XMS_ITS ---
Author Organization [facility] Address [address] [place] [id number] Care Team Providers Care Swim Instructor Name Role Phone Francisco Javier Jimenez MD Primary Care Provider Unava ilable Jessica Cooper Unavailable [phone] REASON FOR VISIT BAG TESTER Encounters Encounter Location Date Provider Diagnosis [address] [address] 06/17/2024 Jessica Cooper Plan Of Treatment Next Appt Details Provider Name:Jessica Cooper , 09/07/2024 10:30:00 AM, [address] [place], [address], Progress Notes * Chun BURCHOB:1945 (78 yo F)Acc No.[id number]:06/17/2024 Patient:?Meli BURCH :1945???Age:78 Y???Sex:Female Address:[address] [place] [address], [address], [place], [address] * true * Date:? Generated for Printi nabila/Ronni/eTransmitting on:?08/21/2024 02:54 PM EDT
--- OUTSIDE RECORDS SUMMARY | 2024-08-21 14:55 | XMS_ITS | Data Portability ---
Author Organization [place] - [facility], Allergy Address [address] [place] [phone] Assessment Encounter Date Assessment Date Assessment LastModified by Organization Details LastModified Time 05/18/2024 05/18/2024 78-year-old female with former tobacco and alcohol use presents today for evaluation of choking episodes which happen once or twice per week. Not associated with any weight loss or pneumonia. This is not associated with any sore throat or otalgia. Oropharyngeal exam is normal. Flexible laryngoscopy was performed. This showed some effacement of the postcricoid space given curvature of the C-spine, no pooling of secretions, normal true cord movement, no masses. Previous modified barium swallow about 18 months ago was normal, but given they have noticed decline in the swallowing since that time so I did recommend repeat. Further investigation could also include GI consult for EGD. Laryngospasm is in the differential. She has a secondary concern for some right ear blockage. There is impacted cerumen she had discomfort with attempts at removal so I recommended softening with mineral oil or olive oil and they can return for cleaning if this is still bothersome [email or web address] Not available 05/18/2024 13:49:57 Plan of Treatment Reminders Order Date Submit Date Provider Last Modified By Organization Details Last Modified Time Details Appointments None recorded. Lab None recorded. Referral None recorded. Procedures None recorded. Surgeries None recorded. Imaging [place], modified barium swallow study 2024 025 [facility] (Imaging), [address] [place] [address], [id number], 11:53:15 Medication Orders None recorded. Patient TargetsNo targets recorded. Patient InstructionsNo instructions recorded. Reason for Referral None Reported. Problems Name Problem SNOMED Code Status Onset Date Resolution Date Notes Provider Name and Address Organization Details Recorded Time Impacted cerumen in right ear 9027596486662 103 Active 2024 MICHAEL CANCHOLA MD [address] [facility], [place], [address], [facility] 13:33:07 Oropharynge al dysphagia 30357778 Active 2024 MICHAEL CANCHOLA MD [address] [facility], [place], [address], [facility] [place] [facility] 13:33:14 Problem Notes None recorded. Procedures Surgical History Date Name Laterality Status Provider Name and Address Organization Details Recorded Time 05/18/19 25 Fiberoptic Laryngoscopy (Comprehensive) completed MICHAEL CANCHOLA MD [address] [facility] [place],[address], [address], [facility] [place] [facility] 05/18/2024 13:33:54 hernia repair completed MICHAEL CANCHOLA MD [address] [facility],[place] [address], [place], [address], [facility] [place] [facility] 05/18/2024 13:46:31 procedure on back completed MICHAEL CANCHOLA MD [address] [facility] [place] [address], [place], [address], [facility] 05/18/2024 13:46:41 Imaging Results None recorded. Procedure Notes None recorded. Medical Equipment None Reported. Allergies No known drug allergies Medications Name Sig Start Date Stop Date Status Note LastModified by Organization Details LastModified Time cyclobenzap rine 10 mg tablet TAKE 1 TABLET BY MOUTH THREE TIMES DAILY NEEDED FOR MUSCLE SPASMS active Not Available Not Available No t Available atorvastati n 10 mg tablet TAKE 1 TABLET BY MOUTH AT BEDTIME active Not Available Not Available No t Available senna 8.6 mg tablet TAKE 1 TABLET BY MOUTH AT BEDTIME FOR CONSTIPAT ION active Not Available Not Available No t Available tramadol 50 mg tablet TAKE 1 TABLET BY MOUTH AT BEDTIME NEEDED FOR PAIN active Not Available Not Available No t Available acetaminoph en 500 mg tablet TAKE 1 TABLET BY MOUTH EVERY 6 HOURS NEEDED FOR PAIN active Not Available Not Available No t Available trazodone 100 mg tablet TAKE 1 TABLET BY MOUTH AT BEDTIME active Not Available Not Available No t Available Proctozone- HC 2.5 % topical cream perineal applicator APPLY RECTALLY 2 TO 4 TIMES DAILY NEEDED FOR HEMORRHOI DS active Not Available Not Available No t Available pantoprazol e 40 mg tablet,hanna yed release TAKE 1 TABLET BY MOUTH ONCE DAILY active Not Available Not Available No t Available ferrous sulfate 325 mg (65 mg iron) tablet TAKE 1 TABLET BY MOUTH EVERY DAY active Not Available Not Available No t Available gabapentin 300 mg capsule TAKE 1 CAPSULE BY MOUTH THREE TIMES DAILY active Not Available Not Available No t Available ibuprofen 600 mg tablet TAKE 1 TABLET BY MOUTH EVERY 8 HOURS NEEDED FOR PAIN active Not Available Not Available No t Available cefuroxime axetil 500 mg tablet TAKE 1 TABLET BY MOUTH TWICE DAILY FOR 7 DAYS 05/18 completed Not Available Not Available Not Available sertraline 50 mg tablet TAKE 1 TABLET BY MOUTH ONCE DAILY active Not Available Not Available No t Available amoxicillin 875 mg-potassiu m clavulanate 125 mg tablet TAKE 1 TABLET BY MOUTH TWICE DAILY FOR 10 DAYS 05/18 completed Not Available Not Available Not Available nicotine 7 mg/24 hr daily transdermal patch APPLY 1 PATCH TOPICALLY TO THE SKIN IN THE MORNING DO NOT SMOKE WHILE USING PATCH active Not Available Not Available No t Available Fiber-Lax 625 mg tablet TAKE 2 TABLETS BY MOUTH EVERY DAY WITH A FULL GLASS OF WATER 05/18 completed Not Available Not Available Not Available memantine 10 mg tablet TAKE 1 TABLET BY MOUTH TWICE DAILY active Not Available Not Available No t Available memantine 5 mg tablet TAKE 1 TABLET BY MOUTH TWICE DAILY 05/18 completed Not Available Not Available Not Available duloxetine 60 mg capsule,del ayed release TAKE 1 CAPSULE BY MOUTH EVERY DAY active Not Available Not Available No t Available quetiapine 50 mg tablet TAKE 1 TABLET BY MOUTH TWICE DAILY active Not Available Not Available No t Available cholecalcif hu (vitamin D3) 25 mcg (1,000 unit) tablet TAKE 1 TABLET BY MOUTH EVERY DAY active Not Available Not Available No t Available Fiber Laxative (methylcell ulose) 500 mg tablet TAKE 2 TABLETS BY MOUTH EVERY DAY WITH A FULL GLASS OF WATER active Not Available Not Available No t Available ClearLax 17 gram/dose oral powder TAKE 17 GM MIXED IN 8 OUNCES OF WATER ONCE DAILY active Not Available Not Available No t Available Vitals Date Recorded Body height Body mass index (BMI) Body weight Provider Name and Address Organization Details Last Updated DateTime 05/18/2024 160.02 cm 27.5 kg/m2 39700.82 g Roseann Stacy [place] - [facility] 05/18/2024 13:19:57 Social History Question Answer Notes LastModified by Organizat ion Details LastModified Time Tobacco Smoking Status Former Smoker MICHAEL CANCHOLA MD [address] [place] [address], [phone], [facility] - [facility] 05/18/2024 13:26:43 When Did You Quit Smoking? 1-5yearssinc elastcigaret te [email or web address] Information not available 05/18/2024 Sex: Unknown Functional Status None recorded. Mental Status None recorded. Family History Nothing Reported. Medical History Condition Response Anxiety Y Depression Y Gynecological HistoryNo gynecological history recorded. Obstetrics History GPAL:G 0 P 0 0 0 0 Past Encounters Encounter ID Performer Location Encounter Start Date Encounter Closed Date Diagnosis/Indication Diagnosis SNOMED-CT Code Diagnosis ICD10 Code Diagnosis Note [id number] MICHAEL CANCHOLA MD [facility] [address] [address] 05/18/2024 13:13:16 05/18/2024 13:39:00 Impacted cerumen in right ear [id number] 591278 H61.21 Oropharyng eal dysphagia 84808365 R13.12 Health Concerns Section Related Observation LastModified by Organization Detai ls LastModified Time None Recorded Concern Status LastModified by Organization Details LastModified Time None Recorded Advance Directives Directive None Recorded Payers Encounter Date Sequence Insurance Name Policy Number Policy Borges Covered Member ID Borges Member ID Guarantor Name 05/18/2024 1 [facility] - DOS ON OR AFTER 2022 - MEDICARE ADVANTAGE [place] & [place] (MEDICARE REPLACEMENT/ADV ANTAGE - PPO) Meli Burhc [id number] Meli Burch Notes Date Note Type Note Provider Name and Address Organization Details Recorded Time 05/18/2024 text/html Normal MBaS in J rebecca 2022, seems worse since thenNo endoscopy Has not lost weight choking on food and water, intermittent, and then hard to breathe, once or twice a weekOccasional sore throatNo ear painTakes medication at times for heartburn not hearing well on the right MICHAEL CANCHOLA MD [address] [place] [address], [place], [address], [place] - [facility] 05/18/2024 13:50:43 OBGyn Episode No OBEpisode recorded.
--- OUTSIDE RECORDS SUMMARY | 2024-08-21 14:55 | XMS_ITS | Patient Health Record ---
Author Organization [facility] Address [address] [place] [address] Care Team Providers Care Poultry Farm Supervisor Name Role Phone Tony PURCELL, Francisco Javier Primary Care Provider Unava ilJessica Rios Unavailable [phone] Reason For Referral No Information Encounters Encounter Location Date Provider Diagnosis [facility] [address] [place] [address] 06/17/2024 Jessica Cooper Plan Of Treatment Next Appt Details Provider Name:Jessica Cooper , 09/07/2024 10:30:00 AM, [address] [place], [address], Insurance Providers Payer Name Payer Address Payer Phone Subscriber Number Group Number Insured Name Patient Relationship to Insured Coverage Start Date Coverage End Date [employer] Claims [address] [place] [address] [id number] Meli Burch Self - patient is the insured
--- OUTSIDE RECORDS SUMMARY | 2024-08-21 14:55 | XMS_ITS | Data Portability ---
Author Organization [facility], [place] in [facility] Address [address] [place] [id number] Care Team Providers Care Scullion Chief Name Role Phone [facility] Referring Provider Assessment No assessment recorded. Plan of Treatment Reminders Order Date Submit Date Provider Last Modified By Organization Details Last Modified Time Details Appointments None record ed. Lab None record ed. Referral None record ed. Procedures None record ed. Surgeries None record ed. Imaging None record ed. Medication Orders None record ed. Patient TargetsNo targets recorded. Patient InstructionsNo instructions recorded. Reason for Referral None Reported. Problems Name Problem SNOMED Code Status Onset Date Resolution Date Notes Provider Name and Address Organization Details Recorded Time Ulcerative colitis 46900739 Active 022 Regina Vernon MD [address] [place] [address],[address], [place], [address] [facility] 2 13:05:25 Problem Notes None recorded. Medical Equipment None Reported. Medications Name Sig Start Date Stop Date Status Note LastModified by Organization Details LastModified Time cyclobenzapr ine 10 mg tablet TAKE 1 TABLET BY MOUTH THREE TIMES DAILY NEEDED FOR MUSCLE SPASMS active Not Available Not Available No t Available atorvastatin 20 mg tablet active Not Available Not Available Not Available nicotine 14 mg/24 hr daily transdermal patch APPLY ONE PATCH TOPICALLY DAILY active Not Available Not Available No t Available atorvastatin 10 mg tablet TAKE 1 TABLET BY MOUTH AT BEDTIME active Not Available Not Available No t Available azithromycin 250 mg tablet active Not Available Not Available Not Available benzonatate 200 mg capsule TAKE 1 CAPSULE BY MOUTH 2 OR 3 TIMES DAILY NEEDED FOR COUGH active Not Available Not Available No t Available senna 8.6 mg tablet TAKE 1 TABLET BY MOUTH AT BEDTIME FOR CONSTIPATIO N active Not Available Not Available No t Available cyanocobalam in (vit B-12) 1,000 mcg tablet active Not Available Not Available N ot Available folic acid 400 mcg tablet active Not Available Not Available Not Available tramadol 50 mg tablet TAKE 1 TABLET BY MOUTH AT BEDTIME NEEDED FOR PAIN active Not Available Not Available No t Available acetaminophe n 500 mg tablet TAKE 1 TABLET BY MOUTH EVERY 6 HOURS NEEDED FOR PAIN active Not Available Not Available No t Available trazodone 100 mg tablet TAKE 1 TABLET BY MOUTH AT BEDTIME NEEDED for SLEEP active Not Available Not Available No t Available benzonatate 100 mg capsule TAKE 1 CAPSULE BY MOUTH THREE TIMES DAILY FOR 5 DAYS active Not Available Not Available N ot Available pantoprazole 40 mg tablet,delay ed release TAKE 1 TABLET BY MOUTH EVERY DAY active Not Available Not Available No t Available lidocaine 5 % topical patch APPLY 1 PATCH TOPICALLY TO SKIN, LEAVE ON FOR 12 HOURS AND OFF FOR 12 HOURS DIRECTED active Not Available Not Available No t Available gabapentin 300 mg capsule TAKE 1 CAPSULE BY MOUTH THREE TIMES DAILY active Not Available Not Available Not Available levofloxacin 500 mg tablet active Not Available Not Available Not Available methylpredni solone 4 mg tablets in a dose pack FOLLOW PACKAGE DIRECTIONS active Not Available Not Available N ot Available albuterol sulfate HFA 90 mcg/actuatio n aerosol inhaler INHALE 2 PUFFS BY MOUTH EVERY 4 HOURS active Not Available Not Available No t Available celecoxib 100 mg capsule active Not Available Not Available Not Available nicotine 7 mg/24 hr daily transdermal patch APPLY ONE PATCH TOPICALLY ONCE DAILY DIRECTED active Not Available Not Available Not Available duloxetine 30 mg capsule,hanna yed release TAKE 1 CAPSULE BY MOUTH TWICE DAILY active Not Available Not Available No t Available Capzasin-HP 0.1 % topical cream APPLY TO THE AFFECTED AREA(S) TWICE DAILY DO NOT WASH AREA FOR AT LEAST 30 MIN AFTER APPLICATION active Not Available Not Available Not Available cholecalcife rol (vitamin D3) 25 mcg (1,000 unit) tablet active Not Available Not Available Not Available BinaxNOW COVID-19 Ag Self Test kit TEST DIRECTED active Not Available Not Available No t Available Vitals Date Recorded Heart rate Oxygen saturation Oxygen saturation in Arterial blood by Pulse oximetry Body temperature Respiratory rate Systolic blood pressure Diastolic blood pressure Provider Name and Address Organization Details Last Updated DateTime 2 77 /min 96 % 96 % 98.3 [degF] 16 /min 124 mm[Hg] 83 mm[Hg] Regina Vernon MD [address] [facility],[address], [place], [address] [place], [place] - [employer] [facility] 2 13:04:11 Social History None recorded. Functional Status None recorded. Mental Status None recorded. Family History Nothing Reported. Medical History No medical history recorded. Gynecological HistoryNo gynecological history recorded. Obstetrics History GPAL:G 0 P 0 0 0 0 Past Encounters Encounter ID Performer Location Encounter Start Date Encounter Closed Date Diagnosis/Indication Diagnosis SNOMED-CT Code Diagnosis ICD10 Code Diagnosis Note 171 Regina Vernon MD [address] - [facility] [address] [place] [address] 06/28/2021 11:45:07 12/19/2021 15:29:17 Acute upper respiratory infection 97699632 J06.9 To be evaluated during ED visit Melena [id number] K92.1 Hx UC per pt, p/w 1 wk of worsening lower lower quadrant pain and black stools that may be c/w melena c/f GIB. No HD instabilit y to suggest brisk GIB. Hx c/f UC flare given malaise, signs of LGIB, and focal LLQ TTP on exam recommend ED eval for stat CBC and CT a/p. Pt hesitant to accept however CP eventually convinces her to agree to ED eval by her own transport. Health Concerns Section Related Observation LastModified by Organization Detai ls LastModified Time None Recorded Concern Status LastModified by Organization Details LastModified Time None Recorded Advance Directives Directive None Recorded Payers Encounter Date Sequence Insurance Name Policy Number Policy Borges Covered Member ID Borges Member ID Guarantor Name 06/28/2021 1 [facility] - DOS PRIOR TO 2022 - DUAL ELIGIBLE (MEDICARE REPLACEMENT/ADV ANTAGE - HMO) Meli Burch [id number] Meli Burch Notes Date Note Type Note Provider Name and Address Organization Details Recorded Time 06/28/2021 text/html Per request: 75 y.o. F had bronchitis in May shortly after Alison had COVID-19. She was treated and improved, but congested cough has since returned. Mbr appears to be producing sputum, but swallows it. No recent fevers. This RN spoke w/ mbr and resps were unlabored and no audible wheezing or stridor. She is a smoker and continues to smoke cigarettes outdoors. Her roommate, Carmine has also been ill for wks w/ cough and nasal congestion. PCP's office could not offer any soon appts. She would like home visit and agreed to medic eval. Alison was advised to encourage mbr to hydrate and to call the CRU back for worsening s/sx. Allergy to codeine. Per [facility] in [facility], wants CPR but DNI. 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 Pt is awake and alert, airway open and patent, breathing regular. Pt reporting 1.5 weeks of productive cough with clear or yellow tinged sputum with +nasal congestion. Pt recently had bronchitis and was treated with antibiotics and it cleared fully, but similar symptoms have returned and other member of household also has similar symptoms now x1 week. Breath sounds are clear, equal, bilateral. Pt speaking in full sentences without distress. Incidentally found pt has has x1 week of consistently black liquid stools with hx of UC. Pt reporting LLQ abd discomfort with +tenderness on palpation. Abd is soft, not distended. Pt reporting pain after eating. +malaise, +generalized weakness. Vitals obtained and consulted [facility] who recommended that pt to present to ER for further workup. Pt initially refused but agreed with television installer's urging. Pt refusing ambulance, will be driven in by television installer after this visit ends. No further questions or concerns at this time. Regina Vernon MD [address] [facility],[address], [place], [address], [facility] 06/28/2021 13:28:02 OBGyn Episode No OBEpisode recorded.
[2024-08-21 15:11] VITALS: BP 110/70; PULSE 85; O2SAT 96; BMI 29.6
--- NOTE | 2024-08-21 15:11 | MHC.PC.OV ---
Vital Signs 08/21/24 15:11 Height 5 ft 2 in Weight 161 lb 9.581 oz BMI 29.6 BP 110/70 Blood Pressure Location Lt brachial Position Sitting Pulse 85 Pulse Source Pulse Oximeter Pulse Oximetry (%) 96 Oxygen Delivery Method Room Air Intake Visit Reasons: 4mth f/u Molding Room Supervisor Required: No Accompanied by: Self / Same As Patient Allergies codeine Adverse Reaction (Mild, Verified 08/23/24 14:05) Abdominal Pain Medication List - Last Reconciled 08/23/24 by Francisco Javier Jimenez MD acetaminophen (Pain Relief Extra Strength (acetaminophen)) 500 mg PO Q6H PRN 30 days atorvastatin 10 mg PO BEDTIME 30 days [BEDSIDE COMMODE As directed] cholecalciferol (vitamin D3) 25 mcg PO DAILY 90 days [Commode bags As directed] cyanocobalamin (vitamin B-12) 1,000 mcg PO DAILY diaper,brief,adult,disposable (Prevail Underwear) As directed (Size Large) [Disposable González As directed] [Disposable Wipes As directed] duloxetine 60 mg PO DAILY ferrous sulfate (Feosol) 325 mg PO DAILY 90 days folic acid 0.4 mg PO DAILY gabapentin 300 mg PO TID 30 days ibuprofen 600 mg PO Q8H PRN latex gloves (Latex Gloves, Medium) As directed lidocaine 5% 1 patch topical DAILY methylcellulose (laxative) (Citrucel) 1,000 mg (2 x 500 mg) PO DAILY nicotine 1 patch transdermal DAILY 28 days pantoprazole 40 mg PO DAILY 30 days polyethylene glycol 3350 (Miralax) 17 grams PO DAILY quetiapine 50 mg PO BEDTIME 30 days sennosides (Natural Senna Laxative) 8.6 mg PO BEDTIME sertraline 100 mg PO DAILY 90 days tizanidine 4 mg PO Q8H PRN 30 days tramadol 50 mg PO BEDTIME PRN 15 days [TRANSPORT WHEELCHAIR As directed] trazodone 100 mg PO BEDTIME PRN 30 days Tobacco use date assessed: 08/21/24 Fall risk assessment: 2 + Falls in past year Last assessed Fall Risk: 08/21/24 Dental Screening Dental Screen Date: 08/21/24 Did you have a dental visit in the last 12 months?: No Did you have a dental problem in the last 6 months where you did not have access to dental care?: No Was dental information given to patient?: No HPI 4mth f/u HPI Details Patient comes in today for her follow-up visit -she is accompanied as usual by her CLEAN UP HELPER BANQUET She continues to experience increased pain over her lower back and is wondering why her prescription for Cyclobenzaprine was denied recently She has been on Tramadol and Cyclobenzaprine for a while now and states that these help with chronic low back pain Patient also reportedly fell last week but did not appear to have suffered any significant injury other than some slight increase in her low back pain lately Will need her Tramadol Rx refilled today Her CLEAN UP HELPER BANQUET adds that patient appears to be experiencing increased anxiety lately despite her current Rx States that patient has also been experiencing visual hallucinations lately - patient appears to be seeing people that are not actually there she sometimes will tend to talk to these people that she supposedly is seeing Patient denies any headaches or dizziness Denies any chest pains, no increased shortness of breath No nausea/vomiting, no abdominal pain Machine Adjuster Leader Case Trim change in bowel habits noted She was not able to get her follow-up labs done prior to her appointment today REPLACED BY [facility] Medical History Anxiety and depression History of alcohol abuse Overweight (BMI 25.0-29.9) Constipation Depression Anxiety Insomnia Vitamin D deficiency Alcoholic dementia Tubular adenoma Ulcerative colitis Smoker Memory impairment Lumbar degenerative disc disease Colitis Surgical History Hx of colonoscopy History of hernia surgery Previous back surgery Social History Housing: Apartment Do you presently have visiting nurse or other home services: No Alcohol intake: former Patient Tobacco Use Status: Former Tobacco user Cigarettes Per Day: 8 e-Cigarette/Vaping Use: Never Used Second Hand Smoke Exposure: Yes Advance Directives Date on File: 07/21/21 service: No Current occupational status: retired and disabled Current occupation: right hand dominant Cognitive needs: No Hearing needs: Yes Vision needs: Yes Female Reproductive History Menstrual Age of Menarche: 19 Questionnaire PHQ-9 Over the last 2 weeks, how often have you been bothered by any of the following problems? 1. Little interest or pleasure in doing things: not at all 2. Feeling down, depressed, or hopeless: not at all 3. Trouble falling or staying asleep, or sleeping too much: not at all 4. Feeling tired or having little energy: not at all 5. Poor appetite or overeating: not at all 6. Feeling bad about yourself - or that you are a failure or have let yourself or your family down: not at all 7. Trouble concentrating on things, such as reading the newspaper or watching television: not at all 8. Moving or speaking so slowly that other people could have noticed. Or the opposite - being so fidgety or restless that you have been moving around a lot more than usual: not at all 9. Thoughts that you would be better off or of hurting yourself in some way: not at all Total score: 0 Depression Screening Interpretation: Negative (is on Rx) Depression Screening Done: Yes 42023 - PHQ-9 Billing: Yes Source: Developed by Drs. Vern Whiting, Paulina De Luna, Americo Main and colleagues, with an educational cordelia from [employer]. Thrive Questionnaire Date Thrive assessed: 08/21/24 I am a: Patient What is your living situation today?: I have a steady place to live Within the past 12 months, did the food you bought not last and you didn't have the money to get more?: Never true Within the past 12 months, did you worry whether your food would run out before you got money to buy more?: Never true Do you have trouble paying for medicines?: No Do you have trouble getting transportation to medical appointments?: No Do you have trouble paying your heating and electricity bill?: No Do you have trouble taking care of your child, family member or friend?: No Do you have trouble with day-to-day activities such as bathing, preparing meals, shopping, managing finances, etc.?: No Are you currently unemployed and looking for a job?: No Are you interested in more education?: No Please select the resources that you would like help with: None Currently or been in a relationship where the following occur: No concerns reported THRIVE Score: 0 AUDIT C Alcohol Use Questionnaire (AUDIT-C) 1. How often do you have a drink containing alcohol?: Never 3. How often do you have six or more drinks on one occasion?: Never Total Score: 0 Score Reviewed/Action Taken: Yes ALIX-7 AMB Questionnaire ALIX-7 Date ALIX - 7 assessed: 08/21/24 Feeling nervous, anxious, or on edge: 0 = Not at all Not being able to stop or control worryin = Not at all Worrying too much about different things: 0 = Not at all Trouble relaxin = Not at all Being so restless that it is hard to sit still: 0 = Not at all Becoming easily annoyed or irritable: 0 = Not at all Feeling afraid as if something awful might happen: 0 = Not at all Total ALIX-7 score (0-4 normal; 5-9 mild; 10-14 moderate; 15-21 severe): 0 Source: Developed by Drs. Vern Whiting, Paulina De Luna, Americo Main and colleagues, with an educational cordelia from [employer]. Review of Systems Const Denies chills, Reports difficulty sleeping, Reports fatigue, Denies fever(s) and Denies headache(s) ENT Reports dysphagia (occasionally, mostly when she tries to swallow too quickly), Denies dizziness, Denies otalgia, Denies headache(s), Denies neck pain, Denies odynophagia and Denies sore throat Card Denies chest pain, Denies irregular heart rhythm, Denies palpitations and Reports dyspnea on exertion (mild, per CLEAN UP HELPER BANQUET) Resp Denies chest congestion, Denies cough and Reports dyspnea on exertion (mild, per CLEAN UP HELPER BANQUET) GI Denies abdominal pain, Denies constipation, Reports dysphagia (occasionally, mostly when she tries to swallow too quickly), Denies heartburn, Denies diarrhea, Denies nausea, Denies odynophagia and Denies vomiting Denies urinary frequency, Denies dysuria, Denies urinary incontinence and Denies urinary urgency Musc Reports back pain (over the lower back - on and off), Reports arthralgias (over the left big toe) and Denies neck pain Skin/Breast Denies rash Neuro Denies dizziness, Denies headache(s), Reports memory loss and Denies paresthesias Psych Reports memory loss and Reports visual hallucinations (seeing people) Endo Reports fatigue and Denies palpitations Jeffry/Lymph Denies easy bruising Physical exam (Primary Care) Vital Signs: Last Vital Signs Pulse 85 08/21/24 15:11 BP 110/70 08/21/24 15:11 Pulse Ox 96 08/21/24 15:11 Oxygen Delivery Method Room Air 08/21/24 15:11 BMI result Body Mass Index 29.6 Tobacco/Smoking Status: Tobacco use Status Tobacco use date assessed 08/21/24 08/21/24 15:21 Patient Tobacco Use Status Former Tobacco user 08/21/24 15:21 e-Cigarette/Vaping Use Never Used 08/21/24 15:21 PHQ-9: PHQ-9 Score PHQ-9: Total score 0 08/21/24 16:02 Depression Screening Interpretation: Negative (is on Rx) Thrive Assessment: Date of Thrive Assessment Date Thrive assessed 08/21/24 08/21/24 15:21 Currently or been in a relationship where the following occur: No concerns reported Const General: no acute distress and alert HENMT Ears: TM's normal bilaterally and EAC's normal Throat: Yes posterior oropharynx normal and Yes tonsils normal (no TP congestion) Neck Neck: Yes supple and No lymphadenopathy Thyroid: Thyroid normal Resp Auscultation: clear to auscultation bilaterally, no rales and no wheezes Cardio Rate: regular rate Rhythm: regular rhythm Heart sounds: no murmurs GI Palpation (GI): Soft to palpation and nontender Auscultation: normal bowel sounds General: Yes no CVA tenderness Back/Spine/Pelvis Back: no CVA tenderness Thoracic/Lumbar Spine: lumbar spinal tenderness Skin Rashes: no rashes Extrem General: Yes no clubbing, cyanosis or edema Psych Thought content: Hallucination(s) present visual Coding Level of Care Code Est Pt Level 4 (89957) Complex EM visit Add On G2211 Diagnoses Dysphagia, unspecified type R13.10 Dysphagia type: unspecified Odynophagia R13.10 Mixed hyperlipidemia E78.2 Macrocytosis without anemia D75.89 Memory impairment R41.3 History of alcohol abuse F10.11 Degeneration of intervertebral disc of lumbar region with discogenic back pain M51.360 Disc-related pain type: discogenic back pain only GERD without esophagitis K21.9 Constipation, unspecified constipation type K59.00 Constipation type: unspecified constipation type Urinary tract infection without hematuria, site unspecified N39.0 Urinary tract infection type: site unspecified Hematuria presence: without hematuria Vitamin D deficiency E55.9 Insomnia, unspecified type G47.00 Insomnia type: unspecified Visual hallucinations R44.1 Anxiety and depression F41.9; F32.A Overweight (BMI 25.0-29.9) E66.3 Additional Codes PHQ-9 - 24202 - PHQ-9 Billing: Yes ([id number]) Assessment & Plan Assessment & Plan (1) Dysphagia: Comment: more of a sensation of food getting stuck in her throat often Code(s): R13.10 - Dysphagia, unspecified Category: Medical Qualifiers: Dysphagia type: unspecified Qualified Code(s): R13.10 - Dysphagia, unspecified Plan: Patient had a modified barium swallow done on 11/19/2022 that came back normal Due to her symptoms, as well as her Hx of smoking and ETOH, she was previously referred to ENT for further evaluation and management but she has not yet been seen In light of her recently increased symptoms, we referred her again for a repeat modified barium swallow for further evaluation and she is now scheduled to have this done early next month (09/09/2024) (2) Odynophagia: Code(s): R13.10 - Dysphagia, unspecified Category: Medical Plan: Patient has been previously referred to ENT for further evaluation and management and she is currently still waiting to be seen by ENT (3) Mixed hyperlipidemia: Code(s): E78.2 - Mixed hyperlipidemia Category: Medical Plan: She was not able to get her follow up labs done prior to her appointment today - her CLEAN UP HELPER BANQUET states that she will help her to try and get these done TELMA Reinforced low cholesterol diet Continue Atorvastatin 10 mg Q HS Will have patient recheck her labs and fasting lipids in 4 months for follow up (4) Macrocytosis without anemia: Code(s): D75.89 - Other specified diseases of blood and blood-forming organs Category: Medical Plan: Previous labs done at the ER a couple of years ago revealed macrocytosis without anemia but her subsequent CBCs show (+) anemia since She was still anemic on her labs done back in June 2023, with H/H at 10.3/31.4%; her CBC this time was cancelled by the lab due to insufficient sample at the time of her lab draw Serum B12, Folate and TSH were normal when previously checked; but her iron indices were low Patient was started on iron supplements (Ferrous sulfate) 325 mg QD Will recheck her CBC TELMA for follow up (5) Memory impairment: Code(s): R41.3 - Other amnesia Category: Medical Plan: She was seen by neurology back in 2021 and 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 along with other disorders, which include post herpetic neuralgia, peripheral neuropathy, multifactorial gait disorder, restless legs syndrome, insomnia, anxiety and depression Patient states that she has quit drinking completely years ago She has not seen neurology again for follow-up since her visit with them in late December 2021 Continue Vitamin B12 1000 mcg QD and Folic Acid 400 mcg QD (6) History of alcohol abuse: Code(s): F10.11 - Alcohol abuse, in remission Category: Medical Plan: Patient states that she stopped drinking completely years ago (7) Lumbar degenerative disc disease: Comment: (+) Hx of spinal fusion and bone grafting done many years ago in [place] Code(s): M51.36 - Other intervertebral disc degeneration, lumbar region Category: Medical Qualifiers: Disc-related pain type: discogenic back pain only Qualified Code(s): M51.360 - Other intervertebral disc degeneration, lumbar region with discogenic back pain only Plan: Reinforced activity and weight-lifting restrictions Continue Gabapentin 300 mg TID, Tramadol 50 mg Q HS, Lidocaine 5% patch QD PRN and Duloxetine 60 mg QD She was also on Cyclobenzaprine but this was recently denied by insurance - explained to patient that this is the main reason her Rx in not being refilled and that we did not deny her refill request Will start her instead on Tizanidine 4 mg TID PRN Follow up with pain management as scheduled (8) GERD without esophagitis: Code(s): K21.9 - Gastro-esophageal reflux disease without esophagitis Category: Medical Plan: Dietary restrictions reinforced Continue Pantoprazole 40 mg QD (9) Constipation: Code(s): K59.00 - Constipation, unspecified Category: Medical Qualifiers: Constipation type: unspecified constipation type Qualified Code(s): K59.00 - Constipation, unspecified Plan: She is again encouraged on increased oral fluids and dietary fiber Continue Senna 8.6 mg Q HS and Citrucel 1000 mg QD (10) Urinary tract infection: Code(s): N39.0 - Urinary tract infection, site not specified Category: Medical Qualifiers: Urinary tract infection type: site unspecified Hematuria presence: without hematuria Qualified Code(s): N39.0 - Urinary tract infection, site not specified Plan: Patient was started on Levofloxacin a couple of days ago and is currently still on Abx - to continue on Levofloxacin 500 mg QD She is encouraged to increase her oral fluid intake (11) Vitamin D deficiency: Code(s): E55.9 - Vitamin D deficiency, unspecified Category: Medical Plan: Continue Vitamin D3 1000 units QD (12) Insomnia: Code(s): G47.00 - Insomnia, unspecified Category: Medical Qualifiers: Insomnia type: unspecified Qualified Code(s): G47.00 - Insomnia, unspecified Plan: Sleep hygiene reinforced - had a long discussion with patient today about the detrimental effects of late nigh TV on sleeping habits and have advised her on the importance of a set bedtime routine as well as a set bedtime Have advised her that her anxiety also likely plays a role in her difficulty sleeping and having a bedtime routine will help alleviate a lot of these issues and that not sleeping well and not getting enough sleep can also adversely affect her memory and cognitive decline Continue Trazodone 100 mg Q HS PRN and Quetiapine 50 mg Q HS Have advised them that they can also try taking some OTC Melatonin at bedtime to help with her sleep (13) Visual hallucinations: Code(s): R44.1 - Visual hallucinations Category: Medical Plan: Have advised patient and her CLEAN UP HELPER BANQUET that this is likely related to her dementia and that she should follow up with neurology TELMA and let her neurologist know about this Have advised her that she should stay on her current meds in the meantime, especially her Gabapentin, Sertraline, Quetiapine and Duloxetine - her Sertraline will be increased in dose today to 100 mg QD (14) Anxiety and depression: Code(s): F41.9 - Anxiety disorder, unspecified; F32.A - Depression, unspecified Category: Medical Plan: Will increase her Sertraline from 50 mg to 100 mg QD Continue Quetiapine 50 mg Q HS; she is also on Duloxetine 60 mg QD (15) Overweight (BMI 25.0-29.9): Code(s): E66.3 - Overweight Category: Medical Plan: Reinforced diet; exercise and weight loss are unrealistic given patient's physical issues and multiple comorbidities Plan Follow up in 4 months Orders: Orders Complete Blood Count Auto Diff 4 Months D64.9 - Anemia, unspecified Comprehensive [place]. Panel Fast 4 Months E78.00 - Pure hypercholesterolemia, unspecified Lipid Panel 4 Months E78.00 - Pure hypercholesterolemia, unspecified Vitamin B12 and Folate 4 Months E53.8 - Deficiency of other specified B group vitamins Vitamin D 25-OH Total 4 Months E55.9 - Vitamin D deficiency, unspecified UA CC w/rflx Micro + Cult 4 Months R30.0 - Dysuria TSH reflex Free T4 4 Months E78.00 - Pure hypercholesterolemia, unspecified Medications: New tizanidine 4 mg PO Q8H 30 days PRN 90 tabs 0RF muscle spasms Changed From sertraline 50 mg PO DAILY 90 days 90 tabs 1RF To sertraline 100 mg PO DAILY 90 days 90 tabs 1RF Refilled tramadol 50 mg PO BEDTIME 15 days PRN 15 tabs 0RF pain Discontinued cyclobenzaprine Discontinued Reason: Doctor's Order 10 mg PO TID 30 days PRN 90 tabs 2RF muscle spasm
== END 2024-08-21 16:04 | disposition home or self-care (01) ==
LOC: HO.HMCH 14:41
PROVIDERS: PCP Internal Medicine; Visit Provider Internal Medicine
DX: R13.10 Dysphagia, unspecified (principal); E78.2 Mixed hyperlipidemia; D75.89 Other specified diseases of blood and blood-forming organs; R41.3 Other amnesia; F10.11 Alcohol abuse, in remission; M51.360 Other intervertebral disc degeneration, lumbar region with discogenic back pain only; K21.9 Gastro-esophageal reflux disease without esophagitis; K59.00 Constipation, unspecified; N39.0 Urinary tract infection, site not specified; E55.9 Vitamin D deficiency, unspecified; G47.00 Insomnia, unspecified; R44.1 Visual hallucinations; F41.9 Anxiety disorder, unspecified; F32.A Depression, unspecified; E66.3 Overweight

== ENCOUNTER → 2024-08-21 14:40 | Outpatient (BNVA) | payer OTHER, SELFPAY | PROVIDERS: PCP Internal Medicine; Visit Provider Internal Medicine | DX: R13.10 Dysphagia, unspecified (principal); E78.2 Mixed hyperlipidemia; D75.89 Other specified diseases of blood and blood-forming organs; R41.3 Other amnesia; F10.11 Alcohol abuse, in remission; M51.360 Other intervertebral disc degeneration, lumbar region with discogenic back pain only; K21.9 Gastro-esophageal reflux disease without esophagitis; K59.00 Constipation, unspecified; N39.0 Urinary tract infection, site not specified; E55.9 Vitamin D deficiency, unspecified; G47.00 Insomnia, unspecified; R44.1 Visual hallucinations; F41.9 Anxiety disorder, unspecified; F32.A Depression, unspecified; E66.3 Overweight; Z68.29 Body mass index [BMI] 29.0-29.9, adult; Z79.899 Other long term (current) drug therapy; Z79.891 Long term (current) use of opiate analgesic; Z87.891 Personal history of nicotine dependence | CPT/HCPCS: 96127; 99212 ==

== ENCOUNTER 2024-12-22 16:14 | Outpatient (AMB) | payer OTHER, SELFPAY ==
--- OUTSIDE RECORDS SUMMARY | 2024-09-07 06:30 | XMS_ITS ---
Author Organization [facility] Address [address] [place] [address] Care Team Providers Care Frame Repairer Name Role Phone Tony PURCELL, Francisco Javier Primary Care Provider Unava ilJessica Rios [phone] Encounters Encounter Location Date Provider Diagnosis [facility] [address] [place] [address] 09/07/2024 Jessica Cooper Plan Of Treatment No Information Progress Notes * Chun BURCHOB:1945 (79 yo F)Acc No.[id number]:09/07/2024 Progress Notes Patient: Meli CHAPA Provider: Tj Cooper DPM :1945 A ge:78 Y S ex:Female Date:09/07/2024 Address:[address] [place] [address], [address], [place], [id number] Pcp:Francisco Javier Jimenez MD Subjective: * Chief [...] Cooper DPM Date: 09/07/2024 Generated for Tre dahl/Ronni/eTkylesmitting on: 12/22/2024 05:38 PM EDT
[2024-12-22 16:16] VITALS: BP 112/72; PULSE 78; O2SAT 94; BMI 28.9
--- NOTE | 2024-12-22 16:16 | A.OFFPC_ITS ---
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 Required: No Accompanied by: Self / Same As Patient Allergies codeine Adverse Reaction (Mild, Verified 12/22/24 16:54) Abdominal Pain Medication List - Last Reconciled 12/22/24 by Francisco Javier Jimenez MD acetaminophen (Pain Relief Extra Strength (acetaminophen)) 500 mg PO Q6H PRN 30 days atorvastatin 10 mg PO BEDTIME 30 days [BEDSIDE COMMODE As directed] cholecalciferol (vitamin D3) 25 mcg PO DAILY 90 days [Commode bags As directed] cyanocobalamin (vitamin B-12) 1,000 mcg PO DAILY diaper,brief,adult,disposable (Prevail Underwear) As directed (Size Large) [Disposable González As directed] [Disposable Wipes As directed] duloxetine 60 mg PO DAILY ferrous sulfate (Feosol) 325 mg PO DAILY 90 days folic acid 0.4 mg PO DAILY gabapentin 300 mg PO TID 30 days ibuprofen 600 mg PO Q8H PRN latex gloves (Latex Gloves, Medium) As directed lidocaine 5% 1 patch topical DAILY methylcellulose (laxative) (Citrucel) 1,000 mg (2 x 500 mg) PO DAILY nicotine 1 patch transdermal DAILY 28 days pantoprazole 40 mg PO DAILY polyethylene glycol 3350 (Miralax) 17 grams PO DAILY quetiapine 50 mg PO BEDTIME 30 days sennosides (Natural Senna Laxative) 8.6 mg PO BEDTIME sertraline 100 mg PO DAILY 90 days tizanidine 4 mg PO Q8H PRN 30 days tramadol 50 mg PO BEDTIME PRN 15 days [TRANSPORT WHEELCHAIR As directed] trazodone 100 mg PO BEDTIME PRN 30 days Tobacco use date assessed: 12/22/24 Fall risk assessment: No Falls in past year Last assessed Fall Risk: 12/22/24 Dental Screening Dental Screen Date: 12/22/24 Did you have a dental visit in the last 12 months?: No Did you have a dental problem in the last 6 months where you did not have access to dental care?: No Was dental information given to patient?: No HPI cad/anxiety HPI Details Patient comes in today for her follow up visit States that she currently feels okay but according to her BED BUG EXTERMINATOR, she has been complaining of on and off left lower abdominal pain over the past few weeks She was advised by her BED BUG EXTERMINATOR that her symptoms are more likely due to constipation and states that her previous Rx of Senna has not really been helping patient Her BED BUG EXTERMINATOR states that she has been getting some OTC meds (the name of which she cannot remember at this time) and has patient taking 2 tablets of these at a time when needed, which would then make patient go and have a bowel movement although her stools would be loose and somewhat watery but her symptoms would then be relieved after her bowel movement States that patient can go for several days normally without any bowel movement and this has been going on for a while now Patient denies any associated nausea or vomiting She denies any headaches or dizziness Denies any chest pains, no increased SOB She was not able to get her follow up labs done prior to her appointment today - her BED BUG EXTERMINATOR states that patient has been refusing to get out of the house until today for her appointment due to her recent recurrent left lower abdominal pain She continues to experience recurrent low back pain and states that her current Rx, including Tramadol, Tizanidine and Gabapentin, have been keeping her low back pain and joint pains reasonably controlled [facility] Medical History Anxiety and depression History of alcohol abuse Overweight (BMI 25.0-29.9) Constipation Depression Anxiety Insomnia Vitamin D deficiency Alcoholic dementia Tubular adenoma Ulcerative colitis Smoker Memory impairment Lumbar degenerative disc disease Colitis Surgical History Hx of colonoscopy History of hernia surgery Previous back surgery Social History Housing: Apartment Do you presently have visiting nurse or other home services: No Alcohol intake: former Patient Tobacco Use Status: Former Tobacco user Cigarettes Per Day: 8 e-Cigarette/Vaping Use: Never Used Second Hand Smoke Exposure: Yes Advance Directives Date on File: 07/21/21 service: No Current occupational status: retired and disabled Current occupation: right hand dominant Cognitive needs: No Hearing needs: Yes Vision needs: Yes Female Reproductive History Menstrual Age of Menarche: 19 Questionnaire PHQ-9 Over the last 2 weeks, how often have you been bothered by any of the following problems? 1. Little interest or pleasure in doing things: more than half the days 2. Feeling down, depressed, or hopeless: several days 3. Trouble falling or staying asleep, or sleeping too much: several days 4. Feeling tired or having little energy: several days 5. Poor appetite or overeating: not at all 6. Feeling bad about yourself - or that you are a failure or have let yourself or your family down: not at all 7. Trouble concentrating on things, such as reading the newspaper or watching television: not at all 8. Moving or speaking so slowly that other people could have noticed. Or the opposite - being so fidgety or restless that you have been moving around a lot more than usual: several days 9. Thoughts that you would be better off or of hurting yourself in some way: not at all Total score: 6 Depression Screening Interpretation: Positive Depression Screening Follow-up: Existing condition and In treatment Depression Screening Done: Yes 35938 - PHQ-9 Billing: Yes Source: Developed by Drs. Vern Whiting, Paulina De Luna, Americo Main and colleagues, with an educational cordelia from [employer]. Thrive Questionnaire Date Thrive assessed: 12/22/24 I am a: Parent/Caregiver What is your living situation today?: I have a steady place to live Within the past 12 months, did the food you bought not last and you didn't have the money to get more?: Never true Within the past 12 months, did you worry whether your food would run out before you got money to buy more?: Never true Do you have trouble paying for medicines?: No Do you have trouble getting transportation to medical appointments?: No Do you have trouble paying your heating and electricity bill?: No Do you have trouble taking care of your child, family member or friend?: No Do you have trouble with day-to-day activities such as bathing, preparing meals, shopping, managing finances, etc.?: No Are you currently unemployed and looking for a job?: No Are you interested in more education?: No Please select the resources that you would like help with: None Currently or been in a relationship where the following occur: No concerns reported THRIVE Score: 0 AUDIT C Alcohol Use Questionnaire (AUDIT-C) 1. How often do you have a drink containing alcohol?: Never 3. How often do you have six or more drinks on one occasion?: Never Total Score: 0 Score Reviewed/Action Taken: Yes ALIX-7 AMB Questionnaire ALIX-7 Date ALIX - 7 assessed: 12/22/24 Feeling nervous, anxious, or on edge: 0 = Not at all Not being able to stop or control worryin = Not at all Worrying too much about different things: 0 = Not at all Trouble relaxin = Not at all Being so restless that it is hard to sit still: 1 = Several days Becoming easily annoyed or irritable: 1 = Several days Feeling afraid as if something awful might happen: 0 = Not at all Total ALIX-7 score (0-4 normal; 5-9 mild; 10-14 moderate; 15-21 severe): 2 Source: Developed by Drs. Vern Whiting, Paulina De Luna, Americo Main and colleagues, with an educational cordelia from [employer]. Review of Systems Const Denies chills, Reports difficulty sleeping, Reports fatigue, Denies fever(s) and Denies headache(s) ENT Reports dysphagia (occasionally, mostly when she tries to swallow too quickly), Denies dizziness, Denies otalgia, Denies headache(s), Denies neck pain, Denies odynophagia and Denies sore throat Card Denies chest pain, Denies irregular heart rhythm, Denies palpitations and Reports dyspnea on exertion (mild, per BED BUG EXTERMINATOR) Resp Denies chest congestion, Denies cough and Reports dyspnea on exertion (mild, per BED BUG EXTERMINATOR) GI Reports as per HPI, Reports abdominal pain (on and off over the left lower abdomen), Reports constipation, Reports dysphagia (occasionally, mostly when she tries to swallow too quickly), Denies heartburn, Reports loose stools (at times), Denies nausea, Denies odynophagia and Denies vomiting Denies difficulty voiding, Denies dysuria, Denies urinary incontinence and Denies urinary urgency Musc Reports back pain (over the lower back - on and off), Reports arthralgias (over the left big toe) and Denies neck pain Skin/Breast Denies rash Neuro Denies dizziness, Denies headache(s), Reports memory loss and Denies paresthesias Psych Reports memory loss and Reports visual hallucinations (seeing people) Endo Reports fatigue and Denies palpitations Jeffry/Lymph Denies easy bruising Physical exam (Primary Care) Vital Signs: Last Vital Signs Pulse 78 12/22/24 16:16 BP 112/72 12/22/24 16:16 Pulse Ox 94 12/22/24 16:16 Oxygen Delivery Method Room Air 12/22/24 16:16 BMI result Body Mass Index 28.9 Tobacco/Smoking Status: Tobacco use Status Tobacco use date assessed 12/22/24 12/22/24 16:22 Patient Tobacco Use Status Former Tobacco user 12/22/24 16:22 e-Cigarette/Vaping Use Never Used 12/22/24 16:22 PHQ-9: PHQ-9 Score PHQ-9: Total score 6 12/22/24 17:03 Depression Screening Interpretation: Positive Depression Screening Follow-up: Existing condition and In treatment Thrive Assessment: Date of Thrive Assessment Date Thrive assessed 12/22/24 12/22/24 16:22 Currently or been in a relationship where the following occur: No concerns reported Const General: no acute distress and alert HENMT Ears: TM's normal bilaterally and EAC's normal Throat: Yes posterior oropharynx normal and Yes tonsils normal (no TP congestion) Neck Neck: Yes supple and No lymphadenopathy Thyroid: Thyroid normal Resp Auscultation: clear to auscultation bilaterally, no rales and no wheezes Cardio Rate: regular rate Rhythm: regular rhythm Heart sounds: no murmurs GI Palpation (GI): Soft to palpation, Tenderness to palpation present (GI) (mild) in the LLQ, no guarding, not rigid and No Rebound tenderness present Auscultation: normal bowel sounds General: Yes no CVA tenderness Back/Spine/Pelvis Back: no CVA tenderness Thoracic/Lumbar Spine: lumbar spinal tenderness Skin Rashes: no rashes Extrem General: Yes no clubbing, cyanosis or edema Psych Thought content: Hallucination(s) present visual Coding Level of Care Code Est Pt Level 4 (59961) Diagnoses Mixed hyperlipidemia E78.2 Dysphagia, unspecified type R13.10 Dysphagia type: unspecified Odynophagia R13.10 GERD without esophagitis K21.9 Macrocytosis without anemia D75.89 Memory impairment R41.3 History of alcohol abuse F10.11 Degeneration of intervertebral disc of lumbar region with discogenic back pain M51.360 Disc-related pain type: discogenic back pain only Constipation, unspecified constipation type K59.00 Constipation type: unspecified constipation type Vitamin D deficiency E55.9 Insomnia, unspecified type G47.00 Insomnia type: unspecified Visual hallucinations R44.1 Anxiety and depression F41.9; F32.A Overweight (BMI 25.0-29.9) E66.3 Additional Codes PHQ-9 - 80641 - PHQ-9 Billing: Yes ([id number]) Assessment & Plan Assessment & Plan (1) Mixed hyperlipidemia: Code(s): E78.2 - Mixed hyperlipidemia Category: Medical Plan: She was not able to get her follow up labs done prior to her appointment today - her cholesterol levels have not been checked since April 2024 Her BED BUG EXTERMINATOR states that she will help her try to go and get these done TELMA Reinforced low cholesterol diet Continue Atorvastatin 10 mg Q HS Will have patient recheck her labs and fasting lipids in 4 months for follow up (2) Dysphagia: Comment: more of a sensation of food getting stuck in her throat often Code(s): R13.10 - Dysphagia, unspecified Category: Medical Qualifiers: Dysphagia type: unspecified Qualified Code(s): R13.10 - Dysphagia, unspecified Plan: Patient had a modified barium swallow done on 11/19/2022 that came back normal Due to her symptoms, as well as her Hx of smoking and ETOH, she was previously referred to ENT for further evaluation and management but she has not been seen by ENT yet Because of her recently increase in her symptoms, we referred her again for a repeat modified barium swallow for further evaluation and she was scheduled to have this done back on 09/09/2024 but for uncleare reasons, the test was cancelled - will try to find out what happened to this although patient now reports 'no issues with her swallowing' currently (3) Odynophagia: Code(s): R13.10 - Dysphagia, unspecified Category: Medical Plan: Patient has been previously referred to ENT for further evaluation and management and she is currently still waiting to be seen by ENT (4) GERD without esophagitis: Code(s): K21.9 - Gastro-esophageal reflux disease without esophagitis Category: Medical Plan: Dietary restrictions reinforced Continue Pantoprazole 40 mg QD (5) Macrocytosis without anemia: Code(s): D75.89 - Other specified diseases of blood and blood-forming organs Category: Medical Plan: Previous labs done at the ER a couple of years ago revealed macrocytosis without anemia but her subsequent CBCs show (+) anemia since She was still anemic on her labs done back in June 2023, with H/H at 10.3/31.4%; her CBC this time was cancelled by the lab due to insufficient sample at the time of her lab draw and she has not had her CBC rechecked since Serum B12, Folate and TSH were normal when previously checked; but her iron indices were low and she was started on iron supplements (Ferrous sulfate) 325 mg QD Will recheck her CBC TELMA for follow up (6) Memory impairment: Code(s): R41.3 - Other amnesia Category: Medical Plan: She was seen by neurology back in 2021 and 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 along with other disorders, which include post herpetic neuralgia, peripheral neuropathy, multifactorial gait disorder, restless legs syndrome, insomnia, anxiety and depression Patient states that she has quit drinking completely years ago She has not seen neurology again for follow-up since her visit with them in late December 2021 and has been poorly compliant with her follow up appointments and lab draws over the past couple of years Continue Vitamin B12 1000 mcg QD and Folic Acid 400 mcg QD (7) History of alcohol abuse: Code(s): F10.11 - Alcohol abuse, in remission Category: Medical Plan: Patient states that she stopped drinking completely years ago (8) Lumbar degenerative disc disease: Comment: (+) Hx of spinal fusion and bone grafting done many years ago in [place] Code(s): M51.36 - Other intervertebral disc degeneration, lumbar region Category: Medical Qualifiers: Disc-related pain type: discogenic back pain only Qualified Code(s): M51.360 - Other intervertebral disc degeneration, lumbar region with discogenic back pain only Plan: Reinforced activity and weight-lifting restrictions Continue Gabapentin 300 mg TID, Tramadol 50 mg Q HS, Lidocaine 5% patch QD PRN and Duloxetine 60 mg QD She was also on Cyclobenzaprine but this was denied by insurance and we started her on Tizanidine 4 mg TID PRN instead Follow up with pain management as scheduled (9) Constipation: Code(s): K59.00 - Constipation, unspecified Category: Medical Qualifiers: Constipation type: unspecified constipation type Qualified Code(s): K59.00 - Constipation, unspecified Plan: She has been advised that her recent recurrent left lower abdominal pain is likely due to her increasing constipation She is again encouraged on increased oral fluids and dietary fiber She was on Senna 8.6 mg Q HS and Citrucel 1000 mg QD but her BED BUG EXTERMINATOR states that Senna has not been helping her and she has been giving patient some unrecalled OTC meds that seems to be working better for her and she will try to get us the name of this medication (10) Vitamin D deficiency: Code(s): E55.9 - Vitamin D deficiency, unspecified Category: Medical Plan: Continue Vitamin D3 1000 units QD (11) Insomnia: Code(s): G47.00 - Insomnia, unspecified Category: Medical Qualifiers: Insomnia type: unspecified Qualified Code(s): G47.00 - Insomnia, unspecified Plan: Sleep hygiene reinforced - had a long discussion with patient today about the detrimental effects of late night TV on sleeping habits and have advised her on the importance of a set bedtime routine as well as a set bedtime Have advised her that her anxiety also likely plays a role in her difficulty sleeping and having a bedtime routine will help alleviate a lot of these issues and that not sleeping well and not getting enough sleep can also adversely affect her memory and accelerate her cognitive decline Continue Trazodone 100 mg Q HS PRN and Quetiapine 50 mg Q HS Have advised patient that she can also try taking some OTC Melatonin at bedtime to help with her sleep (12) Visual hallucinations: Code(s): R44.1 - Visual hallucinations Category: Medical Plan: Have advised patient and her BED BUG EXTERMINATOR that this is likely related to her dementia and that she should follow up with neurology TELMA and let her neurologist know about this Have advised her that she should stay on her current meds in the meantime, especially her Gabapentin, Sertraline, Quetiapine and Duloxetine - her Sertraline was increased in dose to 100 mg QD previously and she appears to be doing better since her dose was increased (13) Anxiety and depression: Code(s): F41.9 - Anxiety disorder, unspecified; F32.A - Depression, unspecified Category: Medical Plan: Continue Sertraline 100 mg QD, Quetiapine 50 mg Q HS and Duloxetine 60 mg QD (14) Overweight (BMI 25.0-29.9): Code(s): E66.3 - Overweight Category: Medical Plan: Reinforced diet; exercise and weight loss are unrealistic given patient's physical issues and multiple comorbidities Plan Follow up in 4 months Orders: Orders Comprehensive Gibson. Panel Fast 4 Months E78.00 - Pure hypercholesterolemia, unspecified Lipid Panel 4 Months E78.00 - Pure hypercholesterolemia, unspecified UA CC w/rflx Micro + Cult 4 Months R30.0 - Dysuria Complete Blood Count Auto Diff 4 Months D64.9 - Anemia, unspecified
== END 2024-12-22 17:05 | disposition home or self-care (01) ==
LOC: HO.HMCH 16:15
PROVIDERS: PCP Internal Medicine; Visit Provider Internal Medicine
DX: E78.2 Mixed hyperlipidemia (principal); R13.10 Dysphagia, unspecified; K21.9 Gastro-esophageal reflux disease without esophagitis; D75.89 Other specified diseases of blood and blood-forming organs; R41.3 Other amnesia; F10.11 Alcohol abuse, in remission; M51.360 Other intervertebral disc degeneration, lumbar region with discogenic back pain only; K59.00 Constipation, unspecified; E55.9 Vitamin D deficiency, unspecified; G47.00 Insomnia, unspecified; R44.1 Visual hallucinations; F41.9 Anxiety disorder, unspecified; F32.A Depression, unspecified; E66.3 Overweight

== ENCOUNTER → 2024-12-22 16:14 | Outpatient (BNVA) | payer OTHER, SELFPAY | PROVIDERS: PCP Internal Medicine; Visit Provider Internal Medicine | DX: E78.2 Mixed hyperlipidemia (principal); R13.10 Dysphagia, unspecified; K21.9 Gastro-esophageal reflux disease without esophagitis; D75.89 Other specified diseases of blood and blood-forming organs; R41.3 Other amnesia; F10.11 Alcohol abuse, in remission; M51.360 Other intervertebral disc degeneration, lumbar region with discogenic back pain only; K59.00 Constipation, unspecified; E55.9 Vitamin D deficiency, unspecified; G47.00 Insomnia, unspecified; R44.1 Visual hallucinations; F41.9 Anxiety disorder, unspecified; F32.A Depression, unspecified; E66.3 Overweight; R30.0 Dysuria; D64.9 Anemia, unspecified; Z68.28 Body mass index [BMI] 28.0-28.9, adult | CPT/HCPCS: 96127; 99212 ==

== ENCOUNTER 2025-02-02 09:46 | Outpatient (REF) | payer OTHER, SELFPAY ==
--- OUTSIDE RECORDS SUMMARY | 2024-09-07 06:30 | XMS_ITS ---
Author Organization [facility] Address [address] [place] [address] Care Team Providers Care Direct Entry Midwife Name Role Phone Tony PURCELL, Francisco Javier Primary Care Provider Unava ilJessica Rios [phone] Encounters Encounter Location Date Provider Diagnosis [facility] [address] [place] [address] 09/07/2024 Jessica Cooper Plan Of Treatment No Information Progress Notes * Chun BURCHOB:1945 (79 yo F)Acc No.[id number]:09/07/2024 Progress Notes Patient: Meli CHAPA Provider: Tj Cooper DPM :1945 A ge:78 Y S ex:Female Date:09/07/2024 Address:[address] [place] [address], [address], [place], [id number] Pcp:Francisco Javier Jimenez MD Subjective: * Chief [...] Date: 09/07/2024 Generated for Tre dahl/Ronni/eTkylesmitting on: 0 02/02/2025 10:38 AM EDT
[2025-02-02 10:07] LABS: MANUAL DIFF FLAG NO
[2025-02-02 10:33] LABS: Hematocrit 33.3 % (37.0-47.0); Hemoglobin 10.3 g/dl (12.0-16.0); Imm Gran Abs Auto 0.02 X10*3/uL (0.00-0.03); Imm Gran Pct Auto 0.4 % (0.0-0.4); Lymphocytes Absolute Auto 1.1 X10*3/uL (1.2-4.9); Mean Corpuscular HGB Conc 30.9 g/dl (31.0-35.0); Mean Corpuscular Hemoglobin 28.7 pg (27.0-33.0); Mean Corpuscular Volume 92.8 fL (80.0-98.0); NRBC Abs Auto 0.000 X10*3/uL (0.0-0.012); NRBC Pct Auto 0.0 /100WBC (0.0-0.2); Platelet Count 271 X10*3/uL (160-400); Red Blood Count 3.59 X10*6/uL (4.20-5.50); White Blood Count 5.3 X10*3/uL (4.8-10.8)
--- OUTSIDE RECORDS SUMMARY | 2025-02-02 10:38 | XMS_ITS | Patient Health Record ---
Author Organization [facility] Address [address] [place] [address] Care Team Providers Care Supervisor Lime Name Role Phone Tony PURCELL, Francisco Javier Primary Care Provider Unava ilJessica Rios Unavailable [phone] Reason For Referral No Information Encounters Encounter Location Date Provider Diagnosis [facility] [address] [place] [address] 06/17/2024 Jessica Cooper [facility] [address] [place] [address] 08/31/2024 Jessica Cooper Plan Of Treatment No Information Insurance Providers Payer Name Payer Address Payer Phone Subscriber Number Group Number Insured Name Patient Relationship to Insured Coverage Start Date Coverage End Date [facility] [employer] Claims [address] [place] [id number] Meli Burch Self - patient is the insured
[2025-02-02 11:05] LABS: Alanine Aminotransferase 9 U/L (0-31); Albumin Level 4.2 g/dL (3.5-5.0); Alkaline Phosphatase 73 U/L (39-117); Anion Gap 11 (12-20); Aspartate Amino Transferase 19 U/L (5-31); Blood Urea Nitrogen 13 mg/dL (9-16); Calcium 9.1 mg/dL (8.4-10.2); Carbon Dioxide 29 mmol/L (22-29); Chloride 107 mmol/L (96-108); Cholesterol 231 mg/dL (<200); Estimated Glomerular Filt Rate > 60; HDL Cholesterol 43 mg/dL (>40); Potassium 3.8 mmol/L (3.3-5.1); Sodium 143 mmol/L (135-145); Total Protein 7.4 g/dL (6.5-8.0); Triglycerides 180 mg/dL (<150)
[2025-02-02 11:34] LABS: Folate 16.7 ng/mL (> or = 4.0); Vitamin B12 681 pg/mL (200-900)
== END 2025-02-02 09:47 | disposition home or self-care (01) ==
LOC: HO.LAB 09:46
PROVIDERS: PCP Internal Medicine; Visit Provider Internal Medicine
DX: R10.32 Left lower quadrant pain (principal); G89.29 Other chronic pain; K21.9 Gastro-esophageal reflux disease without esophagitis; K59.00 Constipation, unspecified; D64.9 Anemia, unspecified; E78.00 Pure hypercholesterolemia, unspecified; E55.9 Vitamin D deficiency, unspecified; E53.8 Deficiency of other specified B group vitamins
CPT/HCPCS: 36415; 80053; 80061; 82306; 82607; 82746; 84443; 85025; 99212

== ENCOUNTER 2025-02-02 16:03 | Outpatient (AMB) | payer OTHER, SELFPAY ==
--- NOTE | 2025-02-02 16:08 | A.OFFVIS_ITS ---
Vital Signs 02/02/25 16:18 Height 5 ft 2 in Weight 158 lb BMI 28.9 BP 98/54 L Blood Pressure Location Rt brachial Position Sitting Pulse 78 Pulse Source Pulse Oximeter Pulse Oximetry (%) 95 Oxygen Delivery Method Room Air Intake Visit Reasons: 30m. Fecal abn. LLQ pain. LIZA 2022. Intake Note: ESTABLISHED PATIENT for mgmt of fecal abn and abd pain. LIZA w/ Julia 2022. Chief Complaint; C.O. severe constipation and rectal bleeding. Pt reports having concerns regarding impaction if her sx are not managed soon. Pt states that she had gone a few weeks without having a BM. Pt did finally have a BM today which was very hard and required some manual / digital removal. Pt has been taking senna as instructed w/o relief. Pt has also started a new OTC medication which Dr. Jimenez had recommended which is what allowed for her BM today. She unfortunately is unsure of the name. Magazine Filler Required: No Accompanied by: Grounds Maintenance Worker Allergies codeine Adverse Reaction (Mild, Verified 02/02/25 16:08) Abdominal Pain HPI HPI 30m. Fecal abn. LLQ pain. LIZA 2022.: Details: LAST VISIT: Back pain of lumbar region with sciatica GERD without esophagitis Abdominal pain, chronic, left lower quadrant Tubular adenoma Diverticulosis Plan Continues with left sided colic like pain. Will send patient for pain management. Patient will be sent also to general surgery. Umbilical hernia, mild tenderness during exam. Patient reports that she is moving her bowels well. Bowel sounds normal. Continue current treatment with pantoprazole daily. Patient can take Citrucel 1-2 tablets daily depending on her bowels. She can take senna to help her empty her bowels completely. Patient does report small amount of blood after bowel movement when constipated. Will send script for hydrocortisone. I will see her in 6 months, sooner on as needed basis. Patient is agreeable to this plan and verbalizes understanding of instructions. She was given the opportunity to ask questions and all questions answered. ? Thank you for allowing me to participate in her care Referrals Pain Management Referral M51.36, M54.40 General Surgery Referral K42.9 New hydrocortisone 2.5% (Proctosol HC) 1 appl UT BID-QID PRN 30 grams 2RF hemorrhoids K64.9 Changed Changed From methylcellulose (laxative) take it with full glass of water 500 mg PO DAILY 30 tabs 2RF K59.00 Changed To methylcellulose (laxative) (Citrucel) take it with full glass of water 1,000 mg (2 x 500 mg) PO DAILY 60 tabs 2RF K59.00 Refilled lidocaine 5% leave on most painful area for up to 12 hrs 1 patch topical DAILY 30 ea 2RF TODAY'S VISIT: Patient is here today accompanied by her EMERGENCY DEPARTMENT COORDINATOR. Patient reports severe constipation, tries taking senna, however was unable to have a normal bowel movement. Patient reports that she was only taking 1 senna and was taking another medication that was recommended to her by her PCP. Patient her the n valentín. She believes it is a stool softener. Patient had a finely small bowel this morning after not going to the bathroom for over a week. Patient does admit of her not being very mobile. Patient is mostly sitting in a wheelchair. Patient suffers from a lot of back pain and is taking medications to help with pain. Patient denies any other GI concerning symptoms. Denies melena, hematochezia, unintentional weight loss or ribbon like stools. [facility] Medical History Anxiety and depression History of alcohol abuse Overweight (BMI 25.0-29.9) Constipation Depression Anxiety Insomnia Vitamin D deficiency Alcoholic dementia Tubular adenoma Ulcerative colitis Smoker Memory impairment Lumbar degenerative disc disease Colitis Surgical History Hx of colonoscopy History of hernia surgery Previous back surgery Social History Housing: Apartment Do you presently have visiting nurse or other home services: No Alcohol intake: former Patient Tobacco Use Status: Former Tobacco user Cigarettes Per Day: 8 e-Cigarette/Vaping Use: Never Used Second Hand Smoke Exposure: Yes Advance Directives Date on File: 07/21/21 service: No Current occupational status: retired and disabled Current occupation: right hand dominant Cognitive needs: No Hearing needs: Yes Vision needs: Yes Female Reproductive History Menstrual Age of Menarche: 19 Review of Systems Const Denies weight gain and Denies weight loss ENT Reports no additional complaints, Denies dysphagia and Denies odynophagia Card Reports no additional complaints Resp Reports no additional complaints GI Denies abdominal pain, Denies belching, Denies melena, Denies bloating, Denies change in bowel habits, Reports constipation, Denies dysphagia, Denies excessive flatus, Denies dyspepsia, Denies heartburn, Denies diarrhea, Denies loose stools, Denies nausea, Denies odynophagia and Denies vomiting Reports no additional complaints Musc Reports no additional complaints Neuro Reports no additional complaints Psych Reports no additional complaints Endo Reports no additional complaints Physical Exam Vital Signs: Last Vital Signs Pulse 78 02/02/25 16:18 BP 98/54 L 02/02/25 16:18 Pulse Ox 95 02/02/25 16:18 Oxygen Delivery Method Room Air 02/02/25 16:18 BMI result Body Mass Index 28.9 Const General: healthy appearing, no acute distress and well developed Nutritional Appearance: well nourished Orientation/consciousness: patient oriented x3 HEENT Head: Yes normal to inspection, Yes normocephalic and Yes atraumatic Face and sinus: Yes normal facial exam Mouth: Normal oral and palatal mucosa present Throat: Yes posterior oropharynx normal, Yes tonsils normal and Yes uvula midline Eyes General: appearance normal, both eyes and all related structures Neck Neck: Yes normal visual inspection, Yes full ROM and Yes trachea midline Thyroid: Thyroid normal Resp Effort & Inspection: normal respiratory effort, able to speak in complete sentences, no tracheal deviation and symmetric chest movement Auscultation: clear to auscultation bilaterally Cardio Rate: regular rate Heart sounds: S1 normal heart sound present and S2 normal heart sound present GI Inspection: Yes obesity Palpation (GI): Soft to palpation, not firm, nontender and No hepatosplenomegaly present Auscultation: normal bowel sounds General: Yes no CVA tenderness Back/Spine/Pelvis Back: no CVA tenderness Skin General skin exam: elasticity normal, turgor normal and dry skin Neuro General: patient oriented x3 Psych Appearance: grossly normal Mental Status: mental status grossly normal Assessment & Plan Assessment & Plan (1) GERD without esophagitis: Code(s): K21.9 - Gastro-esophageal reflux disease without esophagitis Category: Medical (2) Abdominal pain, chronic, left lower quadrant: Code(s): R10.32 - Left lower quadrant pain; G89.29 - Other chronic pain Category: Medical (3) Recurrent left lower quadrant abdominal pain: Code(s): R10.32 - Left lower quadrant pain Category: Medical (4) Constipation: Code(s): K59.00 - Constipation, unspecified Category: Medical Qualifiers: Constipation type: unspecified constipation type Qualified Code(s): K59.00 - Constipation, unspecified Plan Patient will start taking Linzess daily. Increase fluid intake and activity to promote bowel motility. Continue pantoprazole daily. Avoid dietary triggers and late night snacking. Patient will call our office if she will have no results when taking Linzess. Patient was also encouraged to take fiber with pre and probiotics. I will see patient in 2 months, sooner on as needed basis. Patient is agreeable to this plan and verbalizes understanding of instructions. She was given the opportunity to ask questions and all questions answered. Thank you for allowing me to participate in her care Medications: New linaclotide (Linzess) 145 mcg PO DAILY 30 caps 2RF Coding Level of Care Code Est Pt Level 3 (75078) Diagnoses GERD without esophagitis K21.9 Abdominal pain, chronic, left lower quadrant R10.32; G89.29 Recurrent left lower quadrant abdominal pain R10.32 Constipation, unspecified constipation type K59.00 Constipation type: unspecified constipation type Time Spent (min) 30 Comment 20 minutes spent with patient and additional 10 minutes spent reviewing her records
[2025-02-02 16:18] VITALS: BP 98/54; PULSE 78; O2SAT 95; BMI 28.9
== END 2025-02-02 16:58 | disposition home or self-care (01) ==
LOC: HO.HGI 16:04
PROVIDERS: PCP Internal Medicine; Visit Provider Nurse Practitioner Family
DX: K21.9 Gastro-esophageal reflux disease without esophagitis (principal); R10.32 Left lower quadrant pain; G89.29 Other chronic pain; K59.00 Constipation, unspecified
CPT/HCPCS: 99213

== ENCOUNTER 2025-04-21 15:47 | Outpatient (AMB) | payer OTHER, SELFPAY ==
--- OUTSIDE RECORDS SUMMARY | 2024-09-07 05:30 | XMS_ITS ---
Author Organization [facility] Address [address] [place] [address] Care Team Providers Care Traffic Routing Engineer Name Role Phone Tony PURCELL, Francisco Javier Primary Care Provider Unava ilJessica Rios [phone] Encounters Encounter Location Date Provider Diagnosis [facility] [address] [place] [address] 09/07/2024 Jessica Cooper Plan Of Treatment No Information Progress Notes * Chun BURCHOB:1945 (79 yo F)Acc No.[id number]:09/07/2024 Progress Notes Patient: Meli CHAPA Provider: Tj Cooper DPM :1945 A ge:78 Y S ex:Female Date:09/07/2024 Address:[address] [place] [address], [address], [place], [id number] Pcp:Francisco Javier Jimenez MD Subjective: * Chief Complaints: * * Medical History: Objective: * Vitals: Assessment: Plan: * Treatment: * Images: * The named appointment provid er may or may not be the originator of this progress note, and it is not deemed complete until electronically signed by the appointment provider. Sign off status: Pending * Provider: Tj Cooper DPM Date: 09/07/2024 Generated for Tre dahl/Ronni/Bolaitting on: 06/22/2024 08:38 PM EST
--- NOTE | 2025-04-21 15:52 | A.OFFVIS_ITS ---
Intake Visit Reasons: 6m follow dementia Allergies codeine Adverse Reaction (Mild, Verified 02/02/25 16:08) Abdominal Pain HPI Comments Details: 79 yo woman with h/o alcohol abuse, multifactorial dementia with head CT revealing significant cerebral and cerebellar atrophy and significant chronic microvascular ischemic disease, insomnia, left thoracic area post herpetic neuralgia with uncontrolled pain, chronic stress, anxiety and depression. She is presenting for medication management of worsening behavioral symptoms. Her caregiver reports she is not sleeping well and is becoming very hyper, despite a previous increase in her quetiapine dose. She experiences significant anxiety and occasional auditory and visual hallucinations, although she does not always admit to them. The patient has a diagnosis of dementia with memory loss, but she denies these conditions. Her current medications include quetiapine one tablet three times a day, sertraline 100 mg (increased from 50 mg by another provider), memantine twice a day, and trazodone and tramadol at night. She also suffers from back pain with associated muscle spasms. She quit drinking alcohol five years ago and does not smoke. [facility] Medical History Anxiety and depression History of alcohol abuse Overweight (BMI 25.0-29.9) Constipation Depression Anxiety Insomnia Vitamin D deficiency Alcoholic dementia Tubular adenoma Ulcerative colitis Smoker Memory impairment Lumbar degenerative disc disease Colitis Surgical History Hx of colonoscopy History of hernia surgery Previous back surgery Social History Housing: Apartment Do you presently have visiting nurse or other home services: No Alcohol intake: former Patient Tobacco Use Status: Former Tobacco user Cigarettes Per Day: 8 e-Cigarette/Vaping Use: Never Used Second Hand Smoke Exposure: Yes Advance Directives Date on File: 07/21/21 service: No Current occupational status: retired and disabled Current occupation: right hand dominant Cognitive needs: No Hearing needs: Yes Vision needs: Yes Female Reproductive History Menstrual Age of Menarche: 19 Review of Systems Narrative - Neurological: Reports occasional auditory and visual hallucinations. - Psychiatric: Reports poor sleep, hyperactivity, and anxiety. - Musculoskeletal: Reports back pain with spasms. Physical Exam Neuro Other: Mental Status: She is alert and awake with normal spontaneity and fluency of speech. Affect is okay. Cranial Nerves: CN II: Visual wagner full to confrontation, visual acuity intact. CN III, IV, : Pupils equal, round, reactive to light and accommodation. Extraocular movements are normal. CN V: Facial sensation is normal. CN VII: Facial movements symmetrical. CN VIII: Hearing intact to bedside conversation is normal. CN IX, X: Palate elevates symmetrically. CN XI: Shoulder shrug and head turn symmetrical. CN XII: Tongue midline without atrophy or fasciculations. Gait: She is in a wheelchair. Extrapyramidal: Full facial expressions and blinking. No rigidity. Movements are appropriate with no tremor or abnormality. Speech: Normal; no dysarthria or tremor. Assessment & Plan Assessment & Plan (1) Post herpetic neuralgia: Code(s): B02.29 - Other postherpetic nervous system involvement Category: Medical (2) Alcoholic dementia: Comment: CT brain WO at [facility] in Apr 2024: Mod severe cerebral and cerebellar atrophy, mod MVD Code(s): F10.27 - Alcohol dependence with alcohol-induced persisting dementia Category: Medical Qualifiers: Dementia severity: unspecified severity Dementia behavioral or psychological symptom: with mood disturbance Qualified Code(s): F10.97 - Alcohol use, unspecified with alcohol-induced persisting dementia (3) Insomnia: Code(s): G47.00 - Insomnia, unspecified Category: Medical Qualifiers: Insomnia type: unspecified Qualified Code(s): G47.00 - Insomnia, unspecified (4) Multifactorial dementia: Code(s): F03.90 - Unspecified dementia, unspecified severity, without behavioral disturbance, psychotic disturbance, mood disturbance, and anxiety Category: Medical Plan Impression: a: Multifactorial dementia b: Moderate diffuse cerebral and cerebellar atrophy c: Moderate MVD d: 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 I recommended increasing her quetiapine, advising one tablet in the morning, one in the afternoon, and two at bedtime to help manage these symptoms. We also reviewed her sertraline for anxiety, and I instructed the caregiver to administer the 100 mg dose in the morning. We will continue her other medications, including memantine and tramadol, as currently prescribed. I advised a follow-up appointment in six months to reassess her status. Medications: New memantine (Namenda) 10 mg PO BID 180 tabs 1RF duloxetine 60 mg PO DAILY 90 caps 1RF Changed From quetiapine 50 mg PO TID 90 days 270 tabs 0RF To quetiapine 50 mg PO QID 360 tabs 1RF 90 days From trazodone 100 mg PO BEDTIME 30 days PRN 30 tabs 2RF insomnia To trazodone 100 mg PO BEDTIME PRN 90 tabs 1RF insomnia 90 days Coding Level of Care Code Est Pt Level 4 (03191) Diagnoses Post herpetic neuralgia B02.29 Dementia associated with alcoholism, with mood disturbance, unspecified dementia severity F10.97 Dementia severity: unspecified severity Dementia behavioral or psychological symptom: with mood disturbance Insomnia, unspecified type G47.00 Insomnia type: unspecified Multifactorial dementia F03.90
--- OUTSIDE RECORDS SUMMARY | 2025-04-21 20:39 | XMS_ITS | Data Portability ---
Author Organization [facility] Address [address] [place] [id number] Care Team Providers Care Assistant Import Manager Name Role Phone [facility] Referring Provider [phone] Assessment No assessment recorded. Plan of Treatment [...] Address Organization Details Recorded Time Ulcerative colitis 01090718 Active 022 Regina Vernon MD [address] [place] [address],[address], [place], [address] [facility] 13:05:25 Problem Notes None recorded. Medical Equipment [...] Vitals Date Recorded Heart rate Oxygen saturation Body temperature Respiratory rate Systolic And Diastolic Provider Name and Address Organization Details Last Updated DateTime 2 77 /min 96 % 98.3 [degF] 16 /min 124/83 mm[Hg] Regina Vernon MD 30 [facility],[address], [place], [address] [place], [place] - [facility], [facility] 2 13:04:11 Social History None recorded. Functional Status None recorded. Mental Status None recorded. Family History Nothing Reported. Medical History No medical history recorded. Gynecological HistoryNo gynecological history recorded. Obstetrics History GPAL:G 0 P 0 0 0 0 Past Encounters Encounter ID Performer Location Encounter Start Date Encounter Closed Date Diagnosis/Indication Diagnosis SNOMED-CT Code Diagnosis ICD10 Code Diagnosis IMO Codes Diagnosis Note [id number] Regina Vernon MD Main - [facility] [address] [place] [id number] 06/28/2021 11:45:07 12/19/2021 15:29:17 Acute upper respiratory infection 56247064 J06.9 To be evaluated during ED visit Melena 2152583 K92.1 Hx UC per pt, p/w 1 [...] Recorded Advance Directives Directive None Recorded Payers Insurance Date Sequence Insurance Name Policy Number Policy Borges Covered Member ID Borges Member ID Guarantor Name 06/12/2023 1 [facility] - DOS PRIOR TO 2022 - DUAL ELIGIBLE (MEDICARE REPLACEMENT/ADV ANTAGE - HMO) Meli Burch [id number] Meli Burch 06/12/2023 1 [facility] - DOS ON OR AFTER 2022 - DUAL ELIGIBLE - FDC OPTIONS AND ONE CARE (MEDICARE REPLACEMENT/ADV ANTAGE - HMO) Meli Burch [id number] Meli Burch Notes Date Note Type Note [...] Ecw docs, wants CPR but DNI. Per waiter/waitress second class hx:Dispatched to pt c/o URI symptoms x [...] +malaise, +generalized weakness. Vitals obtained and consulted [facility] who recommended that pt to present to ER for further workup. Pt initially refused but agreed with knife cutter's urging. Pt refusing ambulance, will be driven in by knife cutter after this visit ends. No further questions or concerns at this time. Regina Vernon MD [address] [facility],[address], [place], [address], [facility] 06/28/2021 13:28:02 OBGyn Episode No OBEpisode recorded.
--- OUTSIDE RECORDS SUMMARY | 2025-04-21 20:39 | XMS_ITS | Data Portability ---
Author Organization [place] - [facility], Allergy Address [address] [address] Assessment Encounter Date Assessment Date Assessment LastModified [...] [place], modified barium swallow study 2024 025 yesidiaz [facility] (Imaging), [address] [place] [address], [address], 11:53:15 Medication Orders None recorded. Patient TargetsNo targets recorded. Patient InstructionsNo instructions recorded. Reason for Referral None Reported. Problems Name Problem SNOMED Code Status Onset Date Resolution Date Notes Provider Name and Address Organization Details Recorded Time Impacted cerumen in right ear 0358748471585 103 Active 2024 MICHAEL CANCHOLA MD [address] [facility],[address], [place], [address], [place] [facility] 13:33:07 Oropharynge al dysphagia 32809747 Active 2024 MICHAEL CANCHOLA MD [address] [facility],[address], [place], [phone], [facility] - [facility] 13:33:14 Problem Notes None recorded. Procedures Surgical History Date Name Laterality Status Provider Name and Address Organization Details Recorded Time 05/18/19 25 Fiberoptic Laryngoscopy (Comprehensive) completed MICHAEL CANCHOLA MD [facility],[address], [address], [facility] - [facility] 05/18/2024 13:33:54 hernia repair completed MICHAEL CANCHOLA MD [address] [facility],[address], [address], [facility] - [facility] 05/18/2024 13:46:31 procedure on back completed MICHAEL CANCHOLA MD [address] [facility],[address], [address], [facility] - [facility] 05/18/2024 13:46:41 Imaging Results None recorded. Procedure [...] Updated DateTime 05/18/2024 160.02 cm 27.5 kg/m2 95491.82 g Roseann Barkersherine [place] - [facility] 05/18/2024 13:19:57 Social History Question Answer Notes LastModified by Organizat ion Details LastModified Time Tobacco Smoking Status Former Smoker MICHAEL CANCHOLA MD [address] [place] [address], [phone], [facility] - [facility] 05/18/2024 13:26:43 When Did You Quit Smoking? 1-5yearssinc elastcigaret te Information not available 05/18/2024 Sex: Unknown Functional Status Question Answer Note LastModified by Organizat ion Details LastModified Time What is your level of alcohol consumption? former heavy drinker Information not available 05/18/2024 Mental Status None recorded. Family History Nothing Reported. Medical History Condition Response Anxiety Y Depression Y Gynecological HistoryNo gynecological history recorded. Obstetrics History GPAL:G 0 P 0 0 0 0 Past Encounters Encounter ID Performer Location Encounter Start Date Encounter Closed Date Diagnosis/Indication Diagnosis SNOMED-CT Code Diagnosis ICD10 Code Diagnosis IMO Codes Diagnosis Note [id number] MICHAEL CANCHOLA MD [facility] [address] [address] 05/18/2024 13:13:16 05/18/2024 13:39:00 Impacted cerumen in right ear [id number] 472297 H61.21 Oropharyng eal dysphagia 46033943 R13.12 Health Concerns Section Related Observation LastModified by Organization Detai ls LastModified Time None Recorded Concern Status LastModified by Organization Details LastModified Time None Recorded Advance Directives Directive None Recorded Payers Insurance Date Sequence Insurance Name Policy Number Policy Borges Covered Member ID Borges Member ID Guarantor Name 03/15/2025 1 [facility] - DOS ON OR AFTER 2022 - MEDICARE ADVANTAGE [place] (MEDICARE REPLACEMENT/ADV ANTAGE - PPO) Meli Burch [id number] Meli Burch Notes Date Note Type Note Provider Name and Address Organization Details Recorded Time 05/18/2024 text/html Normal MBaS in November 2022, seems worse since thenNo endoscopy Has not lost weight choking on food and water, intermittent, and then hard to breathe, once or twice a weekOccasional sore throatNo ear painTakes medication at times for heartburn not hearing well on the right MICHAEL CANCHOLA MD [address] [place] [address], [place], [address], [place] [facility] 05/18/2024 13:50:43 OBGyn Episode No OBEpisode recorded.
--- OUTSIDE RECORDS SUMMARY | 2025-04-21 20:39 | XMS_ITS | Data Portability ---
Author Organization [place] - [facility] Address [address] [place] [id number] Care Team Providers Care Oracle Distribution Consultant Name Role Phone ANATOLIY HERRERA Primary Care Provider Assessment Encounter Date Assessment Date Assessment LastModified by Organization Details LastModified Time 11/16/2020 11/16/2020 Overview/History : Patient is a 75 year old alert female who presents initially with symptoms of right ear pain and tinnitus x 2 days. Patient has no significant ENT history, however does express allergies this season. Her medical history is significant for depressed T waves, hyperlipidemia, anxiety, right rotator cuff pain, ulcerative colitis. Exam: Patient afebrile 97.9. HR tachy 96, S1, S2. Left TM bulging, canal clear without evidence of infection. I am unable to vizualize the right TM due to large amount of yellow cerumen. There is no drainage in the ear canal, no evidence of infection. The right tragus is tender to palpate. Erythema to sinus passages. No erythema/ exudate noted in oropharynx, moist mucous membranes, no lymphadenopathy. LSCTA bilaterally, no work of breathing. Abdomen Soft, nontender, + bowel sounds x 4 quadrants. Intact Neuro exam DDx considered, but not limited to: Seasonal allergic rhinitis likely, erythema to sinus passages, bulging left tympanic membrane Tinnitus likely due to excess cerumen right ear canal Otitis media considered, no evidence of infection, afebrile Meniere's Disease considered, not likely, no dizziness Work up/Results: exam Plan/Discussion: 1. Debrox for cerumen, Claritin trial x 7 days to relieve seasonal allergy symptoms, Flonase for inflamed sinuses. 2. patient to follow up with ENT provider, will contact PCP for referral. Tinnitus handout discussed and provided to patient 3. Follow up with GI referral per PCP recommendation for GERD/loss of appetite complaint 4. Discussed acute s/s to report to ED. Patient to reiterate. No questions at this time. Med rec completed Proper Personal Protective Equipment (PPE), including gloves, eye protection and masks were donned and doffed appropriately and all equipment cleaned using approved technique with germicidal disposable wipes prior to and after care of this patient according [facility]. In order to obtain further information and compare any laboratory results/values, I have accessed old patient records. This information was pertinent in my medical decision making today. Not available 11/16/2020 15:36:33 04/25/2021 04/25/2021 Overview/History : Pt states she has had a cough, with clear to yellow sputum production, nasal and chest congestion, mild wheezing, low grade fever, and malaise for the past week. Denies any recent sick contacts. Exam: established pt with but new to this provider Nontoxic appearing afebrile 75-year-old female in no acute distress at this time. Respirations unlabored, lungs: Expiratory wheezing noted in the upper lung wagner, no rales or rhonchi noted. CV: RRR or. Patient also has a wet sounding cough. Mild pharyngeal erythema without any tonsillar swelling or exudate noted. No palatal petechiae. Tenderness noted on maxillary palpation but not frontal sinus palpation. Nasal erythema nasal mucosa moist. 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 Rapid COVID test was negative. Plan/Discussion: Prescriptions for azithromycin, Medrol Dosepak, Tessalon Perles, and albuterol HFA symptoms. Follow up for worsening symptoms. In order to obtain further information and compare any laboratory results/values, I have accessed old patient records. This information was pertinent in my medical decision making today. Proper Personal Protective Equipment (PPE), including gloves, eye protection, N95 mask, gown, were donned and doffed appropriately and all equipment cleaned using approved technique with germicidal disposable wipes prior to and after care of this patient according to [facility] infection prevention protocols. Time On Scene with Patient: 00:44:28 [email or web address] Not available 04/25/2021 10:57:39 Plan of Treatment Reminders Order Date Submit Date Provider Last Modified By Organization Details Last Modified Time Details Appointments None recorded. Lab None recorded. Referral None recorded. Procedures None recorded. Surgeries None recorded. Imaging None recorded. Medication Orders Medrol (Abel) 4 mg tablets in a dose pack 2020 [facility] #[id number], [address], [place], [id number], 16:15:52 Zithromax Z-Abel 250 mg tablet 2020 [facility] #17644, [address], [place], [id number], 10:35:13 albuterol sulfate HFA 90 mcg/actuat ion aerosol inhaler 2020 [facility] #15322, [address], [place], [id number], 10:35:11 benzonatat e 100 mg capsule 2020 [facility] #95850, [address], [place], [id number], 03:41:23 Claritin-D 24 Hour 10 mg-240 mg tablet,ext ended release 2020 [facility] #67414, [address], [place], [id number], 15:07:44 Flonase Allergy Relief 50 mcg/actuat ion nasal spray,susp ension 2020 [facility] #71652, [address] [place], [place], [id number], 15:10:43 Debrox 6.5 % ear drops 2020 021 [facility] #41970, [address], [place], [id number], 15:15:39 Patient TargetsNo targets recorded. Patient Instructions Encounter Date Encounter Id Patient Instructions Last Modified By Organization Details Last Modified Time 11/16/2020 [id number] tinnitus: care instructions Not available 11/16/2020 15:07:06 you were seen to day for right ear pain and ringing in your right ear. The left ear does show fluid behind the ear drum. I am unable to visualize the left ear drum due to an excess of ear wax. Debrox was prescribed 5 drops a day. You were also prescribed Claritin which you take one time a day for allergies, flonase puffs to your sinuses each morning. PLEASE FOLLOW UP WITH YOU PRIMARY DOCTOR AND GET AN EAR NOSE AND THROAT REFERRAL. RECOMMENT GASTRIC DOCTOR FOR CHRONIC LOSS OF APPETITE AND POOR DAILY FOOD INTAKE. Thank you [facility] your [facility] with [facility] today. We cannot always find the exact cause of your symptoms during your initial visit. Please follow up with your primary care provider or specialist as needed to be rechecked or seek medical attention if your symptoms do not go away or get worse. If you develop any new or worsening symptoms and need after hours care, please go to nearest ER and/or call 911. If you have additional concerns or develop a change in your condition between 8am-10pm, please call [facility] at [phone] to help navigate your care. Not available 11/16/2020 15:25:27 04/25/2021 [id number] bronchitis: care instructions [email or web address] Not available 04/25/2021 10:39:11 Bronchitis: Care Instructions Your Care Instructions Bronchitis is inflammation of the bronchial tubes, which carry air to the lungs. The tubes swell and produce mucus, or phlegm. The mucus and inflamed bronchial tubes make you cough. You may have trouble breathing. Most cases of bronchitis are caused by viruses like those that cause colds. Antibiotics usually do not help and they may be harmful. Bronchitis usually develops rapidly and lasts about 2 to 3 weeks in otherwise healthy people. Follow-up care is a landa part of your treatment and safety. Be sure to make and go to all appointments, and call your doctor if you are having problems. It's also a good idea to know your test results and keep a list of the medicines you take. How can you care for yourself at home? Take all medicines exactly as prescribed. Call your doctor if you think you are having a problem with your medicine. Get some extra rest. Take an fzhk-ehn-uxafmja pain medicine, such as acetaminophen (Tylenol), ibuprofen (Advil, Motrin), or naproxen (Aleve) to reduce fever and relieve body aches. Read and follow all instructions on the label. Do not take two or more pain medicines at the same time unless the doctor told you to. Many pain medicines have acetaminophen, which is Tylenol. Too much acetaminophen (Tylenol) can be harmful. Take an irky-pqs-xvvxmtg cough medicine that contains dextromethorphan to help quiet a dry, hacking cough so that you can sleep. Avoid cough medicines that have more than one active ingredient. Read and follow all instructions on the label. Breathe moist air from a humidifier, hot shower, or sink filled with hot water. The heat and moisture will thin mucus so you can cough it out. Do not smoke. Smoking can make bronchitis worse. If you need help quitting, talk to your doctor about stop-smoking programs and medicines. These can increase your chances of quitting for good. When should you call for help? Call anytime you think you may need emergency care. For example, call if: You have severe trouble breathing. Call your doctor now or seek immediate medical care if: You have new or worse trouble breathing. You cough up dark brown or bloody mucus (sputum). You have a new or higher fever. You have a new rash. Watch closely for changes in your health, and be sure to contact your doctor if: You cough more deeply or more often, especially if you notice more mucus or a change in the color of your mucus. You are not getting better as expected. Care instructions adapted under license by [place] [facility]. This care instruction is for use with your licensed healthcare professional. If you have questions about a medical condition or this instruction, always ask your healthcare professional. [employer] disclaims any warranty or liability for your use of this information. [email or web address] Not available 04/25/2021 10:39:11 Reason for Referral None Reported. Procedures Surgical History Date Name Laterality Status Provider Name and Address Organization Details Recorded Time Back Surgery completed Chloe Menjivar NP [address], [place], [address], [place] [facility] 11/16/2020 14:50:52 Imaging Results None recorded. Procedure Notes None recorded. Medical Equipment None Reported. Allergies Allergen ID Allergen Name Allergen Category Reaction Reaction Severity Criticality Documentation Date Start Date Code Code System Note Provider Name and Address Organization Details Recorded Time [id number] codeine medicatio n Not available Not available Not available 11/16/2020 2670 [employer] Chloe Menjivar NP [address], [place], [address], [place] [facility] 14:46:15 Medications Name Sig Start Date Stop Date Status Note LastModified by Organization Details LastModified Time cyclobenzap rine 10 mg tablet active Not Available Not Available Not Available atorvastati n 20 mg tablet active Not Available Not Available Not Available azithromyci n 250 mg tablet TAKE 2 TABLETS (500 MG) BY ORAL ROUTE ONCE DAILY FOR 1 DAY THEN 1 TABLET (250 MG) BY ORAL ROUTE ONCE DAILY FOR 4 DAYS active Not Available Not Available No t Available Nystop 100,000 unit/gram topical powder active Not Available Not Available Not Available Debrox 6.5 % ear drops INSTILL 5 DROPS INTO AFFECTED EAR(S) BY OTIC ROUTE 2 TIMES PER DAY 2020 active Not Available Not Available Not Avai lable naproxen 250 mg tablet active Not Available Not Available Not Available meloxicam 7.5 mg tablet active Not Available Not Available Not Available Claritin-D 24 Hour 10 mg-240 mg tablet,exte nded release Take 1 tablet every day by oral route as directed for 7 days. 2020 active Not Available Not Available Not Avai lable trazodone 100 mg tablet active Not Available Not Available Not Available benzonatate 100 mg capsule TAKE 1 CAPSULE BY MOUTH THREE TIMES DAILY FOR 5 DAYS active Not Available Not Available No t Available pantoprazol e 40 mg tablet,hanna yed release active Not Available Not Available Not Available gabapentin 300 mg capsule active Not Available Not Available Not Available sertraline 25 mg tablet active Not Available Not Available Not Available ibuprofen 600 mg tablet active Not Available Not Available Not Available methylpredn isolone 4 mg tablets in a dose pack FOLLOW PACKAGE DIRECTION S active Not Available Not Available No t Available albuterol sulfate HFA 90 mcg/actuati on aerosol inhaler INHALE 2 PUFFS BY MOUTH EVERY 4 HOURS active Not Available Not Available No t Available celecoxib 100 mg capsule TAKE 1 CAPSULE BY MOUTH DAILY PLEASE GET LABS DONE FOR FURTHER REFILL active Not Available Not Available No t Available clotrimazol e 1 % topical cream active Not Available Not Available Not Available Pain Relief Extra Strength (acetaminop hen) 500 mg tablet active Not Available Not Available Not Available gabapentin 11/16 completed Not Available Not Available Not Available cholecalcif hu (vitamin D3) 25 mcg (1,000 unit) tablet active Not Available Not Available Not Available Flonase Allergy Relief 50 mcg/actuati on nasal spray,suspe nsion [place] 1 spray every day by intranasa l route as directed for 30 days. 2020 active Not Available Not Available Not Avai lable Vitals Date Recorded Body temperature Respiratory rate Heart rate Oxygen saturation Systolic And Diastolic Provider Name and Address Organization Details Last Updated DateTime 1 97.9 [degF] 18 /min 96 /min 97 % 130/80 mm[Hg] Not Available [facility] 14:50:41 Date Recorded Heart rate Respiratory rate Body temperature Oxygen saturation Systolic And Diastolic Provider Name and Address Organization Details Last Updated DateTime 1 84 /min 20 /min 97.9 [degF] 94 % 118/78 mm[Hg] Not Available [facility] 10:17:56 Social History Question Answer Notes LastModified by Organizat ion Details LastModified Time Tobacco Smoking Status Current Every Day Smoker Chloe Menjivar, DORIS [address], [place], [address], [place] [facility] 11/16/2020 14:47:34 Do You Have An Advance Directive? No Information not available 11/16/2020 What Is Your Code Status? Full Code Information not available 11/16/2020 Within The Past 12 Months, Has It Happened That The Food You Bought Just Didn't Last And You Didn't Have Money To Get More. No Information not available 11/16/2020 Within The Past 12 Months, Have You Worried That Your Food Would Run Out Before You Got Money To Buy More. No Information not available 11/16/2020 Fall Risk: Do You Feel Unsteady When Standing Or Walking? No Information not available 11/16/2020 We Know That How And When People Interact With Friends And Family Can Be Very Different From Person To Person. How Often Do You Have The Opportunity To See Or Talk To People That You Care About And Feel Close To? (Ex: Talking To Friends On The Phone Or Visiting Friends Or Family Or Going To [place] Or Club Meetings) 1 Or 2 Times Per Week Information not available 11/16/2020 Excessive Alcohol Or Drug Use No Information not available 11/16/2020 Does This Patient Have A PCP? Yes Information not available 11/16/2020 We Know From Many Of Our Patients That Covering All Of Their Costs Can Be Difficult At Times. This Can Cause Stress And Impact Health. In The Past Year, Have You Been Unable To Get Any Of The Following When It Was Really Needed? No Information not available 11/16/2020 What Is Your Housing Situation Today? I Have Housing Information not available 11/16/2020 Would You Like Help Connecting To Resources? None Information not available 11/16/2020 How Much Tobacco Do You Smoke? 0.5 PPD Information not available 11/16/2020 How Many Years Have You Smoked Tobacco? 30 Information not available 11/16/2020 Sex: Unknown Functional Status None recorded. Mental Status None recorded. Family History Relationship Description Onset Age of this Age Resolved Age Notes LastModified by Organization Details LastModified Time Father No current problems or disability Not available 11/16 14:47:31 Mother No current problems or disability Not available 11/16 14:47:31 Medical History Condition Response Coronary Artery Disease Y COPD N Depression N Hypothyroidism N A-fib N Cancer N Stroke N High Cholesterol Y Rheumatoid Arthritis N Kidney Disease N Parkinson's Disease N Diabetes N CHF N Dementia N Asthma N Pulmonary Embolism N Hypertension N Osteoporosis N Gynecological HistoryNo gynecological history recorded. Obstetrics History GPAL:G 0 P 0 0 0 0 Past Encounters Encounter ID Performer Location Encounter Start Date Encounter Closed Date Diagnosis/Indication Diagnosis SNOMED-CT Code Diagnosis ICD10 Code Diagnosis IMO Codes Diagnosis Note [id number] Chloe Mary Menjivar, WEB SITE MANAGER [facility] [address] [place] [address] 11/16/2020 14:44:45 11/17/2020 14:04:01 Seasonal allergy 733572201 J30.2 Rhinitis 18148381 J00 Impacted c erumen in right ear 4848667620 082991 H61.21 [id number] Philip Kwok NP [facility] [address] [facility] [place] [address] 04/25/2021 10:13:09 04/30/2021 00:46:05 Acute bronchitis 33276965 J20.9 Acute sinusitis 07229228 J01.90 Health Concerns Section Related Observation LastModified by Organization Detai ls LastModified Time None Recorded Concern Status LastModified by Organization Details LastModified Time None Recorded Advance Directives Directive N: Payers Insurance Date Sequence Insurance Name Policy Number Policy Borges Covered Member ID Borges Member ID Guarantor Name 11/16/2020 1 *SELF PAY* Meli Burch [id number] Meli [place] 04/24/2021 1 [facility] - DOS PRIOR TO 2022 - DUAL ELIGIBLE (MEDICARE REPLACEMENT/ADV ANTAGE - HMO) Meli Burch [id number] Meli [facility] 04/24/2021 1 [facility] - DOS PRIOR TO 2022 - DUAL ELIGIBLE (MEDICARE REPLACEMENT/ADV ANTAGE - HMO) Meli Burch [id number] Meli [place] 04/25/2021 1 [facility] - DOS PRIOR TO 2022 - DUAL ELIGIBLE (MEDICARE REPLACEMENT/ADV ANTAGE - HMO) Meli Burch [id number] Meli Burch Notes Date Note Type Note Provider Name and Address Organization Details Recorded Time 11/16/2020 text/html General HPI Template - DHReported by Patient Patient is a 75 year old alert female who is new to and new to this provider. Patient chief complaint is right ear pain and ringing in my ear that started 2 days ago. I have something coming out of my ear - I've been using a q-tip. Patient medical history significant for hyperlipidemia, anxiety, depressed T waves on previous EKG. Chloe Menjivar, DORIS [address], [place], [address], [place] [facility] 11/16/2020 15:36:42 04/25/2021 text/html Pt states she has had a cough, with clear to yellow sputum production, nasal and chest congestion, mild wheezing, low grade fever, and malaise for the past week. Denies any recent sick contacts. Onset 7 days ago. tylenol and micinex doesn't seem to be helping. Philip Kwok NP [address], [place], [address], [place] [facility] 04/25/2021 10:58:00 OBGyn Episode No OBEpisode recorded.
--- OUTSIDE RECORDS SUMMARY | 2025-04-21 20:39 | XMS_ITS | Patient Health Record ---
Author Organization [facility] Address [address] [place] [address] Care Team Providers Care Drafting Clerk Name Role Phone Tony PURCELL, Francisco Javier Primary Care Provider Unava ilJessica Rios Unavailable [phone] Reason For Referral No Information Encounters Encounter Location Date Provider [facility] [address] [place] [address] 06/17/2024 Jessica Cooper [facility] [address] [place] [address] 08/31/2024 Jessica Cooper Plan Of Treatment No Information Insurance Providers Payer Name Payer Address Payer Phone Subscriber Number Group Number Insured Name Patient Relationship to Insured Coverage Start Date Coverage End Date [facility] [employer] Claims [address] [place] [id number] Meli Burch Self - patient is the insured
== END 2025-04-21 16:04 | disposition home or self-care (01) ==
LOC: HO.HSM 15:48
PROVIDERS: PCP Internal Medicine; Referring Provider Internal Medicine; Visit Provider Psychiatry & Neurology Neurology
DX: B02.29 Other postherpetic nervous system involvement (principal); F10.97 Alcohol use, unspecified with alcohol-induced persisting dementia; G47.00 Insomnia, unspecified; F03.90 Unspecified dementia, unspecified severity, without behavioral disturbance, psychotic disturbance, mood disturbance, and anxiety
CPT/HCPCS: 99214

== ENCOUNTER → 2025-04-21 15:47 | Outpatient (BNVA) | payer OTHER, SELFPAY | PROVIDERS: PCP Internal Medicine; Referring Provider Internal Medicine; Visit Provider Psychiatry & Neurology Neurology | DX: B02.29 Other postherpetic nervous system involvement (principal); F10.97 Alcohol use, unspecified with alcohol-induced persisting dementia; G47.00 Insomnia, unspecified; F03.90 Unspecified dementia, unspecified severity, without behavioral disturbance, psychotic disturbance, mood disturbance, and anxiety | CPT/HCPCS: 99212 ==

== ENCOUNTER 2025-04-22 11:32 | Outpatient (AMB) | payer OTHER, SELFPAY ==
--- OUTSIDE RECORDS SUMMARY | 2024-09-07 05:30 | XMS_ITS ---
Author Organization [facility] Address [address] [place] [address] Care Team Providers Care Systems Development Manager Name Role Phone Tony PURCELL, Francisco Javier Primary Care Provider Unava ilJessica Rios [phone] Encounters Encounter Location Date Provider Diagnosis [facility] [address] [place] [address] 09/07/2024 Jessica Cooper Plan Of Treatment No Information Progress Notes * Chun BURCHOB:1945 (79 yo F)Acc No.[id number]:09/07/2024 Progress Notes Patient: Meli CHAPA Provider: Tj Cooper DPM :1945 A ge:78 Y S ex:Female Date:09/07/2024 Address:[address] [place] [address], [address], [place], [id number] Pcp:Francisco Javier Jimenez MD Subjective: * Chief Complaints: * * Medical History: Objective: * Vitals: Assessment: Plan: * Treatment: * Images: * The named appointment provid er may or may not be the originator of this progress note, and it is not deemed complete until electronically signed by the appointment provider. Sign off status: Pending * Provider: Tj Cooper DPM Date: 0 09/07/2024 Generated for Tre dahl/Ronni/Bolaitting on: 06/23/2024 03:13 PM EST
--- NOTE | 2025-04-22 11:48 | A.OFFPC_ITS ---
Vital Signs 04/22/25 11:49 Height 5 ft 2 in BMI Reason not done Patient refused/unable BP 122/64 Blood Pressure Location Rt brachial Position Sitting Respiration 18 Pulse 82 Pulse Source Pulse Oximeter Temp Source Temporal Artery Scan Pulse Oximetry (%) 94 Oxygen Delivery Method Room Air Intake Visit Reasons: Medication review Leadership Intern Required: No Accompanied by: Self / Same As Patient Allergies codeine Adverse Reaction (Mild, Verified 04/22/25 12:27) Abdominal Pain Medication List - Last Reconciled 04/22/25 by Francisco Javier Jimenez MD acetaminophen (Pain Relief Extra Strength (acetaminophen)) 500 mg PO Q6H PRN 30 days atorvastatin 10 mg PO BEDTIME 30 days [BEDSIDE COMMODE As directed] cholecalciferol (vitamin D3) 25 mcg PO DAILY 90 days [Commode bags As directed] cyanocobalamin (vitamin B-12) 1,000 mcg PO DAILY diaper,brief,adult,disposable (Prevail Underwear) As directed (Size Large) [Disposable González As directed] [Disposable Wipes As directed] duloxetine 60 mg PO DAILY folic acid 0.4 mg PO DAILY gabapentin 300 mg PO TID 30 days ibuprofen 600 mg PO Q8H PRN latex gloves (Latex Gloves, Medium) As directed lidocaine 5% 1 patch topical DAILY linaclotide (Linzess) 145 mcg PO DAILY memantine (Namenda) 10 mg PO BID methylcellulose (laxative) (Citrucel) 1,000 mg (2 x 500 mg) PO DAILY nicotine 1 patch transdermal DAILY 28 days pantoprazole 40 mg PO DAILY quetiapine 50 mg PO QID 90 days sennosides (Natural Senna Laxative) 8.6 mg PO BEDTIME sertraline 100 mg PO DAILY 90 days tizanidine 4 mg PO Q8H PRN 30 days tramadol 50 mg PO BEDTIME PRN 15 days [TRANSPORT WHEELCHAIR As directed] trazodone 100 mg PO BEDTIME PRN 90 days Tobacco use date assessed: 04/22/25 Fall risk assessment: 1 Fall in past year Last assessed Fall Risk: 04/22/25 Dental Screening Dental Screen Date: 04/22/25 Did you have a dental visit in the last 12 months?: No Did you have a dental problem in the last 6 months where you did not have access to dental care?: No Was dental information given to patient?: No HPI Medication review HPI Details - The patient is a 79 year old female pr esenting for medication management and follow-up, accompanied by her caregiver/[employer]MENT [employer] - The patient has difficulty with sleep, going to bed around 9 PM but then sleeping late until 10 AM, and becomes angry when woken up. - Due to her sleep schedule and unwillin gness to wake up early, she has not had her labs done and cholesterol checked recently, which was high at the last measurement. - She is still experiencing increased pa in over her lower back and over her joints - states that her current meds help keep her pain manageable but she is mostly sedentary and does not really get up much from her chair/wheelchair, which ironically does not help her chronic pains - She was seen by neurology yesterday, w ho increased her duloxetine (Cymbalta) to 60 mg for pain and to help with her mood. - Her current nighttime medications incl ude tramadol and trazodone, which was started also by neurology to help with her sleep - Neurology also recommended moving her anxiety medication from nighttime to daytime to avoid oversedation and difficulty waking. - The caregiver expresses concern about the number of heavy medications at night and the potential for adverse effects. - The patient has a follow-up appointmen t with a GI in June and with her neurologist, Dr. Crisostomo, in October of 2025 - Patient denies any headaches or dizzin ess - Denies any chest pains, no increased S OB - No nausea/vomiting, still has chronic pain over her left lower abdomen and has been referred by GI to pain management for this - States that she has been moving her daniela wels better over the past couple of months with her current Rx [facility] Medical History Anxiety and depression History of alcohol abuse Overweight (BMI 25.0-29.9) Constipation Depression Anxiety Insomnia Vitamin D deficiency Alcoholic dementia Tubular adenoma Ulcerative colitis Smoker Memory impairment Lumbar degenerative disc disease Colitis Surgical History Hx of colonoscopy History of hernia surgery Previous back surgery Social History Housing: Apartment Do you presently have visiting nurse or other home services: No Alcohol intake: former Patient Tobacco Use Status: Former Tobacco user Cigarettes Per Day: 8 e-Cigarette/Vaping Use: Never Used Second Hand Smoke Exposure: Yes Advance Directives Date on File: 07/21/21 service: No Current occupational status: retired and disabled Current occupation: right hand dominant Cognitive needs: No Hearing needs: Yes Vision needs: Yes Female Reproductive History Menstrual Age of Menarche: 19 Questionnaire Thrive Questionnaire Date Thrive assessed: 04/22/25 I am a: Parent/Caregiver What is your living situation today?: I have a steady place to live Within the past 12 months, did the food you bought not last and you didn't have the money to get more?: Never true Within the past 12 months, did you worry whether your food would run out before you got money to buy more?: Never true Do you have trouble paying for medicines?: No Do you have trouble getting transportation to medical appointments?: No Do you have trouble paying your heating and electricity bill?: No Do you have trouble taking care of your child, family member or friend?: No Do you have trouble with day-to-day activities such as bathing, preparing meals, shopping, managing finances, etc.?: No Are you currently unemployed and looking for a job?: No Are you interested in more education?: No Please select the resources that you would like help with: None Currently or been in a relationship where the following occur: No concerns reported THRIVE Score: 0 ALIX-7 AMB Questionnaire ALIX-7 Date ALIX - 7 assessed: 12/22/24 Source: Developed by Drs. Vern Whiting, Paulina De Luna, Americo Main and colleagues, with an educational cordelia from [employer]. Review of Systems Const Denies chills, Reports difficulty sleeping, Reports fatigue, Denies fever(s) and Denies headache(s) ENT Reports dysphagia (occasionally, mostly when she tries to swallow too quickly), Denies dizziness, Denies otalgia, Denies headache(s), Denies neck pain, Denies odynophagia and Denies sore throat Card Denies chest pain, Denies irregular heart rhythm, Denies palpitations and Reports dyspnea on exertion (mild, per [employer]) Resp Denies chest congestion, Denies cough and Reports dyspnea on exertion (mild, per [employer]MENT [employer]) GI Reports as per HPI, Reports abdominal pain (chronic, over the left lower abdomen), Reports constipation, Reports dysphagia (occasionally, mostly when she tries to swallow too quickly), Denies heartburn, Reports loose stools (at times), Denies nausea, Denies odynophagia and Denies vomiting Denies difficulty voiding, Denies dysuria, Denies urinary incontinence and Denies urinary urgency Musc Reports back pain (over the lower back - on and off), Reports arthralgias (over the left big toe) and Denies neck pain Skin/Breast Denies rash Neuro Denies dizziness, Denies headache(s), Reports memory loss and Denies paresthesia s Psych Reports anxiety, Reports depression, Reports memory loss and Reports visual hallucinations (seeing people) Endo Reports fatigue and Denies palpitations Jeffry/Lymph Denies easy bruising Physical exam (Primary Care) Vital Signs: Last Vital Signs Pulse 82 04/22/25 11:49 Resp 18 04/22/25 11:49 BP 122/64 04/22/25 11:49 Pulse Ox 94 04/22/25 11:49 Oxygen Delivery Method Room Air 04/22/25 11:49 Tobacco/Smoking Status: Tobacco use Status Tobacco use date assessed 04/22/25 04/22/25 11:51 Patient Tobacco Use Status Former Tobacco user 04/22/25 11:51 e-Cigarette/Vaping Use Never Used 04/22/25 11:51 Thrive Assessment: Date of Thrive Assessment Date Thrive assessed 04/22/25 04/22/25 11:51 Currently or been in a relationship where the following occur: No concerns reported Const General: no acute distress and alert Limitations: wheelchair HENMT Ears: TM's normal bilaterally and EAC's normal Throat: Yes posterior oropharynx normal and Yes tonsils normal (no TP congestion) Neck Neck: Yes supple and No lymphadenopathy Thyroid: Thyroid normal Resp Auscultation: clear to auscultation bilaterally, no rales and no wheezes Cardio Rate: regular rate Rhythm: regular rhythm Heart sounds: no murmurs GI Palpation (GI): Soft to palpation, Tenderness to palpation present (GI) (mild) in the LLQ, no guarding, not rigid and No Rebound tenderness present Auscultation: normal bowel sounds General: Yes no CVA tenderness Back/Spine/Pelvis Back: no CVA tenderness Thoracic/Lumbar Spine: lumbar spinal tenderness Skin Rashes: no rashes Extrem General: Yes no clubbing, cyanosis or edema Psych Thought content: Hallucination(s) present visual Coding Level of Care Code Est Pt Level 4 (21156) Diagnoses Mixed hyperlipidemia E78.2 Dysphagia, unspecified type R13.10 Dysphagia type: unspecified Odynophagia R13.10 GERD without esophagitis K21.9 Macrocytosis without anemia D75.89 Memory impairment R41.3 History of alcohol abuse F10.11 Degeneration of intervertebral disc of lumbar region with discogenic back pain M51.360 Disc-related pain type: discogenic back pain only Constipation, unspecified constipation type K59.00 Constipation type: unspecified constipation type Vitamin D deficiency E55.9 Insomnia, unspecified type G47.00 Insomnia type: unspecified Visual hallucinations R44.1 Anxiety and depression F41.9; F32.A Overweight (BMI 25.0-29.9) E66.3 Assessment & Plan Assessment & Plan (1) Mixed hyperlipidemia: Code(s): E78.2 - Mixed hyperlipidemia Category: Medical Plan: Patient was again not able to get her follow up labs done prior to her appointment today as she did not want to get up early to go to the lab, per 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 Have advised patient that her cholesterol levels were elevated and have increased significantly from her numbers last year when they were last checked at the end of January 2025, with her total cholesterol at 231 mg/dl and her LDL cholesterol at 152 mg/dl and that she really needs to get her labs done so we can determine if what she is on right now is working well enough to help lower her cholesterol levels - patient states that she will try to get up early one of these days to go and get her labs done Reinforced low cholesterol diet Continue Atorvastatin 10 mg Q HS for now Will have patient recheck her labs and fasting lipids again in 4 months for follow up (2) Dysphagia: Comment: more of a sensation of food getting stuck in her throat often Code(s): R13.10 - Dysphagia, unspecified Category: Medical Qualifiers: Dysphagia type: unspecified Qualified Code(s): R13.10 - Dysphagia, unspecified Plan: Patient had a modified barium swallow done on 11/19/2022 that came back normal Due to her symptoms, as well as her Hx of smoking and ETOH, she was previously referred to ENT for further evaluation and management but she has not been seen by ENT yet Because of the recent increase in her symptoms, we referred her again for a repeat modified barium swallow for further evaluation and she was scheduled to have this done back on 09/09/2024 but for unclear reasons, the test was cancelled - we tried to find out what happened to no avail and it is likely that the patient just never confirmed her schedule or just never showed for the test She has since reported 'no issues with her swallowing' so we held off on reordering the test Follow up with GI as scheduled (3) Odynophagia: Code(s): R13.10 - Dysphagia, unspecified Category: Medical Plan: Patient has been previously referred to ENT for further evaluation and managem ent and she is currently still waiting to be seen by ENT (4) GERD without esophagitis: Code(s): K21.9 - Gastro-esophageal reflux disease without esophagitis Category: Medical Plan: Dietary restrictions reinforced Continue Pantoprazole 40 mg QD (5) Macrocytosis without anemia: Code(s): D75.89 - Other specified diseases of blood and blood-forming organs Category: Medical Plan: Previous labs done at the ER a couple of years ago revealed macrocytosis without anemia but her subsequent CBCs show (+) anemia since She was still anemic on her labs done back in January 2025, with H/H at 10.3/33.3% Serum B12, Folate and TSH were normal when previously checked; but her iron indices were low and she was started on iron supplements (Ferrous sulfate) 325 mg QD Will recheck her CBC TELMA for follow up (6) Memory impairment: Code(s): R41.3 - Other amnesia Category: Medical Plan: She was seen by neurology back in 2021 and 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 along with other disorders, which include post herpetic neuralgia, peripheral neuropathy, multifactorial gait disorder, restless legs syndrome, insomnia, anxiety and depression Patient states that she has quit drinking completely years ago She has not seen neurology again for follow-up since her visit with them in late December 2021 until she was referred back a few months ago and she was just seen by neurology last week and started on Namenda 10 mg BID Continue Vitamin B12 1000 mcg QD and Folic Acid 400 mcg QD (7) History of alcohol abuse: Code(s): F10.11 - Alcohol abuse, in remission Category: Medical Plan: Patient states that she stopped drinking completely years ago Continue Folic Acid 1 mg QD (8) Lumbar degenerative disc disease: Comment: (+) Hx of spinal fusion and bone grafting done many years ago in [place] Code(s): M51.36 - Other intervertebral disc degeneration, lumbar region Category: Medical Qualifiers: Disc-related pain type: discogenic back pain only Qualified Code(s): M51.360 - Other intervertebral disc degeneration, lumbar region with discogenic back pain only Plan: Reinforced activity and weight-lifting restrictions Continue Gabapentin 300 mg TID, Tramadol 50 mg Q HS, Lidocaine 5% patch QD PRN and Duloxetine 60 mg QD She was also on Cyclobenzaprine but this was denied by insurance and we started her on Tizanidine 4 mg TID PRN instead Follow up with pain management as scheduled (9) Constipation: Code(s): K59.00 - Constipation, unspecified Category: Medical Qualifiers: Constipation type: unspecified constipation type Qualified Code(s): K59.00 - Constipation, unspecified Plan: She has been advised that her recent recurrent left lower abdominal pain is likely due to her increasing constipation She is again encouraged on increased oral fluids and dietary fiber She was on Senna 8.6 mg Q HS, Citrucel 1000 mg QD and Linzess 145 mcg QD Follow up with GI as scheduled (10) Vitamin D deficiency: Code(s): E55.9 - Vitamin D deficiency, unspecified Category: Medical Plan: Continue Vitamin D3 1000 units QD (11) Insomnia: Code(s): G47.00 - Insomnia, unspecified Category: Medical Qualifiers: Insomnia type: unspecified Qualified Code(s): G47.00 - Insomnia, unspecified Plan: Sleep hygiene reinforced - had a long discussion with patient today about the detrimental effects of late night TV on sleeping habits and have advised her on the importance of a set bedtime routine as well as a set bedtime Have advised her that her anxiety also likely plays a role in her difficulty sleeping and having a bedtime routine will help alleviate a lot of these issues and that not sleeping well and not getting enough sleep can also adversely affect her memory and accelerate her cognitive decline Continue Trazodone 100 mg Q HS PRN and Quetiapine 50 mg, which she has been taking QID Have advised patient that she can also try taking some OTC Melatonin at bedtime to help with her sleep (12) Visual hallucinations: Code(s): R44.1 - Visual hallucinations Category: Medical Plan: Have advised patient and 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 that this is likely related to her dementia and that she should follow up with neurology TELMA and let her neurologist know about this Have advised her that she should stay on her current meds in the meantime, especially her Gabapentin, Sertraline, Quetiapine and Duloxetine - her Sertraline was increased in dose to 100 mg QD previously and she appears to be doing better since her dose was increased (13) Anxiety and depression: Code(s): F41.9 - Anxiety disorder, unspecified; F32.A - Depression, unspecified Category: Medical Plan: Continue Sertraline 100 mg QD, Quetiapine 50 mg QID and Duloxetine 60 mg QD (14) Overweight (BMI 25.0-29.9): Code(s): E66.3 - Overweight Category: Medical Plan: Reinforced diet; exercise and weight loss are unrealistic given patient's physical issues and multiple comorbidities Plan Follow up in 4 months Orders: Orders TSH reflex Free T4 4 Months E78.00 - Pure hypercholesterolemia, unspecified Vitamin B12 and Folate 4 Months E53.8 - Deficiency of other specified B group vitamins Complete Blood Count Auto Diff 4 Months D64.9 - Anemia, unspecified Comprehensive [place]. Panel Fast 4 Months E78.00 - Pure hypercholesterolemia, unspecified Lipid Panel 4 Months E78.00 - Pure hypercholesterolemia, unspecified UA CC w/rflx Micro + Cult 4 Months R30.0 - Dysuria Vitamin D 25-OH Total 4 Months E55.9 - Vitamin D deficiency, unspecified
[2025-04-22 11:49] VITALS: BP 122/64; PULSE 82; RESP 18; O2SAT 94
--- OUTSIDE RECORDS SUMMARY | 2025-04-22 15:13 | XMS_ITS | Patient Health Record ---
Author Organization [facility] Address [address] [place] [address] Care Team Providers Care Columnist Name Role Phone Tony PURCELL, Francisco Javier Primary Care Provider Unava ilJessica Rios Unavailable [phone] Reason For Referral No Information Encounters Encounter Location Date Provider Diagnosis [facility] [address] [place] [address] 06/17/2024 Jessica Cooper [facility] [address] [place] [address] 08/31/2024 Jessica Cooper Plan Of Treatment No Information Insurance Providers Payer Name Payer Address Payer Phone Subscriber Number Group Number Insured Name Patient Relationship to Insured Coverage Start Date Coverage End Date [facility] [employer] Claims [address] [place] [id number] Meli Burch Self - patient is the insured
== END 2025-04-22 12:36 | disposition home or self-care (01) ==
LOC: HO.HMCH 11:32
PROVIDERS: PCP Internal Medicine; Visit Provider Internal Medicine
DX: E78.2 Mixed hyperlipidemia (principal); R13.10 Dysphagia, unspecified; K21.9 Gastro-esophageal reflux disease without esophagitis; D75.89 Other specified diseases of blood and blood-forming organs; R41.3 Other amnesia; F10.11 Alcohol abuse, in remission; M51.360 Other intervertebral disc degeneration, lumbar region with discogenic back pain only; K59.00 Constipation, unspecified; E55.9 Vitamin D deficiency, unspecified; G47.00 Insomnia, unspecified; R44.1 Visual hallucinations; F41.9 Anxiety disorder, unspecified; F32.A Depression, unspecified; E66.3 Overweight

== ENCOUNTER → 2025-04-22 11:32 | Outpatient (BNVA) | payer OTHER, SELFPAY | PROVIDERS: PCP Internal Medicine; Visit Provider Internal Medicine | DX: E78.2 Mixed hyperlipidemia (principal); R13.10 Dysphagia, unspecified; F41.9 Anxiety disorder, unspecified; K21.9 Gastro-esophageal reflux disease without esophagitis; D75.89 Other specified diseases of blood and blood-forming organs; R41.3 Other amnesia; F10.11 Alcohol abuse, in remission; M51.360 Other intervertebral disc degeneration, lumbar region with discogenic back pain only; K59.00 Constipation, unspecified; E55.9 Vitamin D deficiency, unspecified; G47.00 Insomnia, unspecified; R41.1 Anterograde amnesia; F32.A Depression, unspecified; E66.3 Overweight | CPT/HCPCS: 99212 ==